=== PATIENT | female | born 1980 | race Caucasian/White ===

== ENCOUNTER 2023-11-29 17:57 | Inpatient (IN) | payer OTHER, SELFPAY ==
[2023-11-29] VITALS (8 sets, daily range): BP systolic 115–176; BP diastolic 90–120; PULSE 81–220; RESP 15–22; TEMP 36.9–37; O2SAT 97–99
--- NOTE | ~2023-11-29 | XR_ITS ---
EXAMINATION: XR CHEST CLINICAL INFORMATION: Rapid afib COMPARISON: Chest xray on 06/24/2020 TECHNIQUE: Frontal view of the chest was obtained. FINDINGS: The cardiac silhouette is normal. There is mild diffuse bronchial wall thickening. There are no areas of consolidation. There are no pleural effusions or pneumothoraces. The bones and soft tissues are unremarkable for the patient's age. XR/XR chest 1V IMPRESSION: Bronchial wall thickening may be infectious and/or inflammatory in etiology.
--- NOTE | 2023-11-29 17:59 | ECG_ITS ---
Test Reason : ARRHYTHMIA Blood Pressure : / mmHG Vent. Rate : 201 BPM Atrial Rate : 000 BPM P-R Int : 000 ms QRS Dur : 056 ms QT Int : 216 ms P-R-T Axes : 000 020 116 degrees QTc Int : 395 ms Atrial fibrillation with rapid ventricular response Low voltage QRS Nonspecific ST and T wave abnormality Abnormal ECG When compared with ECG of 24-JUN-2020 09:45, Atrial fibrillation has replaced Sinus rhythm Vent. rate has increased BY [address] now depressed in Anterior leads T wave inversion no longer evident in Inferior leads Nonspecific T wave abnormality now evident in Lateral leads Referred By: Soraya Alvarado Electronically Signed By:FAITH ASKEW MD
--- NOTE | 2023-11-29 18:37 | ECG_ITS ---
Test Reason : SVT Blood Pressure : / mmHG Vent. Rate : 157 BPM Atrial Rate : 000 BPM P-R Int : 000 ms QRS Dur : 062 ms QT Int : 266 ms P-R-T Axes : 000 026 057 degrees QTc Int : 430 ms Atrial fibrillation with rapid ventricular response with premature ventricular or aberrantly conducted complexes Low voltage QRS Abnormal ECG When compared with ECG of 29-NOV-2023 18:08, Nonspecific T wave abnormality no longer evident in Lateral leads Vent. rate has decreased Referred By: Stephanie Lane Electronically Signed By:FAITH ASKEW MD
--- NOTE | 2023-11-29 18:38 | ECG_ITS ---
Test Reason : SVT Blood Pressure : / mmHG Vent. Rate : 131 BPM Atrial Rate : 000 BPM P-R Int : 000 ms QRS Dur : 070 ms QT Int : 274 ms P-R-T Axes : 000 024 029 degrees QTc Int : 404 ms Atrial fibrillation with rapid ventricular response Low voltage QRS Abnormal ECG When compared with ECG of 29-NOV-2023 18:31, No significant change was found Referred By: Stephanie Lane Electronically Signed By:FAITH ASKEW MD
[2023-11-29 18:41] LABS: MANUAL DIFF FLAG NO
[2023-11-29] MEDS: Metoprolol Tartrate 12.5 MG HALFTAB PO (18:43)
[2023-11-29] MEDS: Metoprolol Tartrate 5 MG/5 ML VIAL 10 MG IVPUSH (18:44)
[2023-11-29] MEDS: Adenosine 6 MG/2 ML VIAL IVPUSH (18:44)
[2023-11-29 18:45] LABS: Basophils Absolute Auto 0.1 X10*3/uL (0.0-0.2); Basophils Percent Auto 0.7 % (0-2); Eosinophils Absolute Auto 0.2 X10*3/uL (0.0-0.4); Eosinophils Percent Auto 1.9 % (0-4); Hematocrit 46.9 % (37.0-47.0); Hemoglobin 16.4 g/dl (12.0-16.0); Imm Gran Abs Auto 0.03 X10*3/uL (0.00-0.03); Imm Gran Pct Auto 0.3 % (0.0-0.4); Lymphocytes Percent Auto 33.4 % (20-40); Mean Corpuscular Hemoglobin 30.4 pg (27.0-33.0); Mean Platelet Volume 9.8 fL (9.4-12.3); Monocytes Absolute Auto 0.9 X10*3/uL (0.1-1.2); Monocytes Percent Auto 7.9 % (2-11); Neutrophils Absolute Auto 6.6 x10*3/uL (2.0-8.3); Neutrophils Percent Auto 55.8 % (45-73); Platelet Count 248 X10*3/uL (160-400); Red Blood Count 5.39 X10*6/uL (4.20-5.50); Red Cell Distribution Width 12.7 % (11.0-16.0); White Blood Count 11.9 X10*3/uL (4.8-10.8)
[2023-11-29] MEDS: Adenosine 6 MG/2 ML VIAL 12 MG IVPUSH ×2 (18:45→18:46)
[2023-11-29] MEDS: Metoprolol Tartrate 5 MG/5 ML VIAL IVPUSH (18:45)
[2023-11-29 18:56] LABS: INTERNATIONAL NORM RATIO 0.9 (0.9-1.1); Prothrombin Time 11.4 SEC (11.1-13.3)
--- NOTE | 2023-11-29 19:11 | ED_ITS ---
HPI - Arrhythmia/Palpitations General Chief Complaint: Arrhythmia/Palpitations Stated Complaint: arrhythmia, chest pain, dizziness Time Seen by Provider: 11/29/23 18:10 Source: patient Mode of arrival: ambulatory History of Present Illness HPI narrative: 43-year-old female comes in stating that she has been feeling off since Saturday, has a significant history of Graves disease recently had lab work which demonstrated a TSH within normal limits. She states that while at work today she began to feel a fluttering in her chest which she attributes to when her heart rate starts to go up. She reports that she did feel somewhat lightheaded but now is feeling fine and denies any shortness of breath and denies any recent illnesses with fever, chills, nausea, vomiting. Related Data Allergies Allergy/AdvReac Type Severity Reaction Status Date / Time ibuprofen [IBUPROFEN] Allergy Unknown RASH Verified 11/29/23 18:41 morphine [MORPHINE] Allergy Unknown UNKNOWN Verified 11/29/23 18:41 moxifloxacin [MOXIFLOXACIN] Allergy Unknown UNKNOWN Verified 11/29/23 18:41 naproxen [Aleve] Allergy Unknown Rash Verified 11/29/23 18:41 penicillin V Allergy Unknown Rash Verified 11/29/23 18:41 Penicillins [PENICILLINS] Allergy Unknown RASH Verified 11/29/23 18:41 Sulfa (Sulfonamide Allergy Unknown RASH Verified 11/29/23 18:41 Antibiotics) [SULFA(SULFONAMIDE ANTIBIOTICS)] From ALEVE Allergy Unknown UNKNOWN Uncoded 11/29/23 18:41 From BENADRYL Allergy Unknown RASH Uncoded 11/29/23 18:41 Review of Systems 2 Review of Systems: Pertinent positives and negatives as stated in HPI PMFSH Past Medical History Source: nursing notes reviewed Onset Date is defined in the Problem List Problems that require an onset date and time if occurred within 24 hrs of arrival to the ED Aortic Dissection and Rupture; Neurologic impairment; Cardiopulmonary Arrest; Endotracheal Intubation; Insertion or Replacement of Mechanical Circulatory Assist Device Social History Social History Smoked in Last 30 Days: No Use of substances other than those prescribed or required for medical reasons: Yes Substance Use Type: Marijuana Substance Use Frequency: Chronic Longstanding Advance Directives: No Advance Directives Information Provided: No Patient : No Physical Exam 2 Vital Signs: Vital Signs: Last Vital Signs Temp 98.6 F 11/29/23 20:06 Pulse 122 H 11/29/23 20:46 Resp 20 11/29/23 20:46 BP 117/98 H 11/29/23 20:46 Pulse Ox 98 11/29/23 20:46 O2 Del Method Nasal Cannula 11/29/23 20:46 O2 Flow Rate 2 11/29/23 20:46 BMI result Body Mass Index 0.0 VITAL SIGNS: Reviewed. GENERAL: Well developed, well nourished, in no acute distress. HEAD: Normocephalic/atraumatic, hair thinning noted EYES: PERRLA, EOMI, exophthalmos EARS: Ext canals without abnormality NOSE: Nares patent bilateral OROPHARYNX: no oral lesions noted, posterior pharynx clear NECK: Supple, no adenopathy LUNGS: Normal breath sounds. No adventitious sounds or accessory muscle use. SpO2<97> CARDIOVASCULAR: Regular rate and rhythm without noted murmurs ABDOMEN: Soft, non-tender, non-distended with bowel sounds. MUSCULOSKELETAL: No tenderness, deformities, or effusions noted on gross inspection. EXTREMITIES: No cyanosis, clubbing or edema. SKIN: Inspection of the skin reveals no rashes NEUROLOGIC: Alert and oriented x 4. Strength and sensation to light touch were grossly intact x 4. Medications Administered Generic Name Dose Route Start Last Admin Trade Name Freq PRN Reason Stop Dose Admin Diltiazem HCl 125 mg/ Sodium 125 mls @ 0 mls/hr 11/29/23 19:45 11/29/23 20:32 Chloride IVCONT 15 mg/hr .Q0M CHIOMA 15 mls/hr Titration Protocol Per Protocol Discontinued Medications Generic Name Dose Route Start Last Admin Trade Name Freq PRN Reason Stop Dose Admin Adenosine 6 mg 11/29/23 18:35 11/29/23 18:44 Adenosine 6 Mg/2 Ml Vial IVPUSH 11/29/23 18:36 6 mg STAT STA Administration Adenosine 12 mg 11/29/23 18:36 11/29/23 18:45 Adenosine 6 Mg/2 Ml Vial IVPUSH 11/29/23 18:37 12 mg ONCE ONE Administration Adenosine 12 mg 11/29/23 18:36 11/29/23 18:46 Adenosine 6 Mg/2 Ml Vial IVPUSH 11/29/23 18:37 12 mg ONCE ONE Administration Apixaban 5 mg 11/29/23 20:26 11/29/23 20:31 Apixaban 5 Mg Tablet PO 11/29/23 20:27 5 mg ONCE ONE Administration Metoprolol Tartrate 12.5 mg 11/29/23 18:36 11/29/23 18:43 Metoprolol Tartrate 12.5 Mg Halftab PO 11/29/23 18:37 12.5 mg ONCE ONE Administration Protocol Metoprolol Tartrate 10 mg 11/29/23 18:36 11/29/23 18:44 Metoprolol Tartrate 5 Mg/5 Ml Vial IVPUSH 11/29/23 18:37 10 mg ONCE ONE Administration Metoprolol Tartrate 5 mg 11/29/23 18:37 11/29/23 18:45 Metoprolol Tartrate 5 Mg/5 Ml Vial IVPUSH 11/29/23 18:38 5 mg ONCE ONE Administration Propranolol HCl 10 mg 11/29/23 20:20 11/29/23 20:31 Propranolol Hcl 10 Mg Tablet PO 11/29/23 20:21 10 mg ONCE ONE Administration Protocol Medical Decision Making Medical Decision Making MDM Narrative: 23-year-old female with history and clinical presentation that appears to be consistent with SVT, blood pressure stable and as a matter fact is quite elevated. Patient immediately placed on cardiac monitoring and connected to an EKG with immediate IV access. - 6 mg adenosine administered without significant affect, patient remains hemodynamically stable - 12 mg adenosine administered without significant affect, patient remains hemodynamically stable. - 12 mg adenosine administered without significant effect patient remains hemodynamically stable. Will try beta blockade with a medication that has longer half-life - 10 mg Lopressor administered with good affect, blood pressure remains stable. Heart rate still in the 120s to 130s, questionable sinus rhythm with PACs - 5 mg Lopressor administered in addition to 12.5 mg p.o. with good effect Repeat EKG looks like a-fib/RVR 1916: I discussed the case with Cardiology and communicated the unlikely harding of thyroid storm given the fact that patient does not currently have a thyroid and has been stable on exogenous Synthroid for a while. Recommendation at this time is to initiate Cardizem drip and treat with oral Inderal. 2026: Patient stable, on Cardizem drip, will start Eliquis, receiving Inderal 10mg. Reviewed all investigations and hematologic indices demonstrates a non infectious leukocytosis, patient is afebrile and there is a noted elevation of hemoglobin which appears to be chronic and no thrombocytopenia. Coagulation studies are within normal limits. Chemistry disease are grossly within normal limits without evidence of TOLU or electrolyte/liver enzyme derangements. TSH- 3.28, free T4-1.19, T3 is a send out and due to the holidays will take approximately 5-7 days to result. 2036: I discussed case with inpatient hospitalist who accepts admission. Differential Diagnosis Differential Diagnoses: The differential diagnosis associated with the presentation includes Please see the discussion above Admission/Observation Consideration of admission/observation: Escalation of care including admission/observation considered Please see the discussion above Consult Healthcare Provider Management of the patient was discussed with: Hospitalist and [employer] Mechanic Please see the discussion above Lab Data MDM Lab Attestation statement: I reviewed the patient's lab results. Please see the discussion above 11/29/23 18:34 11/29/23 18:34 Labs: Lab Results 11/29/23 11/29/23 11/29/23 Range/Units 18:34 18:36 20:33 WBC 11.9 H (4.8-10.8) X10*3/uL RBC 5.39 (4.20-5.50) X10*6/uL Hgb 16.4 H (12.0-16.0) g/dl Hct 46.9 (37.0-47.0) % MCV 87.0 (80.0-98.0) fL MCH 30.4 (27.0-33.0) pg MCHC 35.0 (31.0-35.0) g/dl RDW 12.7 (11.0-16.0) % Plt Count 248 (160-400) X10*3/uL MPV 9.8 (9.4-12.3) fL Immature Gran % (Auto) 0.3 (0.0-0.4) % Neut % (Auto) 55.8 (45-73) % Lymph % (Auto) 33.4 (20-40) % [place] % (Auto) 7.9 (2-11) % Eos % (Auto) 1.9 (0-4) % Baso % (Auto) 0.7 (0-2) % Lymph # (Auto) 4.0 (1.2-4.9) X10*3/uL [place] # (Auto) 0.9 (0.1-1.2) X10*3/uL Eos # (Auto) 0.2 (0.0-0.4) X10*3/uL Baso # (Auto) 0.1 (0.0-0.2) X10*3/uL Abs Immat Gran (auto) 0.03 (0.00-0.03) X10*3/uL Absolute Neuts (auto) 6.6 (2.0-8.3) x10*3/uL Absolute Nucleated RBC 0.000 (0.0-0.012) X10*3/uL Nucleated RBC % (auto) 0.0 (0.0-0.2) /100WBC Hold Purple Top SEE NOTE PT 11.4 (11.1-13.3) SEC INR 0.9 (0.9-1.1) Sodium 139 (135-145) mmol/L Potassium 3.4 (3.3-5.1) mmol/L Chloride 105 (96-108) mmol/L Carbon Dioxide 23 (22-29) mmol/L Anion Gap 14 (12-20) BUN 14 (9-16) mg/dL Creatinine 0.78 (0.5-1.4) mg/dL Estim Creat Clear Calc TNP Estimated GFR > 60 Random Glucose 113 (60-115) mg/dL Calcium 9.6 (8.4-10.2) mg/dL Total Bilirubin 0.5 (0.0-1.0) mg/dL AST 18 (5-31) U/L ALT 19 (0-31) U/L Alkaline Phosphatase 61 (39-117) U/L Total Protein 7.7 (6.5-8.0) g/dL Albumin 4.3 (3.5-5.0) g/dL TSH 3.28 (0.32-4.0) uIU/mL Free T4 1.19 (0.71-1.85) ng/dL Hold Red Top See Note Urine Color Yellow Urine Appearance Clear Urine pH 7.0 (5.0-9.0) Ur Specific [place] <= 1.005 (1.005-1.025) Urine Protein Negative (Neg-Trace) mg/dL Urine Glucose (UA) Negative (Negative) mg/dL Urine Ketones Negative (Negative) mg/dL Urine Blood Negative (Negative) Urine Nitrite Negative (Negative) Ur Leukocyte Esterase Small (1+) H (Negative) COVID-19 (CLYED) Negative (Negative) COVID-19 Clin Com See Note Influenza Type A (ABDELRAHMAN) Negative (Negative) Influenza Type B (ABDELRAHMAN) Negative (Negative) Influenza A & B Note See Note Independent Interpretation I performed an independent interpretation of an: EKG Interpretation: 1808: Suspect SVT, HR-201, possibility remains of atrial fibrillation with RVR, no STEMI, QRS/QTC is within normal limits. 183: SVT with what appears to be PACs, HR-157, possibility of atrial fibrillation with RVR, QRS/QTC is within normal limits, no noted STEMI. 1909: atrial fibrillation with RVR, HR-131, no STEMI, QRS/QTC is within normal limits. External Record Review External record reviewed: Outpatient record, Prior outpatient labs and Prior outpatient radiology Chronic Conditions Patient?s care impacted by: Brisa Benedict Critical Care Time Critical Care Time Critical Care Time: Yes Total Critical Care Time: 120 Attestation: I personally attest to this time spent taking care of the patient. Discharge Plan Discharge Clinical Impression: New onset atrial fibrillation, Atrial fibrillation with RVR Patient Disposition: Admitted As Inpatient
[2023-11-29 19:16] LABS: Alanine Aminotransferase 19 U/L (0-31); Albumin Level 4.3 g/dL (3.5-5.0); Alkaline Phosphatase 61 U/L (39-117); Anion Gap 14 (12-20); Aspartate Amino Transferase 18 U/L (5-31); Bilirubin Total 0.5 mg/dL (0.0-1.0); Blood Urea Nitrogen 14 mg/dL (9-16); Calcium 9.6 mg/dL (8.4-10.2); Carbon Dioxide 23 mmol/L (22-29); Chloride 105 mmol/L (96-108); Estimated Glomerular Filt Rate > 60; Glucose Random 113 mg/dL (60-115); Potassium 3.4 mmol/L (3.3-5.1); Sodium 139 mmol/L (135-145); Total Protein 7.7 g/dL (6.5-8.0)
[2023-11-29 19:27] LABS: COVID-19 Test Negative (Negative); IDNOW Serial# 08D9AD1C; IDNOW Serial# 152EDE1D; Influenza A Negative (Negative); Influenza B2 Negative (Negative)
[2023-11-29 19:31] LABS: Free T4 (Free Thyroxine) 1.19 ng/dL (0.71-1.85); Thyroid Stimulating Hormone 3.28 uIU/mL (0.32-4.0)
[2023-11-29] MEDS: dilTIAZem HCL 125 MG in 0.9 % Sodium Chloride 100 ML 10 MG IVCONT (19:57)
--- NOTE | 2023-11-29 20:07 | MHC.EDTECH ---
This tech took over care of patient at 1900, hourly rounds and vitals completed,HR high 133 and BP elevated 133/100, Angel RN and aware.
[2023-11-29] MEDS: Propranolol HCL 10 MG TABLET PO (20:31)
[2023-11-29] MEDS: Apixaban 5 MG TABLET PO (20:31)
--- NOTE | 2023-11-29 20:34 | MHC.EDTECH ---
Patient got up to commode with a steady gait, patient urinated 800MLS, Urine sample collected and sent to lab.
[2023-11-29 20:41] LABS: Appearance Urine Clear; Color Urine Yellow; Glucose Urine UA Negative (Negative); Leukocyte Esterase Urine Small (1+) (Negative); Nitrite Urine Negative (Negative); Specific Gravity - Urine <= 1.005 (1.005-1.025); UMIC TRIGGER UACC YES; Urine Blood Negative (Negative); Urine Ketones Negative (Negative); Urine Protein Negative (Neg-Trace)
[2023-11-29 20:48] LABS: Bacteria Urine 1+ (None Seen); Hyaline Casts Urine 0-2 /LPF (0-2); RBC Urine 0-2 /HPF (0-2); Squamous Epithelial Cell Urine 0-2 /HPF (0-2); UACC Culture Trigger YES; WBC Urine 0-5 /HPF (0-5)
--- NOTE | 2023-11-29 21:44 | PHA.MEDREC ---
Pharmacy Consult ? Medication Reconciliation Pharmacy has completed the medication reconciliation.Patient reported medication. Pt reported propanolol QD Wendy Shafer printing supplies sales representative
[2023-11-29] MEDS: LORazepam 1 MG TABLET PO (22:31)
--- NOTE | 2023-11-29 22:31 | MHC.EDTECH ---
Hourly rounds and vitals completed,belonging list completed and copy placed in chart. Patient was giving a turkey sandwich. Call garcia in reach
[2023-11-30] VITALS (8 sets, daily range): BP systolic 93–111; BP diastolic 61–77; PULSE 55–100; RESP 16–20; TEMP 36.4–37.6; O2SAT 96–98; BMI 34.4
--- NOTE | 2023-11-30 00:06 | PC.NURSE ---
Pt HR maintaining in 70-80 range, per MD Torin Smart, pausing drip.
--- NOTE | 2023-11-30 00:59 | MHC.EDTECH ---
Hourly rounds and vitals completed,Patient urinated a large amount in commode.
--- NOTE | 2023-11-30 02:08 | P.HPHOSP_ITS ---
History of Present Illness Date of Service: 11/29/23 Attending physician on admission: Earl Smart Chief Complaint: Tachycardia Ann Anderson is a 43 years old woman with past medical history significant for Graves disease s/p thyroidectomy (2008) on hormonal replacement and propranolol, hospitalization due to thyroid storm, GERD and anxiety presents to the emergency department after she noted to have significant tachycardia since last Saturday (highest 150 15:00). She detected a tachycardia using her Apple watch. She does complain of palpitations, shortness of breath with exertion, chest heaviness and dizziness. She also complained of feeling anxious. She has been taking lorazepam recently as needed for this anxiety. She denied any acute gastrointestinal symptom. She denied urination or hematuria. She denied tobacco smoking, alcohol abuse or illicit drug use. Smokes marijuana and occasions. In the ED, she was found to have tachycardia consistent with atrial fibrillation with RVR. Blood pressure is normal. Blood workup is remarkable for leukocytosis of 11.9. There are no electrolyte imbalances. Renal function is normal. LFTs are normal. TSH is 3.28 and free T4 1.19. Testing for influenza a COVID-19 are negative. ECG showed atrial fibrillation with rapid ventricular response (heart rate 131 bpm) w/o ischemic changes. ED tx: Adenosine 12, 12 and 6 IV, Eliquis 5 mg p.o., diltiazem IV infusion, metoprolol 12.5 mg, 5 mg, 10 mg IV and propranolol 10 mg. Review of Systems 2 Review of Systems: All 12 systems were reviewed and normal except as noted in HPI. [facility] Medical History (Updated 11/30/23 @ 02:34 by Earl Smart MD) Anxiety GERD (gastroesophageal reflux disease) Graves disease Surgical History (Updated 11/30/23 @ 02:14 by Earl Smart MD) H/O eye surgery History of ankle surgery S/P appy S/P thyroidectomy Social History Household Members: Spouse Housing: House Do you presently have visiting nurse or other home services: No Patient Tobacco Use Status: Never used Tobacco Smoked in Last 30 Days: No Use of substances other than those prescribed or required for medical reasons: Yes Substance Use Type: Marijuana Substance Use Frequency: Monthly Currently Displaying Signs/Symptoms of Drug Intoxication Withdrawal: No Any prior treatment program specific to substance use: No Have you been hit, kicked, punched, or otherwise hurt by someone within the past year? If so, by whom?: No Do you feel safe in your current relationship?: Yes Is there a partner from a previous relationship who is making you feel unsafe now?: No Are you made to feel afraid or neglected: No Advance Directives: No Advance Directives Information Provided: No Do you have thoughts of harming others: None Do you have a plan to hurt others: No Plan Recently lost weight without trying: No Nutrition Risks: No Nutritional Risk Patient : No Meds Allergies Allergy/AdvReac Type Severity Reaction Status Date / Time ibuprofen [IBUPROFEN] Allergy Unknown RASH Verified 11/29/23 18:41 morphine [MORPHINE] Allergy Unknown UNKNOWN Verified 11/29/23 18:41 moxifloxacin [MOXIFLOXACIN] Allergy Unknown UNKNOWN Verified 11/29/23 18:41 naproxen [Aleve] Allergy Unknown Rash Verified 11/29/23 18:41 penicillin V Allergy Unknown Rash Verified 11/29/23 18:41 Penicillins [PENICILLINS] Allergy Unknown RASH Verified 11/29/23 18:41 Sulfa (Sulfonamide Allergy Unknown RASH Verified 11/29/23 18:41 Antibiotics) [SULFA(SULFONAMIDE ANTIBIOTICS)] From ALEVE Allergy Unknown UNKNOWN Uncoded 11/29/23 18:41 From BENADRYL Allergy Unknown RASH Uncoded 11/29/23 18:41 Active Medications: Current Medications Acetaminophen (Acetaminophen 325 Mg Tablet) 975 mg PO Q6H PRN PRN Reason: Pain, Mild (Pain Scale 1-3) Apixaban (Apixaban 5 Mg Tablet) 5 mg PO BID [facility] Diltiazem HCl 125 mg/ Sodium (Chloride) 125 mls @ 0 mls/hr IVCONT .Q0M [facility]; Protocol Last Titration: 11/30/23 00:06 Dose: 0 mg/hr, 0 mls/hr Levothyroxine Sodium (Levothyroxine Sodium 175 Mcg Tablet) 175 mcg PO DAILY@0600 [facility] Omeprazole (Omeprazole 20 Mg Capsule.Dr) 20 mg PO BID@0630,1630 [facility] Propranolol HCl (Propranolol Hcl 20 Mg Tablet) 20 mg PO TID [facility]; Protocol Sodium Chloride (0.9 % Sodium Chloride Flush 3 Ml Syringe) 3 ml IVFLUSH QSHIFT [facility] Last Admin: 11/30/23 00:12 Dose: Not Given Home Medications Medication Instructions Recorded Confirmed Last Taken Type levothyroxine 175 mcg tablet 175 mcg PO DAILY 11/29/23 11/29/23 11/29/23 History lorazepam 0.5 mg tablet 0.5 mg PO Q6H PRN anxiety 11/29/23 11/29/23 Unknown History omeprazole 20 mg capsule,delayed 20 mg PO BID 11/29/23 11/29/23 11/29/23 History release propranolol 20 mg tablet 20 mg PO DAILY 11/29/23 11/29/23 11/28/23 History Physical Exam 2 Vital Signs and Narrative: Vital Signs: Last Vital Signs Temp 98.4 F 11/30/23 00:54 Pulse 78 11/30/23 00:54 Resp 18 11/30/23 00:54 BP 99/71 11/30/23 00:54 Pulse Ox 98 11/30/23 00:54 O2 Del Method Room Air 11/30/23 00:54 O2 Flow Rate 2 11/29/23 21:01 BMI result Body Mass Index 34.4 Constitutional - Awake and Alert, No apparent distress. . HEENT - Normocephalic. Atraumatic. Cardiovascular - irregular rhythm. Tachycardia. No murmur. Respiratory - Normal lung expansion, Normal respiratory effort, No respiratory distress, CTA bilaterally Gastrointestinal - NT / ND; +BS; No rebound or guarding Extremities - No calf tenderness bilaterally, no swelling Musculoskeletal - Normal inspection, normal ROM Skin - Warm/Dry Neurological - Alert & oriented x3. Psychological - Appropriate affect. Results Labs 11/29/23 18:34 11/29/23 18:34 Labs: Laboratory Results - last 24 hr 11/29/23 11/29/23 11/29/23 18:34 18:36 20:33 MCV 87.0 MCH 30.4 MCHC 35.0 RDW 12.7 Plt Count 248 MPV 9.8 Immature Gran % (Auto) 0.3 Neut % (Auto) 55.8 Lymph % (Auto) 33.4 [place] % (Auto) 7.9 Eos % (Auto) 1.9 Baso % (Auto) 0.7 Lymph # (Auto) 4.0 [place] # (Auto) 0.9 Eos # (Auto) 0.2 Baso # (Auto) 0.1 Abs Immat Gran (auto) 0.03 Absolute Neuts (auto) 6.6 Absolute Nucleated RBC 0.000 Nucleated RBC % (auto) 0.0 Hold Purple Top SEE NOTE PT 11.4 INR 0.9 Anion Gap 14 Estim Creat Clear Calc TNP Estimated GFR > 60 Random Glucose 113 Calcium 9.6 Total Bilirubin 0.5 AST 18 ALT 19 Alkaline Phosphatase 61 Total Protein 7.7 Albumin 4.3 TSH 3.28 Free T4 1.19 Hold Red Top See Note Urine Color Yellow Urine Appearance Clear Urine pH 7.0 Ur Specific [place] <= 1.005 Urine Protein Negative Urine Glucose (UA) Negative Urine Ketones Negative Urine Blood Negative Urine Nitrite Negative Ur Leukocyte Esterase Small (1+) H Urine RBC 0-2 Urine WBC 0-5 Ur Squamous Epith Cells 0-2 Urine Bacteria 1+ Hyaline Casts 0-2 COVID-19 (CLYDE) Negative COVID-19 Clin Com See Note Influenza Type A (ABDELRAHMAN) Negative Influenza Type B (ABDELRAHMAN) Negative Influenza A & B Note See Note Assessment and Plan (1) Atrial fibrillation with RVR: Status: Acute (2) Graves disease: Status: Acute Plan Ann Anderson is a 43 years old woman admitted with: * Atrial fibrillation with rapid ventricular response. Thyroid function is normal. Admit to hospitalist service. Telemetry. In the interim of this hospitalization we were able to discontinue diltiazem infusion. Change propranolol to 20 mg p.o. t.i.d. start Eliquis 5 mg p.o. b.i.d. Will obtain echocardiogram and CXR. Cardiology consult for further recommendations. * Graves disease s/p thyroidectomy. Continue levothyroxine and propranolol. * Anxiety. Lorazepam as needed. * GERD. Continue omeprazole. * DVT prophylaxis: Eliquis. Code status: Full. Patient will need hospitalization for at least 2 midnight for atrial fibrillation treatment. She will need rate control agents, imaging including echo and x-ray as well as specialty consult. Quality Stroke Does the patient have a stroke diagnosis?: No VTE Prior VTE?: No VTE Risk Level:: Medical - moderate - high VTE Device Contraindication: Treatment Not Indicated VTE Drug Contraindication: N/A - Med Ordered
[2023-11-30] MEDS: Propranolol HCL 20 MG TABLET PO ×4 (02:13→21:11)
[2023-11-30] MEDS: Omeprazole 20 MG CAPSULE.DR PO ×2 (05:45→16:48)
[2023-11-30] MEDS: Levothyroxine Sodium 175 MCG TABLET PO (05:45)
--- NOTE | 2023-11-30 06:00 | CA_ITS ---
Transthoracic Echocardiogram Patient (Last, First, Middle): Ann Anderson E Gender: Female Date of : 1980 Age: 43 Procedure Date: 11/30/2023 Procedure Type: Transthoracic Echocardiogram Location: [facility] [place] Height: 180.34 cm Weight: 111.59 kg BSA: 2.30 m2 Heart Rate: bpm BP: 108 / 74 mmHg Proposal Development Manager: SNOW Referring MD: Earl Smart MD Clubhouse Attendant: Daniel Bland MD Symptoms: Atrial fib with RVR Study Quality: Adequate with contrast ECG Rhythm: Atrial Fibrillation Conclusions: - Essentially normal study Findings Procedure Information Contrast agent, definity, is being given per protocol without apparent complications. Left Ventricle Normal left ventricular size, thickness, and systolic function. Diastolic function is indeterminate on the basis of available data. Right Ventricle Normal right ventricular cavity size and systolic function. Atria The left atrium is likely dilated. There is no evidence of interatrial shunt. The right atrium is likely dilated. Aortic Valve Normal aortic valve structure and function. There is no aortic valve stenosis. There is no aortic valve regurgitation. Mitral Valve Normal mitral valve structure and function. There is no mitral valve regurgitation. There is no mitral valve stenosis. Pulmonic Valve The pulmonic valve is likely normal. Tricuspid Valve Normal tricuspid valve structure. There is trace tricuspid valve regurgitation. The right ventricular systolic pressure is normal. The right ventricular systolic pressure is 15 mmHg. Normal right atrial pressure. There is no evidence of pulmonary hypertension. Great Vessels All visible segments of the aorta are normal in size. The pulmonary artery was not well visualized. Venous The inferior vena cava is normal in size and collapses greater than 50% with inspiration. Pericardium/Pleural There is no evidence of pericardial effusion. Prior Study Comparison No prior study available for comparison. Measurements 2D Linear Measurements IVSd: 1.02 0.6-0.9/0.6-1.0 cm LVIDd: 4.95 3.9-5.3/4.2-5.9 cm LVIDd Index: 2.15 2.4-3.2/2.2-3.1 cm/m2 LVIDs: 3.15 2.0-3.6 cm LVPWd: 0.95 0.7-1.1 cm LA Diam: 4.60 2.7-3.8/3.0-4.0 cm LAIDs Index: 2.00 1.5-2.3 cm/m2 LV Mass: 218.94 67-162/88-224 g LV Mass Index: 95.19 43-95/49-115 g/m2 LVOT Diam: 2.30 3.0+(-)1.3 cm 2D Systolic Function EF 4C: 65.30 >55% EF 2C: 56.40 >55% EF BiP: 59.60 >55% Mitral Valve MV Pk E: 1.09 MV Decel Time: 177.00 E'Lateral: 12.60 E'Medial: 9.25 E/E' Med: 11.80 E/E' Lat: 8.70 PHT: 52.00 MVA PHT: 4.23 Decel [place]: 6.58 Aortic Valve AoV Pk Alfredo: 1.00 AoV Pk Grad: 4.00 YASMIN: 3.87 LVOT LVOT Pk Alfredo: 0.93 LVOT Pk Grad: 3.00 LVOT Diam: 2.30 LVOT Area: 4.15 Diastolic Function MV Pk E: 1.09 E'Medial: 9.25 E/E' Med: 11.80 E' Laterial: 12.60 E/E' Lat: 8.70 Right Ventricle TAPSE (mm): 20.90 TVS' Alfredo: 8.81 Tricuspid Valve TR Pk Alfredo: 1.35 TR Pk Grad: 7.00 RA Press: 8.00 RVSP: 15.00 Great Vessels Aorta Sinus of Valsalva: 4.10 2.0-3.[address] [place]: 2.75 1.7-3.4 cm Ao Asc: 3.60 2.1-3.4 cm Ao Arch: 3.20 Updated in Other Vendor System with Status of Final Daniel Bland MD electronically signed on 12/01/2023 10:12:05 AM with status of Final
[2023-11-30 06:45] LABS: Alanine Aminotransferase 16 U/L (0-31); Albumin Level 3.7 g/dL (3.5-5.0); Alkaline Phosphatase 55 U/L (39-117); Anion Gap 9 (12-20); Aspartate Amino Transferase 13 U/L (5-31); Bilirubin Total 0.5 mg/dL (0.0-1.0); Blood Urea Nitrogen 11 mg/dL (9-16); Calcium 8.8 mg/dL (8.4-10.2); Carbon Dioxide 23 mmol/L (22-29); Chloride 111 mmol/L (96-108); Creatinine Clr Calc Pharmacy 139.6; Estimated Glomerular Filt Rate > 60; Glucose Random 83 mg/dL (60-115); Potassium 3.8 mmol/L (3.3-5.1); Sodium 139 mmol/L (135-145); Total Protein 6.5 g/dL (6.5-8.0)
[2023-11-30 08:52] LABS: Magnesium 2.1 mg/dL (1.6-2.6)
[2023-11-30] MEDS: Apixaban 5 MG TABLET PO ×2 (08:53→21:11)
[2023-11-30] MEDS: dilTIAZem HCL 125 MG in 0.9 % Sodium Chloride 100 ML 10 MG IVCONT (08:54)
[2023-11-30] MEDS: 0.9 % Sodium Chloride Flush 3 ML SYRINGE IVFLUSH ×2 (08:54→16:49)
--- NOTE | 2023-11-30 09:50 | PM.CNCAR ---
History of Present Illness History of Present Illness Date of Service: 11/30/23 Requesting physician: Derek Polanco Consult reason: atrial fibrillation Chief complaint: atrial fibrillation with RVR Narrative: I was consulted to see Chrissy in cardiology consultation today for atrial fibrillation rapid ventricular response. 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 Patient since then has been on thyroid replacement therapy. In 2008 when she had her thyroid storm she had atrial fibrillation rapid heart rate which require treatment at that point time. Subsequently intermittently she has had palpitations the last year which was related to thyroid replacement therapy. Her thyroid replacement therapy was then adjusted and a palpitation at resolved. However no repeat diagnose of atrial fibrillation was made since 2008. She since last Saturday after started noticing palpitations. She felt that this might be related to a thyroid and call the primary care physician ordered a thyroid test and her TSH was within normal limits. She continues to have symptoms which showed waxing and waning and they were not severe Saturday. High by as symptoms remain persistent and she had significant palpitations and then came to the hospital yesterday. She was noted to be in rapid heart rate up to 250 beats per minute and was noted to be in subsequently in atrial fibrillation. She was started on IV Cardizem drip and Inderal. Her T4-3 3 were within normal limits. She remains symptomatic although symptoms have improved overnight. Her Cardizem drip was withheld last night when heart rate was controlled. This morning heart rate is up to 140 beats per minute again. She denies any palpitation at this point time. Denies any heart failure symptoms. Denies any chest pain. No lightheadedness, syncope. Blood pressure is significantly elevated yesterday as well. Her blood pressure is better controlled at this point in time. She does attest to significant snoring at nighttime and daytime somnolence. She has never been officially diagnosed with sleep apnea as she says home sleep study was inconclusive. She also says she has a dad with atrial fibrillation since age of 22 Review of Systems Constitutional: Constitutional: Reports no additional constitutional complaints Cardiovascular: Cardiovascular: Denies chest pain, Denies syncope, Denies leg edema, Denies lightheadedness, Denies Loss of Consciousness, Reports palpitations and Denies dyspnea Respiratory: Respiratory: Reports no additional respiratory complaints and Denies dyspnea Gastrointestinal: Gastrointestinal: Reports no additional gastrointestinal complaints Genitourinary: Genitourinary: Reports no additional female genitourinary complaints Neurologic: Reports system reviewed and no additional complaints, except as documented and Denies syncope Endocrine: Endocrine: Reports no additional endocrine complaints and Reports palpitations PMFSH Past Medical History Medical History Anxiety GERD (gastroesophageal reflux disease) Graves disease Surgical History Surgical History H/O eye surgery History of ankle surgery S/P appy S/P thyroidectomy Social History Social History Household Members: Spouse Housing: House Do you presently have visiting nurse or other home services: No Patient Tobacco Use Status: Never used Tobacco Smoked in Last 30 Days: No Use of substances other than those prescribed or required for medical reasons: Yes Substance Use Type: Marijuana Substance Use Frequency: Monthly Currently Displaying Signs/Symptoms of Drug Intoxication Withdrawal: No Any prior treatment program specific to substance use: No Have you been hit, kicked, punched, or otherwise hurt by someone within the past year? If so, by whom?: No Do you feel safe in your current relationship?: Yes Is there a partner from a previous relationship who is making you feel unsafe now?: No Are you made to feel afraid or neglected: No Advance Directives: No Advance Directives Information Provided: No Do you have thoughts of harming others: None Do you have a plan to hurt others: No Plan Recently lost weight without trying: No Nutrition Risks: No Nutritional Risk Patient : No Meds Allergies Allergy/AdvReac Type Severity Reaction Status Date / Time ibuprofen [IBUPROFEN] Allergy Unknown RASH Verified 11/29/23 18:41 morphine [MORPHINE] Allergy Unknown UNKNOWN Verified 11/29/23 18:41 moxifloxacin [MOXIFLOXACIN] Allergy Unknown UNKNOWN Verified 11/29/23 18:41 naproxen [Aleve] Allergy Unknown Rash Verified 11/29/23 18:41 penicillin V Allergy Unknown Rash Verified 11/29/23 18:41 Penicillins [PENICILLINS] Allergy Unknown RASH Verified 11/29/23 18:41 Sulfa (Sulfonamide Allergy Unknown RASH Verified 11/29/23 18:41 Antibiotics) [SULFA(SULFONAMIDE ANTIBIOTICS)] From ALEVE Allergy Unknown UNKNOWN Uncoded 11/29/23 18:41 From BENADRYL Allergy Unknown RASH Uncoded 11/29/23 18:41 Active Medications: Current Medications Acetaminophen (Acetaminophen 325 Mg Tablet) 975 mg PO Q6H PRN PRN Reason: Pain, Mild (Pain Scale 1-3) Apixaban (Apixaban 5 Mg Tablet) 5 mg PO BID [facility] Last Admin: 11/30/23 08:53 Dose: 5 mg Diltiazem HCl 125 mg/ Sodium (Chloride) 125 mls @ 0 mls/hr IVCONT .Q0M [facility]; Protocol Last Admin: 11/30/23 08:54 Dose: 10 mg/hr, 10 mls/hr Levothyroxine Sodium (Levothyroxine Sodium 175 Mcg Tablet) 175 mcg PO DAILY@0600 [facility] Last Admin: 11/30/23 05:45 Dose: 175 mcg Omeprazole (Omeprazole 20 Mg Capsule.Dr) 20 mg PO BID@0630,1630 [facility] Last Admin: 11/30/23 05:45 Dose: 20 mg Propranolol HCl (Propranolol Hcl 20 Mg Tablet) 20 mg PO TID [facility]; Protocol Last Admin: 11/30/23 08:53 Dose: 20 mg Sodium Chloride (0.9 % Sodium Chloride Flush 3 Ml Syringe) [facility] Last Admin: 11/30/23 08:54 Dose: 3 ml Home Medications Medication Instructions Recorded Confirmed Last Taken Type levothyroxine 175 mcg tablet 175 mcg PO DAILY 11/29/23 11/29/23 11/29/23 History lorazepam 0.5 mg tablet 0.5 mg PO Q6H PRN anxiety 11/29/23 11/29/23 Unknown History omeprazole 20 mg capsule,delayed 20 mg PO BID 11/29/23 11/29/23 11/29/23 History release propranolol 20 mg tablet 20 mg PO DAILY 11/29/23 11/29/23 11/28/23 History Physical Exam Vital Signs: Vital Signs: Last Vital Signs Temp 98.0 F 11/30/23 07:33 Pulse 81 11/30/23 07:33 Resp 18 11/30/23 07:33 BP 109/70 11/30/23 07:33 Pulse Ox 98 11/30/23 07:33 O2 Del Method Room Air 11/30/23 07:33 O2 Flow Rate 2 11/29/23 21:01 BMI result Body Mass Index 34.4 Const: General: cooperative, comfortable, no acute distress, alert and awake Nutritional Appearance: obese Orientation/consciousness: patient oriented x3 Limitations: no limitations HEENT: Head: Yes normocephalic and Yes atraumatic Eyes: Other: Bilateral exophthalmos noted Neck: Neck: Yes trachea midline, Yes supple and Yes no JVD Resp: Effort & Inspection: normal respiratory effort Auscultation: clear to auscultation bilaterally Cardio: Jugular venous distension: no JVD Rate: tachycardic Rhythm: abnormal rhythm irregularly irregular Heart sounds: S1 normal heart sound present, S2 normal heart sound present, no click, no gallops, no murmurs and no rubs Peripheral pulses: Peripheral pulses 2+ throughout GI: Auscultation: normal bowel sounds Skin: General skin exam: no rashes or lesions noted Neuro: General: patient oriented x3 and no focal motor deficits Extrem: General: Yes no clubbing, cyanosis or edema Psych: Appearance: grossly normal Objective Labs and Meds 11/29/23 18:34 11/30/23 05:53 Lab results: Laboratory Results - last 24 hr 11/29/23 11/29/23 11/29/23 18:34 18:36 20:33 WBC 11.9 H RBC 5.39 Hgb 16.4 H Hct 46.9 MCV 87.0 MCH 30.4 MCHC 35.0 RDW 12.7 Plt Count 248 MPV 9.8 Immature Gran % (Auto) 0.3 Neut % (Auto) 55.8 Lymph % (Auto) 33.4 [place] % (Auto) 7.9 Eos % (Auto) 1.9 Baso % (Auto) 0.7 Lymph # (Auto) 4.0 [place] # (Auto) 0.9 Eos # (Auto) 0.2 Baso # (Auto) 0.1 Abs Immat Gran (auto) 0.03 Absolute Neuts (auto) 6.6 Absolute Nucleated RBC 0.000 Nucleated RBC % (auto) 0.0 Hold Purple Top SEE NOTE PT 11.4 INR 0.9 Sodium 139 Potassium 3.4 Chloride 105 Carbon Dioxide 23 Anion Gap 14 BUN 14 Creatinine 0.78 Estim Creat Clear Calc TNP Estimated GFR > 60 Random Glucose 113 Calcium 9.6 Magnesium Total Bilirubin 0.5 AST 18 ALT 19 Alkaline Phosphatase 61 Total Protein 7.7 Albumin 4.3 TSH 3.28 Free T4 1.19 Hold Red Top See Note Urine Color Yellow Urine Appearance Clear Urine pH 7.0 Ur Specific [place] <= 1.005 Urine Protein Negative Urine Glucose (UA) Negative Urine Ketones Negative Urine Blood Negative Urine Nitrite Negative Ur Leukocyte Esterase Small (1+) H Urine RBC 0-2 Urine WBC 0-5 Ur Squamous Epith Cells 0-2 Urine Bacteria 1+ Hyaline Casts 0-2 COVID-19 (CLYDE) Negative COVID-19 Clin Com See Note Influenza Type A (ABDELRAHMAN) Negative Influenza Type B (ABDELRAHMAN) Negative Influenza A & B Note See Note 11/30/23 05:53 WBC RBC Hgb Hct MCV MCH MCHC RDW Plt Count MPV Immature Gran % (Auto) Neut % (Auto) Lymph % (Auto) [place] % (Auto) Eos % (Auto) Baso % (Auto) Lymph # (Auto) [place] # (Auto) Eos # (Auto) Baso # (Auto) Abs Immat Gran (auto) Absolute Neuts (auto) Absolute Nucleated RBC Nucleated RBC % (auto) Hold Purple Top SEE NOTE PT INR Sodium 139 Potassium 3.8 Chloride 111 H Carbon Dioxide 23 Anion Gap 9 L BUN 11 Creatinine 0.73 Estim Creat Clear Calc 139.6 Estimated GFR > 60 Random Glucose 83 Calcium 8.8 D Magnesium 2.1 Total Bilirubin 0.5 AST 13 ALT 16 Alkaline Phosphatase 55 Total Protein 6.5 Albumin 3.7 TSH Free T4 Hold Red Top Urine Color Urine Appearance Urine pH Ur Specific [place] Urine Protein Urine Glucose (UA) Urine Ketones Urine Blood Urine Nitrite Ur Leukocyte Esterase Urine RBC Urine WBC Ur Squamous Epith Cells Urine Bacteria Hyaline Casts COVID-19 (CLYDE) COVID-19 Clin Com Influenza Type A (ABDELRAHMAN) Influenza Type B (ABDELRAHMAN) Influenza A & B Note EKG shows atrial fibrillation rapid ventricular response Imaging Radiologist's impression: Impressions Chest X-Ray 11/30/23 08:01 IMPRESSION: Bronchial wall thickening may be infectious and/or inflammatory in etiology. Assessment and Plan (1) Atrial fibrillation with RVR: Status: Acute Atrial fibrillation rapid ventricular response, symptomatic. Rate is not controlled as she was taken of her rate control IV Cardizem overnight. Restart Cardizem drip for rate control and at the same time transition to p.o. Cardizem and good slowly taper Cardizem dose. Will also consider beta-caryn which is most effective in patients with thyroid related disease and was started on Inderal 40 mg b.i.d.. Also given that she has atrial fibrillation for at least about 7 days would avoid rhythm control without performing a BART to rule out intracardiac thrombi. Echocardiogram to be done. Agree with Eliquis 5 mg b.i.d. for now in the process of trying to pursue rhythm control approach which should be done in her case given her age. She require workup for sleep apnea as an outpatient urgently. Avoidance of stimulants was discussed. If rate remains difficult control may require BART guided cardioversion during inpatient admission. Eventually may benefit from ablation therapy and most likely appears that her atrial fibrillation could be familial in nature. Will follow with you Procedures Date of Service Date of Service: 11/30/23
--- NOTE | 2023-11-30 10:58 | MHC.CM.PN ---
Pt lives with family, she is independent with all ADL's, does not have home health services or use med equipment. HCP form completed and added to chart. DC plan is home, self care, family to transport home upon DC. CM to follow and assist as needed with DC plan.
--- NOTE | 2023-11-30 12:41 | PM.EVENT ---
Event Note Date of Service: 11/30/23 Event Note: Day hospitalist update S: HR 110s-140s, back on Cardizem gtt, has felt palpitations x 1 wk no recent med changes O: Temp Pulse Resp BP Pulse Ox O2 Del Method O2 Flow Rate 98.0 F 81 20 108/74 96 Room Air 2 11/30/23 11:13 11/30/23 11:13 11/30/23 11:13 11/30/23 11:13 11/30/23 11:13 11/30/23 11:13 11/29/23 21:01 Gen: in no acute distress HEENT: sclera anicteric, moist mucus membranes Neck: supple Lungs: clear to auscultation bilaterally Heart: rapid, irregular, no murmurs Abd: soft, non-tender, non-distended Ext: no edema Skin: warm/well-perfused Neuro: alert and oriented x3, no focal findings Psych: appropriate affect A/P: d1 43yo F with hx Graves disease s/p thyroidectomy and now on LT4, also on propranolol for migraine prevention presenting with new-onset AF/RVR AF/RVR - diltiazem drip -> PO transition [5 mg/hr drip -> 180 mg/d PO, for now give 45 mg qid then transition to 24-hr controlled-relese], continue propranolol, apixaban, TTE, Cardiology consulted - if converts on own to NSR, contact Cardiology re flecainide; otherwise outpt cardioversion after appropriate anticoagulation - outpt PSG migraines - continue propranolol iatrogenic hypothyroidism - LT4 VTE ppx - apixaban dispo - eventual home In my clinical judgment, the patient requires continued inpatient hospitalization for the following reasons: rate control Time Spent With Patient Time: Total time managing care of this patient today ____ minutes.
[2023-11-30] MEDS: dilTIAZem HCL 30 MG TABLET 45 MG PO ×3 (13:08→21:11)
[2023-11-30 17:51] LABS: Troponin-I High Sensitivity < 2.7 ng/L (<3.5-17.0)
--- NOTE | 2023-11-30 21:18 | PC.NURSE ---
heart rate 60-65 afib , cardizem drip stopped , medicated with scheduled Cardizem PO
[2023-12-01 03:12] VITALS: BP 104/67; PULSE 95; RESP 18; TEMP 36.7; O2SAT 96
[2023-12-01] MEDS: Omeprazole 20 MG CAPSULE.DR PO (06:06)
[2023-12-01] MEDS: Levothyroxine Sodium 175 MCG TABLET PO (06:06)
[2023-12-01] MEDS: 0.9 % Sodium Chloride Flush 3 ML SYRINGE IVFLUSH ×2 (06:07→07:55)
[2023-12-01 07:19] VITALS: BP 109/79; PULSE 83; RESP 18; TEMP 36.4; O2SAT 97
[2023-12-01] MEDS: dilTIAZem HCL 30 MG TABLET 45 MG PO (07:50)
[2023-12-01] MEDS: Apixaban 5 MG TABLET PO (07:52)
[2023-12-01] MEDS: Propranolol HCL 20 MG TABLET PO (07:52)
--- NOTE | 2023-12-01 08:41 | PC.NURSE ---
Patient requires teaching and reinforcement on controlling diet and its affects on blood glucose levels
[2023-12-01 11:07] VITALS: BP 107/78; PULSE 70; RESP 18; TEMP 36.6; O2SAT 97
--- NOTE | 2023-12-01 11:22 | P.DS_ITS ---
DS: Providers Provider Date of Service: 12/01/23 Date of admission: 11/29/23 21:54 Primary care physician: Mckay Huang III, MD Consults: 11/30/23 02:32 Consult to Cardiology Routine Consulting Provider: [facility] [place] Cardiovascular Services Reason for consultation: Rapid AFib Has provider been notified: Yes DS: Diagnosis Discharge Diagnosis (1) Atrial fibrillation with RVR: Status: Acute DS: Summary Hospital Course Hospital Course: History of Present Illness Date of Service: 11/29/23 Attending physician on admission: Earl Smart Chief Complaint: Tachycardia Ann Anderson is a 43 years old woman with past medical history significant for Graves disease s/p thyroidectomy (2008) on hormonal replacement and propranolol, hospitalization due to thyroid storm, GERD and anxiety presents to the emergency department after she noted to have significant tachycardia since last Saturday (highest 150 15:00). She detected a tachycardia using her Apple watch. She does complain of palpitations, shortness of breath with exertion, chest heaviness and dizziness. She also complained of feeling anxious. She has been taking lorazepam recently as needed for this anxiety. She denied any acute gastrointestinal symptom. She denied urination or hematuria. She denied tobacco smoking, alcohol abuse or illicit drug use. Smokes marijuana and occasions. In the ED, she was found to have tachycardia consistent with atrial fibrillation with RVR. Blood pressure is normal. Blood workup is remarkable for leukocytosis of 11.9. There are no electrolyte imbalances. Renal function is normal. LFTs are normal. TSH is 3.28 and free T4 1.19. Testing for influenza a COVID-19 are negative. ECG showed atrial fibrillation with rapid ventricular response (heart rate 131 bpm) w/o ischemic changes. ED tx: Adenosine 12, 12 and 6 IV, Eliquis 5 mg p.o., diltiazem IV infusion, metoprolol 12.5 mg, 5 mg, 10 mg IV and propranolol 10 mg. Hospital course: 43yo F with hx Graves disease s/p thyroidectomy and now on LT4, also on propranolol for migraine prevention,presenting with new-onset atrial fibrillation with rapid ventricular rate patient admitted to telemetry unit treated with IV Cardizem drip, and continued on propranolol , placed on Eliquis 5 mg b.i.d., patient remains in atrial fibrillation ,ventricular rate improved and echocardiogram showed normal left ventricular size thickness and systolic function, diastolic function is indeterminate, left atrium is likely dilated with no evidence of intra-atrial shunt, right atrium also likely dilated, no aortic valve stenosis, patient symptoms of shortness of breath, chest heaviness, dizziness and palpitations improved , patient evaluated by hand buffing wheel former Dr. Cha he recommend to discharge patient on Cardizem CD 180 mg daily and propranolol LA 80 mg daily, outpatient follow-up with Cardiology for cardioversion ,and also recommended outpatient sleep study. In regard to iatrogenic hypothyroidism she is recommended to continue levothyroxine. Time Attestation Discharge coordination time: Greater than 30 minutes Quality: Safe Use of Opioids Does Pt have an Active Cancer Diagnosis on the Problem List?: No Quality: Stroke Does the patient have a stroke diagnosis?: No Physical Exam Vital Signs: Vital Signs: Last Vital Signs Temp 97.9 F 12/01/23 11:07 Pulse 70 12/01/23 11:07 Resp 18 12/01/23 11:07 BP 107/78 12/01/23 11:07 Pulse Ox 97 12/01/23 11:07 O2 Del Method Room Air 12/01/23 11:07 O2 Flow Rate 2 11/29/23 21:01 BMI result Body Mass Index 34.4 Const: Other: Gen: in no acute distress HEENT: sclera anicteric, moist mucus membranes Neck: supple Lungs: clear to auscultation bilaterally Heart: irregular, no murmurs Abd: soft, non-tender, non-distended Ext: no edema Skin: warm/well-perfused Neuro: alert and oriented x3, no focal findings Psych: appropriate affect DS: Data Data Completed and Pending Labs on day of discharge: Laboratory Results - last 24 hr 11/30/23 16:58 Troponin I High Sens < 2.7 Preliminary micro results at discharge 11/29/23 Unknown Urine Culture - Preliminary Urine clean catch - Urine jones top Enterococcus/Streptococcus sp Discharge Plan Discharge Anticipated Discharge Date/Time: 12/01/23 11:14 Patient Disposition: Home, Self-Care Discharge Diagnosis: Atrial fibrillation with RVR Referrals: Mckay Huang III, MD [Primary Care Provider] - 1 Week Discharge Medications: New propranolol [Inderal LA] 80 mg capsule,extended release 24hr 80 mg PO DAILY Qty: 30 0RF Eliquis 5 mg Tablet 5 mg PO BID Qty: 60 0RF diltiazem HCl [Cardizem CD] 180 mg capsule,extended release 24hr 180 mg PO DAILY Qty: 30 0RF Continued levothyroxine 175 mcg tablet 175 mcg PO DAILY lorazepam 0.5 mg tablet 0.5 mg PO Q6H PRN (Reason: anxiety) omeprazole 20 mg capsule,delayed release(DR/EC) 20 mg PO BID Discontinued propranolol 20 mg tablet 20 mg PO DAILY Discharge Orders: Discharge Order (Routine); Ordered 12/01/23 Ordered By: Franny Munoz Diet: Advance to usual diet Activity on Discharge: As tolerated Stand Alone Forms: Patient Portal Discharge page Care Plan Goals: Take Cardizem CD 180 mg daily and propranolol LA 80 mg daily Return to check with recurrent episodes of palpitations, chest pain, lightheadedness or dizziness. Health Concerns: Grave disease Plan of Treatment: Outpatient follow-up with Dr. Daniel Bland from Cardiology call for appointment Assessment: As above
--- NOTE | 2023-12-01 11:41 | MHC.CM.PN ---
Pt was medically cleared for DC, she will go home via family transport, no services referred.
--- NOTE | 2023-12-01 11:44 | PM.PNCARD ---
Subjective Subjective Date of Service: 12/01/23 Principal diagnosis: Atrial fibrillation Interval history: Echocardiogram shows nearly normal structure of the heart. Rate is better controlled. Patient denies any symptoms. Review of Systems Review of Systems Yes all other systems are reviewed and are negative Physical Exam Vital Signs: Last Vital Signs Temp 97.9 F 12/01/23 11:07 Pulse 70 12/01/23 11:07 Resp 18 12/01/23 11:07 BP 107/78 12/01/23 11:07 Pulse Ox 97 12/01/23 11:07 O2 Del Method Room Air 12/01/23 11:07 O2 Flow Rate 2 11/29/23 21:01 BMI result Body Mass Index 34.4 Const General: cooperative, comfortable, no acute distress, alert and awake Nutritional Appearance: obese Orientation/consciousness: patient oriented x3 Limitations: no limitations HEENT Head: Yes normocephalic and Yes atraumatic Eyes Other: Bilateral exophthalmos noted Neck Neck: Yes trachea midline, Yes supple and Yes no JVD Resp Effort & Inspection: normal respiratory effort Auscultation: clear to auscultation bilaterally Cardio Jugular venous distension: no JVD Rate: regular rate Rhythm: abnormal rhythm irregularly irregular Heart sounds: S1 normal heart sound present, S2 normal heart sound present, no click, no gallops, no murmurs and no rubs Peripheral pulses: Peripheral pulses 2+ throughout GI Auscultation: normal bowel sounds Skin General skin exam: no rashes or lesions noted Neuro General: patient oriented x3 and no focal motor deficits Extrem General: Yes no clubbing, cyanosis or edema Psych Appearance: grossly normal Objective Labs and Meds 11/29/23 18:34 11/30/23 05:53 Lab results: Laboratory Results - last 24 hr 11/30/23 16:58 Troponin I High Sens < 2.7 Progress Note: A&P Assessment and plan (1) Persistent atrial fibrillation: Status: Acute Assessment and Plan: Persistent atrial fibrillation with adequate rate control without any new symptoms at this point time and no signs of cardiac decompensation. Switch to p.o. Cardizem 180 mg daily and Inderal LA 80 mg daily and Eliquis 5 mg b.i.d.. Patient can be discharged home. Will follow up in the clinic in 3 weeks time after Holter monitor and a stress test. Thank you for allowing us to partake in the care Time Spent With Patient Time: Total time managing care of this patient today ____ minutes. Progress Note: Quality Stroke Does the patient have a stroke diagnosis?: No Procedures Date of Service Date of Service: 12/01/23
== END 2023-12-01 13:08 | disposition home or self-care (01) | DRG 201 ==
LOC: HO.ED 19:38 → HO.EDOVER 22:06 → HO.IMC 11-30 00:55
PROVIDERS: Family Medicine; Admitting Provider Internal Medicine; Emergency Provider Student in an Organized Health Care Education/Training Program; PCP Internal Medicine; Visit Provider Hospitalist
DX: I48.19 Other persistent atrial fibrillation (principal); E89.0 Postprocedural hypothyroidism; F41.9 Anxiety disorder, unspecified; G43.909 Migraine, unspecified, not intractable, without status migrainosus; Z79.890 Hormone replacement therapy; Z79.899 Other long term (current) drug therapy
CPT/HCPCS: 36415; 71045; 80053; 81001; 83735; 84439; 84443; 84484; 85025; 85610; 87086; 87088; 87186; 87502; 87635; 93005; 93306; 99285; J0153; Q9957

== ENCOUNTER 2023-11-29 21:54 | Outpatient (BNV) | payer OTHER, SELFPAY | END 2023-11-30 06:00 | PROVIDERS: Admitting Provider Internal Medicine; Emergency Provider Student in an Organized Health Care Education/Training Program; PCP Internal Medicine; Visit Provider Internal Medicine Cardiovascular Disease | DX: I48.91 Unspecified atrial fibrillation (principal) | CPT/HCPCS: 93306 ==

== ENCOUNTER → 2023-11-29 21:54 | Outpatient (BNV) | payer OTHER, SELFPAY | PROVIDERS: Admitting Provider Internal Medicine; Emergency Provider Student in an Organized Health Care Education/Training Program; PCP Internal Medicine; Visit Provider Internal Medicine | DX: I48.91 Unspecified atrial fibrillation (principal); E05.00 Thyrotoxicosis with diffuse goiter without thyrotoxic crisis or storm | CPT/HCPCS: 99223; 99239; 99499 ==

== ENCOUNTER → 2023-11-29 21:54 | Outpatient (BNV) | payer OTHER, SELFPAY | PROVIDERS: Admitting Provider Internal Medicine; Emergency Provider Student in an Organized Health Care Education/Training Program; PCP Internal Medicine; Visit Provider Internal Medicine Cardiovascular Disease | DX: I48.91 Unspecified atrial fibrillation (principal) | CPT/HCPCS: 93010; 99222; 99233 ==

== ENCOUNTER → 2023-12-18 07:55 | Outpatient (REF) | payer OTHER, SELFPAY ==
--- NOTE | 2023-12-18 07:59 | HM_ITS ---
* Total monitoring time 3 days. * Underlying rhythm is sinus with an average ventricular rate of 76/Min. * Rare supraventricular and ventricular ectopy. * No sustained arrhythmias. * No significant pauses or AV blocks. * Patient marker used once in association with sinus rhythm. * No diary events. MTDD
== END ==
LOC: HO.CARD 07:55
PROVIDERS: PCP Internal Medicine; Visit Provider Internal Medicine Cardiovascular Disease
DX: I48.19 Other persistent atrial fibrillation (principal)
CPT/HCPCS: 93242

== ENCOUNTER → 2023-12-18 07:59 | Outpatient (BNV) | payer OTHER, SELFPAY | PROVIDERS: PCP Internal Medicine; Visit Provider Internal Medicine | DX: I47.10 Supraventricular tachycardia, unspecified (principal) | CPT/HCPCS: 93244 ==

== ENCOUNTER 2023-12-22 06:39 | Emergency (ER) | payer OTHER, SELFPAY ==
[2023-12-22 06:49] VITALS: BP 140/83; PULSE 105; RESP 18; TEMP 36.4; O2SAT 98; BMI 34.2
--- NOTE | 2023-12-22 07:16 | PC.NURSE ---
New diagnosis of A-fib , on meds
[2023-12-22] MEDS: Fluorescein Sodium STRIP 1 STRIP EYE-LEFT (07:58)
--- NOTE | 2023-12-22 08:08 | ED_ITS ---
HPI - Skin/Abscess/Foreign Bdy General Chief complaint: Skin/Abscess/Foreign Body Stated complaint: Allergic Reaction to Meds Time Seen by Provider: 12/22/23 07:13 Source: patient Mode of arrival: ambulatory Limitations: no limitations History of Present Illness HPI narrative: Patient is a 43-year-old female who presents emergency department for evaluation of left eye concern. She reports 1 week ago on 12/16/2023 she reports a pins and needle sensation to the left eye/forehead. About 4 days later she noticed puffiness to the brow and I. Yesterday she developed a burning sensation, sharp, ?zapped like pain? and pressure to the left eye, and then noticed associated rash, ?red bumps?. She has an associated headache for the past 3 days. Denies fever, ear pain. She does endorse that she has been under a lot of stress recently. Related Data Home Medications Medication Instructions Recorded Confirmed levothyroxine 175 mcg tablet 175 mcg PO DAILY 11/29/23 11/29/23 lorazepam 0.5 mg tablet 0.5 mg PO Q6H PRN anxiety 11/29/23 11/29/23 omeprazole 20 mg capsule,delayed 20 mg PO BID 11/29/23 11/29/23 release Previous Rx's Medication Instructions Recorded apixaban 5 mg tablet (Eliquis) 5 mg PO BID #60 tabs 12/01/23 diltiazem HCl 180 mg 180 mg PO DAILY #30 caps 12/01/23 capsule,extended release 24 hr (Cardizem CD) propranolol 80 mg capsule,24 80 mg PO DAILY #30 caps 12/01/23 hr,extended release (Inderal LA) valacyclovir 1 gram tablet 1,000 mg PO TID 7 days #21 tabs 12/22/23 Allergies Allergy/AdvReac Type Severity Reaction Status Date / Time ibuprofen [IBUPROFEN] Allergy Unknown RASH Verified 12/22/23 06:52 morphine [MORPHINE] Allergy Unknown UNKNOWN Verified 12/22/23 06:52 moxifloxacin [MOXIFLOXACIN] Allergy Unknown UNKNOWN Verified 12/22/23 06:52 naproxen [Aleve] Allergy Unknown Rash Verified 12/22/23 06:52 penicillin V Allergy Unknown Rash Verified 12/22/23 06:52 Penicillins [PENICILLINS] Allergy Unknown RASH Verified 12/22/23 06:52 Sulfa (Sulfonamide Allergy Unknown RASH Verified 12/22/23 06:52 Antibiotics) [SULFA(SULFONAMIDE ANTIBIOTICS)] From ALEVE Allergy Unknown UNKNOWN Uncoded 11/29/23 18:41 From BENADRYL Allergy Unknown RASH Uncoded 11/29/23 18:41 Review of Systems 2 Review of Systems: Yes all other systems are reviewed and are negative [facility] Past Medical History Attestation statement: The following information was validated with the patient. Source: old records reviewed Medical History Anxiety GERD (gastroesophageal reflux disease) Graves disease Surgical History H/O eye surgery History of ankle surgery S/P appy S/P thyroidectomy Social History Social History Household Members: Spouse Housing: House Do you presently have visiting nurse or other home services: No Patient Tobacco Use Status: Never used Tobacco Smoked in Last 30 Days: No Use of substances other than those prescribed or required for medical reasons: No Substance Use Type: Marijuana Advance Directives: Yes Advance Directives on File: Yes Advance Directives Date on File: 12/02/23 Patient : No service: No Physical Exam 2 Vital Signs: Vital Signs: Last Vital Signs Temp 97.9 F 12/22/23 08:37 Pulse 97 12/22/23 08:37 Resp 16 12/22/23 08:37 BP 131/99 H 12/22/23 08:37 Pulse Ox 99 12/22/23 08:37 O2 Del Method Room Air 12/22/23 08:37 BMI result Body Mass Index 34.2 Appearance: Alert.?Oriented to person, place and time. No acute distress.?Normal affect. Skin: Skin warm and dry.? Normal skin color.? Erythematous macular rash, with a few areas of small early vesicular type eruption involving the V1 dermatome on the left, extends to the scalp Eyes: Pupils equal, round and reactive to light.? EOMI. No nystagmus. Fluorescein exam without evidence of dendritic lesions. Intra-ocular pressure 15 bilaterally. ENT: Pharynx normal.??TM normal bilaterally. No vesicles of the auditory canal or auricle Neck: Normal inspection.? Neck supple.?? CVS: Heart sounds normal. Normal heart rate and rhythm.? Pulses normal.?? Respiratory: No respiratory distress.? Lung sounds clear to auscultation bilaterally?? Abdomen: Soft and non-tender. Normoactive bowel sounds. Extremities: No lower extremity edema.? Neuro: Moves all extremities spontaneously. Sensation intact bilaterally. CN II- XII intact. No focal neuro deficits. Ambulates with normal steady gait. Medications Administered Discontinued Medications Generic Name Dose Route Start Last Admin Trade Name Ivette PRN Reason Stop Dose Admin Fluorescein Sodium 1 strip 12/22/23 07:44 12/22/23 07:58 Fluorescein Sodium Strip EYE-LEFT 12/22/23 07:45 1 strip ONCE ONE Administration Tetracaine HCl 1 drop 12/22/23 07:44 12/22/23 08:12 Tetracaine Hcl/Pf 0.5% Oph Sandra 4 Ml Drops EYE-LEFT 12/22/23 07:45 Not Given ONCE ONE Medical Decision Making Medical Decision Making MDM Narrative: Patient is a 43-year-old female with past medical history of atrial fibrillation on diltiazem and Eliquis, Graves disease status post thyroidectomy, anxiety, GERD who presents emergency department for evaluation of painful rash to left eye as per HPI. History and physical examination most concerning for herpes zoster, no dendritic lesions upon examination, normal intra-ocular pressure, no signs of [place] Riddle syndrome involving the auditory canal and auricle, her only complaint revolving the eye is dry ice sensation which she reports is chronic due to her Graves disease. Ophthalmology was consulted, prescription for valacyclovir sent to pharmacy, outpatient follow-up with Ophthalmology she will contact the office tomorrow. Discussed strict return precautions. All questions answered. Stable for discharge. Differential Diagnosis Differential Diagnoses: The differential diagnosis associated with the presentation includes (Herpes zoster, less likely contact dermatitis, allergic reaction) Admission/Observation Consideration of admission/observation: Escalation of care including admission/observation considered (See narrative above) Consult Healthcare Provider Management of the patient was discussed with: [place] Physiotherapist (Ophthalmology) Dr. Olson : Recommends initiation of antiviral and outpatient follow-up Independent Historian Clinical information obtained from an independent historian. History obtained from or confirmed by: Spouse ( present who confirms history) Prescription Management I considered prescription management with: Antiviral Discharge Plan Discharge Clinical Impression: Herpes zoster Patient Disposition: Home, Self-Care Instructions: Shingles (ED) Additional Instructions: As discussed, your symptoms today are most concerning for a herpes zoster infection/shingles. This occurs from a reactivation of the chickenpox virus in your body. A prescription for valacyclovir was sent to your pharmacy please take this 3 times daily for 7 days as instructed. Any direct contact with fluid that may come out of blisters from the rash allows spread of the chickenpox virus, therefore people who have never had chickenpox or received vaccination may be susceptible to getting infection. Avoid contact with children especially those without vaccination or immunity, women, or lactating mother's. If you develop worsening pain especially to the eye, changes in your vision, or any new/worsening symptoms or concerns then you should be re-evaluated. Please contact the eye doctor's office first thing tomorrow morning to arrange for a follow-up visit outpatient. Prescriptions: New valacyclovir 1 gram tablet 1,000 mg PO TID 7 Days Qty: 21 0RF No Action levothyroxine 175 mcg tablet 175 mcg PO DAILY lorazepam 0.5 mg tablet 0.5 mg PO Q6H PRN (Reason: anxiety) omeprazole 20 mg capsule,delayed release(DR/EC) 20 mg PO BID Eliquis 5 mg Tablet 5 mg PO BID Qty: 60 0RF propranolol [Inderal LA] 80 mg capsule,extended release 24hr 80 mg PO DAILY Qty: 30 0RF diltiazem HCl [Cardizem CD] 180 mg capsule,extended release 24hr 180 mg PO DAILY Qty: 30 0RF Referrals: Mckay Huang III, MD [Primary Care Provider] - Zechariah Olson [Physician] - Interventions: ED Discharge Assessment Last Done: 12/22/23 08:41 Discharge Date/Time: 12/22/23 08:41
[2023-12-22 08:37] VITALS: BP 131/99; PULSE 97; RESP 16; TEMP 36.6; O2SAT 99
== END 2023-12-22 08:41 | disposition home or self-care (01) ==
PROVIDERS: Emergency Provider Student in an Organized Health Care Education/Training Program; PCP Internal Medicine
DX: B02.8 Zoster with other complications (principal); Z79.899 Other long term (current) drug therapy
CPT/HCPCS: 99283; 99284

== ENCOUNTER → 2024-01-13 08:25 | Outpatient (REF) | payer OTHER, SELFPAY ==
--- NOTE | ~2024-01-13 | NM_ITS ---
Myocardial perfusion study Indication: Persistent atrial fibrillation Technique: The patient was brought in for a Lexiscan perfusion study on 01/13/2024. Patient performed low-level exercise and was injected 0.4 mg of Lexiscan intravenously. Within a minute of injection, 35 mCi of sestamibi was given intravenously. Images were obtained using the SPECT gamma camera interlaced with the gating device. Images were obtained in supine position. Resting perfusion study was performed on 01/24/2024. Patient was administered 35 mCi of sestamibi intravenously at rest. Images were then obtained in supine position. Images obtained with and without CT attenuation. Total DLP 138 mGy-cm. Images were processed with the software and compared side to side in short axis, horizontal long axis and vertical long axis views. Findings: The stress perfusion study showed both attenuated corrected as well as non attenuated images show normal uptake of radiotracer in all segments of LV myocardium. The gated study shows normal LV systolic function with calculated LVEF of 70%. LV cavity is normal size. The gated study shows normal systolic wall thickening and contraction of segments. Resting study shows nontender images show mildly reduced uptake in the distal lateral wall of the LV myocardium. Attenuation corrected images show mildly reduced uptake in the apex of the LV myocardium. Gating at rest reveals normal systolic wall motion with ejection fraction at 71%. The findings are consistent with normal myocardial perfusion. NM/NM pradeep perf SPECT rest & str Impression: 1. Myocardial perfusion imaging study shows normal myocardial perfusion 2. Gated LVEF is 70% 3. Transient ischemic dilatation not present EKG is nondiagnostic for ischemia
--- NOTE | 2024-01-13 08:27 | CA_ITS ---
Acquisition Time: 2024-01-13 08:45:33 Total Exercise Time: 00:02:00 Test Indications: Shortness of breath Medications: See H Protocol: LEXISCAN Max HR: 139 BPM 78% of Pred: 178 BPM Max BP: 136/072 mmHG Max Work Load: 1.0 METS Pharmacological stress test with Lexiscan injection while sitting still, without anginal symptoms, with isolated PVC, with normotensive resposne to injection, with nondiagnoisitic EKGs. Aminophylline 75mg IVP given to reverse Lexiscan. Nuclear images pending. Test reviewed with Dr. Arrington. Referred By: Daniel Bland Overread By: Sondra Walton
== END | disposition home or self-care (01) ==
LOC: HO.CARD 08:25
PROVIDERS: PCP Internal Medicine; Visit Provider Internal Medicine Cardiovascular Disease
DX: I48.19 Other persistent atrial fibrillation (principal)
CPT/HCPCS: 78452; 93017; A9500; J0280; J2785

== ENCOUNTER → 2024-01-13 08:27 | Outpatient (BNV) | payer OTHER, SELFPAY | PROVIDERS: PCP Internal Medicine; Visit Provider Nurse Practitioner | DX: I48.19 Other persistent atrial fibrillation (principal); R06.02 Shortness of breath | CPT/HCPCS: 78452; 93016; 93018 ==

== ENCOUNTER 2024-02-05 11:25 | Outpatient (AMB) | payer OTHER, SELFPAY ==
[2024-02-05 11:33] VITALS: BP 120/70; PULSE 71; BMI 34.4
--- NOTE | 2024-02-05 11:33 | MHC.OFFVIS ---
Intake Vital Signs 02/05/24 11:33 Height 5 ft 11 in Weight 246 lb 14.684 oz BMI 34.4 BP 120/70 Blood Pressure Location Lt brachial Position Sitting Pulse 71 Intake Visit Reasons: follow-up C dc after testing with ekg Intake Note: Follow-up C dc after testing with ekg feeling ok in the first days of calorie redistricting so off do to that Immigration Judge Required: No Allergies ibuprofen [IBUPROFEN] Allergy (Unknown, Verified 12/22/23 06:52) RASH morphine [MORPHINE] Allergy (Unknown, Verified 12/22/23 06:52) UNKNOWN moxifloxacin [MOXIFLOXACIN] Allergy (Unknown, Verified 12/22/23 06:52) UNKNOWN naproxen [Aleve] Allergy (Unknown, Verified 12/22/23 06:52) Rash penicillin V Allergy (Unknown, Verified 12/22/23 06:52) Rash Penicillins [PENICILLINS] Allergy (Unknown, Verified 12/22/23 06:52) RASH Sulfa (Sulfonamide Antibiotics) [SULFA(SULFONAMIDE ANTIBIOTICS)] Allergy (Unknown, Verified 12/22/23 06:52) RASH From ALEVE Allergy (Unknown, Uncoded 11/29/23 18:41) UNKNOWN From BENADRYL Allergy (Unknown, Uncoded 11/29/23 18:41) RASH Medication List - Last Reconciled 02/05/24 by Daniel Bland MD apixaban (Eliquis) 5 mg PO BID diltiazem HCl (Cardizem CD) 180 mg PO DAILY gabapentin 300 mg PO TID levothyroxine 175 mcg PO DAILY lorazepam 0.5 mg PO Q6H PRN omeprazole 20 mg PO BID propranolol ER (Inderal LA) 80 mg PO DAILY valacyclovir 1,000 mg PO TID 7 days HPI HPI Comments History of Present Illness Details Can comes for follow-up after hospitalization in November with symptomatic atrial fibrillation. On discharge she was still in atrial fibrillation but rate controlled. She said about 7-10 days after discharge he notice that heart rate went back into normal rhythm. She comes today and is noted to be in sinus rhythm. She has been taking all her medications regularly. She denies any other new symptoms. Schedule for sleep study in February. She underwent a myocardial perfusion imaging which did not show any significant arrhythmias. She has not had any major episodes of prolonged irregular heartbeat consistent with atrial fibrillation. Denies any exertional chest pain or worsening shortness of breath or orthopnea PND. [facility] Medical History (Updated 02/05/24 @ 13:28 by Daniel Bland MD) Paroxysmal atrial fibrillation Persistent atrial fibrillation Atrial fibrillation with RVR Anxiety GERD (gastroesophageal reflux disease) Graves disease Surgical History H/O eye surgery History of ankle surgery S/P appy S/P thyroidectomy Social History Household Members: Spouse Housing: House Do you presently have visiting nurse or other home services: No Patient Tobacco Use Status: Never used Tobacco Substance Use Type: Marijuana Advance Directives Date on File: 12/02/23 service: No Review of Systems Const Denies chills, Denies fatigue, Denies fever(s), Denies frequent falls, Denies weakness, Denies weight gain and Denies weight loss ENT Denies dizziness Card Denies chest pain, Denies leg edema, Denies lightheadedness, Denies palpitations, Denies dyspnea, Denies dyspnea on exertion, Denies orthopnea and Denies other (loss of consciousness) Resp Denies cough, Denies dyspnea and Denies dyspnea on exertion GI Denies hematochezia and Denies change in stool character Musc Denies abnormal gait, Denies muscle weakness, Denies numbness, Denies radiating pain into limb and Denies tingling Neuro Denies abnormal gait, Denies dizziness, Denies frequent falls, Denies numbness, Denies tingling and Denies weakness Endo Denies fatigue and Denies palpitations Physical Exam Vital Signs: Last Vital Signs Pulse 71 02/05/24 11:33 BP 120/70 02/05/24 11:33 BMI result Body Mass Index 34.4 Const General: cooperative, comfortable, no acute distress, alert, awake and Physically active Nutritional Appearance: obese Orientation/consciousness: patient oriented x3 Neck Neck: Yes trachea midline, Yes supple and Yes no JVD Resp Effort & Inspection: normal respiratory effort Auscultation: clear to auscultation bilaterally Cardio Jugular venous distension: no JVD Palpation: normal PMI Rate: regular rate Rhythm: regular rhythm Heart sounds: S1 normal heart sound present, S2 normal heart sound present, no click, no gallops, no murmurs and no rubs GI Auscultation: normal bowel sounds Skin General skin exam: no rashes or lesions noted Neuro General: patient oriented x3 and no focal motor deficits Extrem General: Yes no clubbing, cyanosis or edema Office Procedures EKG Details: EKG shows normal sinus rhythm with low-voltage QRS with inferior Q-waves, most likely pseudo infarct pattern related to body habitus [id number], Complete Assessment & Plan Assessment & Plan (1) Paroxysmal atrial fibrillation: Code(s): I48.0 - Paroxysmal atrial fibrillation Plan: Highly symptomatic atrial fibrillation, currently paroxysmal converted to sinus rhythm with rate control. She is doing well with current medical therapy. She does not require additional antiarrhythmic drug therapy at this point time. Management of atrial fibrillation was discussed in details. Her echocardiogram does show normal structure of the heart with borderline left atrial enlargement. Her stress test is within normal limits. This opens up therapeutic options including class 1 C agents if he after use antiarrhythmic drug therapy. We discussed that rhythm control will be pursued in her case. She has low risk for thromboembolic complication and has been on oral anticoagulation therapy for more than 6 weeks. Eliquis can be discontinued at this point time. Continue Cardizem as well as Inderal therapy which has helped her. Continue avoid stimulants. Continue to monitor thyroid function closely. We also discussed about maintaining a log and possibly investing in a smart phone based EKG device. She is interested in it. Follow through with sleep study as this may be an important trigger for her atrial fibrillation. She understands management well. Encouraged to continue to participate in weight loss program. Follow up in the clinic in 6 months time, sooner p.r.n.. Thank you for allowing me to partake in her care Medications: Discontinued apixaban (Eliquis) Discontinued Reason: Doctor's Order 5 mg PO BID 60 tabs 1RF Coding Level of Care Code Est Pt Level 4 (04257) Diagnoses Paroxysmal atrial fibrillation I48.0 CPT Codes EKG - CPT: 89704-[id number], Complete ([id number])
== END 2024-02-05 12:01 | disposition home or self-care (01) ==
PROVIDERS: PCP Internal Medicine; Visit Provider Internal Medicine Cardiovascular Disease
DX: I48.0 Paroxysmal atrial fibrillation (principal)
CPT/HCPCS: 93010; 99214

== ENCOUNTER → 2024-02-05 11:25 | Outpatient (BNVA) | payer OTHER, SELFPAY | PROVIDERS: PCP Internal Medicine; Visit Provider Internal Medicine Cardiovascular Disease | DX: I48.0 Paroxysmal atrial fibrillation (principal); I48.19 Other persistent atrial fibrillation | CPT/HCPCS: 93005; 99212 ==

== ENCOUNTER → 2024-03-13 09:05 | Outpatient (BNVA) | payer OTHER, SELFPAY | PROVIDERS: PCP Internal Medicine; Visit Provider Internal Medicine Cardiovascular Disease ==

== ENCOUNTER 2024-08-21 10:35 | Outpatient (AMB) | payer OTHER, SELFPAY ==
[2024-08-21 10:43] VITALS: BP 136/82; PULSE 74; BMI 35.0
--- NOTE | 2024-08-21 10:43 | A.OFFVIS_ITS ---
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 Allergies ibuprofen [IBUPROFEN] Allergy (Unknown, Verified 12/22/23 06:52) RASH morphine [MORPHINE] Allergy (Unknown, Verified 12/22/23 06:52) UNKNOWN moxifloxacin [MOXIFLOXACIN] Allergy (Unknown, Verified 12/22/23 06:52) UNKNOWN naproxen [Aleve] Allergy (Unknown, Verified 12/22/23 06:52) Rash penicillin V Allergy (Unknown, Verified 12/22/23 06:52) Rash Penicillins [PENICILLINS] Allergy (Unknown, Verified 12/22/23 06:52) RASH Sulfa (Sulfonamide Antibiotics) [SULFA(SULFONAMIDE ANTIBIOTICS)] Allergy (Unknown, Verified 12/22/23 06:52) RASH From ALEVE Allergy (Unknown, Uncoded 11/29/23 18:41) UNKNOWN From BENADRYL Allergy (Unknown, Uncoded 11/29/23 18:41) RASH Medication List - Last Reconciled 08/21/24 by Daniel Bland MD flecainide 50 mg PO Q12H gabapentin 300 mg PO BID levothyroxine 175 mcg PO DAILY lorazepam 0.5 mg PO Q6H PRN omeprazole 20 mg PO BID propranolol ER (Inderal LA) 80 mg PO DAILY HPI Comments Details: Ann comes for follow-up. She has been doing very well from cardiac perspective. She denies any clear symptoms of atrial fibrillation. Doing well on current medications. Since switching from Cardizem to propranolol therapy she says her symptoms of fatigue and somnolence have significantly improved. She says her sleep study was negative for any sleep apnea. This was done at different institution. Denies any exertional chest pain or shortness of breath. No orthopnea, PND, leg edema. No neurologic events. Takes all her medications regularly. He is trying to be more functional and active and lose weight. [facility] Medical History Paroxysmal atrial fibrillation Persistent atrial fibrillation Atrial fibrillation with RVR Anxiety GERD (gastroesophageal reflux disease) Graves disease Surgical History H/O eye surgery History of ankle surgery S/P appy S/P thyroidectomy Social History Household Members: Spouse Housing: House Do you presently have visiting nurse or other home services: No Patient Tobacco Use Status: Never used Tobacco Substance Use Type: Marijuana Advance Directives Date on File: 12/02/23 service: No Review of Systems Const Denies chills, Denies fatigue, Denies fever(s), Denies frequent falls, Denies weakness, Denies weight gain and Denies weight loss ENT Denies dizziness Card Denies chest pain, Denies leg edema, Denies lightheadedness, Denies palpitations, Denies dyspnea, Denies dyspnea on exertion, Denies orthopnea and Denies other (loss of consciousness) Resp Denies cough, Denies dyspnea and Denies dyspnea on exertion GI Denies hematochezia and Denies change in stool character Musc Denies abnormal gait, Denies muscle weakness, Denies numbness, Denies radiating pain into limb and Denies tingling Neuro Denies abnormal gait, Denies dizziness, Denies frequent falls, Denies numbness, Denies tingling and Denies weakness Endo Denies fatigue and Denies palpitations Physical Exam Vital Signs: Last Vital Signs Pulse 74 08/21/24 10:43 BP 136/82 08/21/24 10:43 BMI result Body Mass Index 35.0 Const General: cooperative, comfortable, no acute distress, alert, awake and Physically active Nutritional Appearance: obese Orientation/consciousness: patient oriented x3 Neck Neck: Yes trachea midline, Yes supple and Yes no JVD Resp Effort & Inspection: normal respiratory effort Auscultation: clear to auscultation bilaterally Cardio Jugular venous distension: no JVD Palpation: normal PMI Rate: regular rate Rhythm: regular rhythm Heart sounds: S1 normal heart sound present, S2 normal heart sound present, no click, no gallops, no murmurs and no rubs GI Auscultation: normal bowel sounds Skin General skin exam: no rashes or lesions noted Neuro General: patient oriented x3 and no focal motor deficits Extrem General: Yes no clubbing, cyanosis or edema Office Procedures EKG Details: EKG shows normal sinus rhythm with low-voltage QRS with Q-wave in lead 3 most likely pseudo infarct pattern [id number], Complete Assessment & Plan Assessment & Plan (1) Paroxysmal atrial fibrillation: Code(s): I48.0 - Paroxysmal atrial fibrillation Category: Medical Plan: Highly symptomatic paroxysmal atrial fibrillation in this young woman with risk factors obesity and prior thyroid disease. Has remained suppressed on current flecainide therapy along with propranolol therapy. Importance of continuing therapy was discussed. Advised to continue to participate in risk factor modification with continued exercise and participate in weight loss program. Continue current antiarrhythmic drug therapy which has helped her significantly. Additional flecainide as need be can be taken. Will obtain a sleep study report. Avoidance of stimulants was discussed. Stress mitigation strategies were discussed. Will follow up in the clinic in 6 months for EKG in 1 year with me. Thank you for allowing me to partake in his care Coding Level of Care Code Est Pt Level 4 (25304) Complex EM visit Add On G2211 Diagnoses Paroxysmal atrial fibrillation I48.0 CPT Codes EKG - CPT: 36485-[id number], Complete ([id number])
== END 2024-08-21 11:05 | disposition home or self-care (01) ==
PROVIDERS: PCP Internal Medicine; Visit Provider Internal Medicine Cardiovascular Disease
DX: I48.0 Paroxysmal atrial fibrillation (principal)
CPT/HCPCS: 93010; 99214; G2211

== ENCOUNTER → 2024-08-21 10:35 | Outpatient (BNVA) | payer OTHER, SELFPAY | PROVIDERS: PCP Internal Medicine; Visit Provider Internal Medicine Cardiovascular Disease | DX: I48.0 Paroxysmal atrial fibrillation (principal) | CPT/HCPCS: 93005; 99212 ==

== ENCOUNTER → 2025-01-01 09:59 | Outpatient (BNVA) | payer OTHER, SELFPAY | PROVIDERS: PCP Internal Medicine; Visit Provider Internal Medicine Cardiovascular Disease ==

== ENCOUNTER 2025-05-12 04:53 | Emergency (ER) | payer OTHER, SELFPAY ==
[2025-05-12 05:11] VITALS: BP 132/93; PULSE 77; RESP 16; TEMP 36.5; O2SAT 97; BMI 34.9
--- NOTE | 2025-05-12 05:21 | ED.FEMALEGU ---
HPI - Female Genitourinary General Chief complaint: Urogenital-Female Stated complaint: Possible UTI Time Seen by Provider: 05/12/25 05:13 History of Present Illness ED Provider: Mark Mota MD HPI Narrative: 45-year-old female with frequent UTIs. Dysuria and right flank pain today no syncope no lower abdominal pain no nausea vomiting vaginal symptoms. Chronic recurrent UTIs with multiple antibiotic allergies Related Data Home Medications ?Medication ?Instructions ?Recorded ?Confirmed levothyroxine 175 mcg tablet 175 mcg PO DAILY 11/29/23 08/21/24 lorazepam 0.5 mg tablet 0.5 mg PO Q6H PRN anxiety 11/29/23 08/21/24 omeprazole 20 mg capsule,delayed 20 mg PO BID 11/29/23 08/21/24 release gabapentin 300 mg capsule 300 mg PO BID 08/21/24 08/21/24 Previous Rx's ?Medication ?Instructions ?Recorded propranolol 80 mg capsule,24 80 mg PO DAILY #90 caps 09/15/24 hr,extended release (Inderal LA) flecainide 100 mg tablet 100 mg PO Q12H #180 tabs 03/22/25 cefpodoxime 200 mg tablet 200 mg PO BID 10 days #20 tabs 05/12/25 phenazopyridine 200 mg tablet 200 mg PO TID 6 doses #6 tabs 05/12/25 (Pyridium) Allergies Allergy/AdvReac Type Severity Reaction Status Date / Time ibuprofen (IBUPROFEN) Allergy Unknown RASH Verified 05/12/25 05:12 morphine (MORPHINE) Allergy Unknown UNKNOWN Verified 05/12/25 05:12 moxifloxacin (MOXIFLOXACIN) Allergy Unknown UNKNOWN Verified 05/12/25 05:12 naproxen (Aleve) Allergy Unknown Rash Verified 05/12/25 05:12 penicillin V Allergy Unknown Rash Verified 05/12/25 05:12 Penicillins (PENICILLINS) Allergy Unknown RASH Verified 05/12/25 05:12 Sulfa (Sulfonamide Allergy Unknown RASH Verified 05/12/25 05:12 Antibiotics) (SULFA(SULFONAMIDE ANTIBIOTICS)) From ALEVE Allergy Unknown UNKNOWN Uncoded 05/12/25 05:12 From BENADRYL Allergy Unknown RASH Uncoded 05/12/25 05:12 [facility] Past Medical History Medical History Paroxysmal atrial fibrillation Persistent atrial fibrillation Atrial fibrillation with RVR Anxiety GERD (gastroesophageal reflux disease) Graves disease Surgical History H/O eye surgery History of ankle surgery S/P appy S/P thyroidectomy Social History Social History Household Members: Spouse Housing: House Do you presently have visiting nurse or other home services: No Patient Tobacco Use Status: Never used Tobacco Smoked in Last 30 Days: No Use of substances other than those prescribed or required for medical reasons: No Substance Use Type: Marijuana Advance Directives: Yes Advance Directives on File: Yes Advance Directives Date on File: 12/02/23 service: No Physical Exam Vital Signs: Vital Signs: Last Vital Signs Temp 97.7 F 05/12/25 06:39 Pulse 74 05/12/25 06:39 Resp 18 05/12/25 06:39 BP 131/88 05/12/25 06:39 Pulse Ox 96 05/12/25 06:39 O2 Del Method Room Air 05/12/25 06:39 BMI result Body Mass Index 34.9 Const: Other: EXAM: Gen: Alert, awake, well appearing, well hydrated. Head: Atraumatic Eyes: Anicteric, Normal conjunctiva. ENT: Moist mucosa, no pallor. ? Neck: Supple. Skin: ?No observable rash or bruising on exposed or examined skin Respiratory: Breathing comfortably, No distress.Clear to auscultation bilaterally, symmetric chest expansion, No wheeze, rales, ronchi. Cardiovascular: Regular rate and rhythm. No murmurs or rub. Well perfused periphery, warm extremities. No edema. ? Abdominal: No FOCAL TENDERNESS. Soft, no objective distension. No palpable masses or obvious organomegaly. ?No guarding, no rebound tenderness or other peritoneal findings. : Mild right CVAT Neuro: Alert. Gross movement of all extremities intact. ? Psych: Calm. Cooperative. MSK: No grossly visible deformity. Vital signs: See flowsheet Medications Administered Discontinued Medications Generic Name Dose Route Start Last Admin Trade Name Freq PRN Reason Stop Dose Admin Cefuroxime Axetil 500 mg 05/12/25 05:29 05/12/25 05:41 Cefuroxime Axetil 500 Mg Tablet PO 05/12/25 05:30 500 mg ONCE ONE Administration Ibuprofen 600 mg 05/12/25 05:15 05/12/25 05:42 Ibuprofen 600 Mg Tablet PO 05/12/25 05:16 Not Given ONCE ONE Phenazopyridine HCl 200 mg 05/12/25 05:15 05/12/25 05:41 Phenazopyridine Hcl 200 Mg Tablet PO 05/12/25 05:16 200 mg ONCE ONE Administration Medical Decision Making Medical Decision Making MDM Narrative: 45-year-old female with dysuria. Not ill or toxic. She does have some right flank pain so point of care ultrasound was performed which excludes hydronephrosis. Doubt kidney stone or obstruction. Urinalysis does suggest UTI and culture was sent. The patient is awake alert p.o. tolerant and comfortable. We will treat empirically. Third generation cephalosporin given the allergy profile. Differential Diagnosis Kidney stone, renal colic, UTI, pyelonephritis, musculoskeletal pain Lab Data 05/12/25 05:35 05/12/25 05:35 Labs: Lab Results 05/12/25 05/12/25 Range/Units 05:26 05:35 WBC 7.8 (4.8-10.8) X10*3/uL RBC 4.97 (4.20-5.50) X10*6/uL Hgb 15.4 (12.0-16.0) g/dl Hct 45.9 (37.0-47.0) % MCV 92.4 (80.0-98.0) fL MCH 31.0 (27.0-33.0) pg MCHC 33.6 (31.0-35.0) g/dl RDW 13.5 (11.0-16.0) % Plt Count 183 D (160-400) X10*3/uL MPV 9.5 (9.4-12.3) fL Immature Gran % (Auto) 0.3 (0.0-0.4) % Neut % (Auto) 71.0 (45-73) % Lymph % (Auto) 15.8 L (20-40) % [place] % (Auto) 10.3 (2-11) % Eos % (Auto) 1.8 (0-4) % Baso % (Auto) 0.8 (0-2) % Lymph # (Auto) 1.2 (1.2-4.9) X10*3/uL [place] # (Auto) 0.8 (0.1-1.2) X10*3/uL Eos # (Auto) 0.1 (0.0-0.4) X10*3/uL Baso # (Auto) 0.1 (0.0-0.2) X10*3/uL Abs Immat Gran (auto) 0.02 (0.00-0.03) X10*3/uL Absolute Neuts (auto) 5.6 (2.0-8.3) x10*3/uL Absolute Nucleated RBC 0.000 (0.0-0.012) X10*3/uL Nucleated RBC % (auto) 0.0 (0.0-0.2) /100WBC Sodium 139 (135-145) mmol/L Potassium 4.1 (3.3-5.1) mmol/L Chloride 109 H (96-108) mmol/L Carbon Dioxide 24 (22-29) mmol/L Anion Gap 10 L (12-20) BUN 11 (9-16) mg/dL Creatinine 0.55 (0.5-1.4) mg/dL Estim Creat Clear Calc 182.8 Estimated GFR > 60 Random Glucose 111 (60-115) mg/dL Calcium 8.4 (8.4-10.2) mg/dL Urine Color Dark Yellow Urine Appearance Cloudy Urine pH 7.0 (5.0-9.0) Ur Specific [place] 1.020 (1.005-1.025) Urine Protein Trace (Neg-Trace) mg/dL Urine Glucose (UA) Negative (Negative) mg/dL Urine Ketones Negative (Negative) mg/dL Urine Blood Trace H (Negative) Urine Nitrite Negative (Negative) Ur Leukocyte Esterase Large (3+) H (Negative) Urine RBC 0-2 (0-2) /HPF Urine WBC >50 H (0-5) /HPF Ur Squamous Epith Cells 0-2 (0-2) /HPF Urine Bacteria 4+ (None Seen) Hyaline Casts 0-2 (0-2) /LPF Procedures Procedure Narrative Procedure Narrative: EMERGENCY ULTRASOUND INTERPRETATION-Limited Retroperitoneal (Renal) [This study was ordered, performed, and interpreted by myself. The study reveals: Impression: NO EVIDENCE OF UROLOGIC OBSTRUCTION] [Indication: FLANK PAIN Right Kidney: NO HYDRONEPHROSIS Performed by: Mark Mota MD Images were stored CPT: 25526] Discharge Plan Discharge Clinical Impression: UTI (urinary tract infection) Patient Disposition: Home, Self-Care Instructions: Urinary Tract Infection in Women (DC), Cystocele (ED) Additional Instructions: We have identified a urinary tract infection. As we discussed it is low likelihood of cross-reactivity with penicillins with 3rd generation cephalosporin the type of antibiotic we have prescribed for you. Ultrasound of your right kidney did not show any signs of obstruction Take Pyridium as needed for pain with urination. Drink plenty of fluid. Note that the Pyridium will turn your urine orange or reddish for the next few days Prescriptions: New cefpodoxime 200 mg tablet 200 mg PO BID 10 Days Qty: 20 0RF Rx Instructions: must administer with a meal/food phenazopyridine [Pyridium] 200 mg tablet 200 mg PO TID Qty: 6 0RF No Action propranolol [Inderal LA] 80 mg capsule,extended release 24 hr 80 mg PO DAILY Qty: 90 2RF flecainide 100 mg tablet 100 mg PO Q12H Qty: 180 3RF levothyroxine 175 mcg tablet 175 mcg PO DAILY lorazepam 0.5 mg tablet 0.5 mg PO Q6H PRN (Reason: anxiety) omeprazole 20 mg capsule,delayed release(DR/EC) 20 mg PO BID gabapentin 300 mg capsule 300 mg PO BID Stand Alone Forms: Work/School Release Interventions: ED Discharge Assessment Last Done: 05/12/25 06:39 Discharge Date/Time: 05/12/25 06:43 Print Language: Czech
[2025-05-12 05:36] LABS: Appearance Urine Cloudy; Color Urine Dark Yellow; Glucose Urine UA Negative (Negative); Leukocyte Esterase Urine Large (3+) (Negative); Nitrite Urine Negative (Negative); UMIC TRIGGER UACC YES; Urine Blood Trace (Negative); Urine Ketones Negative (Negative); Urine Protein Trace mg/dL (Neg-Trace)
[2025-05-12 05:40] LABS: MANUAL DIFF FLAG NO
[2025-05-12 05:41] LABS: Basophils Absolute Auto 0.1 X10*3/uL (0.0-0.2); Basophils Percent Auto 0.8 % (0-2); Eosinophils Absolute Auto 0.1 X10*3/uL (0.0-0.4); Eosinophils Percent Auto 1.8 % (0-4); Hematocrit 45.9 % (37.0-47.0); Hemoglobin 15.4 g/dl (12.0-16.0); Imm Gran Abs Auto 0.02 X10*3/uL (0.00-0.03); Imm Gran Pct Auto 0.3 % (0.0-0.4); Lymphocytes Absolute Auto 1.2 X10*3/uL (1.2-4.9); Lymphocytes Percent Auto 15.8 % (20-40); Mean Corpuscular HGB Conc 33.6 g/dl (31.0-35.0); Mean Corpuscular Volume 92.4 fL (80.0-98.0); Mean Platelet Volume 9.5 fL (9.4-12.3); Monocytes Absolute Auto 0.8 X10*3/uL (0.1-1.2); Monocytes Percent Auto 10.3 % (2-11); Neutrophils Absolute Auto 5.6 x10*3/uL (2.0-8.3); Platelet Count 183 X10*3/uL (160-400); Red Blood Count 4.97 X10*6/uL (4.20-5.50); Red Cell Distribution Width 13.5 % (11.0-16.0); White Blood Count 7.8 X10*3/uL (4.8-10.8)
[2025-05-12] MEDS: cefuroxime axetiL 500 MG TABLET PO (05:41)
[2025-05-12] MEDS: Phenazopyridine HCL 200 MG TABLET PO (05:41)
[2025-05-12 05:42] LABS: Bacteria Urine 4+ (None Seen); Hyaline Casts Urine 0-2 /LPF (0-2); RBC Urine 0-2 /HPF (0-2); Squamous Epithelial Cell Urine 0-2 /HPF (0-2); UACC Culture Trigger YES; WBC Urine >50 /HPF (0-5)
[2025-05-12 05:52] LABS: Anion Gap 10 (12-20); Blood Urea Nitrogen 11 mg/dL (9-16); Calcium 8.4 mg/dL (8.4-10.2); Carbon Dioxide 24 mmol/L (22-29); Chloride 109 mmol/L (96-108); Creatinine Clr Calc Pharmacy 182.8; Estimated Glomerular Filt Rate > 60; Glucose Random 111 mg/dL (60-115); Potassium 4.1 mmol/L (3.3-5.1); Sodium 139 mmol/L (135-145)
--- OUTSIDE RECORDS SUMMARY | 2025-05-12 06:04 | XMS_ITS | Clinical Summary ---
Author Organization [address] Address [address] [place] [address] Phone Care Team Providers Care Jewel Bearing Facer Name Role Phone Mckay Huang MD Primary Care Provider [phone] Allergies Active Allergy Reactions Criticality Noted Date Comments Anti-Itch 02/15/2009 Other Reaction(s): OTHER Chest pain Ciprofloxacin Itching Medium 05/28/2016 See office note 05/28/2016 Doxycycline 10/26/2015 Ibuprofen 03/08/2007 Other Reaction(s): Rash/Dermatitis Cephalexin Rash 03/24/2025 Morphine 12/25/2005 Morphine Sulfate-Nacl Other Reaction(s): Rash/Dermatitis Naproxen Sodium 03/08/2007 Other Reaction(s): Rash/Dermatitis Nitrofurantoin Monohyd/M-Cryst Low 04/16/2018 dry mouth Other 04/12/2016 Seasonal Allergies Penicillins 12/25/2005 Other Reaction(s): Rash/Dermatitis HAS TAKEN KEFLEX IN THE PAST AND TOLERATED IT HOWEVER WILL USE LAST RESORT Sertraline Itching 2015 Sulfa (Sulfonamide Antibiotics) 12/25/2005 Other Reaction(s): Rash/Dermatitis Medications propranolol LA (INDERAL LA) 80 mg 24 hr capsule 12/01/19 24 Active cholecalcifer ol (VITAMIN D-3) 50 mcg (2,000 unit) capsule Take by mouth daily. Active albuterol HFA (PROAIR HFA ; PROVENTIL HFA ; VENTOLIN HFA) 90 mcg/actuation inhaler Inhale 1 Puff into the lungs every 4 hours as needed for Cough, Wheezing or Shortness of Breath. 03/08/20 23 Active fluticasone propionate (FLONASE) 50 mcg/actuation nasal spray 2 sprays in each nostril daily 08/14/20 22 Active LORazepam (ATIVAN) 0.5 mg tablet TAKE 1 TABLET BY MOUTH EVERY 6 HOURS NEEDED FOR ANXIETY FOR UP TO 8 DAYS. 09/16/20 24 Active levothyroxine (SYNTHROID, LEVOTHROID) 175 mcg tablet Take 1 tablet (175 mcg total) by mouth 1 (one) time each day. 90 each 1 12/25/19 25 Active gabapentin (NEURONTIN) 300 mg capsule Take 1 capsule (300 mg total) by mouth 2 (two) times a day. 180 each 1 12/25/19 25 025 Active cyclobenzapri ne (FLEXERIL) 5 mg tabletIndicat ions:muscle spasm Take 1 tablet (5 mg total) by mouth 2 (two) times a day if needed for muscle spasms. 30 tablet 01/27/20 25 Active Additional Information Patient not taking.Reported on 03/24/2025 flecainide (TAMBOCOR) 50 mg tablet Take 1 tablet (50 mg total) by mouth every 12 (twelve) hours. 02/02/20 25 Active fluconazole (DIFLUCAN) 150 mg tablet Take 1 tab by mouth now. May repeat in 72 hours if still symptomatic. 2 tablet 04/16/20 25 Active omeprazole (PriLOSEC) [address] capsule TAKE 1 CAPSULE (20 MG TOTAL) BY MOUTH 1 (ONE) TIME EACH DAY BEFORE BREAKFAST. 90 capsule 04/20/20 25 Active Synthroid 175 mcg tablet Take 1 tablet (175 mcg total) by mouth 1 (one) time each day. Please do not dispense generic pt has allergy 90 tablet 1 04/22/20 25 026 Active fluconazole (DIFLUCAN) 150 mg tablet Take 1 tab by mouth now. May repeat in 72 hours if still symptomatic. 2 tablet 11/26/19 25 025 Discontinued(Th erapy completed) omeprazole (PriLOSEC) [address] capsule Take 1 capsule (20 mg total) by mouth 1 (one) time each day before breakfast. 90 capsule 01/27/20 25 025 Discontinued nitrofurantoi n (MACRODANTIN) 100 mg capsule Take 1 capsule (100 mg total) by mouth 2 (two) times a day for 7 days. 14 capsule 04/16/20 25 025 Active Problems Problem Noted Date Diagnosed Date Recurrent UTI 10/02/2024 Severe obesity (BMI 35.0-35. 9 with comorbidity) ([facility] V24, [facility] V28) 10/02/2024 GERD (gastroesophageal reflux disease) Neuralgia, post-herpetic 09/12/2024 Overview (10/02/2024): 12/22/23: Left forehead/eye, now on gabapentin Paroxysmal atrial fibrillation ([facility] V24, [facility] V28) 09/12/2024 Overview (10/02/2024): Dr. Bland at [facility] Post-operative hypothyroidism 2024 Graves' disease 01/12/2023 COVID-19 virus infection 12/23/2020 Overview (10/02/2024): 12/21/20 Mixed hyperlipidemia 01/08/2020 Anxiety 08/29/2016 Cardiac murmur 10/24/2010 Overview (10/02/2024): Cardiac echo and stress test fall 2009 Holter monitor Graves' disease with exophthalmos 01/20/2008 Overview (10/02/2024): S/p 2006 - Dr. 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, pl sql developer Thyroid antibodies done 12/2010 Elevated thyroid antibodies 01/2011 Maternal consult Resolved Problems Problem Noted Date Diagnosed Date Resolved Date Vaginal odor 11/19/2024 01/19/2025 Bacterial vaginosis 11/19/2024 01/20/20 25 Encounters Date Type Department Care Team Description 04/20/2025 Nurse Triage Adult Medicine [address], [place] [phone] Mckay Huang MD 04/14/2025 3:30 PM EDT Office Visit Obstetrics & Gynecology - [address] [phone] Marianna Pop CNM UTI (urinary tract infection), uncomplicated (Primary Dx) 04/09/2025 Telephone Obstetrics and Gynecology [address] [phone] Denae Chun MD Uterine Prolapse 03/26/2025 Telephone Obstetrics and Gynecology - [address] [phone] Mackenzie Smart CNM Lab Results 03/24/2025 3:45 PM EDT Office Visit Obstetrics and Gynecology - [address] [phone] Mackenzie Smart CNM Encounter for IUD removal (Primary Dx); Urinary frequency; control counseling 03/23/2025 Telephone Obstetrics and Gynecology [address] [phone] Eliana Sr RN 03/23/2025 Telephone Adult Medicine [address] [phone] Mckay Huang MD UTI 03/12/2025 1:15 PM EDT Office Visit Obstetrics and Gynecology [address] [phone] Angelique Escamilla CNM IUD check up (Primary Dx); Frequent UTI from Last 3 Months Immunizations Name Administration Dates Next Due HPV, Quadrivalent 05/05/2007,01/06/2007 Influenza Quadravalent, MDCK , 0.5ml, preservative free (Flucelvax) 6mo and older 09/04/2023,08/14/2022 Influenza Quadrivalent, 0.5m l, preservative free (Fluarix; FluLaval; Fluzone) ages 6mo and older (Afluria) 3yo and older 11/25/2021 Influenza trivalent, 0.5mL, preservative free (Fluarix; FluLaval; Fluzone) ages 6mo and older (Afluria) 3 years and older 08/01/2024,11/25/2021 Influenza trivalent, MDCK, 0 .5mL, preservative free (Flucelvax) 6mo and older 08/01/2024 Moderna (age 6mo & older) Bi valent, COVID-19, 0.5 mL or 0.25 mL dosage 11/17/2022 Tdap Tetanus diptheria acell ular pertussis (Boostrix; Adacel) 7yo and older 09/04/2023,02/15/2009 Surgical History Surgery Date Site/Laterality Comments OTHER SURGICAL HISTORY 12/2008 PROCEDURE: HISTORICAL SUBTOTAL THYROIDECTOMY ANKLE SURGERY PROCEDURE: HISTORICAL ANKLE SURGERY; COMMENT: ankle fracture 2012 APPENDECTOMY age 5 PROCEDURE: HISTORICAL APPENDECTOMY VAGINOSCOPY 2004 PROCEDURE: [place] COLPOSCOPY CERVIX BX CERVIX & ENDOCRV CURRETAGE Medical History Medical History Date Comments Graves' disease with exophthalmos 01/20/2008 DX:Graves' disease with exophthalmos Migraine DX:Migraine Recurrent UTI DX:Recurrent UTI ; COMMENT: dr carmona COVID-19 virus infection 12/23/2020 DX:COVI D-19 virus infection; COMMENT: 12/21/20 Abnormal Pap smear of cervix Disease of thyroid gland Hypothyroidism Hyperthyroidism Family History Medical History Relation Name Comments Hypertension Father Ivan Other cancer Father's side thyroid ca unc le Allergies Mother Other cancer Mother's side testicular ac- uncle Diabetes Paternal Grandfather Naveed Breast cancer Paternal Grandmother Chana Colon cancer Neg Hx Ovarian cancer Neg Hx Pancreatic cancer Neg Hx Prostate cancer Neg Hx Uterine cancer Neg Hx Relation Name Status Comments Father Iavn Alive Father's side Mother Alive Mother's side Paternal Grandfather Naveed Paternal Grandmother Chana Social History Tobacco Use Types Packs/Day Years Used Date Smoking Tobacco: Former Cigarettes Q uit: 07/04/2005 Smokeless Tobacco: Never Tobacco Cessation:Counseling Given: Not Answered Alcohol Use Standard Drinks/Week Comments Yes 0 (1 standard drink = 0.6 oz pur e alcohol) Not often Housing Instability Answer Date Recorde d Are you worried that in the next 2 months you may not have stable housing? No 11/12/2024 Food Access & Nutrition Answer Date Rec orded Do you have access to a vari ety of food including fruits and vegetables? Yes 11/12/2024 Access to Healthcare Answer Date Record ed Within the last 3 months, ho w many times did you visit the emergency department for your medical care? 0 11/12/2024 Health Literacy Answer Date Recorded How often do you need to hav e someone help you when you read instructions, pamphlets, or other written material from your doctor or pharmacy? Never 11/12/2024 Caregiver: How often do you need to have someone help you when you read instructions, pamphlets, or other written material from your doctor or pharmacy? Not on file 11/12/2024 Financial Risk Answer Date Recorded How hard is it for you to pa y for the very basics like food, housing, medical care, and air conditioning / heating? Not very hard 11/12/2024 Transportation Answer Date Recorded Has the lack of transportati on kept you from meetings, work, or from getting things needed for daily living? No Has the lack of transportati on kept you from medical appointments or from getting medications? No 11/12/2024 Social Isolation Answer Date Recorded How often do you feel lonely or isolated from th ose around you? Never 11/12/2024 Food Risk Answer Date Recorded Within the past 12 months we worried whether our food would run out before we got money to buy more. Never true 11/12/2024 Within the past 12 months th e food we bought just didn't last and we didn't have money to get more. Never true 11/12/2024 Dependent Care Answer Date Recorded Do you need help finding or paying for care for your loved ones. For example, child nurse or elderly care for an older adult? No 11/12/2024 Education Answer Date Recorded Do you think completing more education or training, like finishing a GED, going to college, or learning a trade, would be helpful for you? No 11/12/2024 Employment and Income Answer Date Recor ded During the last four weeks, have you been actively looking for work? No 11/12/2024 Living Situation Answer Date Recorded What is your living situation? 1 01/13/2024 Comments No Sex and Gender Information Value Date Recorded Sex Assigned at Not on file Legal Sex Female 2:54 AM EST Gender Identity Not on file Sexual Orientation Not on file Obstetrics History Para Term AB IAB SAB Ectopic Multiple Livin g Live Births 3 3 3 0 0 0 0 0 0 3 3 Date Outcome GA Total Labor Labor/2nd/3rd Weight Sex Type Anes PTL Savanna A1 A5 Name Clin 2005 Term 40w 0d 8h 00m/ 3487 g (123 oz) F Vag-S pont Epidur al Livin g Savann luis Peloqu in-Spr att Delivery Location:[facility] Comments:A&W 8 Term 38w 0d 3260 g (115 oz) F Vag-S pont Livin g Delivery Location:[facility] 2010 Term 40w 6d 3997 g (141 oz) M Vag-S pont Epidur al Livin g 7 9 BEAUC HEMIN Delivery Location:[facility] Comments:A&W Last Filed Vital Signs Vital Sign Reading Time Taken Comments Blood Pressure 121/88 04/14/2025 2:22 PM EDT Pulse 81 04/14/2025 2:22 PM EDT Temperature 36.3 C (97.4 F) 01/26/2025 3:21 PM EDT Respiratory Rate 12 03/24/2025 3:54 PM EDT Oxygen Saturation 99% 01/26/2025 3:21 PM EDT Inhaled Oxygen Concentration - - Weight 114 kg (251 lb 9.6 oz) 04/14/2025 2:22 PM EDT Height 180.3 cm (5' 11 ) 04/14/2025 2:22 PM EDT Body Mass Index 35.09 04/14/2025 2:22 PM EDT Plan of Treatment Upcoming Encounters Date Type Department Care Team (Late st Contact Info) Description 07/21/2025 4:30 PM EDT Office Visit Adult Medicine [address] [phone] Megan Borrero PA [address] [place], [place] Health Maintenance Due Date Last Done Comments Hepatitis B Vaccines (1 of 3 - 19+ 3-dose series) 2001 HPV Vaccines (3 - 3-dose series) 07/28/2007 05/05/2007, 01/06/2007 Hepatitis C Screening 10/27/2022 COVID-19 Vaccine ( season) 2024 11/17/2022, 09/18/2021, 02/23/2021 Social Influencers of Health Screening 11/12/2025 11/12/2024 Depression Screening 03/23/2026 03/23/2025 Breast Cancer Screening 09/11/2026 09/11/20 24, 09/11/2024, 03/09/2024, Additional history exists Cholesterol Screening (Lipid Panel) 08/14/2027 08/14/2022 Cervical Cancer Screening: HPV 09/03/2028 09/03/2023 DTaP,Tdap,and Td Vaccines (3 - Td or Tdap) 09/04/2033 09/04/2023, 02/15/2009 HIV Screening Completed 10/23/2010 Influenza Vaccine Completed 08/01/2024, , 09/04/2023, Additional history exists HIB Vaccines Aged Out No longer eligi ble based on patient's age to complete this topic Hepatitis A Vaccines Aged Out No long er eligible based on patient's age to complete this topic IPV Vaccines Aged Out No longer eligi ble based on patient's age to complete this topic MMR Vaccines Aged Out No longer eligi ble based on patient's age to complete this topic Meningococcal ACWY Vaccine Aged Out N o longer eligible based on patient's age to complete this topic Meningococcal B Vaccine Aged Out No l onger eligible based on patient's age to complete this topic Pneumococcal Vaccine: Pediatrics (0 to 5 Years) and At-Risk Patients (6 to 64 Years) Aged Out No longer eligible based on patient's age to complete this topic RSV Immunization Patients Under 20 months Aged Out No longer eligible based on patient's age to complete this topic Varicella Vaccines Aged Out No longer eligible based on patient's age to complete this topic Procedures Procedure Name Priority Date/Time Associated Diagnosis Comments CULTURE URINE Routine 04/14/2025 2:43 PM EDT UTI (urinary tract infection), uncomplicated AZ REMOVAL INTRAUTERINE DEVICE Routine 03/24/2025 4:33 PM EDT Encounter for IUD removal CULTURE URINE Routine 03/24/2025 4:19 PM EDT Urinary frequency POC URINE AUTO W/O MICRO Routine 03/24/2025 4:10 PM EDT Urinary frequency DIAGNOSTIC MAMMOGRAPHY WITH CAD UNILATERAL Routine 09/11/2024 3:33 PM EDT Other abnormal and inconclusive findings on diagnostic imaging of breast HM HPV Routine 09/03/2023 LIPID PANEL Routine 08/14/2022 HIV SCREENING Routine 10/23/2010 from Last 3 Months or Most Recently Relevant to Health Maintenance Results * (ABNORMAL) Culture urine (04/14/2025 2:43 PM EDT) Only the most recent of2 resultswithin the time period is included. Culture, Urine >100,000 CFU/mL Enterococcus faecalis(A) BERNA 04/16/2025 11:39 AM EDT [facility] Comment: Edited result: Previously reported as Enterococcus species on 04/15/2025 at 1021 EDT. Urine Urine specimen obtained by clean catch procedure / Unknown Non-blood Collection / Unknown 04/14/2025 2:43 PM EDT 04/14/2025 3:56 PM EDT Narrative [facility] - 04/16/2025 11:39 AM EDT Additional colony types present in insignificant amounts. Organism Antibiotic Method Susceptibility Enterococcus faecalis Benzylpenicillin BERNA 4 ug/ml: Susceptible Enterococcus faecalis Ampicillin BERNA <=2 ug/ml: Susceptible Enterococcus faecalis Ciprofloxacin BERNA <=0.5 ug/ml: Susceptible Enterococcus faecalis Levofloxacin BERNA 1 ug/ml: Susceptible Enterococcus faecalis Linezolid BERNA 2 ug/ml: Susceptible Enterococcus faecalis Vancomycin BERNA <=0.5 ug/ml: Susceptible Enterococcus faecalis Tetracycline BERNA <=1 ug/ml: Susceptible Enterococcus faecalis Nitrofurantoin BERNA <=16 ug/ml: Susceptible Marianna Pop CNM LAB MICROBIOLOGY - GENERAL OR DERABLES Final Result [facility] [address] [place] [address], [place] [phone] * [place] REMOVAL INTRAUTERINE DEVICE (03/24/2025 4:33 PM EDT) Mackenzie Wooten CNM - 03/24/2025 4:33 PM EDT Mackenzie Smart CNM 03/24/2025 4:41 PM IUD Removal Date/Time: 03/24/2025 4:33 PM Performed by: Mackenzie Smart CNM Authorized by: Mackenzie Smart CNM Informed Consent: Health status cleared: Yes Procedure/treatment, purpose, treatment alternatives, risks/potential complications and benefits explained: yes Risk/complications/benefits details: Per consent form Patient questions answered: yes Patient agrees, verbalizes understanding, and wants to proceed: yes Consent given by: Patient Informed consent discussion completed by Physician/JOANN with patient: Written; patient signed and dated; copy to patient Removal Procedure: Strings visible: yes Removal device: Ring forceps Removal reason: Desires removal (experiencing UTI sx since insertion. Plans condoms) Removal successful: yes Complications: no Comments: BC counseling- pt plans Condoms. Has been experiencing irregular bleeding since insertion and frequent UTI sx. Urine culture sent- she has multiple allergies- will treat if positive RTO for annual and sooner if needed Mackenzie Smart CNM Mackenzie Smart CNM IN CLINIC/BEDSIDE ORDERABLES F inal Result * (ABNORMAL) POC Urine Auto W/O Micro (03/24/2025 4:10 PM EDT) Leukocytes UA POC Negative Negative Nitrite UA POC Negative Negative Urobilinogen UA POC Negative Negative Protein UA POC Negative Negative PH UA POC 7.5(A) 5.0 - 9.0 Blood UA POC Negative Negative, Trace Specific [place] UA POC 0.100(A) 1.001 - 1.035 Ketones UA POC Negative Negative Bilirubin UA POC Negative Negative Glucose UA POC Normal Normal, Trace Urine Urine specimen obtained by clean catch procedure / Unknown 03/24/2025 4:10 PM EDT Mackenzie Smart CN POINT OF CARE TEST ENTER/EDIT ORDERABLES Final Result * DIAGNOSTIC MAMMOGRAPHY WITH CAD UNILATERAL (09/11/2024 3:33 PM EDT) Anatomical Region Laterality Modality Mammography 03/09/2024 4:02 PM EDT Narrative 09/11/2024 3:53 PM EDT This is a summary report. The complete report is available in the patient's medical record. If you cannot access the medical record, please contact the sending organization for a detailed fax or copy. Exam: Unilateral right diagnostic mammogram History: 6-month follow-up of a probably benign asymmetries in the posterior upper right breast. Comparison: 03/09/2024 and 02/01/2024 Findings: Unilateral right full-field digital diagnostic mammography was performed with tomosynthesis and interpreted with computer-aided detection. Breast parenchyma is composed of scattered fibroglandular densities. Stable small asymmetry in the posterior upper right breast. Previously seen smaller asymmetry just inferior is not visualized. No new suspicious mass, architectural distortion, or suspicious calcifications. Impression: Stable probably benign asymmetry in the posterior upper right breast. Recommend continued follow-up in 6 months. BI-RADS 3-probably benign [facility] [address] [place] [id number] Procedure Note Isa Espino MD - 09/19/2024 This is a summary report. The complete report is available in thepatient's medical record. If you cannot access the medical record, pleasecontact the sending organization for a detailed fax or copy. Exam: Unilateral right diagnostic mammogram History: 6-month follow-up of a probably benign asymmetries in theposterior upper right breast. Comparison: 03/09/2024 and 02/01/2024 Findings: Unilateral right full-field digital diagnostic mammography was performedwith tomosynthesis and interpreted with computer-aided detection. Breast parenchyma is composed of scattered fibroglandular densities.Stable small asymmetry in the posterior upper right breast. Previouslyseen smaller asymmetry just inferior is not visualized. No new suspiciousmass, architectural distortion, or suspicious calcifications. Impression: Stable probably benign asymmetry in the posterior upper right breast.Recommend continued follow-up in 6 months. BI-RADS 3-probably benign [facility] [address] [place] [address] Megan BADILLO IMG BI PROCEDURES Final Result * Cervical Cancer Screening: HPV (09/03/2023) Cervical Cancer Screening: HPV negative, abstracted Historical Provider HEALTH MAINTENANCE Final Result * (ABNORMAL) Lipid panel (08/14/2022) LDL/HDL Ratio 5(A) 0 - 4 Triglycerides 219(A) 0 - 150 mg/dL Cholesterol 218(A) 0 - 200 mg/dL HDL 46 >=40 mg/dL LDL Cholesterol 129(A) 0 - 100 mg/dL Blood Venous blood specimen / Unknown Historical Provider LAB BLOOD ORDERABLES Cecelia l Result * HIV Screening (10/23/2010) HIV Screening abstracted Historical Provider HEALTH MAINTENANCE Final Result from Last 3 Months or Most Recently Relevant to Health Maintenance Insurance [facility] [employer] Care Teams Jewel Bearing Facer Relationship Specialty Start Date End Date Mckay Huang MD [address] [place] [id number] PCP - General 08/28/05
[2025-05-12 06:39] VITALS: BP 131/88; PULSE 74; RESP 18; TEMP 36.5; O2SAT 96
== END 2025-05-12 06:43 | disposition home or self-care (01) ==
PROVIDERS: Emergency Provider Emergency Medicine; PCP Internal Medicine
DX: N39.0 Urinary tract infection, site not specified (principal); Z79.899 Other long term (current) drug therapy
CPT/HCPCS: 36415; 80048; 81001; 85025; 87086; 87088; 87186; 99283; 99284

== ENCOUNTER 2025-05-19 03:57 | Inpatient (IN) | payer OTHER, SELFPAY ==
[2025-05-19] VITALS (11 sets, daily range): BP systolic 97–189; BP diastolic 49–87; PULSE 86–103; RESP 15–20; TEMP 36.6–37.7; O2SAT 94–99; BMI 35.4; BMI 35.0
--- NOTE | ~2025-05-19 | MR_ITS ---
EXAMINATION: MRCP HISTORY: abnormal LFTs, to eval for CBD stone COMPARISON: Correlation is made with abdominal CT and ultrasound examinations dated 05/19/2025. TECHNIQUE: Axial gradient echo in and out of phase T1, axial T2 and fat suppressed T2, and coronal haste T2 with fat saturation images were obtained through the abdomen. 3D MRCP Reconstructed images and thick slab imaging of the biliary tree were obtained. FINDINGS: There is no significant signal loss within the liver on opposed phase imaging to suggest steatosis. There is no intrahepatic biliary ductal dilatation. There are multiple calculi in the gallbladder. There is no gallbladder wall thickening. The common bile duct is normal in caliber. No intraluminal filling defects are identified to suggest choledocholithiasis. The spleen is enlarged. The pancreas is unremarkable on this unenhanced examination. The pancreatic duct is normal in caliber. The adrenals are unremarkable. There is a small amount of perinephric fluid of the upper pole of the right kidney. Upon additional review of the CT scan, there is a heterogeneous nephrogram at the upper pole of the right kidney. Findings are consistent with acute pyelonephritis. The left kidney is unremarkable. No retroperitoneal lymphadenopathy is seen in the upper abdomen. The visualized bones demonstrate normal marrow signal intensity. MR/MR MRCP IMPRESSION: 1. Cholelithiasis. No evidence of choledocholithiasis. 2. Findings consistent with acute pyelonephritis at the upper pole of the right kidney. 3. Splenomegaly. Electronically signed by: Vinod Díaz MD 05/20/2025 08:31 AM EDT
--- NOTE | ~2025-05-19 | CT_ITS ---
CLINICAL HISTORY: R flank and RUQ pain, abnormal LFTs, + for UTI CT abdomen and pelvis with contrast Comparison: None provided Findings: No consolidation or effusion. The spleen is enlarged. The gallbladder is decompressed with mild surrounding stranding. The liver, adrenal glands and pancreas are unremarkable. Questionable very faint hypoenhancement involving the upper pole of the right kidney, coronal images 69-75. This may be artifactual. No abscess or urinary calculus. Mild hyperenhancement of the urothelium bilaterally including the ureters. Mild bladder wall thickening. Uterus and adnexa are unremarkable. No bowel obstruction or free air. Tiny fat containing umbilical hernia. No significant retroperitoneal or mesenteric adenopathy. Impression: Mild urothelial hyperenhancement without obstructive uropathy. Question very faint enhancement abnormality involving the upper pole of the right kidney. Early pyelonephritis not excluded. The gallbladder is decompressed with the suggestion of faint surrounding stranding. If there is concern for cholecystitis, right upper quadrant ultrasound could be considered. There is splenomegaly present. This document has been electronically signed by: Fabien Moseley MD on 05/19/2025 06:57:16
--- NOTE | ~2025-05-19 | US_ITS ---
CLINICAL HISTORY: RUQ pain GB only please Exam: Ultrasound of the gallbladder. Comparison: None provided. Findings: Echogenic shadowing foci are seen within the gallbladder indicative of stone disease. Gallbladder wall is thickened to 7 mm. Mild pericholecystic fluid. Negative sonographic Stokes's sign. Common bile duct is within normal limits. Impression: Cholelithiasis with gallbladder wall thickening and pericholecystic fluid. However, patient has a negative sonographic Stokes's sign. Findings remain concerning for cholecystitis. Clinical correlation and surgical consultation suggested. This document has been electronically signed by: Shlomo Cowan MD on 05/19/2025 08:56:16
--- NOTE | 2025-05-19 04:25 | ED.ABDPAIN ---
HPI - Abdominal Pain General Chief Complaint: Abdominal Pain Stated Complaint: UTI Time Seen by Provider: 05/19/25 04:18 Source: patient and old records reviewed Mode of arrival: ambulatory Limitations: no limitations History of Present Illness ED Provider: KAVEH CAST narrative: 45 yo female with PMH of afib, hypothyroidism, GERD, just seen here on 05/12 dx with UTI and started on cepdoxime for E. Coli S except for intermediate for cipro - the patient also had bedside US showing no hydronephrosis she returns today with c/o only being able to take two days of the abx as she felt short of breath to the point she couldn't work. She had no rash or wheezing. Her doctor told her to stop and on Saturday took another culture that resulted as mixed omid. She states she has pressure, dysuria, chills, low back pain. No vomiting. She states she has no hx of stone. Due to the mixed omid UTI her doctor told her no more antibiotics. MD elicited complaint: other Onset (ago): week(s) (1) Pain Consistency: constant Location: suprapubic and other (back) Severity: severe Quality: aching Radiation: none Migration to: no migration Exacerbating factors: other (urination) Relieving factors: nothing Context: other Associated symptoms: chills and dysuria Related Data Home Medications ?Medication ?Instructions ?Recorded ?Confirmed levothyroxine 175 mcg tablet 175 mcg PO DAILY 11/29/23 08/21/24 lorazepam 0.5 mg tablet 0.5 mg PO Q6H PRN anxiety 11/29/23 08/21/24 omeprazole 20 mg capsule,delayed 20 mg PO BID 11/29/23 08/21/24 release gabapentin 300 mg capsule 300 mg PO BID 08/21/24 08/21/24 Previous Rx's ?Medication ?Instructions ?Recorded propranolol 80 mg capsule,24 80 mg PO DAILY #90 caps 09/15/24 hr,extended release (Inderal [place]) flecainide 100 mg tablet 100 mg PO Q12H #180 tabs 03/22/25 cefpodoxime 200 mg tablet 200 mg PO BID 10 days #20 tabs 05/12/25 phenazopyridine 200 mg tablet 200 mg PO TID 6 doses #6 tabs 05/12/25 (Pyridium) Allergies Allergy/AdvReac Type Severity Reaction Status Date / Time ibuprofen (IBUPROFEN) Allergy Unknown RASH Verified 05/19/25 04:03 morphine (MORPHINE) Allergy Unknown UNKNOWN Verified 05/19/25 04:03 moxifloxacin (MOXIFLOXACIN) Allergy Unknown UNKNOWN Verified 05/19/25 04:03 naproxen (Aleve) Allergy Unknown Rash Verified 05/19/25 04:03 penicillin V Allergy Unknown Rash Verified 05/19/25 04:03 Penicillins (PENICILLINS) Allergy Unknown RASH Verified 05/19/25 04:03 Sulfa (Sulfonamide Allergy Unknown RASH Verified 05/19/25 04:03 Antibiotics) (SULFA(SULFONAMIDE ANTIBIOTICS)) From ALEVE Allergy Unknown UNKNOWN Uncoded 05/12/25 05:12 From BENADRYL Allergy Unknown RASH Uncoded 05/12/25 05:12 Review of Systems Review of Systems Constitutional : No Fever, pos Chills ENT/Mouth : No sore throat Eyes: No Eye Pain, No Swelling, No Redness Cardiovascular : No Chest Pain, No SOB Respiratory : No Cough, No Sputum, No Wheezing Gastrointestinal : positive Nausea, no Vomiting, No Diarrhea, positive abdominal pain Genitourinary : positive Dysuria, positive urinary frequency, no Hematuria, positive back pain Musculoskeletal : No joint pain, No Myalgias Skin : No Skin Lesions, No rash Neuro : No Weakness, No Numbness, No Headache All other systems reviewed and are negative PMFSH Past Medical History Attestation statement: The following information was validated with the patient. Source: old records reviewed Medical History Paroxysmal atrial fibrillation Persistent atrial fibrillation Atrial fibrillation with RVR Anxiety GERD (gastroesophageal reflux disease) Graves disease Surgical History H/O eye surgery History of ankle surgery S/P appy S/P thyroidectomy Social History Social History Household Members: Spouse Housing: House Do you presently have visiting nurse or other home services: No Patient Tobacco Use Status: Never used Tobacco Smoked in Last 30 Days: No Use of substances other than those prescribed or required for medical reasons: No Substance Use Type: Marijuana Advance Directives: Yes Advance Directives on File: Yes Advance Directives Date on File: 12/02/23 Do you have a plan to hurt others: No Plan Patient : No service: No Physical Exam ED Vital Signs: Vital Signs - 24 hr 05/19/25 04:01 05/19/25 04:50 05/19/25 06:25 Temperature 98.8 F 99.8 F 98.6 F Pulse Rate 103 H 88 102 H Respiratory Rate 20 16 18 Blood Pressure 132/87 114/79 113/77 Pulse Oximetry 99 94 96 Oxygen Delivery Method Room Air Room Air Room Air BMI result Body Mass Index 35.4 Appearance: Alert. Oriented X3. No acute distress. Eyes: Pupils equal, round and reactive to light. ENT: Pharynx normal. Neck: Normal inspection. Neck supple. CVS: Normal heart rate and rhythm. Pulses normal. Respiratory: No respiratory distress. Breath sounds normal. Abdomen: Soft and suprapubic ttp, no pain with CVA percussion noted neg renee's sign most pain is right lower abd Skin: Skin warm and dry. Normal skin color. Normal skin turgor. Extremities: No lower extremity edema. No calf ttp Neuro: Oriented X 3. No motor deficit. No sensory deficit. CN2-12 intact Course Course Course Narrative: abnormal LFTs - I have added broad abx, hep panel - she denies risk factors, no tylenol use she still has her GB as well - CT scan with IV contrast to assess, GB, liver, renal Medical Decision Making Medical Decision Making MDM Narrative: 45 yo female with PMH of afib, hypothyroidism, GERD, just seen here on 05/12 dx with UTI + for E. Coli but did not complete therapy and the patient was taken off her abx by her PCP - she then had repeat culture that was negative but this was likely masked by her two doses of abx. At this time the patient still has symptoms but on exam no CVA ttp at this time I am going to obtain labs, UA and start her on macrobid if no pyelo or stone. She is not toxic and well appearing. At this time possible infection suspected 5am - lactic acid, cultures, IV meropenem ordered given her broad allergies - CT scan ordered given her symptoms for renal colic, biliary colic. Differential Diagnosis Differential Diagnoses: The differential diagnosis associated with the presentation includes untreated urinary culture, renal colic, biliary colic Admission/Observation Consideration of admission/observation: Escalation of care including admission/observation considered will admit for IV abx and further management Consult Healthcare Provider Management of the patient was discussed with: Hospitalist (will admit) and Assisted Living Housekeeper surgery notified Romulo [email or web address] skyler will follow states she needs MRCP Lab Data MDM Lab Attestation statement: I reviewed the patient's lab results. 05/19/25 04:45 05/19/25 04:45 Labs: Lab Results 05/19/25 05/19/25 Range/Units 04:45 04:46 WBC 12.3 H (4.8-10.8) X10*3/uL RBC 5.08 (4.20-5.50) X10*6/uL Hgb 15.8 (12.0-16.0) g/dl Hct 45.5 (37.0-47.0) % MCV 89.6 (80.0-98.0) fL MCH 31.1 (27.0-33.0) pg MCHC 34.7 (31.0-35.0) g/dl RDW 13.7 (11.0-16.0) % Plt Count 152 L (160-400) X10*3/uL MPV 9.6 (9.4-12.3) fL Immature Gran % (Auto) 0.4 (0.0-0.4) % Neut % (Auto) 80.1 H (45-73) % Lymph % (Auto) 7.9 L (20-40) % [place] % (Auto) 10.6 (2-11) % Eos % (Auto) 0.6 (0-4) % Baso % (Auto) 0.4 (0-2) % Lymph # (Auto) 1.0 L (1.2-4.9) X10*3/uL [place] # (Auto) 1.3 H (0.1-1.2) X10*3/uL Eos # (Auto) 0.1 (0.0-0.4) X10*3/uL Baso # (Auto) 0.1 (0.0-0.2) X10*3/uL Abs Immat Gran (auto) 0.05 H (0.00-0.03) X10*3/uL Absolute Neuts (auto) 9.9 H (2.0-8.3) x10*3/uL Absolute Nucleated RBC 0.000 (0.0-0.012) X10*3/uL Nucleated RBC % (auto) 0.0 (0.0-0.2) /100WBC Sodium 136 (135-145) mmol/L Potassium 4.2 (3.3-5.1) mmol/L Chloride 104 (96-108) mmol/L Carbon Dioxide 24 (22-29) mmol/L Anion Gap 12 (12-20) BUN 11 (9-16) mg/dL Creatinine 0.65 (0.5-1.4) mg/dL Estim Creat Clear Calc 156.0 Estimated GFR > 60 Random Glucose 104 (60-115) mg/dL Calcium 8.7 (8.4-10.2) mg/dL Magnesium 1.7 (1.6-2.6) mg/dL Total Bilirubin 3.5 H (0.0-1.0) mg/dL Direct Bilirubin 2.1 H (0.0-0.5) mg/dL AST 293 H (5-31) U/L ALT 404 H (0-31) U/L Alkaline Phosphatase 140 H (39-117) U/L C-Reactive Protein 4.47 H (< or = 0.50) mg/dL Total Protein 7.1 (6.5-8.0) g/dL Albumin 3.5 (3.5-5.0) g/dL Lipase 46 (8-78) U/L Urine Color Dark Yellow Urine Appearance Cloudy Urine pH 6.5 (5.0-9.0) Ur Specific [place] 1.010 (1.005-1.025) Urine Protein 30 (1+) H (Neg-Trace) mg/dL Urine Glucose (UA) Negative (Negative) mg/dL Urine Ketones Negative (Negative) mg/dL Urine Blood Small (1+) H (Negative) Urine Nitrite Positive H (Negative) Ur Leukocyte Esterase Large (3+) H (Negative) Urine RBC 3-5 H (0-2) /HPF Urine WBC >50 H (0-5) /HPF Ur Squamous Epith Cells 0-2 (0-2) /HPF Urine Bacteria 4+ (None Seen) Hyaline Casts 0-2 (0-2) /LPF Urine Test NEGATIVE (NEGATIVE) Independent Interpretation I performed an independent interpretation of an: Ultrasound (cholecystitis) and CT Scan (abnormal GB and R ) Independent Historian Clinical information obtained from an independent historian. History obtained from or confirmed by: Spouse External Record Review External record reviewed: Inpatient record, Outpatient record and Prior outpatient labs Medications Administered Generic Name Dose Route Start Last Admin Trade Name Freq PRN Reason Stop Dose Admin Lactated Ringer's 1,000 mls @ 80 mls/hr 05/19/25 07:15 05/19/25 08:01 Lr IVCONT 80 mls/hr .[id number] CHIOMA Administration Discontinued Medications Generic Name Dose Route Start Last Admin Trade Name Freq PRN Reason Stop Dose Admin Iohexol 85 ml 05/19/25 05:51 05/19/25 05:51 Iohexol 350 Mg/Ml 100 Ml Infus..Btl IV 05/19/25 05:52 85 ml ONCE ONE Administration Meropenem 500 mg 05/19/25 05:01 05/19/25 06:12 Meropenem 500 Mg Vial IVPUSH 05/19/25 05:02 500 mg ONCE ONE Administration Discharge Plan Discharge Clinical Impression: Abdominal pain, Pyelonephritis, Abnormal liver enzymes Patient Disposition: Admitted As Inpatient Print Language: Kazakh
[2025-05-19 04:52] LABS: MANUAL DIFF FLAG NO
[2025-05-19 04:54] LABS: Appearance Urine Cloudy; Glucose Urine UA Negative (Negative); PH 6.5 (5.0-9.0); Specific Gravity - Urine 1.010 (1.005-1.025); UMIC TRIGGER UACC YES
[2025-05-19 04:58] LABS: Hematocrit 45.5 % (37.0-47.0); Hemoglobin 15.8 g/dl (12.0-16.0); Imm Gran Abs Auto 0.05 X10*3/uL (0.00-0.03); Imm Gran Pct Auto 0.4 % (0.0-0.4); Lymphocytes Absolute Auto 1.0 X10*3/uL (1.2-4.9); Mean Corpuscular HGB Conc 34.7 g/dl (31.0-35.0); Mean Corpuscular Hemoglobin 31.1 pg (27.0-33.0); Mean Corpuscular Volume 89.6 fL (80.0-98.0); NRBC Abs Auto 0.000 X10*3/uL (0.0-0.012); NRBC Pct Auto 0.0 /100WBC (0.0-0.2); Platelet Count 152 X10*3/uL (160-400); Red Blood Count 5.08 X10*6/uL (4.20-5.50); White Blood Count 12.3 X10*3/uL (4.8-10.8)
[2025-05-19 05:12] LABS: UACC Culture Trigger YES
[2025-05-19 05:13] LABS: Alanine Aminotransferase 404 U/L (0-31); Albumin Level 3.5 g/dL (3.5-5.0); Alkaline Phosphatase 140 U/L (39-117); Anion Gap 12 (12-20); Aspartate Amino Transferase 293 U/L (5-31); Blood Urea Nitrogen 11 mg/dL (9-16); Calcium 8.7 mg/dL (8.4-10.2); Carbon Dioxide 24 mmol/L (22-29); Chloride 104 mmol/L (96-108); Creatinine Clr Calc Pharmacy 156.0; Estimated Glomerular Filt Rate > 60; Lipase 46 U/L (8-78); Magnesium 1.7 mg/dL (1.6-2.6); Potassium 4.2 mmol/L (3.3-5.1); Sodium 136 mmol/L (135-145); Total Protein 7.1 g/dL (6.5-8.0)
[2025-05-19 05:21] LABS: UPreg QC Valid YES
--- NOTE | 2025-05-19 05:42 | PC.NURSE ---
abx pending administration d/t not available in xis. Waiting for house registry rn to bring down
[2025-05-19] MEDS: iohexoL 350 MG/ML 100 ML INFUS..BTL 85 ML IV (05:51)
[2025-05-19] MEDS: Lactated Ringers 1,000 ML 80 ML IVCONT (08:01)
[2025-05-19 08:13] LABS: HBS Num1 0.22 mIU/mL (0-7.99); HBc Num1 0.13 S/CO (0.00-0.79); HBsAGNum1 0.26 S/CO (0.00-0.99); Hepatitis A Antibody IgM 0.16 Index (0-0.79); Hepatitis B Surface Antigen Negative (Negative); ~HepC Num1 0.18 S/CO (0.00-0.79); ~Hepatitis A Antibody IgM Nonreactive (Nonreactive); ~Hepatitis B Surface Antibody NONREACTIVE (Nonreactive); ~Hepatitis C Antibody Nonreactive (Nonreactive)
[2025-05-19] MEDS: oxyCODONE HCl Immed Release 5 MG TABLET PO (08:24)
--- NOTE | 2025-05-19 08:48 | PM.CNGS ---
History of Present Illness Consult details Consult date: 05/19/25 <Marianna Sebastian PA-C - Last Filed: 05/19/25 09:15> Requesting physician: Berenice Horne <Marianna Sebastian PA-C - Last Filed: 05/19/25 09:15> Narrative: 45 year old female with PMH of afib not on anticoagulation, hypothyroidism, GERD, who presented for evaluation of suspected UTI. She reports she has been having recurrent UTIs for the past few months with symptoms of dysuria and urinary frequency and urgency and has been on several antibiotic courses. She was recently seen in the ED on 05/12 and diagnosed with UTI and started on cefpodoxime for E. Coli. She apparently took a couple of days of the abx however complained of fatigue and shortness of breath to her PCP who obtained another abx culture and told her to stop the abx on Saturday. She reports that following this, she developed increasing dysuria, pressure and right sided abdominal/back pain and came to the ED for evaluation. She has associated nausea without vomiting. She reports subjective fevers and chills that began yesterday. She has never had an episode of pain like this prior. She denies changes in skin color, urine color, diarrhea. She reports hx of thyroidectomy, appendectomy and ankle surgery. Work up in the ED included CBC, BMP, LFTs which were significant for leukocytosis of 12.3. UA was positive. She also had elevated LFTs of total/direct bili 3.5/2.1, AST/ALT 293/404. CT scan abd pelvis showed faint enhancement abnormality involving the upper pole of the right kidney, gallbladder was decompressed with possible faint surrounding stranding. ABD US was performed following, imaging currently unavailable. <TRIP Solo Last Filed: 05/19/25 09:15> Review of Systems Review of Systems: Yes all other systems are reviewed and are negative <Marianna Sebastian PA-C - Last Filed: 05/19/25 09:15> [facility] Past Medical History Medical History: Medical History Paroxysmal atrial fibrillation Persistent atrial fibrillation Atrial fibrillation with RVR Anxiety GERD (gastroesophageal reflux disease) Graves disease <TRIP Solo Last Filed: 05/19/25 09:15> Surgical History Surgical History: Surgical History H/O eye surgery History of ankle surgery S/P appy S/P thyroidectomy <Marianna Sebastian PA-C - Last Filed: 05/19/25 09:15> Social History Social History: Social History Household Members: Family Housing: House Do you presently have visiting nurse or other home services: No Patient Tobacco Use Status: Never used Tobacco Substance Use Type: Marijuana Advance Directives Date on File: 12/02/23 service: No <TRIP Solo Last Filed: 05/19/25 09:15> Meds Allergies/Adverse reactions: Allergies Allergy/AdvReac Type Severity Reaction Status Date / Time ibuprofen (IBUPROFEN) Allergy Unknown RASH Verified 05/19/25 04:03 morphine (MORPHINE) Allergy Unknown UNKNOWN Verified 05/19/25 04:03 moxifloxacin (MOXIFLOXACIN) Allergy Unknown UNKNOWN Verified 05/19/25 04:03 naproxen (Aleve) Allergy Unknown Rash Verified 05/19/25 04:03 penicillin V Allergy Unknown Rash Verified 05/19/25 04:03 Penicillins (PENICILLINS) Allergy Unknown RASH Verified 05/19/25 04:03 Sulfa (Sulfonamide Allergy Unknown RASH Verified 05/19/25 04:03 Antibiotics) (SULFA(SULFONAMIDE ANTIBIOTICS)) From ALEVE Allergy Unknown UNKNOWN Uncoded 05/12/25 05:12 From BENADRYL Allergy Unknown RASH Uncoded 05/12/25 05:12 <TRIP Solo Last Filed: 05/19/25 09:15> Active Medications: Current Medications Acetaminophen (Acetaminophen 325 Mg Tablet) 650 mg PO Q6H PRN PRN Reason: Pain, Mild 1-3,fever,headache Calcium Carbonate (Calcium Carbonate 750 Mg Tab.Chew) 750 mg PO Q4H PRN PRN Reason: Heartburn Lactated Ringer's (Lr) 1,000 mls @ 80 mls/hr IVCONT .[id number] [facility] Last Admin: 05/19/25 08:01 Dose: 80 mls/hr Lactated Ringer's (Lr) 1,000 mls @ 100 mls/hr IVCONT .Q10H CHIOMA Magnesium Hydroxide (Milk Of Magnesia 30 Ml Oral.Susp) 30 ml PO DAILY PRN PRN Reason: Constipation Melatonin (Melatonin 3 Mg Tablet) 6 mg PO BEDTIME PRN PRN Reason: Insomnia Sodium Chloride (0.9 % Sodium Chloride Flush 3 Ml Syringe) 3 ml IVFLUSH QSHIFT CHIOMA <TRIP Solo Last Filed: 05/19/25 09:15> Home medications: Home Medications ?Medication ?Instructions ?Recorded ?Confirmed ?Last Taken ?Type lorazepam 0.5 mg tablet 0.5 mg PO Q6H PRN anxiety 11/29/23 05/19/25 Unknown History omeprazole 20 mg capsule,delayed 20 mg PO DAILY@0630 11/29/23 05/19/25 05/18/25 History release gabapentin 300 mg capsule 300 mg PO DAILY 08/21/24 05/19/25 05/18/25 History flecainide 100 mg tablet 100 mg PO BID@0600,1800 05/19/25 05/19/25 05/18/25 History levothyroxine 175 mcg tablet 175 mcg PO DAILY@0600 05/19/25 05/19/25 05/18/25 History (Synthroid) phenazopyridine 200 mg tablet 200 mg PO TID PRN urinary symptoms 05/19/25 05/19/25 05/16/25 History (Pyridium) <TRIP Solo Last Filed: 05/19/25 09:15> Physical Exam Vital Signs: Vital Signs: Last Vital Signs Temp 98.2 F 05/19/25 08:24 Pulse 101 H 05/19/25 08:24 Resp 17 05/19/25 08:24 BP 121/83 05/19/25 08:24 Pulse Ox 95 05/19/25 08:24 O2 Del Method Room Air 05/19/25 08:24 BMI result Body Mass Index 35.4 <TRIP Solo Last Filed: 05/19/25 09:15> Const: General: comfortable, no acute distress and alert <TRIP Solo Last Filed: 05/19/25 09:15> Orientation/consciousness: patient oriented x3 <TRIP Solo Last Filed: 05/19/25 09:15> Resp: Effort & Inspection: normal respiratory effort, able to speak in complete sentences and not tachypneic <TRIP Solo Last Filed: 05/19/25 09:15> GI: Other: very mild right sided/RUQ tenderness, negative renee sign, no rebound <Marianna Sebastian PA-C [place] Last Filed: 05/19/25 09:15> Palpation (GI): Soft to palpation, no guarding and not rigid <Marianna Sebastian PA-C [place] Last Filed: 05/19/25 09:15> Percussion: Yes normal to percussion <Marianna Sebastian PA-C [place] Last Filed: 05/19/25 09:15> Skin: General skin exam: no rashes or lesions noted and no jaundice <Marianna Sebastian PA-C [place] Last Filed: 05/19/25 09:15> Neuro: General: patient oriented x3 and moves all extremities <Marianna Sebastian PA-C [place] Last Filed: 05/19/25 09:15> Results Labs Result diagrams: 05/20/25 05:22 05/20/25 05:22 <Marianna Sebastian PA-C [place] Last Filed: 05/19/25 09:15> Labs: Abnormal lab results 05/19/25 05/19/25 Range/Units 04:45 04:46 WBC 12.3 H (4.8-10.8) X10*3/uL Plt Count 152 L (160-400) X10*3/uL Neut % (Auto) 80.1 H (45-73) % Lymph % (Auto) 7.9 L (20-40) % Lymph # (Auto) 1.0 L (1.2-4.9) X10*3/uL [place] # (Auto) 1.3 H (0.1-1.2) X10*3/uL Abs Immat Gran (auto) 0.05 H (0.00-0.03) X10*3/uL Absolute Neuts (auto) 9.9 H (2.0-8.3) x10*3/uL Total Bilirubin 3.5 H (0.0-1.0) mg/dL Direct Bilirubin 2.1 H (0.0-0.5) mg/dL AST 293 H (5-31) U/L ALT 404 H (0-31) U/L Alkaline Phosphatase 140 H (39-117) U/L C-Reactive Protein 4.47 H (< or = 0.50) mg/dL Urine Protein 30 (1+) H (Neg-Trace) mg/dL Urine Blood Small (1+) H (Negative) Urine Nitrite Positive H (Negative) Ur Leukocyte Esterase Large (3+) H (Negative) Urine RBC 3-5 H (0-2) /HPF Urine WBC >50 H (0-5) /HPF Short CBC 05/19/25 Range/Units 04:45 WBC 12.3 H (4.8-10.8) X10*3/uL Hgb 15.8 (12.0-16.0) g/dl Hct 45.5 (37.0-47.0) % Plt Count 152 L (160-400) X10*3/uL BMP 05/19/25 04:45 Sodium 136 Potassium 4.2 Chloride 104 Carbon Dioxide 24 BUN 11 Creatinine 0.65 Calcium 8.7 Liver Function 05/19/25 Range/Units 04:45 Total Bilirubin 3.5 H (0.0-1.0) mg/dL Direct Bilirubin 2.1 H (0.0-0.5) mg/dL AST 293 H (5-31) U/L ALT 404 H (0-31) U/L Alkaline Phosphatase 140 H (39-117) U/L Albumin 3.5 (3.5-5.0) g/dL Urine 05/19/25 Range/Units 04:46 Urine Color Dark Yellow Urine Appearance Cloudy Urine pH 6.5 (5.0-9.0) Ur Specific [place] 1.010 (1.005-1.025) Urine Protein 30 (1+) H (Neg-Trace) mg/dL Urine Glucose (UA) Negative (Negative) mg/dL Urine Test NEGATIVE (NEGATIVE) All other labs normal. <Marianna Sebastian PA-C - Last Filed: 05/19/25 09:15> Imaging Abdomen CT scan report/results: report reviewed and image reviewed <Marianna Sebastian PA-C - Last Filed: 05/19/25 09:15> Assessment and Plan (1) Abnormal liver enzymes: Status: Acute <Marianna Sebastian PA-C - Last Filed: 05/19/25 09:15> Patient with known recurrent UTIs Currently with pyelonephritis Also with gallbladder wall thickening and gallstones on CAT scan, gallbladder not distended LFTs abnormal Recommend MRCP Follow LFTs Exam otherwise very benign Seen and examined independently <Maikel Vaughn MD - Last Filed: 05/20/25 15:01> (2) Pyelonephritis: Status: Acute <Marianna Sebastian PA-C - Last Filed: 05/19/25 09:15> 45 year old female with PMH of afib not on anticoagulation, hypothyroidism, GERD presenting with complaints of dysuria, right sided abd pain/back pain, fevers following a recent UTI diagnosis and antibiotic cessation with leukocytosis and mild enhancement abnormality involving the upper pole of the right kidney. Gallbladder is not distended, surrounding GB inflammatory changes may be due to the right pyelonephritis. LFTs were also found to be elevated and recommend MRCP and GI consult for this. She may have acute cholecystitis as well but would recommend treating for pyelo and working up the elevated LFTs prior as cholecystectomy is not emergent at this point. Will continue to follow. <Marianna Sebastian PA-C - Last Filed: 05/19/25 09:15> Procedures Date of Service Date of Service: 05/19/25 <Marianna Sebastian PA-C - Last Filed: 05/19/25 09:15> 05/20/25 <Maikel Vaughn MD - Last Filed: 05/20/25 15:01>
--- NOTE | 2025-05-19 09:39 | PM.IMHP ---
History of Present Illness Date of Service: 05/19/25 Chief Complaint: urinary symptoms The patient is a 45 yo F with PAF on flecainide/not on OAC, Graves s/p thyroidectomy, GERD, anxiety and recurrent UTI since IUD placement in December of 2024 who presents with complaints of dysuria, urgency, frequency, suprapubic pain with associated nausea/vomiting. She reports these symptoms have worsened over the last 7-10 days. She reports 2 rounds of antibiotic treatment for this episode, initially with macrobid and subsequently with Cefodoxime (which she only tolerated 2 days of and discontinued due to increasing shortness of breath). In the interim, she developed nausea without vomiting. She now reports RUQ pain as well, which she thought was related to her UTI. Work up in the ED including imaging/labs showed: UA still positive for UTI CT abd/pelvis - possible early R sided pyelo; GB contracted with surrounding stranding; Abd ultrasound - cholelithasis, gallbladder wall thickening, pericholecystic fluid CBC - 12 with left shift, CMP - T. bili 3.5, AST/ALT 293/404; ALP 140, CRP 4.47 Pt given IVF, analgesics, iv meropenem; will now be admitted for further eval Review of Systems Review of Systems: Negative except HPI/interval history. [facility] Medical History Paroxysmal atrial fibrillation Persistent atrial fibrillation Atrial fibrillation with RVR Anxiety GERD (gastroesophageal reflux disease) Graves disease Surgical History H/O eye surgery History of ankle surgery S/P appy S/P thyroidectomy Social History Household Members: Spouse Housing: House Do you presently have visiting nurse or other home services: No Patient Tobacco Use Status: Never used Tobacco Smoked in Last 30 Days: No Use of substances other than those prescribed or required for medical reasons: No Substance Use Type: Marijuana Advance Directives: Yes Advance Directives on File: Yes Advance Directives Date on File: 12/02/23 Do you have a plan to hurt others: No Plan Patient : No service: No Meds Allergies Allergy/AdvReac Type Severity Reaction Status Date / Time ibuprofen (IBUPROFEN) Allergy Unknown RASH Verified 05/19/25 04:03 morphine (MORPHINE) Allergy Unknown UNKNOWN Verified 05/19/25 04:03 moxifloxacin (MOXIFLOXACIN) Allergy Unknown UNKNOWN Verified 05/19/25 04:03 naproxen (Aleve) Allergy Unknown Rash Verified 05/19/25 04:03 penicillin V Allergy Unknown Rash Verified 05/19/25 04:03 Penicillins (PENICILLINS) Allergy Unknown RASH Verified 05/19/25 04:03 Sulfa (Sulfonamide Allergy Unknown RASH Verified 05/19/25 04:03 Antibiotics) (SULFA(SULFONAMIDE ANTIBIOTICS)) From ALEVE Allergy Unknown UNKNOWN Uncoded 05/12/25 05:12 From BENADRYL Allergy Unknown RASH Uncoded 05/12/25 05:12 Active Medications: Current Medications Acetaminophen (Acetaminophen 325 Mg Tablet) 650 mg PO Q6H PRN PRN Reason: Pain, Mild 1-3,fever,headache Calcium Carbonate (Calcium Carbonate 750 Mg Tab.Chew) 750 mg PO Q4H PRN PRN Reason: Heartburn Lactated Ringer's (Lr) 1,000 mls @ 80 mls/hr IVCONT .[id number] [facility] Last Admin: 05/19/25 08:01 Dose: 80 mls/hr Lactated Ringer's (Lr) 1,000 mls @ 100 mls/hr IVCONT .Q10H [facility] Magnesium Hydroxide (Milk Of Magnesia 30 Ml Oral.Susp) 30 ml PO DAILY PRN PRN Reason: Constipation Melatonin (Melatonin 3 Mg Tablet) 6 mg PO BEDTIME PRN PRN Reason: Insomnia Sodium Chloride (0.9 % Sodium Chloride Flush 3 Ml Syringe) 3 ml IVFLUSH QSHIFT [facility] Home Medications ?Medication ?Instructions ?Recorded ?Confirmed ?Last Taken ?Type levothyroxine 175 mcg tablet 175 mcg PO DAILY@0600 11/29/23 08/21/24 11/29/23 History lorazepam 0.5 mg tablet 0.5 mg PO Q6H PRN anxiety 11/29/23 08/21/24 Unknown History omeprazole 20 mg capsule,delayed 20 mg PO BID@0630,1630 11/29/23 08/21/24 11/29/23 History release gabapentin 300 mg capsule 300 mg PO BID 08/21/24 08/21/24 Unknown History Physical Exam Vital Signs and Narrative: Vital Signs: Last Vital Signs Temp 98.2 F 05/19/25 08:24 Pulse 101 H 05/19/25 08:24 Resp 17 05/19/25 08:24 BP 121/83 05/19/25 08:24 Pulse Ox 95 05/19/25 08:24 O2 Del Method Room Air 05/19/25 08:24 BMI result Body Mass Index 35.4 Const: Other: Constitutional - Awake and Alert, No apparent distress; ? mild scleral icterus Eyes - PERRLA, EOMI, +exapthalmos Cardiovascular - S1S2, RRR, No edema Respiratory - Normal lung expansion, Normal respiratory effort, No respiratory distress, CTA bilaterally Gastrointestinal - NT / ND; +BS; negative RUQ TTP - No CVA tenderness Extremities - no calf tenderness bilaterally, no swelling Musculoskeletal - Normal inspection, normal ROM Skin - Warm/Dry Neurological - Alert & oriented x3, No focal deficit Psychological - Appropriate affect Results Labs 05/19/25 04:45 05/19/25 04:45 Labs: Laboratory Results - last 24 hr 05/19/25 05/19/25 05/19/25 04:45 04:46 05:25 MCV 89.6 MCH 31.1 MCHC 34.7 RDW 13.7 Plt Count 152 L MPV 9.6 Immature Gran % (Auto) 0.4 Neut % (Auto) 80.1 H Lymph % (Auto) 7.9 L Jerome % (Auto) 10.6 Eos % (Auto) 0.6 Baso % (Auto) 0.4 Lymph # (Auto) 1.0 L Jerome # (Auto) 1.3 H Eos # (Auto) 0.1 Baso # (Auto) 0.1 Abs Immat Gran (auto) 0.05 H Absolute Neuts (auto) 9.9 H Absolute Nucleated RBC 0.000 Nucleated RBC % (auto) 0.0 Anion Gap 12 Estim Creat Clear Calc 156.0 Estimated GFR > 60 Random Glucose 104 Lactic Acid Calcium 8.7 Magnesium 1.7 Total Bilirubin 3.5 H Direct Bilirubin 2.1 H AST 293 H ALT 404 H Alkaline Phosphatase 140 H C-Reactive Protein 4.47 H Total Protein 7.1 Albumin 3.5 Lipase 46 Urine Color Dark Yellow Urine Appearance Cloudy Urine pH 6.5 Ur Specific Smithers 1.010 Urine Protein 30 (1+) H Urine Glucose (UA) Negative Urine Ketones Negative Urine Blood Small (1+) H Urine Nitrite Positive H Ur Leukocyte Esterase Large (3+) H Urine RBC 3-5 H Urine WBC >50 H Ur Squamous Epith Cells 0-2 Urine Bacteria 4+ Hyaline Casts 0-2 Urine Test NEGATIVE Hepatitis A IgM Ab Nonreactive Hep Bs Antigen Negative Hep Bs Antibody NONREACTIVE Hep B Core Total Ab Nonreactive Hepatitis C Ab (EIA) Nonreactive 05/19/25 08:57 MCV MCH MCHC RDW Plt Count MPV Immature Gran % (Auto) Neut % (Auto) Lymph % (Auto) Jerome % (Auto) Eos % (Auto) Baso % (Auto) Lymph # (Auto) Jerome # (Auto) Eos # (Auto) Baso # (Auto) Abs Immat Gran (auto) Absolute Neuts (auto) Absolute Nucleated RBC Nucleated RBC % (auto) Anion Gap Estim Creat Clear Calc Estimated GFR Random Glucose Lactic Acid 1.2 Calcium Magnesium Total Bilirubin Direct Bilirubin AST ALT Alkaline Phosphatase C-Reactive Protein Total Protein Albumin Lipase Urine Color Urine Appearance Urine pH Ur Specific Smithers Urine Protein Urine Glucose (UA) Urine Ketones Urine Blood Urine Nitrite Ur Leukocyte Esterase Urine RBC Urine WBC Ur Squamous Epith Cells Urine Bacteria Hyaline Casts Urine Test Hepatitis A IgM Ab Hep Bs Antigen Hep Bs Antibody Hep B Core Total Ab Hepatitis C Ab (EIA) Assessment and Plan (1) Pyelonephritis: Status: Acute Plan 45 yo F with PAF on flecainide, graves s/p thyroidectom, anxiety, recurrent UTI who presents with /GI symptoms and found to have early pyelo + abnormal LFTs + possible acute kash. Will be admitted for further treatment. 1. Sepsis due to UTI vs GI source Failed out pt abx for UTI, now GI with early pyelo will give IV meropenam given multiple allergies and reported respiratory symptoms on PO cephalosporins (denied any allergic symptoms during this) follow up cultures no severe features - LFTs possibly due to GI source 2. Abnormal LFTs question if related to underlying gall bladder pathology vs due to acute infection imaging suggestive of acute kash; gen surg consulted -- recs appreciated will check MRCP and consult GI keep NPO for now 3. PAF continue baseline meds once med rec done 4. Axneity continue baseline meds Full Code DVT pptx - Lovenox Pt with sepsis secondary to vs GI source, complicated by acute elevations in LFTs requiring multiple further testing/evaluations by specialist + IV broad spec antibiotics. Therefore expected to require at a minimum of 2 midnights in the hospital, hence will be admitted as inpatient. Quality Stroke Does the patient have a stroke diagnosis?: No VTE Prior VTE?: No VTE Risk Level:: Medical - moderate - high VTE Device Contraindication: N/A - Device Ordered VTE Drug Contraindication: N/A - Med Ordered
[2025-05-19] MEDS: Lactated Ringers 1,000 ML 100 ML IVCONT ×2 (10:08→20:17)
--- NOTE | 2025-05-19 10:13 | PC.NURSE ---
Pt is calm and cooperative, resting at this time. Pt awaiting MRI. A+Ox4 and ambulatory. RR even and unlabored. Pt denies CP or SOB.
--- NOTE | 2025-05-19 10:27 | PC.NURSE ---
MRI form completed and faxed to MRI, placed in chart.
--- NOTE | 2025-05-19 10:32 | PHA.MEDREC ---
Addendum entered by Kaitlynn Sebastian RPh 05/19/25 10:52: MED REC REVIEWED BY [facility] Original Note: Pharmacy Consult ? Medication Reconciliation Pharmacy has completed the medication reconciliation. Spoke with pt and she confirmed her medications. Pt confirmed she is now taking Gabapentin 300mg tab once daily now instead of BID. Pt also confirmed her Omeprazole 20mg tab once daily instead of BID. Pt states she takes Pyridium still but only when she starts getting unitary symptoms and states she took one Wednesday 05/16. Pt states she can only take Synthroid now for her thyroid medication and states when she last took Levothyroxine she stated getting itchy taking it and its stopped since switching to name brand; pt confirmed she takes Synthroid 175mcg tabs and can have someone bring them in today.
[2025-05-19] MEDS: Propranolol HCL LA 80 MG CAP.SA.24H PO (11:34)
--- NOTE | 2025-05-19 12:02 | PC.NURSE ---
Report called to ED Overflow RN. safety technician notified.
--- NOTE | 2025-05-19 12:23 | PC.NURSE ---
Received reprt and assumed care of pt. Pt ambulated from stretcher to bed w/ steady gait. IVF's infusing in R arm as ordered. Awaiting MRCP and GI consult. Pt aware of NPO status.
--- NOTE | 2025-05-19 23:06 | CONS_ITS ---
DATE OF SERVICE: 05/19/2025 REFERRING PHYSICIAN: Dr. Escobedo REASON FOR CONSULTATION: Elevated liver function tests and gallstones. HISTORY OF PRESENT ILLNESS: The patient is a pleasant 45-year-old woman who was admitted to the hospital after presenting to the emergency room because of urinary tract infection symptoms. As part of her evaluation, she had previously been diagnosed with urinary tract infection and undergone 2 rounds of treatment with antibiotics, the second of which she did not tolerate well. She had recurrent symptoms of suprapubic pressure and discomfort and also developed some symptoms of right upper quadrant discomfort and came to the emergency room. There was associated nausea but no vomiting. In the emergency room, she was evaluated with laboratory studies and imaging, which are reviewed. Ultrasound and CT scan findings are consistent with acute cholecystitis and some questionable hypoenhancement involving the upper pole of the right kidney. Common duct is not reported as being dilated. Images are not available for review. She is scheduled for MRI imaging later today as her liver function tests on admission were elevated with a total bilirubin of 3.5 and transaminases in the 200 to 400 range. She has been seen by General Surgery and is currently being treated for her urinary tract infection. She was able to eat dinner last night with no symptoms of biliary colic. She is currently n.p.o. PAST MEDICAL HISTORY: 1. Paroxysmally atrial fibrillation, formally on anticoagulants, now on antiarrhythmic treatment with flecainide. 2. Graves disease with thyroidectomy. 3. Urinary tract infections. 4. Gastroesophageal reflux disease. 5. Ankle surgery. 6. Appendectomy. 7. Eye surgery. CURRENT MEDICATIONS: Her current medication list is reviewed in the chart. ALLERGIES: THERE ARE MULTIPLE ALLERGIES TO MULTIPLE MEDICATIONS. THESE ARE REVIEWED IN THE ELECTRONIC MEDICAL RECORD. FAMILY HISTORY: This is reviewed with the patient and is noncontributory. SOCIAL HISTORY: She does not smoke tobacco. She does use marijuana. She denies other substance use. She drinks alcohol infrequently. REVIEW OF SYSTEMS: SKIN: No pruritus. HEENT: Negative. CARDIOPULMONARY: She denies shortness of breath or chest pain. GASTROINTESTINAL: As above. GENITOURINARY: Negative. NEUROPSYCHIATRIC: Negative. PHYSICAL EXAMINATION: GENERAL: Shows a pleasant female, lying in bed comfortably. VITAL SIGNS: Stable. SKIN: Anicteric. HEENT: Shows no scleral icterus. NECK: Without lymphadenopathy or thyromegaly. LUNGS: Clear. HEART: Shows a regular rate and rhythm. S1, S2. No murmur. ABDOMEN: Soft without focal masses or tenderness. Bowel sounds are present. No organomegaly is noted. EXTREMITIES: Without edema. LABORATORY DATA AND IMAGING STUDIES: Reviewed in detail. IMPRESSION: 1. Gallstones. 2. Abnormal liver function tests. She appears to have some evidence of cholecystitis based on her imaging studies today. Her bile duct is not documented as being dilated and the imaging studies are not available for personal review. MRI imaging has been ordered. I would recommend monitoring her liver function tests. She is on antibiotics for her urinary tract infection, and these should cover any possible biliary pathogens. If her MRI is positive, she will need ERCP. I discussed the procedure with her including risks and benefits and complications such as pancreatitis. She understands these and agrees to proceed if necessary. If her MRI is negative for any common bile duct stones, I would recommend continuing to treat her urinary tract infection, and she may eventually require cholecystectomy pending her general surgery followup. Thanks for asking me to see her. I will follow her in the hospital with you. MD FLORA Ayala/GERRY / [id number]
[2025-05-20 03:29] VITALS: BP 111/72; PULSE 68; RESP 18; TEMP 36.4; O2SAT 98
[2025-05-20 06:12] LABS: Alanine Aminotransferase 252 U/L (0-31); Albumin Level 2.8 g/dL (3.5-5.0); Alkaline Phosphatase 101 U/L (39-117); Anion Gap 10 (12-20); Aspartate Amino Transferase 160 U/L (5-31); Blood Urea Nitrogen 11 mg/dL (9-16); Calcium 7.9 mg/dL (8.4-10.2); Carbon Dioxide 25 mmol/L (22-29); Chloride 104 mmol/L (96-108); Creatinine Clr Calc Pharmacy 186.6; Estimated Glomerular Filt Rate > 60; Potassium 3.9 mmol/L (3.3-5.1); Sodium 135 mmol/L (135-145); Total Protein 5.8 g/dL (6.5-8.0)
[2025-05-20] MEDS: Lactated Ringers 1,000 ML 100 ML IVCONT ×3 (06:30→23:24)
[2025-05-20 07:14] VITALS: BP 101/54; PULSE 81; RESP 16; TEMP 37.2; O2SAT 96
[2025-05-20 07:17] LABS: Hematocrit 40.7 % (37.0-47.0); Hemoglobin 13.7 g/dl (12.0-16.0); Mean Corpuscular HGB Conc 33.7 g/dl (31.0-35.0); Mean Corpuscular Hemoglobin 30.9 pg (27.0-33.0); Mean Corpuscular Volume 91.9 fL (80.0-98.0); NRBC Abs Auto 0.000 X10*3/uL (0.0-0.012); NRBC Pct Auto 0.0 /100WBC (0.0-0.2); Platelet Count 139 X10*3/uL (160-400); Red Blood Count 4.43 X10*6/uL (4.20-5.50); White Blood Count 7.3 X10*3/uL (4.8-10.8)
--- NOTE | 2025-05-20 08:32 | P.PNIM_ITS ---
Subjective Subjective Date of Service: 05/20/25 Interval History: improving, still with ruq pain Physical Exam 2 Vital Signs: Vital Signs: Last Vital Signs Temp 98.9 F 05/20/25 07:14 Pulse 81 05/20/25 07:14 Resp 16 05/20/25 07:14 BP 101/54 L 05/20/25 07:14 Pulse Ox 96 05/20/25 07:14 O2 Del Method Room Air 05/20/25 07:14 BMI result Body Mass Index 35.0 Const: General: comfortable, no acute distress and alert O rientation/consciousness: patient oriented x3 Resp: Effort & Inspection: normal respiratory effort, able to speak in complete sentences and not tachypneic GI: Other: very mild right sided/RUQ tenderness, negative renee sign, no rebound Palpation (GI): Soft to palpation, no guarding and not rigid Percussion: Yes normal to percussion Skin: General skin exam: no rashes or lesions noted and no jaundice Neuro: General: patient oriented x3 and moves all extremities Objective Data Active Medications Acetaminophen (Acetaminophen 325 Mg Tablet) 650 mg PO Q6H PRN PRN Reason: Pain, Mild 1-3,fever,headache Calcium Carbonate (Calcium Carbonate 750 Mg Tab.Chew) 750 mg PO Q4H PRN PRN Reason: Heartburn Enoxaparin Sodium (Enoxaparin Sodium 40 Mg/0.4 Ml Syringe) 40 mg SUBCUT Q24H [facility] Last Admin: 05/19/25 11:34 Dose: Not Given Documented By: GUTIERREZ Non-Admin Reason: Patient Refused Flecainide Acetate (Flecainide Acetate 50 Mg Tablet) 100 mg PO BID [facility] Last Admin: 05/19/25 22:00 Dose: 100 mg Documented By: NIA Gabapentin (Gabapentin 300 Mg Capsule) 300 mg PO DAILY [facility] Lactated Ringer's (Lr) 1,000 mls @ 100 mls/hr IVCONT .Q10H [facility] Last Admin: 05/20/25 06:30 Dose: 100 mls/hr Documented By: NIA Lorazepam (Lorazepam 0.5 Mg Tablet) 0.5 mg PO Q6H PRN PRN Reason: Anxiety Magnesium Hydroxide (Milk Of Magnesia 30 Ml Oral.Susp) 30 ml PO DAILY PRN PRN Reason: Constipation Melatonin (Melatonin 3 Mg Tablet) 6 mg PO BEDTIME PRN PRN Reason: Insomnia Meropenem (Meropenem 1 Gm Vial) 1 gm IVPUSH Q8H [facility] Last Admin: 05/20/25 05:39 Dose: 1 gm Documented By: NIA Omeprazole (Omeprazole 20 Mg Capsule.Dr) 20 mg PO DAILY@0630 [facility] Last Admin: 05/20/25 05:39 Dose: 20 mg Documented By: NIA Propranolol HCl (Propranolol Hcl La 80 Mg Cap.Sa.24h) 80 mg PO DAILY [facility]; Protocol Last Admin: 05/20/25 08:06 Dose: Not Given Documented By: LOIS Non-Admin Reason: Decreased Blood Pressure Sodium Chloride (0.9 % Sodium Chloride Flush 3 Ml Syringe) 3 ml IVFLUSH QSHIFT [facility] Last Admin: 05/20/25 08:06 Dose: Not Given Documented By: LOIS Non-Admin Reason: IV Running Labs 05/20/25 05:22 05/20/25 05:22 Labs: Laboratory Results - last 24 hr 05/19/25 05/20/25 08:57 05:22 MCV 91.9 MCH 30.9 MCHC 33.7 RDW 13.7 Plt Count 139 L MPV 10.1 Absolute Nucleated RBC 0.000 Nucleated RBC % (auto) 0.0 Anion Gap 10 L Estim Creat Clear Calc 186.6 Estimated GFR > 60 Random Glucose 79 Lactic Acid 1.2 Calcium 7.9 L D Total Bilirubin 3.3 H AST 160 H ALT 252 H Alkaline Phosphatase 101 Total Protein 5.8 L Albumin 2.8 L Microbiology Microbiology Results: Microbiology 05/19/25 05:25 Blood Culture - Preliminary Blood - Venous No growth after 24 hours. 05/19/25 05:25 Blood Culture - Preliminary Blood - Venous Prelim: GNR Gram Stain only Assessment and Plan (1) Pyelonephritis: Status: Acute Plan 45F PMH pafib on flecanide/no AC, graves s/p thyroidectomy, GERD, anxiety, recurrent UTI presented with dysuria and abd pain sepsis due to acute pyelonephritis and possible acute cholecystitis complicated by GNR bacteremia merem, follow up cultures, MRCP, gen surgery and gi following pafib felcanide, not on AC due to low risk score anxiety ativan prn graves s/p thyroidectomy synthroid dvt prophylaxis - lovenox full code reason for continued hospitalization:cultures Quality Stroke Does the patient have a stroke diagnosis?: No VTE Prior VTE?: No VTE Risk Level:: Medical - moderate - high VTE Device Contraindication: N/A - Device Ordered VTE Drug Contraindication: N/A - Med Ordered
--- NOTE | 2025-05-20 09:04 | PM.PNGS ---
Subjective Subjective Date of Service: 05/20/25 Interval history: Feels somewhat improved this morning, less abdominal pain and pressure. Hungry and asking for food. Physical Exam Vital Signs: Vital Signs: Last Vital Signs Temp 98.9 F 05/20/25 07:14 Pulse 81 05/20/25 07:14 Resp 16 05/20/25 07:14 BP 101/54 L 05/20/25 07:14 Pulse Ox 96 05/20/25 07:14 O2 Del Method Room Air 05/20/25 07:14 BMI result Body Mass Index 35.0 Resp: Effort & Inspection: normal respiratory effort, able to speak in complete sentences and not tachypneic GI: Other: mild suprapubic tenderness and tenderness of the entire right side extending into right flank Inspection: No distended Palpation (GI): Soft to palpation and no guarding Percussion: Yes normal to percussion Objective Data Active Medications Acetaminophen (Acetaminophen 325 Mg Tablet) 650 mg PO Q6H PRN PRN Reason: Pain, Mild 1-3,fever,headache Calcium Carbonate (Calcium Carbonate 750 Mg Tab.Chew) 750 mg PO Q4H PRN PRN Reason: Heartburn Enoxaparin Sodium (Enoxaparin Sodium 40 Mg/0.4 Ml Syringe) 40 mg SUBCUT Q24H [facility] Last Admin: 05/19/25 11:34 Dose: Not Given Documented By: GUTIERREZ Non-Admin Reason: Patient Refused Flecainide Acetate (Flecainide Acetate 50 Mg Tablet) 100 mg PO BID [facility] Last Admin: 05/19/25 22:00 Dose: 100 mg Documented By: NIA Gabapentin (Gabapentin 300 Mg Capsule) 300 mg PO DAILY [facility] Lactated Ringer's (Lr) 1,000 mls @ 100 mls/hr IVCONT .Q10H [facility] Last Admin: 05/20/25 06:30 Dose: 100 mls/hr Documented By: NIA Levothyroxine Sodium (Levothyroxine Sodium 175 Mcg Tablet) 175 mcg PO DAILY@0600 [facility] Lorazepam (Lorazepam 0.5 Mg Tablet) 0.5 mg PO Q6H PRN PRN Reason: Anxiety Magnesium Hydroxide (Milk Of Magnesia 30 Ml Oral.Susp) 30 ml PO DAILY PRN PRN Reason: Constipation Melatonin (Melatonin 3 Mg Tablet) 6 mg PO BEDTIME PRN PRN Reason: Insomnia Meropenem (Meropenem 1 Gm Vial) 1 gm IVPUSH Q8H [facility] Last Admin: 05/20/25 05:39 Dose: 1 gm Documented By: NIA Omeprazole (Omeprazole 20 Mg Capsule.Dr) 20 mg PO DAILY@0630 [facility] Last Admin: 05/20/25 05:39 Dose: 20 mg Documented By: NIA Propranolol HCl (Propranolol Hcl La 80 Mg Cap.Sa.24h) 80 mg PO DAILY [facility]; Protocol Last Admin: 05/20/25 08:06 Dose: Not Given Documented By: LOIS Non-Admin Reason: Decreased Blood Pressure Sodium Chloride (0.9 % Sodium Chloride Flush 3 Ml Syringe) 3 ml IVFLUSH QSHIFT [facility] Last Admin: 05/20/25 08:06 Dose: Not Given Documented By: LOIS Non-Admin Reason: IV Running Labs 05/20/25 05:22 05/20/25 05:22 Labs: Laboratory Results - last 24 hr 05/19/25 05/20/25 08:57 05:22 MCV 91.9 MCH 30.9 MCHC 33.7 RDW 13.7 Plt Count 139 L MPV 10.1 Absolute Nucleated RBC 0.000 Nucleated RBC % (auto) 0.0 Anion Gap 10 L Estim Creat Clear Calc 186.6 Estimated GFR > 60 Random Glucose 79 Lactic Acid 1.2 Calcium 7.9 L D Total Bilirubin 3.3 H AST 160 H ALT 252 H Alkaline Phosphatase 101 Total Protein 5.8 L Albumin 2.8 L Microbiology Microbiology Results: Microbiology 05/19/25 05:25 Blood Culture - Preliminary Blood - Venous No growth after 24 hours. 05/19/25 05:25 Blood Culture - Preliminary Blood - Venous Prelim: GNR Gram Stain only Procedures Date of Service Date of Service: 05/20/25 Progress Note: A&P Assessment and plan (1) Abnormal liver enzymes: Status: Acute (2) Pyelonephritis: Status: Acute Plan 45 year old female admitted with UTI, right pyelonephritis found to have elevated LFTs. MRCP yesterday shows perinephric fluid of the upper pole of the right kidney and cholelithiasis but no gallbladder wall thickening and no biliary ductal dilatation or filling defects. Transaminases reviewed and improved this morning. WBC normalized. Findings suggestive of acute pyelonephritis without evidence of acute cholecystitis or CBD obstruction. ?Elevated LFTs medication induced. Can advance diet as tolerated. No surgical intervention currently planned. Time Spent With Patient Time: Total time managing care of this patient today ____ minutes. Quality Stroke Does the patient have a stroke diagnosis?: No VTE Prior VTE?: No VTE Risk Level:: Medical - moderate - high VTE Device Contraindication: N/A - Device Ordered VTE Drug Contraindication: N/A - Med Ordered
--- NOTE | 2025-05-20 13:01 | P.PNGI_ITS ---
Subjective Subjective Date of Service: 05/20/25 Interval History: tolerating clear liquids uti symptoms improving Critical Care Time (minutes): 0 Physical Exam 2 Vital Signs: Vital Signs: Last Vital Signs Temp 98.9 F 05/20/25 07:14 Pulse 81 05/20/25 07:14 Resp 16 05/20/25 07:14 BP 101/54 L 05/20/25 07:14 Pulse Ox 96 05/20/25 07:14 O2 Del Method Room Air 05/20/25 07:14 BMI result Body Mass Index 35.0 Const: General: comfortable GI: Other: abdomen is soft and nontender Objective Data Labs 05/20/25 05:22 05/20/25 05:22 Labs: Laboratory Results - last 24 hr 05/19/25 05/20/25 08:57 05:22 WBC 7.3 RBC 4.43 Hgb 13.7 Hct 40.7 MCV 91.9 MCH 30.9 MCHC 33.7 RDW 13.7 Plt Count 139 L MPV 10.1 Absolute Nucleated RBC 0.000 Nucleated RBC % (auto) 0.0 Sodium 135 Potassium 3.9 Chloride 104 Carbon Dioxide 25 Anion Gap 10 L BUN 11 Creatinine 0.54 Estim Creat Clear Calc 186.6 Estimated GFR > 60 Random Glucose 79 Lactic Acid 1.2 Calcium 7.9 L D Total Bilirubin 3.3 H AST 160 H ALT 252 H Alkaline Phosphatase 101 Total Protein 5.8 L Albumin 2.8 L Microbiology Microbiology Results: Microbiology 05/19/25 05:25 Urine clean catch - Clean Catch Midstream Urine Culture - Preliminary Gram negative darlene 05/19/25 05:25 Blood - Venous Blood Culture - Preliminary Gram negative darlene 05/19/25 05:25 Blood - Venous Blood Culture - Preliminary No growth after 24 hours. Procedures Date of Service Date of Service: 05/20/25 Progress Note: A&P Assessment and plan (1) Abnormal liver enzymes: Status: Acute Assessment and Plan: Liver function tests are improving MRI neg for CBD stones, No plans for ERCP Etiology for elevated lfts not clear, could be due to recent infection, abx use. monitor lfts, if worsening, metabolic and autoimmune markers will be obtained. I discussed this with Ann. Time Spent With Patient Time: Total time managing care of this patient today ____ minutes. Quality Stroke Does the patient have a stroke diagnosis?: No VTE Prior VTE?: No VTE Risk Level:: Medical - moderate - high VTE Device Contraindication: N/A - Device Ordered VTE Drug Contraindication: N/A - Med Ordered
[2025-05-20] MEDS: 0.9 % Sodium Chloride Flush 3 ML SYRINGE IVFLUSH ×2 (14:31→20:58)
--- NOTE | 2025-05-20 15:00 | PM.EVENT ---
Event Note Date of Service: 05/20/25 Event Note: Seen on afternoon rounds Feels well Denies right upper quadrant pain MRCP shows no choledocholithiasis, findings more consistent with pyelonephritis Abdomen is soft and benign and nontender currently Treat for pyelonephritis for now I can see her in the office for follow-up for her gallstones Care as per the hospitalist service Discussed with the hospitalist Discussed the above with patient Time Spent With Patient Time: Total time managing care of this patient today ____ minutes.
[2025-05-20 15:32] VITALS: BP 110/71; PULSE 72; RESP 16; TEMP 36.3; O2SAT 96
[2025-05-20 19:32] VITALS: BP 114/58; PULSE 80; RESP 18; TEMP 36.8; O2SAT 98
[2025-05-21 03:35] VITALS: BP 111/56; PULSE 74; RESP 16; TEMP 36.7; O2SAT 94
[2025-05-21 07:28] VITALS: BP 114/68; PULSE 80; RESP 18; TEMP 36.5; O2SAT 96
[2025-05-21 07:28] LABS: Hematocrit 42.1 % (37.0-47.0); Hemoglobin 13.8 g/dl (12.0-16.0); Mean Corpuscular HGB Conc 32.8 g/dl (31.0-35.0); Mean Corpuscular Hemoglobin 30.5 pg (27.0-33.0); Mean Corpuscular Volume 93.1 fL (80.0-98.0); NRBC Abs Auto 0.000 X10*3/uL (0.0-0.012); NRBC Pct Auto 0.0 /100WBC (0.0-0.2); Platelet Count 160 X10*3/uL (160-400); Red Blood Count 4.52 X10*6/uL (4.20-5.50); White Blood Count 5.0 X10*3/uL (4.8-10.8)
[2025-05-21] MEDS: Propranolol HCL LA 80 MG CAP.SA.24H PO (07:40)
[2025-05-21 07:50] LABS: Anion Gap 9 (12-20); Blood Urea Nitrogen 10 mg/dL (9-16); Calcium 8.1 mg/dL (8.4-10.2); Carbon Dioxide 26 mmol/L (22-29); Chloride 107 mmol/L (96-108); Creatinine Clr Calc Pharmacy 173.7; Estimated Glomerular Filt Rate > 60; Magnesium 1.9 mg/dL (1.6-2.6); Potassium 3.8 mmol/L (3.3-5.1); Sodium 138 mmol/L (135-145)
--- NOTE | 2025-05-21 09:21 | P.DS_ITS ---
DS: Providers Provider Date of Service: 05/21/25 Date of admission: 05/19/25 08:18 Date of discharge: 05/21/25 Primary care physician: Mckay Huang III, MD Consults: 05/19/25 09:37 Consult to Gastroenterology Routine Consulting Provider: Vinod Mosqueda Reason for consultation: elevated LFTs, acte kash on imaging 05/19/25 09:38 Consult to General Surgery Routine Consulting Provider: [facility] General Surgeons Reason for consultation: abnormal lfts, acute kash on imaing Has provider been notified: Yes DS: Diagnosis Discharge Diagnosis (1) Abnormal liver enzymes: Status: Acute (2) Pyelonephritis: Status: Acute DS: Summary Hospital Course Hospital Course: from initial hpi: 45 yo F with PAF on flecainide/not on OAC, Graves s/p thyroidectomy, GERD, anxiety and recurrent UTI since IUD placement in December of 2024 who presents with complaints of dysuria, urgency, frequency, suprapubic pain with associated nausea/vomiting. She reports these symptoms have worsened over the last 7-10 days. She reports 2 rounds of antibiotic treatment for this episode, initially with macrobid and subsequently with Cefodoxime (which she only tolerated 2 days of and discontinued due to increasing shortness of breath). In the interim, she developed nausea without vomiting. She now reports RUQ pain as well, which she thought was related to her UTI. Work up in the ED including imaging/labs showed: UA still positive for UTI CT abd/pelvis - possible early R sided pyelo; GB contracted with surrounding stranding; Abd ultrasound - cholelithasis, gallbladder wall thickening, pericholecystic fluid CBC - 12 with left shift, CMP - T. bili 3.5, AST/ALT 293/404; ALP 140, CRP 4.47 Pt given IVF, analgesics, iv meropenem; will now be admitted for further eval hospital course: Patient was admitted for sepsis due to acute pyelonephritis and possible acute cholecystitis complicated by E coli bacteremia. She was treated with meropenem due to multiple documented allergies. Sepsis resolved, pain resolved. MRCP did not reveal obstructing stone. Was seen by General surgery who recommended antibiotics and outpatient follow up for possible elective cholecystectomy. Prior to discharge patient was challenged with cefuroxime, tolerated well without reaction. will complete 7 more days. For paroxysmal AFib was continued on flecainide, patient is not on anticoagulation due to low risk score. For anxiety was continued on Ativan as needed. For Graves status post thyroidectomy was continued on levothyroxine. patient is feeling better and will be discharged home. Time Attestation Discharge Coordination Time (in mins): 36 Quality: Safe Use of Opioids Does Pt have an Active Cancer Diagnosis on the Problem List?: No Quality: Stroke Does the patient have a stroke diagnosis?: No Physical Exam Vital Signs: Vital Signs: Last Vital Signs Temp 97.7 F 05/21/25 07:28 Pulse 80 05/21/25 07:28 Resp 18 05/21/25 07:28 BP 114/68 05/21/25 07:28 Pulse Ox 96 05/21/25 07:28 O2 Del Method Room Air 05/21/25 07:28 BMI result Body Mass Index 35.0 General: AO X 3, no acute distress Resp: CTA bilateral, no accessory muscles used CVS: S1,S2,RRR GI: soft, non tender, non distended Neuro: motor grossly intact, alert Psych: appropriate affect, appropriate insight DS: Data Data Completed and Pending Labs on day of discharge: Laboratory Results - last 24 hr 05/19/25 05/21/25 08:57 05:59 WBC 5.0 RBC 4.52 Hgb 13.8 Hct 42.1 MCV 93.1 MCH 30.5 MCHC 32.8 RDW 13.6 Plt Count 160 MPV 9.6 Absolute Nucleated RBC 0.000 Nucleated RBC % (auto) 0.0 Sodium 138 Potassium 3.8 Chloride 107 Carbon Dioxide 26 Anion Gap 9 L BUN 10 Creatinine 0.58 Estim Creat Clear Calc 173.7 Estimated GFR > 60 Random Glucose 84 Lactic Acid 1.2 Calcium 8.1 L Magnesium 1.9 Preliminary micro results at discharge 05/19/25 05:25 Blood Culture - Preliminary Blood - Venous No growth after 48 hours. Discharge Plan Discharge Anticipated Discharge Date/Time: 05/21/25 09:09 Patient Disposition: Home, Self-Care Discharge Diagnosis: pyelonephritis +/- cholecystitis Referrals: Mckay Huang III, MD [Primary Care Provider, Medical] - 1 Week Maikel Vaughn MD [Physician, General Surgery] - 1 Week Discharge Medications: New cefuroxime axetil 500 mg tablet 500 mg PO BID Qty: 14 0RF Continued propranolol [Inderal LA] 80 mg capsule,extended release 24 hr 80 mg PO DAILY Qty: 90 2RF phenazopyridine [Pyridium] 200 mg tablet 200 mg PO TID PRN (Reason: urinary symptoms) levothyroxine [Synthroid] 175 mcg Tablet 175 mcg PO DAILY@0600 Rx Instructions: brand name synthroid only flecainide 100 mg tablet 100 mg PO BID@0600,1800 lorazepam 0.5 mg tablet 0.5 mg PO Q6H PRN (Reason: anxiety) omeprazole 20 mg capsule,delayed release(DR/EC) 20 mg PO DAILY@0630 gabapentin 300 mg capsule 300 mg PO DAILY Discharge Orders: Discharge Order (Routine); Ordered 05/21/25 Ordered By: Rojelio Fong Diet: Advance to usual diet Activity on Discharge: As tolerated Stand Alone Forms: Patient Portal Discharge page Print Language: Mongolian Care Plan Goals: recovery Health Concerns: pyelonpehritis possible cholecystitis Plan of Treatment: 7 more days ceftin, follow up with general srgery Assessment: see above Discharge Date/Time: 05/21/25 12:38
--- NOTE | 2025-05-21 12:36 | MHC.CM.PN ---
PT REPORTS SHE LIVES WITH HER , CHILDREN AND HER MOTHER SHE IS INDEPENDENT WITH CARE, USES NO DME AND HAS NO SERVICES HCP ON FILE PCP: NAE VILLAGOMEZ DCP: PT WILL DC HOME TODAY WITH NO SERVICES VIA FAMILY TRANSPORT
== END 2025-05-21 12:38 | disposition home or self-care (01) | DRG 720 ==
LOC: HO.ED 07:48 → HO.EDOVER 08:45 → HO.S3 19:24
PROVIDERS: Family Medicine; Admitting Provider Internal Medicine; Emergency Provider Emergency Medicine; PCP Internal Medicine; Visit Provider Internal Medicine
DX: A41.9 Sepsis, unspecified organism (principal); K81.0 Acute cholecystitis; F41.9 Anxiety disorder, unspecified; N10 Acute pyelonephritis; E89.0 Postprocedural hypothyroidism; B96.20 Unspecified Escherichia coli [E. coli] as the cause of diseases classified elsewhere; I48.0 Paroxysmal atrial fibrillation; Z87.440 Personal history of urinary (tract) infections; Z79.890 Hormone replacement therapy; Z79.899 Other long term (current) drug therapy
CPT/HCPCS: 36415; 74177; 74181; 76705; 80048; 80053; 80076; 81001; 81003; 81025; 83605; 83690; 83735; 85025; 85027; 86140; 86704; 86706; 86709; 86803; 87040; 87077; 87086; 87088; 87186; 87205; 87340; 99285; J2185; J7120; Q9967

== ENCOUNTER → 2025-05-19 05:16 | Outpatient (BNV) | payer OTHER, SELFPAY | PROVIDERS: Emergency Provider Emergency Medicine; PCP Internal Medicine; Visit Provider Radiology Vascular & Interventional Radiology | DX: K80.20 Calculus of gallbladder without cholecystitis without obstruction (principal); R16.1 Splenomegaly, not elsewhere classified | CPT/HCPCS: 74181 ==

== ENCOUNTER → 2025-05-19 08:18 | Outpatient (BNV) | payer OTHER, SELFPAY | PROVIDERS: Admitting Provider Internal Medicine; Emergency Provider Emergency Medicine; PCP Internal Medicine; Visit Provider Family Medicine | DX: N12 Tubulo-interstitial nephritis, not specified as acute or chronic (principal) | CPT/HCPCS: 99223; 99233; 99239 ==

== ENCOUNTER → 2025-05-19 08:18 | Outpatient (BNV) | payer OTHER, SELFPAY | PROVIDERS: Admitting Provider Internal Medicine; Emergency Provider Emergency Medicine; PCP Internal Medicine; Visit Provider Physician Assistant Surgical | DX: R74.8 Abnormal levels of other serum enzymes (principal); N12 Tubulo-interstitial nephritis, not specified as acute or chronic | CPT/HCPCS: 99222; 99232; 99499 ==

== ENCOUNTER 2025-06-28 15:28 | Outpatient (AMB) | payer OTHER, SELFPAY ==
--- NOTE | 2025-06-28 15:30 | A.OFFVIS_ITS ---
Vital Signs 06/28/25 15:36 Weight 257 lb BP 113/84 Blood Pressure Location Rt brachial Position Sitting Pulse 70 Intake Visit Reasons: abnormal lfts, acute kash on imaing Intake Note: Patient seen at [facility] ER for abdominal pain. Referred for acute Cholelithiasis. Patient c/o: on and off pain after fat, greasy food. 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 Required: No Accompanied by: spouse Shakeel Allergies ibuprofen (IBUPROFEN) Allergy (Unknown, Verified 06/28/25 15:34) RASH morphine (MORPHINE) Allergy (Unknown, Verified 06/28/25 15:34) UNKNOWN moxifloxacin (MOXIFLOXACIN) Allergy (Unknown, Verified 06/28/25 15:34) UNKNOWN naproxen (Aleve) Allergy (Unknown, Verified 06/28/25 15:34) Rash penicillin V Allergy (Unknown, Verified 06/28/25 15:34) Rash Penicillins (PENICILLINS) Allergy (Unknown, Verified 06/28/25 15:34) RASH Sulfa (Sulfonamide Antibiotics) (SULFA(SULFONAMIDE ANTIBIOTICS)) Allergy (Unknown, Verified 06/28/25 15:34) RASH From ALEVE Allergy (Unknown, Uncoded 06/28/25 15:34) UNKNOWN From BENADRYL Allergy (Unknown, Uncoded 06/28/25 15:34) RASH Medication List - Last Reconciled 06/28/25 by Maikel Vaughn MD flecainide 100 mg PO BID@0600,1800 gabapentin 300 mg PO DAILY levothyroxine (Synthroid) 175 mcg PO DAILY@0600 lorazepam 0.5 mg PO Q6H PRN omeprazole 20 mg PO DAILY@0630 propranolol ER 80 mg PO DAILY HPI HPI abnormal lfts, acute kash on imaing: Details: [age] year old female here for a follow-up for gallstones. She was admitted to the hospital last 05/19/2025 because of acute pyelonephritis. That time, there was a stranding on the upper pole of the right kidney that seemed to extend to the area of the gallbladder. She did not have any significant pain that suggested gallbladder disease at that time although she did have gallstones. She did have abnormal LFTs then was likely secondary to the inflammatory process in the area from her pyelonephritis. She says she feels well overall. She says she has never had any problems with the right upper quadrant since that time. He has good oral intake. [facility] Medical History (Updated 06/28/25 @ 15:47 by Maikel Vaughn MD) Gallstones Paroxysmal atrial fibrillation Persistent atrial fibrillation Atrial fibrillation with RVR Anxiety GERD (gastroesophageal reflux disease) Graves disease Surgical History H/O eye surgery History of ankle surgery S/P appy S/P thyroidectomy Social History Household Members: Family Housing: House Do you presently have visiting nurse or other home services: No Patient Tobacco Use Status: Never used Tobacco Substance Use Type: Marijuana Advance Directives Date on File: 12/02/23 service: No Review of Systems Const Denies chills and Denies fever(s) Card Denies chest pain, Denies dyspnea and Denies dyspnea on exertion Resp Denies cough, Denies dyspnea and Denies dyspnea on exertion GI Denies hematochezia and Denies change in bowel habits Denies hematuria Musc Denies back pain and Denies limited range of motion Neuro Denies focal weakness and Denies convulsions Psych Denies depression and Denies mood swings Physical Exam Vital Signs: Last Vital Signs Pulse 70 06/28/25 15:36 BP 113/84 06/28/25 15:36 Const General: comfortable and no acute distress Orientation/consciousness: patient oriented x3 Neck Neck: Yes no lymphadenopathy Resp Auscultation: clear to auscultation bilaterally Cardio Rhythm: regular rhythm GI Palpation (GI): Soft to palpation, nontender and no guarding Neuro General: patient oriented x3 Assessment & Plan Assessment & Plan (1) Gallstones: Code(s): K80.20 - Calculus of gallbladder without cholecystitis without obstruction Category: Medical Plan: She is known to have gallstones. She was admitted to the hospital for pyelonephritis in May, and the inflammatory changes in the upper pole of the right kidney seemed to involve the area surrounding the gallbladder as well. She has had no problems with the right upper quadrant pain since that time She did have elevated LFTs dense so I am going to repeat her LFTs. She says that she does not feel she has symptoms of gallbladder disease currently. She feels well overall I will see her in the office again her LFTs. I did explain to her the option of cholecystectomy down the line with symptomatic gallstones. I also discussed with her the fit of weight loss in view of the morbid obesity. She says she will see me in the office again in about a month. Coding Level of Care Code Est Pt Level 3 (06117) Diagnoses Gallstones K80.20
[2025-06-28 15:36] VITALS: BP 113/84; PULSE 70
--- OUTSIDE RECORDS SUMMARY | 2025-06-28 15:37 | XMS_ITS | Clinical Summary ---
Author Organization [facility] Address [address] [place] [phone] Phone Care Team Providers Care Business Professor Name Role Phone Mckay Huang MD Primary Care Provider + Encounters Date Type Department Care Team Description 05/19/[address] [place] [address] Ivan Palm MD from Last 3 Months Social History Tobacco Use Types Packs/Day Years Used Date Smoking Tobacco: Never Assessed Education Answer Date Recorded Are you interested in more education? Not on malcolm e 07/19/2023 Are you concerned about learning? Not on file 07/19/2023 No 07/19/2023 No 07/19/2023 Digital Access Answer Date Recorded No 07/19/2023 No 07/19/2023 Reliable internet access at home? Not on file 07/19/2023 Device with a working camera? Not on file Comments Unknown Sex and Gender Information Value Date Recorded Sex Assigned at Not on file Legal Sex Female 11:04 AM EDT Gender Identity Not on file Sexual Orientation Not on file Plan of Treatment Health Maintenance Due Date Last Done Comments Adult Td,Tdap Booster 1982 DEPRESSION SCREENING 1994 SMOKING Hx and SMOKELESS TOB ACCO SCREENING 1995 HEPATITIS C SCREENING 2000 HIV ONE-TIME SCREENING (18-6 5 YEARS) 2000 PAP SMEAR 2003 MAMMOGRAM 2022 COVID-19 VACCINE (2023-2 5 season) 2024 HEPATITIS A VACCINES Aged Out No long er eligible based on patient's age to complete this topic HIB VACCINES Aged Out No longer eligi ble based on patient's age to complete this topic MENINGOCOCCAL VACCINES (ACWY) Aged Out No longer eligible based on patient's age to complete this topic MENINGOCOCCAL VACCINES (B) Aged Out N o longer eligible based on patient's age to complete this topic PNEUMOCOCCAL VACCINES (0-49 years) Aged Out No longer eligible based on patient's age to complete this topic Medical Devices Not on file Insurance [facility] ACO Member Subscriber Plan / Payer (Ef fective 2023-Present) Name:Ann Anderson Relation to Subscriber:Self Name:Ann Anderson Payer ID:[id number] Group ID:[id number] Type:Medicaid Address: [address] [facility]SP PCP [facility] Care Teams Business Professor Relationship Specialty Start Date End Date Mckay Huang MD [address] [place] [id number] PCP - General 07/19/23 Additional Source Comments The information contained in this document represents components of the legal health record. It is not the complete legal health record.[facility]
--- OUTSIDE RECORDS SUMMARY | 2025-06-28 15:38 | XMS_ITS | Clinical Summary ---
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 Active albuterol HFA (PROAIR HFA ; PROVENTIL HFA ; VENTOLIN HFA) 90 mcg/actuation inhaler Inhale 1 Puff into the lungs every 4 hours as needed for Cough, Wheezing or Shortness of Breath. 3 Active fluticasone propionate (FLONASE) 50 mcg/actuation nasal spray 2 sprays in each nostril daily 2 Active LORazepam (ATIVAN) 0.5 mg tablet TAKE 1 TABLET BY MOUTH EVERY 6 HOURS NEEDED FOR ANXIETY FOR UP TO 8 DAYS. 4 Active levothyroxine (SYNTHROID, LEVOTHROID) 175 mcg tablet Take 1 tablet (175 mcg total) by mouth 1 (one) time each day. 90 each 1 5 Active Additional Information Patient not taking.Reported on 05/14/2025 gabapentin (NEURONTIN) 300 mg capsule Take 1 capsule (300 mg total) by mouth 2 (two) times a day. 180 each 1 5 Active cyclobenzaprin e (FLEXERIL) 5 mg tabletIndicati ons:muscle spasm Take 1 tablet (5 mg total) by mouth 2 (two) times a day if needed for muscle spasms. 30 tablet 5 Active Additional Information Patient not taking.Reported on 03/24/2025 flecainide (TAMBOCOR) 50 mg tablet Take 1 tablet (50 mg total) by mouth every 12 (twelve) hours. 5 Active fluconazole (DIFLUCAN) 150 mg tablet Take 1 tab by mouth now. May repeat in 72 hours if still symptomatic. 2 tablet 5 Active omeprazole (PriLOSEC) [address] capsule TAKE 1 CAPSULE (20 MG TOTAL) BY MOUTH 1 (ONE) TIME EACH DAY BEFORE BREAKFAST. 90 capsule 5 Active Synthroid 175 mcg tablet Take 1 tablet (175 mcg total) by mouth 1 (one) time each day. Please do not dispense generic pt has allergy 90 tablet 1 5 026 Active phenazopyridin e (PYRIDIUM) 100 mg tablet Take 1 tablet (100 mg total) by mouth 3 (three) times a day if needed for bladder spasms. 30 tablet 5 025 cefuroxime (CEFTIN) 500 mg tablet Take 1 tablet (500 mg total) by mouth 2 (two) times a day for 10 days. 20 each 5 025 Discontinu ed(Reorder ) cefuroxime (CEFTIN) 500 mg tablet Take 1 tablet (500 mg total) by mouth 2 (two) times a day for 10 days. 20 each 5 025 Active Problems Problem Noted Date Diagnosed Date Recurrent UTI 10/02/2024 Severe obesity (BMI 35.0-35. 9 with comorbidity) ([facility] V24, [facility] V28) 10/02/2024 GERD (gastroesophageal reflux disease) Neuralgia, post-herpetic 09/12/2024 Overview (10/02/2024): 12/22/23: Left forehead/eye, now on gabapentin Paroxysmal atrial fibrillation ([facility] V24, [facility] V28) 09/12/2024 Overview (10/02/2024): [place] [facility] [place] hypothyroidism 2024 Graves' disease 01/12/2023 COVID-19 virus infection 12/23/2020 Overview (10/02/2024): 12/21/20 Mixed hyperlipidemia 01/08/2020 Anxiety 08/29/2016 Cardiac murmur 10/24/2010 Overview (10/02/2024): Cardiac echo and stress test fall 2009 Holter monitor Graves' disease with exophthalmos 01/20/2008 Overview (10/02/2024): S/p 2006 - Dr. 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, administrative law judge Thyroid antibodies done 12/2010 Elevated thyroid antibodies 01/2011 Maternal consult Resolved Problems Problem Noted Date Diagnosed Date Resolved Date Vaginal odor 11/19/2024 01/19/2025 Bacterial vaginosis 11/19/2024 01/20/20 25 Encounters Date Type Department Care Team Description 05/14/2025 1:00 PM EDT Office Visit [address] [phone] Mckay Huang MD Urinary tract infection without hematuria, site unspecified (Primary Dx); Recurrent UTI; Dyspnea, unspecified type; Chest pressure; Abnormal EKG 05/14/[address] [phone] Mckay Huang MD Urinary Problem; Allergic Reaction 05/14/2025 Nurse Triage [address] [phone] Mckay Huang MD Hospital Follow-up 04/20/2025 Nurse Triage [address] [phone] Mckay Huang MD 04/14/2025 3:30 PM EDT Office Visit Obstetrics & Gynecology - [address] [phone] Marianna Pop CNM UTI (urinary tract infection), uncomplicated (Primary Dx) 04/09/2025 Telephone Obstetrics and Gynecology [address] [phone] Denae Chun MD Uterine Prolapse from Last 3 Months Immunizations Name Administration [...] 3 PROCEDURE: HISTORICAL APPENDECTOMY VAGINOSCOPY 2004 PROCEDURE: [place] COLPOSCOPY CERVIX BX CERVIX & ENDOCRV CURRETAGE [...] Neg Hx Relation Name Status Comments Father Ivan Alive Father's side Mother Alive Mother's side Paternal Grandfather Naveed Paternal Grandmother Chana Social History Tobacco Use Types Packs/Day Years Used Date Smoking Tobacco: Former Cigarettes Q uit: 07/04/2005 Smokeless Tobacco: Never Alcohol Use Standard Drinks/Week Comments Yes 0 [...] care for your loved ones. For example, early childhood aide classroom or elderly care for an older adult? [...] F Vag-S pont Epidur al Livin g Robert Pappasoqu in-Spr att Delivery Location:[facility] Comments:A&W 8 Term 38w 0d 3260 g (115 oz) F Vag-S pont Livin g Delivery Location:[facility] 2010 Term 40w 6d 3997 g (141 oz) M Vag-S pont Epidur al Livin g 7 9 [place] HEMIN Delivery Location:[facility] Comments:A&W Last Filed Vital Signs Vital Sign Reading Time Taken Comments Blood Pressure 112/74 05/14/2025 12:55 PM EDT Pulse 72 05/14/2025 12:55 PM EDT Temperature 36.4 C (97.6 F) 05/14/2025 12:55 PM EDT Respiratory Rate 14 05/14/2025 12:55 PM EDT Oxygen Saturation 99% 05/14/2025 12:55 PM EDT Inhaled Oxygen Concentration - - Weight 115 kg (253 lb) 05/14/2025 12:55 PM EDT Height 180.3 cm (5' 11 ) 05/14/2025 12:55 PM EDT Body Mass Index 35.29 05/14/2025 12:55 PM EDT Plan of Treatment Upcoming Encounters Date Type Department Care Team (Late st Contact Info) Description 07/21/2025 4:30 PM EDT Office Visit Adult Medicine [address] [phone] Megan Borrero PA [address] [place] [id number] Health Maintenance Due Date Last Done Comments Hepatitis B Vaccines (1 of 3 - 19+ 3-dose series) 2001 HPV Vaccines (3 - 3-dose series) 07/28/2007 05/05/2007, 01/06/2007 Hepatitis C Screening 10/27/2022 COVID-19 Vaccine ( season) 2024 11/17/2022, 09/18/2021, 02/23/2021 Influenza Vaccine (#1) 2025 , 08/01/2024, 09/04/2023, Additional history exists Social Influencers of Health Screening 11/12/2025 11/12/2024 Breast Cancer Screening 09/11/2026 09/11/20 24, 09/11/2024, 03/09/2024, Additional history exists Cholesterol Screening (Lipid Panel) 08/14/2027 08/14/2022 Cervical Cancer Screening: HPV 09/03/2028 09/03/2023 DTaP,Tdap,and Td Vaccines (3 - Td or Tdap) 09/04/2033 09/04/2023, 02/15/2009 HIV Screening Completed 10/23/2010 Depression Screening Completed 03/23/2025 HIB Vaccines Aged Out No longer eligi [...] 5 Years) and At-Risk Patients (6 to 49 Years) Aged Out No longer eligible based on patient's age to complete this topic RSV Immunization Patients Under 20 months Aged Out No longer eligible based on patient's age to complete this topic Varicella Vaccines Aged Out No longer eligible based on patient's age to complete this topic Procedures Procedure Name Priority Date/Time Associated Diagnosis Comments ECG Routine 05/14/2025 2:10 PM EDT URINALYSIS WITH REFLEX MICROSCOPIC Routine 05/14/2025 2:05 PM EDT Urinary tract infection without hematuria, site unspecified URINALYSIS WITH REFLEX MICROSCOPIC Routine 05/14/2025 2:05 PM EDT Urinary tract infection without hematuria, site unspecified CULTURE URINE Routine 05/14/2025 2:05 PM EDT Urinary tract infection without hematuria, site unspecified THYROID STIMULATING HORMONE WITH REFLEX TO FREE T4 AND FREE T3 Routine 05/12/2025 9:19 AM EDT Graves' disease with exophthalmos CULTURE URINE Routine 04/14/2025 2:43 PM EDT UTI (urinary tract infection), uncomplicated DIAGNOSTIC MAMMOGRAPHY WITH CAD UNILATERAL Routine 09/11/2024 3:33 PM EDT Other abnormal and inconclusive findings on diagnostic imaging of breast HPV Routine 09/03/2023 LIPID PANEL Routine 08/14/2022 HIV SCREENING Routine 10/23/2010 from Last 3 Months or Most Recently Relevant to Health Maintenance Results * ECG (05/14/2025 2:10 PM EDT) us Mckay Huang MD ECG ORDERABLES Final Result * (ABNORMAL) Urinalysis with reflex microscopic (05/14/2025 2:05 PM EDT) Specific [place] Urine 1.014 1.003 - 1.030 LAB URINALYSIS - AUTOMATED METHOD 05/14/2025 8:18 PM [facility] pH, Urine 6.0 5.0 - 8.0 pH LAB URINALYSIS - AUTOMATED METHOD 05/14/2025 8:18 PM [facility] Leukocytes, Urine Small(A) Negative LAB URINALYSIS - AUTOMATED METHOD 05/14/2025 8:18 PM [facility] Nitrite, Urine Positive(A) Negative LAB URINALYSIS - AUTOMATED METHOD 05/14/2025 8:18 PM [facility] Protein, Urine Negative <=Trace mg/dL LAB URINALYSIS - AUTOMATED METHOD 05/14/2025 8:18 PM [facility] Glucose, Urine Negative Negative mg/dL LAB URINALYSIS - AUTOMATED METHOD 05/14/2025 8:18 PM [facility] Ketones, Urine Negative Negative mg/dL LAB URINALYSIS - AUTOMATED METHOD 05/14/2025 8:18 PM [facility] Urobilinogen , Urine 1.0 0.2 - 1.0 mg/dL LAB URINALYSIS - AUTOMATED METHOD 05/14/2025 8:18 PM [facility] Bilirubin, Urine Moderate(A) Negative LAB URINALYSIS - AUTOMATED METHOD 05/14/2025 8:18 PM [facility] Blood, Urine Negative Negative LAB URINALYSIS - AUTOMATED METHOD 05/14/2025 8:18 PM [facility] RBC, Urine 4.0 0 - 4 /HPF LAB URINALYSIS - AUTOMATED METHOD 05/14/2025 8:18 PM [facility] WBC, Urine 11.2(H) 0 - 4 /HPF LAB URINALYSIS - AUTOMATED METHOD 05/14/2025 8:18 PM [facility] Squamous Epithelial, Urine >100(H) 0 - 60 /LPF LAB URINALYSIS - AUTOMATED METHOD 05/14/2025 8:18 PM [facility] Bacteria, Urine Few(A) Negative /HPF LAB URINALYSIS - AUTOMATED METHOD 05/14/2025 8:18 PM [facility] Hyaline Casts, Urine 6.8(H) 0 - 3 /LPF LAB URINALYSIS - AUTOMATED METHOD 05/14/2025 8:18 PM [facility] Mucus, Urine Small None /HPF LAB URINALYSIS - AUTOMATED METHOD 05/14/2025 8:18 PM [facility] Urine Urine specimen obtained by clean catch procedure / Unknown Non-blood Collection / Unknown 05/14/2025 2:05 PM EDT 05/14/2025 2:05 PM EDT us Mckay Huang MD LAB URINE ORDERABLES Final Resu lt Performing Organization Address [facility] Co de Phone Number [facility] [address] [place] [address], [place] [phone] * Culture urine (05/14/2025 2:05 PM EDT) Only the most recent of2 resultswithin the time period is included. Culture, Urine 10,000-49,000 CFU/mL Mixed urogenital omid, no uropathogens present. Suggest repeat specimen if clinically indicated. 05/15/2025 12:46 PM EDT [facility] Urine Urine specimen obtained by clean catch procedure / Unknown Non-blood Collection / Unknown 05/14/2025 2:05 PM EDT 05/14/2025 2:05 PM EDT us Mckay Huang MD LAB MICROBIOLOGY - [facility] Final Result Performing Organization Address [facility] Co de Phone Number [facility] [address] [place] [address], [place] [phone] * Thyroid stimulating hormone with reflex to free t4 and free t3 (05/12/2025 9:19 AM EDT) Pathologist [facility] TSH 3.13 0.40 - 4.00 mcIU/mL LAB CHEMISTRY METHOD 05/12/2025 1:14 PM EDT [facility] Blood Venous blood specimen / Unknown Venipuncture / Unknown 05/12/2025 9:19 AM EDT 05/12/2025 9:19 AM EDT us Mckay Huang MD LAB BLOOD ORDERABLES Final Resu lt Performing Organization Address [facility] Co de Phone Number [facility] [address] [place] [address], [place] [phone] * DIAGNOSTIC MAMMOGRAPHY WITH CAD UNILATERAL (09/11/2024 [...] follow-up in 6 months. BI-RADS 3-probably benign [address] [address] Procedure Note Isa Espino MD - 09/19/2024 [...] follow-up in 6 months. BI-RADS 3-probably benign [address] [phone] Eleanora Nemchinskaya PA IMG BI PROCEDURES Final Result * Cervical Cancer Screening: HPV (09/03/2023) Pathologist [facility] Cervical Cancer Screening: HPV negative, abstracted Historical [...] Cecelia l Result * HIV Screening (10/23/2010) Pathologist [facility] HIV Screening abstracted [facility] Provider HEALTH MAINTENANCE Final Result from Last 3 Months or Most Recently Relevant to Health Maintenance Insurance [facility] Care Teams Potato Chip Sacking Machine Operator Relationship Specialty Start Date End Date Mckay Huang MD [address] [place] [address] [phone] PCP - General 08/28/05
--- OUTSIDE RECORDS SUMMARY | 2025-06-28 15:38 | XMS_ITS ---
Author Name [facility] Organization Unknown Care Team Organization Name Specialty Phone Email Start Date End Da te [facility] NAE VILLAGOMEZ Primary Care 09/25/2022 4
== END 2025-06-28 15:48 | disposition home or self-care (01) ==
LOC: HO.HGS 15:29
PROVIDERS: PCP Internal Medicine; Visit Provider Surgery
DX: K80.20 Calculus of gallbladder without cholecystitis without obstruction (principal)
CPT/HCPCS: 99213

== ENCOUNTER → 2025-06-28 15:28 | Outpatient (BNVA) | payer OTHER, SELFPAY | PROVIDERS: PCP Internal Medicine; Visit Provider Surgery | DX: K80.20 Calculus of gallbladder without cholecystitis without obstruction (principal); R74.01 Elevation of levels of liver transaminase levels; E66.01 Morbid (severe) obesity due to excess calories | CPT/HCPCS: 99212 ==

== ENCOUNTER 2025-07-23 15:55 | Emergency (ER) | payer OTHER, SELFPAY ==
--- NOTE | ~2025-07-23 | CT_ITS ---
CLINICAL HISTORY: PEREZ AFTER ORGASM [address] head without contrast Comparison: None provided Findings: No intra-axial mass, midline shift, hydrocephalus, or acute hemorrhage. No significant atrophy-like change or white matter disease. There is no sinus or mastoid fluid. The orbits are within normal limits. There is no acute fracture. IMPRESSION: 1. No acute intracranial findings. This document has been electronically signed by: Ann Espinosa MD on 07/23/2025 18:53:56
--- OUTSIDE RECORDS SUMMARY | 2025-07-23 14:30 | XMS_ITS | Encounter Summary ---
Author Organization [facility] Address [address] [place] [address] Care Team Providers Care Senior It Auditor Name Role Phone Mckay Huang MD Primary Care Provider [phone] Reason for Visit * Reason Comments sinus pressure Migraine X 7 days Encounter Details Date Type Department Care Team (Late st Contact Info) Description 07/23/2025 2:30 PM EDT Office Visit Adult Medicine [address] [phone] Jyoti Espinosa PA [address] [place] [phone] Orgasmic headache (Primary Dx); Nausea Social History Tobacco Use Types Packs/Day Years [...] Record ed Within the last 3 months, myrna mirza many times did you visit the emergency [...] care for your loved ones. For example, childrens club attendant or elderly care for an older adult? [...] on file Sexual Orientation Not on file documented as of this encounter Last Filed Vital Signs Vital Sign Reading Time Taken Comments Blood Pressure 118/84 07/23/2025 2:24 PM EDT Pulse 76 07/23/2025 2:24 PM EDT Temperature 36.4 C (97.5 F) 07/23/2025 2:24 PM EDT Respiratory Rate 16 07/23/2025 2:24 PM EDT Oxygen Saturation 98% 07/23/2025 2:24 PM EDT Inhaled Oxygen Concentration - - Weight 117 kg (258 lb 11.2 oz) 07/23/2025 2:24 P M EDT Height 180.3 cm (5' 10.98 ) 07/23/2025 2:24 PM E DT Body Mass Index 36.1 07/23/2025 2:24 PM EDT documented in this encounter Progress Notes * JUSTINO Barber - 07/23/2025 2:30 PM EDT CHIEF COMPLAINT: sinus pressure and Migraine (X 7 days) IDENTIFIER: Ann Anderson is a 45 y.o. old female. HPI: 45-year-old female presenting to the office for evaluation. PCP is Dr. Huang. On , patient reports fooling around with my partner and developed sudden onset excruciating headache behind the right eye with orgasm. She states headache has persisted since that time and is getting worse, I've been contemplating going to the ER all week but did not seek medical evaluation until today. She reports persistent nausea. Denies dizziness or acute visual change. Reports Tylenol provides only a few hours of relief. States she has never experienced a headache like this in the past, or associated with orgasm. She states she may have had a mild headache prior to acute episode; does report chronic neck pain at baseline. Reports some mild sinus congestion; denies fever, chills, or other URI symptoms. ROS: GENERAL: No fever, shaking chills HEENT: As above RESPIRATORY: No shortness of breath CARDIOVASCULAR: No chest pain MUSCULOSKELETAL: As above NEURO: As above PAST MEDICAL HISTORY: Patient Active Problem List Diagnosis Date Noted Recurrent UTI 10/02/2024 Severe obesity (BMI 35.0-35.9 with comorbidity) ([facility]24, [facility] V28) 10/02/2024 GERD (gastroesophageal reflux disease) 09/12/2024 Neuralgia, post-herpetic 09/12/2024 Paroxysmal atrial fibrillation ([facility] V24, [facility] V28) 09/12/2024 Post-operative hypothyroidism 2024 Graves' disease 01/12/2023 COVID-19 virus infection 12/23/2020 Mixed hyperlipidemia 01/08/2020 Anxiety 08/29/2016 Cardiac murmur 10/24/2010 Graves' disease with exophthalmos 01/20/2008 Past Surgical History: Procedure Laterality Date ANKLE SURGERY PROCEDURE: HISTORICAL ANKLE SURGERY; COMMENT: ankle fracture 2012 APPENDECTOMY age 5 PROCEDURE: HISTORICAL APPENDECTOMY OTHER SURGICAL HISTORY 12/2008 PROCEDURE: HISTORICAL SUBTOTAL THYROIDECTOMY VAGINOSCOPY 2004 PROCEDURE: [place] COLPOSCOPY CERVIX BX CERVIX & ENDOCRV CURRETAGE SOCIAL HISTORY: Social History Tobacco Use Smoking status: Former Current packs/day: 0.00 Types: Cigarettes Quit date: 07/04/2005 Years since quittin.0 Smokeless tobacco: Never Substance Use Topics Alcohol use: Yes Comment: Not often FAMILY HISTORY: Family History Problem Relation Name Age of Onset Allergies Mother Hypertension Father Ivan Breast cancer Paternal Grandmother Chana 60 Diabetes Paternal Grandfather Naveed Other cancer Father's side 40 thyroid ca uncle Other cancer Mother's side 30 testicular ac-uncle Colon cancer Neg Hx Ovarian cancer Neg Hx Prostate cancer Neg Hx Pancreatic cancer Neg Hx Uterine cancer Neg Hx Family Status Relation Name Status Mother Alive Father Ivan Alive PGM Chana PGF Naveed Father's arline (Not Specified) Mother's arline (Not Specified) Neg Hx (Not Specified) No partnership data on file MEDICATIONS DISCONTINUED/REORDERED: Medications Discontinued During This Encounter Medication Reason cyclobenzaprine (FLEXERIL) 5 mg tablet ACTIVE MEDICATIONS: Outpatient Medications Marked as Taking for the 07/23/25 encounter (Office Visit) with JUSTINO Barber Medication Sig Dispense Refill albuterol HFA (PROAIR HFA ; PROVENTIL HFA ; VENTOLIN HFA) 90 mcg/actuation inhaler Inhale 1 Puff into the lungs every 4 hours as needed for Cough, Wheezing or Shortness of Breath. cholecalciferol (VITAMIN D-3) 50 mcg (2,000 unit) capsule Take by mouth daily. flecainide (TAMBOCOR) 50 mg tablet Take 1 tablet (50 mg total) by mouth every 12 (twelve) hours. fluticasone propionate (FLONASE) 50 mcg/actuation nasal spray 2 sprays in each nostril daily gabapentin (NEURONTIN) 300 mg capsule Take 1 capsule (300 mg total) by mouth 2 (two) times a day. 180 each 1 LORazepam (ATIVAN) 0.5 mg tablet TAKE 1 TABLET BY MOUTH EVERY 6 HOURS NEEDED FOR ANXIETY FOR UP TO 8 DAYS. omeprazole (PriLOSEC) [address] capsule TAKE 1 CAPSULE (20 MG TOTAL) BY MOUTH 1 (ONE) TIME EACH DAY BEFORE BREAKFAST. 90 capsule 0 Synthroid 175 mcg tablet Take 1 tablet (175 mcg total) by mouth 1 (one) time each day. Please do not dispense generic pt has allergy 90 tablet 1 ALLERGIES: Allergies Allergen Reactions Ciprofloxacin Itching See office note 05/28/2016 Anti-Itch Other Reaction(s): OTHER Chest pain Doxycycline Ibuprofen Other Reaction(s): Rash/Dermatitis Keflex [Cephalexin] Rash Morphine Morphine Sulfate-Nacl Other Reaction(s): Rash/Dermatitis Naproxen Sodium Other Reaction(s): Rash/Dermatitis Other Seasonal Allergies Penicillins Other Reaction(s): Rash/Dermatitis HAS TAKEN KEFLEX IN THE PAST AND TOLERATED IT HOWEVER WILL USE LAST RESORT Sertraline Itching Sulfa (Sulfonamide Antibiotics) Other Reaction(s): Rash/Dermatitis Nitrofurantoin Monohyd/M-Cryst dry mouth PHYSICAL EXAM: Visit Vitals BP 118/84 (BP Location: Left arm, Patient Position: Sitting, BP Cuff Size: Large adult long) Pulse 76 Temp 36.4 ??C (97.5 ??F) (Temporal) Resp 16 Ht 1.803 m (70.98 ) Wt 117 kg (258 lb 11.2 oz) SpO2 98% BMI 36.10 kg/m?? OB Status Having periods Smoking Status Former BSA 2.35 m?? Wt Readings from Last 5 Encounters: 07/23/25 117 kg (258 lb 11.2 oz) 05/14/25 115 kg (253 lb) 04/14/25 114 kg (251 lb 9.6 oz) 03/24/25 118 kg (261 lb) 03/12/25 118 kg (261 lb) BMI plan is deferred until next visit APPEARANCE: Alert, severely obese, and in no acute distress EYES: PERRLA, conjunctiva and sclera normal. EARS: External ears normal. Canals clear. TMs with air-fluid levels without erythema or evidence ofperforation. NOSE/SINUS: Nares normal without drainage NECK: Neck supple HEART: RRR with normal S1 and S2, no murmurs, no gallops LUNG: Bilateral lung arndt clear to auscultation throughout EXTREMITIES: Moving bilateral upper/lower extremities independently; no obvious upper/lower extremity deformity; bilateral upper/lower extremities warm and well perfused without edema NEURO: Awake, alert and oriented x 3; upper/lower extremity strength 5/5 bilaterally; sensation equal and intact to upper/lower extremities bilaterally; normal gait. LABS: No orders of the defined types were placed in this encounter. IMAGING: None IMPRESSION: 1. Orgasmic headache 2. Nausea PLAN: Patient reports experiencing sudden onset excruciating headache with orgasm on 07/18/25 which is getting worse and is associated with nausea despite repeated dosing of Tylenol. Neuroexam is largely reassuring; however, we discussed she requires further evaluation of potential bleed with advanced imaging +/- lumbar puncture and thus, further evaluation in the ER is most appropriate next step. Patient verbalizes understanding states she will present to [place] [facility]. Medication and lab orders: No orders of the defined types were placed in this encounter. Other orders: None JUSTINO Barber on 07/23/2025 at 2:39 PM EDT This chart was generated by the [employer]MR system and [employer] speech recognition software and may contain inherent errors or omissions not intended by the user. Grammatical errors, random word insertions, deletions, pronoun errors and incomplete sentences are occasional consequences of this technologydue to software limitations. Not all errors are caught or corrected. If there are questions or concerns about the content of this note or information contained within the body of this dictation they should be addressed directly with the author for clarification. documented in this encounter Plan of Treatment Upcoming Encounters Date Type Department Care Team (Late st Contact Info) Description 09/06/2025 4:00 PM EDT Appointment Radiology Department - [address] [phone] 10/13/2025 4:00 PM EST Office Visit Adult Medicine [facility] - [address] [phone] Megan Borrero PA [address] [place] [phone] documented as of this encounter Visit Diagnoses Diagnosis Orgasmic headache- Primary Headache associated with sexual activity Nausea Nausea alone documented in this encounter Discontinued Medications Medication Sig Discontinue Reason Start Date End Da te cyclobenzaprine (FLEXERIL) 5 mg tabletIndications:muscle spasm Take 1 tablet (5 mg total) by mouth 2 (two) times a day if needed for muscle spasms. 01/26/2025 07/23/2025 documented as of this encounter Additional Health Concerns Assessment Noted Time PHQ-9 Depression Total Score: 0 03/23/20 25 5:47 PM EDT documented as of this encounter Care Teams Senior It Auditor Relationship Specialty Start Date End Date Mckay Huang MD [address] [place] [address] PCP - General 08/28/05 documented as of this encounter
[2025-07-23 16:21] VITALS: BP 174/96; PULSE 76; RESP 16; TEMP 36.7; O2SAT 97; BMI 35.7
--- NOTE | 2025-07-23 16:21 | ED_ITS ---
HPI - General Adult General Chief complaint: Headache Stated complaint: headache x7d (drStephanie sent for MRI) Time Seen by Provider: 07/23/25 19:23 Source: patient, RN notes reviewed and old records reviewed Mode of arrival: ambulatory Limitations: no limitations History of Present Illness ED Provider: Rigoberto HPI narrative: 45-year-old female with a past medical history significant for Graves disease, paroxysmal atrial fibrillation, not anticoagulated but maintained on flecainide presents for evaluation of a headache. Patient reports she has had a headache for the last 7 days that started during intercourse 7 days ago. Her headache has been quite constant but seems to be worse yesterday and today. Her pain is mostly to the right side of her head. She denies any current blurry vision She reports some sinus congestion below her eyes pain She denies any cough, sore throat, fevers, chills pain Denies any neck pain. Called her doctor who recommended she come to the hospital to be evaluated Denies any slurred speech, weakness, facial droop Related Data Home Medications ?Medication ?Instructions ?Recorded ?Confirmed lorazepam 0.5 mg tablet 0.5 mg PO Q6H PRN anxiety 06/28/25 omeprazole 20 mg capsule,delayed 20 mg PO DAILY@0630 0 11/29/23 06/28/25 release gabapentin 300 mg capsule 300 mg PO DAILY 08/21/2410/12 flecainide 100 mg tablet 100 mg PO BID@0600,1800 07/0 01/1206/28/25 levothyroxine 175 mcg tablet 175 mcg PO DAILY@0600 01/1206/28/25 (Synthroid) Previous Rx's ?Medication ?Instructions ?Recorded propranolol 80 mg capsule,24 80 mg PO DAILY #90 caps 0 06/15/25 hr,extended release azithromycin 250 mg tablet See Rx Instructions PO .COM PLEX #6 07/23/25 tabs Allergies Allergy/AdvReac Type Severity Reaction Status Date / Time ibuprofen (IBUPROFEN) Allergy Unknown RASH Verified 07/23/25 16:24 morphine (MORPHINE) Allergy Unknown UNKNOWN Verified 07/23/25 16:24 moxifloxacin (MOXIFLOXACIN) Allergy Unknown UNKNOWN Verified 07/23/25 16:24 naproxen (Aleve) Allergy Unknown Rash Verified 07/23/25 16:24 penicillin V Allergy Unknown Rash Verified 07/23/25 16:24 Penicillins (PENICILLINS) Allergy Unknown RASH Verified 07/23/25 16:24 Sulfa (Sulfonamide Allergy Unknown RASH Verified 07/23/25 16:24 Antibiotics) (SULFA(SULFONAMIDE ANTIBIOTICS)) From ALEVE Allergy Unknown UNKNOWN Uncoded 06/28/25 15:34 From BENADRYL Allergy Unknown RASH Uncoded 06/28/25 15:34 Review of Systems 2 Constitutional: Constitutional: Denies body ache(s), Denies chills, Denies fever(s), Denies frequent falls and Reports headache(s) Eyes: Eyes: Denies blurry vision, Denies exophthalmos and Denies floaters ENT: Denies vertigo, Denies dizziness and Reports headache(s) Cardiovascular: Cardiovascular: Denies chest pain and Denies dyspnea on exertion Respiratory: Respiratory: Denies cough and Denies dyspnea on exertion Gastrointestinal: Gastrointestinal: Denies abdominal pain, Denies nausea and Denies vomiting Musculoskeletal: Musculoskeletal: Denies back pain and Denies numbness Integumentary/Breasts: Skin/Breast: Denies rash Neurologic: Denies vertigo, Denies dizziness, Denies frequent falls, Reports headache(s) and Denies numbness Psychiatric: Psychiatric: Denies anxiety [facility] Past Medical History Medical History (Updated 07/23/25 @ 21:03 by Ivan Franklin) Gallstones Paroxysmal atrial fibrillation Persistent atrial fibrillation Atrial fibrillation with RVR Anxiety GERD (gastroesophageal reflux disease) Graves disease Surgical History H/O eye surgery History of ankle surgery S/P appy S/P thyroidectomy Social History Social History Household Members: Family Housing: House Do you presently have visiting nurse or other home services: No Patient Tobacco Use Status: Never used Tobacco Substance Use Type: Marijuana Advance Directives: Yes Advance Directives on File: Yes Advance Directives Date on File: 12/02/23 service: No Physical Exam ED Vital Signs: Vital Signs - 24 hr 07/23/25 16:21 Temperature 98.1 F Pulse Rate 76 Respiratory Rate 16 Blood Pressure 174/96 H Pulse Oximetry 97 Oxygen Delivery Method Room Air BMI result Body Mass Index 35.7 Const General: healthy appearing, comfortable, no acute distress, alert and awake Nutritional Appearance: well nourished Orientation/consciousness: patient oriented x3 HENMT Head: Yes normocephalic and Yes atraumatic Face and sinus: Yes sinus tenderness Eyes Eyelids: Yes eyelids normal Conjunctivae: conjunctivae normal Sclerae: sclerae normal Corneas: corneas normal Pupils: Equal, round and reactive pupils present EOM: EOMs intact bilaterally Neck Neck: Yes full ROM Resp Effort & Inspection: normal respiratory effort, able to speak in complete sentences and not labored Cardio Rate: regular rate Rhythm: regular rhythm GI Inspection: No distended Palpation (GI): Soft to palpation, not firm, nontender, no guarding and not rigid Skin General skin exam: elasticity normal Neuro General: patient oriented x3 Cranial nerves: Yes CN's II-XII intact bilaterally, Yes Equal, round and reactive pupils present and Yes Bilaterally intact EOM present Cognition (Neuro): normal cognition Extrem Other: Moving all extremities well without any obvious deformities Course Course Course Narrative: This is a rapid medical exam performed by Vincent Alcantara NP: Additional HPI, ROS, PE not included below will be deferred to primary provider. Patient is a 45-year-old female with history of paroxysmal afib, Graves disease s/p thyroidectomy, no past history of migraines referred to the ED by PCP for evaluation of headache for the past week. Patient reports that prior to onset she had a mild headache, then had intercourse with her and headache worsened during orgasm. Not improving with Tylenol. Nausea without vomiting. Has intermittent blurred vision to right eye at baseline. Feels as though sinuses are tender. Headache is primarily to right side of head, radiates to left. Current has a UTI, has not started abx yet. States headache worsens with laying down in bed. Plan: Labs, CT head Medical Decision Making Medical Decision Making MDM Narrative: 45-year-old female presents for evaluation of a headache that she has had for 1 week. This started during intercourse, her headache is improved with Tylenol. She has no focal neuro deficits. She is mildly hypertensive, CT scan of the brain was ordered in his unremarkable, the patient has a NIH stroke score of 0. This effectively rules out CVA. She does have sinus pressure and congestion, her headache may be consistent with acute sinusitis. I did add on ESR to evaluate for temporal arteritis as her headache is mostly right-sided. Otherwise her workup is largely unremarkable, physical exam is reassuring. No neck pain or nuchal rigidity to suggest meningitis or encephalitis. Differential Diagnosis Differential Diagnoses: The differential diagnosis associated with the presentation includes Acute sinusitis Intracranial hemorrhage Brain aneurysm Upper respiratory infection Temporal arteritis Lab Data MDM Lab Attestation statement: I reviewed the patient's lab results. No leukocytosis or anemia. Normal platelet count. No significant electrolyte abnormalities warranting intervention. Random glucose of 168 07/23/25 18:05 07/23/25 18:05 Labs: Lab Results 07/23/25 07/23/25 Range/Units 18:05 18:06 WBC 6.5 (4.8-10.8) X10*3/uL RBC 4.73 (4.20-5.50) X10*6/uL Hgb 14.9 (12.0-16.0) g/dl Hct 43.8 (37.0-47.0) % MCV 92.6 (80.0-98.0) fL MCH 31.5 (27.0-33.0) pg MCHC 34.0 (31.0-35.0) g/dl RDW 13.9 (11.0-16.0) % Plt Count 171 (160-400) X10*3/uL MPV 9.4 (9.4-12.3) fL Immature Gran % (Auto) 0.2 (0.0-0.4) % Neut % (Auto) 69.7 (45-73) % Lymph % (Auto) 19.0 L (20-40) % [place] % (Auto) 8.3 (2-11) % Eos % (Auto) 2.0 (0-4) % Baso % (Auto) 0.8 (0-2) % Lymph # (Auto) 1.2 (1.2-4.9) X10*3/uL [place] # (Auto) 0.5 (0.1-1.2) X10*3/uL Eos # (Auto) 0.1 (0.0-0.4) X10*3/uL Baso # (Auto) 0.1 (0.0-0.2) X10*3/uL Abs Immat Gran (auto) 0.01 (0.00-0.03) X10*3/uL Absolute Neuts (auto) 4.5 (2.0-8.3) x10*3/uL Absolute Nucleated RBC 0.000 (0.0-0.012) X10*3/uL Nucleated RBC % (auto) 0.0 (0.0-0.2) /100WBC ESR 10 (0-20) MM/HR PT 13.3 H (10.9-12.4) SEC INR 1.2 H (0.9-1.1) Sodium 138 (135-145) mmol/L Potassium 3.7 (3.3-5.1) mmol/L Chloride 106 (96-108) mmol/L Carbon Dioxide 27 (22-29) mmol/L Anion Gap 9 L (12-20) BUN 12 (9-16) mg/dL Creatinine 0.60 (0.5-1.4) mg/dL Estim Creat Clear Calc 169.7 Estimated GFR > 60 Random Glucose 168 H (60-115) mg/dL Calcium 8.4 (8.4-10.2) mg/dL Magnesium 2.1 (1.6-2.6) mg/dL Total Bilirubin 3.9 H (0.0-1.0) mg/dL AST 665 H (5-31) U/L ALT 602 H (0-31) U/L Alkaline Phosphatase 155 H (39-117) U/L Total Protein 7.3 (6.5-8.0) g/dL Albumin 3.4 L (3.5-5.0) g/dL TSH 1.74 (0.32-4.0) uIU/mL Beta HCG, Quant < 2 mIU/mL Urine Color Dark Yellow Urine Appearance Clear Urine pH 6.5 (5.0-9.0) Ur Specific [place] 1.020 (1.005-1.025) Urine Protein Negative (Neg-Trace) mg/dL Urine Glucose (UA) Negative (Negative) mg/dL Urine Ketones Trace (Negative) mg/dL Urine Blood Negative (Negative) Urine Nitrite Negative (Negative) Ur Leukocyte Esterase Trace H (Negative) Urine RBC 0-2 (0-2) /HPF Urine WBC 0-5 (0-5) /HPF Ur Squamous Epith Cells 3-5 (0-2) /HPF Calcium Oxalate Crystal Present Urine Bacteria None Seen (None Seen) Hyaline Casts 0-2 (0-2) /LPF Independent Interpretation I performed an independent interpretation of an: CT Scan Interpretation: Agree with Radiology interpretation Radiology Impression Discussion of test interpretation with radiology: I have reviewed the radiologist's reading. Radiologist Impression: Findings: No intra-axial mass, midline shift, hydrocephalus, or acute hemorrhage. No significant atrophy-like change or white matter disease. There is no sinus or mastoid fluid. The orbits are within normal limits. There is no acute fracture. IMPRESSION: 1. No acute intracranial findings. This document has been electronically signed by: Ann Espinosa MD on 07/23/2025 18:53:56 Tests considered The following testing was considered but not selected: Considered MRI of the brain, however the patient's symptoms started 1 week ago, her neurologic exam is benign and CT scan was performed that is unremarkable. Discharge Plan Discharge Clinical Impression: Acute headache, Sinusitis Patient Disposition: Home, Self-Care Instructions: Sinusitis (ED), Acute Headache (ED) Additional Instructions: Your CT scan did not show any concerning abnormalities. You may take azithromycin as prescribed for sinus congestion and sinus infection. I recommend that you follow up with your primary doctor Return for new or worsening symptoms You may also use a nasal spray allergy medication such as Afrin or Flonase Prescriptions: New azithromycin 250 mg tablet See Rx Instructions .ROUTE .COMPLEX Qty: 6 0RF Rx Instructions: For 250 mg dose pack: take 500 mg today (day 1), then 250 mg for 4 days (days 2-5) No Action propranolol 80 mg capsule,extended release 24 hr 80 mg PO DAILY Qty: 90 2RF levothyroxine [Synthroid] 175 mcg Tablet 175 mcg PO DAILY@0600 Rx Instructions: brand name synthroid only flecainide 100 mg tablet 100 mg PO BID@0600,1800 lorazepam 0.5 mg tablet 0.5 mg PO Q6H PRN (Reason: anxiety) omeprazole 20 mg capsule,delayed release(DR/EC) 20 mg PO DAILY@0630 gabapentin 300 mg capsule 300 mg PO DAILY Print Language: Faroese
--- OUTSIDE RECORDS SUMMARY | 2025-07-23 16:31 | XMS_ITS | Clinical Summary ---
Author Organization [address] Address [address] [place] [address] Phone Care Team Providers Care Mechanical Engineering Advisor Name Role Phone Mckay Huang MD Primary Care Provider [phone] Allergies Active Allergy Reactions Criticality Noted Date [...] mg 24 hr capsule 12/01/19 24 Active cholecalcifero l (VITAMIN D-3) 50 mcg [...] day. 90 each 1 12/25/19 25 Active Additional Information Patient not taking.Reported on 07/23/2025 flecainide (TAMBOCOR) 50 mg tablet Take 1 [...] 90 tablet 1 04/22/20 25 026 Active gabapentin (NEURONTIN) 300 mg capsule TAKE 1 CAPSULE (300 MG TOTAL) BY MOUTH 2 TIMES A DAY. 180 capsule 1 07/23/20 25 Active gabapentin (NEURONTIN) 300 mg capsule Take 1 capsule (300 mg total) by mouth 2 (two) times a day. 180 each 1 12/25/19 25 025 Discontinued cyclobenzaprin e (FLEXERIL) 5 mg tabletIndicati ons:muscle spasm Take 1 tablet (5 mg total) by mouth 2 (two) times a day if needed for muscle spasms. 30 tablet 01/27/20 25 025 Discontinued cefuroxime (CEFTIN) 500 mg tablet Take 1 tablet (500 mg total) by mouth 2 (two) times a day for 10 days. 20 each 06/16/20 25 025 Active Problems Problem Noted Date Diagnosed Date Recurrent UTI 10/02/2024 Severe obesity (BMI 35.0-35. 9 with comorbidity) ([facility] V24, [facility] V28) 10/02/2024 GERD (gastroesophageal reflux disease) Neuralgia, post-herpetic 09/12/2024 Overview (10/02/2024): 12/22/23: Left forehead/eye, now on gabapentin Paroxysmal atrial fibrillation ([facility] V24, [facility] V28) 09/12/2024 Overview (10/02/2024): [place] [facility] [place] hypothyroidism 2024 Graves' disease 01/12/2023 COVID-19 virus infection 12/23/2020 Overview (10/02/2024): 12/21/20 Mixed hyperlipidemia 01/08/2020 Anxiety 08/29/2016 Cardiac murmur 10/24/2010 Overview (10/02/2024): Cardiac echo and stress test fall 2009 Holter monitor Graves' disease with exophthalmos 01/20/2008 Overview (10/02/2024): S/p 2006 - Dr. 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, senior materials analyst Thyroid antibodies done 12/2010 Elevated thyroid antibodies 01/2011 Maternal consult Resolved Problems Problem Noted Date Diagnosed Date Resolved Date Vaginal odor 11/19/2024 01/19/2025 Bacterial vaginosis 11/19/2024 01/20/20 25 Encounters Date Type Department Care Team Description 07/23/2025 2:30 PM EDT Office Visit Adult Medicine [address] [phone] Jyoti Espinosa PA Orgasmic headache (Primary Dx); Nausea 07/16/2025 Lab Requisition [facility] - Main Lab [address] [facility] [address] [place] [address] Sivan Kasper MD Dysuria 05/14/2025 1:00 PM EDT Office Visit [address] [phone] Mckay Huang MD Urinary tract infection without hematuria, site unspecified (Primary Dx); Recurrent UTI; Dyspnea, unspecified type; Chest pressure; Abnormal EKG 05/14/[address] [phone] Mckay Huang MD 05/14/2025 Nurse Triage [address] [phone] Mckay Huang MD from Last 3 Months Immunizations Name Administration [...] 3 PROCEDURE: HISTORICAL APPENDECTOMY VAGINOSCOPY 2004 PROCEDURE: [place] COLPOSCOPY CERVIX BX CERVIX & ENDOCRV CURRETAGE [...] for your loved ones. For example, child care supervisor or elderly care for an older adult? [...] Births 3 3 3 0 0 0 3 3 Date Outcome GA Total Labor Labor/2nd/3rd Weight Sex Type Anes PTL Savanna A1 A5 Name Clin 2005 Term 40w 0d 8h 00m/ 3487 g (123 oz) F Vag-S pont Epidur al Livin g Robert Pappasobeatrice in-Spr att Delivery Location:[facility] Comments:A&W 8 Term 38w 0d 3260 g (115 oz) F Vag-S pont Livin g Delivery Location:[facility] 2010 Term 40w 6d 3997 g (141 oz) M Vag-S pont Epidur al Livin g 7 9 [place] HEMIN Delivery Location:[facility] Comments:A&W Last Filed Vital Signs Vital [...] Mass Index 36.1 07/23/2025 2:24 PM EDT Plan of Treatment Upcoming Encounters Date Type Department Care Team (Late st Contact Info) Description 09/06/2025 4:00 PM EDT Appointment Radiology Department - [address] [phone] 10/13/2025 4:00 PM EST Office Visit Adult Medicine [facility] - [address] [phone] Megan Borrero PA [address] [place] [address] Health Maintenance Due Date Last Done Comments Hepatitis B Vaccines (1 of 3 - 19+ 3-dose series) 2001 HPV Vaccines (3 - 3-dose series) 07/28/2007 05/05/2007, 01/06/2007 Hepatitis C Screening 10/27/2022 COVID-19 Vaccine ( season) 2025 11/17/2022, 09/18/2021, 02/23/2021 Influenza Vaccine (#1) 2025 [...] Procedure Name Priority Date/Time Associated Diagnosis Comments URINALYSIS WITH REFLEX MICROSCOPIC Routine 07/16/2025 11:40 AM EDT Dysuria URINALYSIS WITH REFLEX MICROSCOPIC Routine 07/16/2025 11:40 AM EDT Dysuria CULTURE URINE Routine 07/16/2025 11:40 AM EDT Dysuria ECG Routine 05/14/2025 2:10 PM EDT URINALYSIS [...] 9:19 AM EDT Graves' disease with exophthalmos DIAGNOSTIC MAMMOGRAPHY WITH CAD UNILATERAL Routine 09/11/2024 3:33 PM EDT Other abnormal and inconclusive findings on diagnostic imaging of breast HPV Routine 09/03/2023 LIPID PANEL Routine 08/14/2022 HIV SCREENING Routine 10/23/2010 from Last 3 Months or Most Recently Relevant to Health Maintenance Results * (ABNORMAL) Urinalysis with reflex microscopic (07/16/2025 11:40 AM EDT) Only the most recent of2 resultswithin the time period is included. Specific [place] Urine 1.021 1.003 - 1.030 LAB URINALYSIS - AUTOMATED METHOD 07/16/2025 6:43 PM [facility] pH, Urine 6.5 5.0 - 8.0 pH LAB URINALYSIS - AUTOMATED METHOD 07/16/2025 6:43 PM [facility] Leukocytes, Urine Trace(A) Negative LAB URINALYSIS - AUTOMATED METHOD 07/16/2025 6:43 PM [facility] Nitrite, Urine Negative Negative LAB URINALYSIS - AUTOMATED METHOD 07/16/2025 6:43 PM [facility] Protein, Urine Negative <=Trace mg/dL LAB URINALYSIS - AUTOMATED METHOD 07/16/2025 6:43 PM [facility] Glucose, Urine Negative Negative mg/dL LAB URINALYSIS - AUTOMATED METHOD 07/16/2025 6:43 PM [facility] Ketones, Urine Negative Negative mg/dL LAB URINALYSIS - AUTOMATED METHOD 07/16/2025 6:43 PM [facility] Urobilinogen, Urine 1.0 0.2 - 1.0 mg/dL LAB URINALYSIS - AUTOMATED METHOD 07/16/2025 6:43 PM EDT [facility] Bilirubin, Urine Small(A) Negative LAB URINALYSIS - AUTOMATED METHOD 07/16/2025 6:43 PM EDT [facility] Blood, Urine Large(A) Negative LAB URINALYSIS - AUTOMATED METHOD 07/16/2025 6:43 PM EDT [facility] RBC, Urine 168.0(H) 0 - 4 /HPF LAB URINALYSIS - AUTOMATED METHOD 07/16/2025 6:43 PM EDT [facility] WBC, Urine 1.7 0 - 4 /HPF LAB URINALYSIS - AUTOMATED METHOD 07/16/2025 6:43 PM EDT [facility] Squamous Epithelial, Urine 56 0 - 60 /LPF LAB URINALYSIS - AUTOMATED METHOD 07/16/2025 6:43 PM EDT [facility] Bacteria, Urine Negative Negative /HPF LAB URINALYSIS - AUTOMATED METHOD 07/16/2025 6:43 PM EDT [facility] Hyaline Casts, Urine 6.8(H) 0 - 3 /LPF LAB URINALYSIS - AUTOMATED METHOD 07/16/2025 6:43 PM EDT [facility] Urine Urine specimen from urethra / Unknown 07/16/2025 11:40 AM EDT 07/16/2025 5:56 PM EDT us Sivan Kasper MD LAB URINE ORDERABLES Fin al Result [facility] [address] [place] [address], * (ABNORMAL) Culture urine (07/16/2025 11:40 AM EDT) Only the most recent of2 resultswithin the time period is included. Culture, Urine 10,000-49,000 CFU/mL Escherichia coli(A) BERNA 07/18/2025 11:31 AM EDT [facility] Urine Urine specimen from urethra / Unknown 07/16/2025 11:40 AM EDT 07/16/2025 5:56 PM EDT Narrative Organism Antibiotic Method Susceptibility Escherichia coli Amoxicillin/Clavulanate BERNA <=2 ug/ml: Susceptible Escherichia coli Ampicillin/Sulbactam BERNA <=2 ug/ml: Susceptible Escherichia coli Piperacillin/Tazobactam BERNA <=4 ug/ml: Susceptible Escherichia coli Cefazolin (Urine) BERNA <=1 ug/ml: Susceptible Escherichia coli Cefoxitin BERNA <=4 ug/ml: Susceptible Escherichia coli Ceftazidime BERNA <=0.5 ug/ml: Susceptible Escherichia coli Ceftriaxone BERNA <=0.25 ug/ml: Susceptible Escherichia coli Cefepime BERNA <=0.12 ug/ml: Susceptible Escherichia coli Meropenem BERNA <=0.25 ug/ml: Susceptible Escherichia coli Amikacin BERNA 2 ug/ml: Susceptible Escherichia coli Gentamicin BERNA <=1 ug/ml: Susceptible Escherichia coli Ciprofloxacin BERNA 0.5 ug/ml: Intermediate Escherichia coli Levofloxacin BERNA 1 ug/ml: Intermediate Escherichia coli Nitrofurantoin BERNA <=16 ug/ml: Susceptible Escherichia coli Trimethoprim/Sulfamethoxazole BERNA <=20 ug/ml: Susceptible Sivan Kasper MD LAB MICROBIOLOGY - [facility] AL ORDERABLES Final Result [facility] [address] [place] [address], * ECG (05/14/2025 2:10 PM EDT) Mckay Huang MD ECG ORDERABLES Final Result * Thyroid stimulating hormone with reflex to free t4 and free t3 (05/12/2025 9:19 AM EDT) TSH 3.13 0.40 - 4.00 mcIU/mL LAB CHEMISTRY METHOD 05/12/2025 1:14 PM EDT [facility] Blood Venous blood specimen / Unknown Venipuncture / Unknown 05/12/2025 9:19 AM EDT 05/12/2025 9:19 AM EDT us Mckay Huang MD LAB BLOOD ORDERABLES Final Resu lt [facility] [address] [place] [address], * DIAGNOSTIC MAMMOGRAPHY WITH CAD UNILATERAL (09/11/2024 [...] in 6 months. BI-RADS 3-probably benign [facility] [address] [place] [id number] Procedure Note Isa Espino MD - 09/19/2024 [...] in 6 months. BI-RADS 3-probably benign [facility] [address] [place], [place] [id number] Megan BADILLO IMG BI PROCEDURES Final Result * Cervical Cancer Screening: HPV (09/03/2023) [facility] Cervical Cancer Screening: HPV negative, abstracted Historical Provider HEALTH MAINTENANCE Final Result * (ABNORMAL) Lipid panel (08/14/2022) [facility] LDL/HDL Ratio 5(A) 0 - 4 Triglycerides 219(A) 0 - 150 mg/dL Cholesterol 218(A) 0 - 200 mg/dL HDL 46 >=40 mg/dL LDL Cholesterol 129(A) 0 - 100 mg/dL Blood Venous blood specimen / Unknown Historical Provider LAB BLOOD ORDERABLES Cecelia l Result * HIV Screening (10/23/2010) [facility] HIV Screening abstracted Historical Provider HEALTH MAINTENANCE Final Result from Last 3 Months or Most Recently Relevant to Health Maintenance Insurance [employer] Care Teams Mechanical Engineering Advisor Relationship Specialty Start Date End Date Mckay Huang MD [address] [place] [phone] PCP - General 08/28/05"
--- OUTSIDE RECORDS SUMMARY | 2025-07-23 16:31 | XMS_ITS | Encounter Summary ---
Author Organization [facility] Address [address] [place] [address] Care Team Providers Care Reaming Press Operator Name Role Phone Mckay Huang MD Primary Care Provider Encounter Details Date Type Department Care Team (Late st Contact Info) Description 04/20/2025 Nurse Triage Adult Medicine [address] [phone] Mckay Huang MD [address] [place] [address] Social History Tobacco Use Types Packs/Day Years [...] care for your loved ones. For example, childcare attendant or elderly care for an older [...] on file documented as of this encounter Plan of Treatment Upcoming Encounters Date Type Department Care Team ([facility] Contact Info) Description 09/06/2025 4:00 PM EDT Appointment Radiology Department [address] [phone] 10/13/2025 4:00 PM EST Office Visit Adult Medicine [facility] [address] [place] [address] Megan Borrero PA [address] [place], [place] documented as of this encounter Visit Diagnoses Not on filedocumented in this encounter Additional Health Concerns Assessment Noted Time PHQ-9 Depression Total Score: 0 03/23/20 25 5:47 PM EDT documented as of this encounter Care Teams Reaming Press Operator Relationship Specialty Start Date End Date Mckay Huang MD [address] [place] [address] PCP - General 08/28/05 documented as of this encounter
--- OUTSIDE RECORDS SUMMARY | 2025-07-23 16:31 | XMS_ITS | Encounter Summary ---
Author Organization [facility] Address [address] [place] [address] Care Team Providers Care Export Freight Specialist Name Role Phone Mckay Huang MD Primary Care Provider [phone] Encounter Details Date Type Department Care Team (Late st Contact Info) Description 07/16/2025 Lab Requisition [facility] - Main Lab [address] [facility] [place] [address] Sivan Kasper MD [address] [place], [place] [phone] Dysuria Social History Tobacco Use Types Packs/Day Years [...] care for your loved ones. For example, attendant children's institution or elderly care for an older adult? [...] Upcoming Encounters Date Type Department Care Team ([facility] Contact Info) Description 09/06/2025 4:00 PM EDT Appointment Radiology Department [address] [address] 10/13/2025 4:00 PM EST Office Visit Adult [facility] [address] [place] [address] Megan Borrero PA [address] [place] [address] documented as of this encounter Procedures Procedure Name Priority Date/Time Associated Diagnosis Comments URINALYSIS WITH REFLEX MICROSCOPIC Routine 07/16/2025 11:40 AM EDT Dysuria URINALYSIS WITH REFLEX MICROSCOPIC Routine 07/16/2025 11:40 AM EDT Dysuria CULTURE URINE Routine 07/16/2025 11:40 AM EDT Dysuria documented in this encounter Results * (ABNORMAL) Urinalysis with reflex microscopic (07/16/2025 11:40 AM EDT) Specific [place] Urine 1.021 1.003 - 1.030 LAB URINALYSIS - AUTOMATED METHOD 07/16/2025 6:43 PM [facility] pH, Urine 6.5 5.0 - 8.0 pH LAB URINALYSIS - AUTOMATED METHOD 07/16/2025 6:43 PM [facility] Leukocytes, Urine Trace(A) Negative LAB URINALYSIS - AUTOMATED METHOD 07/16/2025 6:43 PM [facility] Nitrite, Urine Negative Negative LAB URINALYSIS - AUTOMATED METHOD 07/16/2025 6:43 PM [facility] Protein, Urine Negative <=Trace mg/dL LAB URINALYSIS - AUTOMATED METHOD 07/16/2025 6:43 PM [facility] Glucose, Urine Negative Negative mg/dL LAB URINALYSIS - AUTOMATED METHOD 07/16/2025 6:43 PM [facility] Ketones, Urine Negative Negative mg/dL LAB URINALYSIS - AUTOMATED METHOD 07/16/2025 6:43 PM EDT [facility] Urobilinogen, Urine 1.0 0.2 - 1.0 mg/dL LAB URINALYSIS - AUTOMATED METHOD 07/16/2025 6:43 PM EDT [facility] Bilirubin, Urine Small(A) Negative LAB URINALYSIS - AUTOMATED METHOD 07/16[facility]2025 6:43 PM [facility] Blood, Urine Large(A) Negative LAB URINALYSIS - AUTOMATED METHOD 07/16/2025 6:43 PM EDT [facility] RBC, Urine 168.0(H) 0 - 4 /HPF LAB URINALYSIS - AUTOMATED METHOD 07/16/2025 6:43 [facility] WBC, Urine 1.7 0 - 4 /HPF LAB URINALYSIS - AUTOMATED METHOD 07/16/2025 6:43 PM [facility] Squamous Epithelial, Urine 56 0 - 60 /LPF LAB URINALYSIS - AUTOMATED METHOD 07/16/2025 6:43 PM [facility] Bacteria, Urine Negative Negative /HPF LAB URINALYSIS - AUTOMATED METHOD 07/16/2025 6:43 PM [facility] Hyaline Casts, Urine 6.8(H) 0 - 3 /LPF LAB URINALYSIS - AUTOMATED METHOD 07/16/2025 6:43 PM [facility] Urine Urine specimen from urethra / Unknown 07/16/2025 11:40 AM EDT 07/16/2025 5:56 PM EDT us Sivan Kasper MD LAB URINE ORDERABLES Fin al Result [facility] [address] [place] [address], * (ABNORMAL) Culture urine (07/16/2025 11:40 AM EDT) Culture, Urine 10,000-49,000 CFU/mL Escherichia coli(A) BERNA 07/18/2025 11:31 AM EDT [facility] Urine Urine specimen from urethra / [...] Escherichia coli Trimethoprim/Sulfamethoxazole BERNA <=20 ug/ml: Susceptible us Sivan Kasper MD LAB MICROBIOLOGY - GENER AL ORDERABLES Final Result [facility] [address] [place] [address], documented in this encounter Visit Diagnoses Diagnosis Dysuria documented in this encounter Additional Health Concerns Assessment Noted Time PHQ-9 Depression Total Score: 0 03/23/20 25 5:47 PM EDT documented as of this encounter Care Teams Export Freight Specialist Relationship Specialty Start Date End Date Mckay Huang MD [address] [place] [address] PCP - General 08/28/05 documented as of this encounter
--- OUTSIDE RECORDS SUMMARY | 2025-07-23 16:31 | XMS_ITS | Clinical Summary ---
Author Organization [facility] Address [address] [place] [address] Phone Care Team Providers Care Tape Transferrer Name Role Phone Mckay Huang MD Primary Care Provider + Encounters Date Type Department Care Team Description 05/19/[address] [place] [address] Ivan Palm MD from Last [...] YEARS) 2000 PAP SMEAR 2003 MAMMOGRAM 2022 INFLUENZA VACCINE (#1) 2025 COVID-19 VACCINE (2023-2 5 season) 2025 HEPATITIS A VACCINES Aged Out No long [...] topic Medical Devices Not on file Insurance [facility] [place] [address] [place] [address] PCP [facility] Care Teams Tape Transferrer Relationship Specialty Start Date End Date Mckay Huang MD [address] [place] [address] PCP - General 07/19/23 Additional Source Comments The information contained in this document represents components of the legal health record. It is not the complete legal health record.[facility]
[2025-07-23 18:12] LABS: MANUAL DIFF FLAG NO
[2025-07-23 18:17] LABS: Hematocrit 43.8 % (37.0-47.0); Hemoglobin 14.9 g/dl (12.0-16.0); Imm Gran Abs Auto 0.01 X10*3/uL (0.00-0.03); Imm Gran Pct Auto 0.2 % (0.0-0.4); Lymphocytes Absolute Auto 1.2 X10*3/uL (1.2-4.9); Mean Corpuscular HGB Conc 34.0 g/dl (31.0-35.0); Mean Corpuscular Hemoglobin 31.5 pg (27.0-33.0); Mean Corpuscular Volume 92.6 fL (80.0-98.0); NRBC Abs Auto 0.000 X10*3/uL (0.0-0.012); NRBC Pct Auto 0.0 /100WBC (0.0-0.2); Platelet Count 171 X10*3/uL (160-400); Red Blood Count 4.73 X10*6/uL (4.20-5.50); White Blood Count 6.5 X10*3/uL (4.8-10.8)
[2025-07-23 18:18] LABS: INTERNATIONAL NORM RATIO 1.2 (0.9-1.1); Prothrombin Time 13.3 SEC (10.9-12.4)
[2025-07-23 18:20] LABS: Appearance Urine Clear; Glucose Urine UA Negative (Negative); PH 6.5 (5.0-9.0); Specific Gravity - Urine 1.020 (1.005-1.025); UMIC TRIGGER UACC YES
[2025-07-23 18:34] LABS: Alanine Aminotransferase 602 U/L (0-31); Albumin Level 3.4 g/dL (3.5-5.0); Alkaline Phosphatase 155 U/L (39-117); Anion Gap 9 (12-20); Aspartate Amino Transferase 665 U/L (5-31); Blood Urea Nitrogen 12 mg/dL (9-16); Calcium 8.4 mg/dL (8.4-10.2); Carbon Dioxide 27 mmol/L (22-29); Chloride 106 mmol/L (96-108); Creatinine Clr Calc Pharmacy 169.7; Estimated Glomerular Filt Rate > 60; Magnesium 2.1 mg/dL (1.6-2.6); Potassium 3.7 mmol/L (3.3-5.1); Sodium 138 mmol/L (135-145); Total Protein 7.3 g/dL (6.5-8.0)
[2025-07-23 21:09] VITALS: BP 174/96; PULSE 76; RESP 16; TEMP 36.7; O2SAT 97
== END 2025-07-23 21:10 | disposition home or self-care (01) ==
PROVIDERS: Physician Assistant; Registered Nurse Emergency; Emergency Provider Emergency Medicine; PCP Internal Medicine
DX: R51.9 Headache, unspecified (principal); J32.9 Chronic sinusitis, unspecified; R11.0 Nausea; N39.0 Urinary tract infection, site not specified; I48.0 Paroxysmal atrial fibrillation; Z79.899 Other long term (current) drug therapy
CPT/HCPCS: 36415; 70450; 80053; 81001; 83735; 84443; 84702; 85025; 85610; 85652; 99282; 99284

== ENCOUNTER → 2025-07-23 16:25 | Outpatient (BNV) | payer OTHER, SELFPAY | PROVIDERS: PCP Internal Medicine; Visit Provider Radiology Diagnostic Radiology | DX: R51.9 Headache, unspecified (principal) | CPT/HCPCS: 70450 ==

== ENCOUNTER 2025-08-03 03:35 | Inpatient (IN) | payer OTHER, SELFPAY ==
[2025-08-03] VITALS (9 sets, daily range): BP systolic 109–133; BP diastolic 54–87; PULSE 61–77; RESP 16–18; TEMP 36.2–36.9; O2SAT 95–100; BMI 34.9; BMI 37.8
--- NOTE | ~2025-08-03 | US_ITS ---
EXAMINATION: US ABDOMEN LIMITED HISTORY: jaundice, hx gall stones TECHNIQUE: Real-time grayscale ultrasound imaging of the right upper quadrant was performed and images were reviewed. COMPARISON: Comparison is made with the prior examination dated 05/19/2025. FINDINGS: Liver: The right lobe of the liver measures 17.9 cm in size. The left lobe of the liver measures 10.4 cm in size. The liver demonstrates normal homogeneous echotexture. No focal mass or intrahepatic biliary ductal dilatation is identified. There is normal hepatopedal flow in the portal vein. Gallbladder and biliary tree: Numerous stones are noted in the gallbladder. There is wall thickening measuring up to 7 mm. The technologist reports the patient to be focally tender over the gallbladder, consistent with a positive sonographic Stokes sign. The common bile duct is normal in caliber measuring 3 mm. Right Kidney: The right kidney measures 12.5 cm in length. The right kidney is unremarkable, without evidence of masses, hydronephrosis, or calculi. Pancreas: The pancreas is obscured by bowel gas. Abdominal aorta and inferior vena cava: The visualized portions of the abdominal aorta and inferior vena cava are normal in caliber. There is no free fluid in the right upper quadrant. US/US abdomen limited IMPRESSION: 1. Cholelithiasis and findings consistent with acute cholecystitis. 2. Hepatomegaly. Electronically signed by: Vinod Díaz MD 08/03/2025 10:28 AM EDT
--- NOTE | ~2025-08-03 | NM_ITS ---
EXAMINATION: Nuclear medicine hepatobiliary scan without CCK. CLINICAL HISTORY: Elevated LFTs and jaundice. COMPARISON: Ultrasound abdomen performed earlier today at 6:00 AM. TECHNIQUE: Following intravenous administration of 5 mCi of 90 9M technetium mebrofenin, imaging over the right upper quadrant was obtained up to 60 minutes. FINDINGS: There is normal hepatic uptake. There is prompt visualization of gallbladder by 30 minutes and small bowel by 60 minutes. CCK was not administered as patient has multiple gallstones. NM/NM hepatobiliary wo pharm IMPRESSION: Patent cystic duct. Patent CBD. Normal hepatic uptake. Results were immediately conveyed to Dr. Marina at 4:01 PM via tiger text. Electronically signed by: Tino Houser MD 08/03/2025 04:22 PM EDT
--- OUTSIDE RECORDS SUMMARY | 2025-08-03 04:05 | XMS_ITS | Encounter Summary ---
Author Organization [facility] Address [address] [place] [address] Care Team Providers Care Housekeeping Department Worker Name Role Phone Mckay Huang MD Primary Care Provider [phone] Encounter Details Date Type Department Care Team (Late st Contact Info) Description 07/16/[address] [facility] - Main Lab [address] [facility] [place] [address] Sivan Kasper MD [address] [place], [place] [phone] Dysuria Social History Tobacco Use Types Packs/Day [...] for your loved ones. For example, childcare teacher or elderly care for an older adult? [...] Upcoming Encounters Date Type Department Care Team ([facility] Contact Info) Description 09/06/2025 4:00 PM EDT Appointment Radiology Department [address] [address] 10/13/2025 4:00 PM EST Office Visit Adult [facility] [address] [place] [address] Megan Borrero PA [address] [place] [address] documented as of this encounter Procedures Procedure Name Priority Date/Time Associated Diagnosis Comments URINALYSIS WITH REFLEX MICROSCOPIC Routine 07/16/2025 11:40 AM EDT Dysuria URINALYSIS WITH REFLEX MICROSCOPIC Routine 07/16/2025 11:40 AM EDT Dysuria CULTURE URINE Routine 07/16/2025 11:40 AM EDT Dysuria documented in this encounter Results * (ABNORMAL) Urinalysis with reflex microscopic (07/16/2025 11:40 AM EDT) Specific [place] Urine 1.021 1.003 - 1.030 LAB URINALYSIS - AUTOMATED METHOD 07/16/2025 6:43 PM [facility] pH, Urine 6.5 5.0 - 8.0 pH LAB URINALYSIS - AUTOMATED METHOD 07/16/2025 6:43 PM [facility] Leukocytes, Urine Trace(A) Negative LAB URINALYSIS - AUTOMATED METHOD 07/16/2025 6:43 PM [facility] Nitrite, Urine Negative Negative LAB URINALYSIS - AUTOMATED METHOD 07/16/2025 6:43 PM [facility] Protein, Urine Negative <=Trace mg/dL LAB URINALYSIS - AUTOMATED METHOD 07/16/2025 6:43 PM [facility] Glucose, Urine Negative Negative mg/dL LAB URINALYSIS - AUTOMATED METHOD 07/16/2025 6:43 PM [facility] Ketones, Urine Negative Negative mg/dL LAB URINALYSIS - AUTOMATED METHOD 07/16/2025 6:43 PM EDT [facility] Urobilinogen, Urine 1.0 0.2 - 1.0 mg/dL LAB URINALYSIS - AUTOMATED METHOD 07/16/2025 6:43 PM EDT [facility] Bilirubin, Urine Small(A) Negative LAB URINALYSIS - AUTOMATED METHOD 07[facility]16[facility]2025 6:[facility] Blood, Urine Large(A) Negative LAB URINALYSIS - AUTOMATED METHOD 07/16/2025 6:43 PM EDT [facility] RBC, Urine 168.0(H) 0 - 4 /HPF LAB URINALYSIS - AUTOMATED METHOD 07/16/2025 6:43 [facility] WBC, Urine 1.7 0 - 4 /HPF LAB URINALYSIS - AUTOMATED METHOD 07/16/2025 6:43 PM [facility] Squamous Epithelial, Urine 56 0 - 60 /LPF LAB URINALYSIS - AUTOMATED METHOD 07/16/2025 6:43 [facility] Bacteria, Urine Negative Negative /HPF LAB URINALYSIS - AUTOMATED METHOD 07/16/2025 6:43 PM [facility] Hyaline Casts, Urine 6.8(H) 0 - 3 /LPF LAB URINALYSIS - AUTOMATED METHOD 07/16/2025 6:43 PM [facility] Urine Urine specimen from urethra / Unknown 07/16/2025 11:40 AM EDT 07/16/2025 5:56 PM EDT us Sivan Kasper MD LAB URINE ORDERABLES Fin al Result [facility] [address] [place] [address], * (ABNORMAL) Culture urine (07/16/2025 11:40 AM EDT) Culture, Urine 10,000-49,000 CFU/mL Escherichia coli(A) BERNA 07/18/2025 11:31 AM EDT [facility] Urine Urine specimen from urethra [...] MICROBIOLOGY - GENER AL ORDERABLES Final Result [facility] [address] [place] [address], documented in this encounter Visit Diagnoses Diagnosis Dysuria documented in this encounter Additional Health Concerns Assessment Noted Time PHQ-9 Depression Total Score: 0 03/23/20 25 5:47 PM EDT documented as of this encounter Care Teams Housekeeping Department Worker Relationship Specialty Start Date End Date Mckay Huang MD [address] [place] [address] PCP - General 08/28/05 documented as of this encounter
--- OUTSIDE RECORDS SUMMARY | 2025-08-03 04:05 | XMS_ITS | Clinical Summary ---
Author Organization [facility] Address [address] [place] [address] Phone Care Team Providers Care Home Economics Expert Name Role Phone Mckay Huang MD Primary Care Provider + Encounters Date Type Department Care Team Description 05/19/[address] [place] [address] Ivan Palm MD from Last [...] topic Medical Devices Not on file Insurance [facility] [place] [address] [place] [address] PCP AGATHA HUMMEL [facility] Care Teams Home Economics Expert Relationship Specialty Start Date End Date Mckay Huang MD [address] [place] [address] PCP - General 07/19/23 Additional Source Comments The information contained in this document represents components of the legal health record. It is not the complete legal health record.[facility]
--- OUTSIDE RECORDS SUMMARY | 2025-08-03 04:05 | XMS_ITS | Encounter Summary ---
Author Organization [facility] Address [address] [place] [address] Care Team Providers Care Ict Security Specialist Name Role Phone Mckay Huang MD Primary Care Provider [phone] Encounter Details Date Type Department Care Team (Late st Contact Info) Description 04/20/2025 Nurse Triage Adult Medicine [address] [phone] Mckay Huang MD [address] [place] [address] Social History Tobacco Use Types Packs/Day Years [...] care for your loved ones. For example, children's entertainer or elderly care for an older adult? [...] Upcoming Encounters Date Type Department Care Team ([facility] Contact Info) Description 09/06/2025 4:00 PM EDT Appointment Radiology Department [address] [address] 10/13/2025 4:00 PM EST Office Visit Adult Medicine [facility] [address] [place] [address] Megan Borrero PA [address] [place], [place] documented as of this encounter Visit Diagnoses Not on filedocumented in this encounter Additional Health Concerns Assessment Noted Time PHQ-9 Depression Total Score: 0 03/23/20 25 5:47 PM EDT documented as of this encounter Care Teams Ict Security Specialist Relationship Specialty Start Date End Date Mckay Huang MD [address] [place] [address] PCP - General 08/28/05 documented as of this encounter
--- OUTSIDE RECORDS SUMMARY | 2025-08-03 04:05 | XMS_ITS | Clinical Summary ---
Author Organization [address] Address [address] [place] [address] Phone Care Team Providers Care Design Director Name Role Phone Mckay Huang MD Primary Care Provider [phone] Allergies Active Allergy Reactions Criticality Noted Date [...] still symptomatic. 2 tablet 04/16/20 25 Active Synthroid 175 mcg tablet Take 1 tablet (175 mcg total) by mouth 1 (one) time each day. Please do not dispense generic pt has allergy 90 tablet 1 04/22/20 25 026 Active gabapentin (NEURONTIN) 300 mg capsule TAKE 1 CAPSULE (300 MG TOTAL) BY MOUTH 2 TIMES A DAY. 180 capsule 1 07/23/20 25 Active omeprazole (PriLOSEC) [address] capsule TAKE 1 CAPSULE (20 MG TOTAL) BY MOUTH 1 (ONE) TIME EACH DAY BEFORE BREAKFAST. 90 capsule 1 07/29/20 25 Active gabapentin (NEURONTIN) 300 mg capsule Take 1 capsule (300 mg total) by mouth 2 (two) times a day. 180 each 1 12/25/19 25 025 Discontinued cyclobenzaprin e (FLEXERIL) 5 mg tabletIndicati ons:muscle spasm Take 1 tablet (5 mg total) by mouth 2 (two) times a day if needed for muscle spasms. 30 tablet 01/27/20 25 025 Discontinued omeprazole (PriLOSEC) [address] capsule TAKE 1 CAPSULE (20 MG TOTAL) BY MOUTH 1 (ONE) TIME EACH DAY BEFORE BREAKFAST. 90 capsule 04/20/20 25 025 Discontinued Active Problems Problem Noted Date Diagnosed Date Recurrent UTI 10/02/2024 Severe obesity (BMI 35.0-35. 9 with comorbidity) ([facility] V24, [facility] V28) 10/02/2024 GERD (gastroesophageal reflux disease) Neuralgia, post-herpetic 09/12/2024 Overview (10/02/2024): 12/22/23: Left forehead/eye, now on gabapentin Paroxysmal atrial fibrillation ([facility] V24, [facility] V28) 09/12/2024 Overview (10/02/2024): [facility] Bland [facility] Post-operative hypothyroidism 2024 Graves' disease 01/12/2023 COVID-19 virus infection 12/23/2020 Overview (10/02/2024): 12/21/20 Mixed hyperlipidemia 01/08/2020 Anxiety 08/29/2016 Cardiac murmur 10/24/2010 Overview (10/02/2024): Cardiac echo and stress test fall 2009 Holter monitor Graves' disease with exophthalmos 01/20/2008 Overview (10/02/2024): S/p 2006 - Dr. 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, engineering production liaison Thyroid antibodies done 12/2010 Elevated thyroid antibodies 01/2011 Maternal consult Resolved Problems Problem Noted Date Diagnosed Date Resolved Date Vaginal odor 11/19/2024 01/19/2025 Bacterial vaginosis 11/19/2024 01/20/20 25 Encounters Date Type Department Care Team Description 08/02/2025 Nurse Triage Adult Medicine [address] [address] Mckay Huang MD 07/23/2025 2:30 PM EDT [facility] [address] [phone] Jyoti Espinosa PA Orgasmic headache (Primary Dx); Nausea 07/16/2025 Lab Requisition [facility] - Main Lab [address] [facility] [place] [address] Sivan Kasper MD Dysuria 05/14/2025 1:00 PM EDT Office Visit Adult Medicine [address] [phone] Mckay Huang MD Urinary tract infection without hematuria, site unspecified (Primary Dx); Recurrent UTI; Dyspnea, unspecified type; Chest pressure; Abnormal EKG 05/14/2025 Telephone Adult Medicine [address] [phone] Mckay Huang MD 05/14/2025 Nurse Triage [address] [phone] Mckay Huang MD from Last 3 Months [...] 3 PROCEDURE: HISTORICAL APPENDECTOMY VAGINOSCOPY 2004 PROCEDURE: FL COLPOSCOPY CERVIX BX CERVIX & ENDOCRV CURRETAGE [...] for your loved ones. For example, child monitor or elderly care for an older adult? [...] Vag-S pont Epidur al Livin g Robert Graf in-Spr att Delivery Location:[facility] Comments:A&W 8 Term 38w 0d 3260 g (115 oz) F Vag-S pont Livin g Delivery Location:[facility] 2010 Term 40w 6d 3997 g (141 oz) M Vag-S pont Epidur al Livin g 7 9 [place] HEMIN Delivery Location:[facility] Comments:A&W Last Filed Vital Signs Vital Sign [...] 4:00 PM EDT Appointment Radiology Department - [address] [phone] 10/13/2025 4:00 PM EST Office Visit Adult Medicine [address] [phone] Megan Borrero PA [address] [place] [address] Health Maintenance Due Date Last Done Comments [...] resultswithin the time period is included. Specific [place] Urine 1.021 1.003 - 1.030 LAB URINALYSIS - AUTOMATED METHOD 07/16/2025 6:43 PM [facility] pH, Urine 6.5 5.0 - 8.0 pH LAB URINALYSIS - AUTOMATED METHOD 07/16/2025 6:43 PM [facility] Leukocytes, Urine Trace(A) Negative LAB URINALYSIS - AUTOMATED METHOD 07/16/2025 6:43 PM [facility] Nitrite, Urine Negative Negative LAB URINALYSIS - AUTOMATED METHOD 07/16/2025 6:43 PM [facility] Protein, Urine Negative <=Trace mg/dL LAB URINALYSIS - AUTOMATED METHOD 07/16/2025 6:43 PM [facility] Glucose, Urine Negative Negative mg/dL LAB URINALYSIS - AUTOMATED METHOD 07/16/2025 6:43 PM [facility] Ketones, Urine Negative Negative mg/dL LAB URINALYSIS - AUTOMATED METHOD 07/16/2025 6:43 PM EDT [facility] Urobilinogen, Urine 1.0 0.2 - 1.0 mg/dL LAB URINALYSIS - AUTOMATED METHOD 07/16/2025 6:43 PM [facility] Bilirubin, Urine Small(A) Negative LAB URINALYSIS - AUTOMATED METHOD 07/16/2025 6:43 PM EDT [facility] Blood, Urine Large(A) Negative LAB URINALYSIS - AUTOMATED METHOD 07/16/2025 6:43 PM [facility] RBC, Urine 168.0(H) 0 - 4 /HPF LAB URINALYSIS - AUTOMATED METHOD 07/16/2025 6:43 PM [facility] WBC, Urine 1.7 0 - 4 /HPF LAB URINALYSIS - AUTOMATED METHOD 07/16/2025 6:43 PM T [facility] Squamous Epithelial, Urine 56 0 - 60 /LPF LAB URINALYSIS - AUTOMATED METHOD 07/16/2025 6:43 PM [facility] Bacteria, Urine Negative Negative /HPF LAB URINALYSIS - AUTOMATED METHOD 07/16/2025 6:43 PM [facility] Hyaline Casts, Urine 6.8(H) 0 - 3 /LPF LAB URINALYSIS - AUTOMATED METHOD 07/16/2025 6:43 PM T [facility] Urine Urine specimen from urethra / Unknown 07/16/2025 11:40 AM EDT 07/16/2025 5:56 PM EDT us Sivan Kasper MD LAB URINE ORDERABLES Fin al Result [facility] [address] [place] [address], * (ABNORMAL) Culture urine (07/16/2025 11:40 AM [...] Susceptible Sivan Kasper MD LAB MI[facility]OLOGY - [facility] [place] ORDERABLES Final Result [facility] [address] [place] [address], [place] [phone] * ECG (05/14/2025 2:10 PM EDT) Mckay Huang MD ECG ORDERABLES Final Result * Thyroid stimulating hormone with reflex to free t4 and free t3 (05/12/2025 9:19 AM EDT) TSH 3.13 0.40 - 4.00 mcIU/mL LAB CHEMISTRY METHOD 05/12/2025 1:14 PM EDT [facility] Blood Venous blood specimen / Unknown Venipuncture / Unknown 05/12/2025 9:19 AM EDT 05/12/2025 9:19 AM EDT us Mckay Huang MD LAB BLOOD ORDERABLES Final Resu lt [facility] [address] [place] [address], * DIAGNOSTIC MAMMOGRAPHY WITH CAD UNILATERAL (09/11/2024 [...] follow-up in 6 months. BI-RADS 3-probably benign [facility] [address] [place] [address] Procedure Note Isa Espino MD - 09/19/2024 [...] follow-up in 6 months. BI-RADS 3-probably benign [facility] [place] [place] [address] Megan BADILLO IMG BI PROCEDURES Final Result * Cervical Cancer Screening: HPV (09/03/2023) Pathologist [facility] Cervical Cancer Screening: HPV negative, abstracted Historical Provider HEALTH MAINTENANCE Final Result * (ABNORMAL) Lipid panel (08/14/2022) [facility] LDL/HDL Ratio 5(A) 0 - 4 Triglycerides 219(A) 0 - 150 mg/dL Cholesterol 218(A) 0 - 200 mg/dL HDL 46 >=40 mg/dL LDL Cholesterol 129(A) 0 - 100 mg/dL Blood Venous blood specimen / Unknown Historical Provider LAB BLOOD ORDERABLES Cecelia l Result * HIV Screening (10/23/2010) Pathologist [facility] HIV Screening abstracted Historical Provider HEALTH MAINTENANCE Final Result from Last 3 Months or Most Recently Relevant to Health Maintenance Insurance [place] [address] Care Teams Design Director Relationship Specialty Start Date End Date Mckay Huang MD [address] [place] [phone] PCP - General 08/28/05
--- OUTSIDE RECORDS SUMMARY | 2025-08-03 04:05 | XMS_ITS | Encounter Summary ---
Author Organization [employer] Address [address] [place] [address] Care Team Providers Care Design Coordinator Name Role Phone Mckay Huang MD Primary Care Provider Reason for Visit * Reason Onset Date Comments Jaundice 08/02/2025 dark urine 08/02/2025 Encounter Details Date Type Department Care Team (Late st Contact Info) Description 08/02/2025 Nurse Triage Adult Medicine [address] [phone] Mckay Huang MD [address] [place] [address] Social History Tobacco Use Types Packs/Day Years [...] for your loved ones. For example, child advocate or elderly care for an older adult? [...] on file documented as of this encounter Progress Notes * Shana Lacy RN - 08/02/2025 1:27 PM EDT She was instructed to go to the ER for further evaluation and treatment. She is in agreement with this plan and states she will go to [facility] ER. Reason for Disposition Jaundice suspected (e.g., yellow color of the skin and sclera [white of the eye]) Answer Assessment - Initial Assessment Questions 1. EYES: Are the whites of the eyes yellow? Yes 2. ONSET: When did the jaundice begin? 3-4 days ago 3. FEVER: Do you have a fever? If Yes, ask: What is it, how was it measured, and when did it start? No 4. VOMITING: Have you been vomiting? No but reports nausea for the past 2 weeks. 5. DEHYDRATION: Have you been able to keep any liquids down? When was the last time you urinated? Do you feel dizzy? She is drinking fluids and urinating. She states her urine is dark in color. 6. ABDOMEN PAIN: Are you having any abdomen pain? If Yes, ask: How bad is it? (e.g., Scale 0-10; or none, mild, moderate, or severe) No but reports gas and diarrhea 7. CONTACT: Have you been around anyone who was jaundiced? No 8. CAUSE: What do you think is causing the jaundice? She had jaundice in May when she went to the hospital with jaundice in May 9. OTHER SYMPTOMS: Do you have any other symptoms? (e.g., shaking chills, itching, blood in stool) No 10. : Is there any chance you are ? When was your last menstrual period? No. Her LMP was 07/14/25 Protocols used: [id number] * Irish Bowles - 08/02/2025 12:53 PM EDT Patient call requires triage: Symptoms patient is presenting: patient was at [facility], she states in May for a UTI then gall bladder issues. Was jaundiced at the hospital. No blockage in May. Met with a surgeon at [facility], no surgery needed at that time and going back in August for a f/u. She is reporting jaundice now, family memberstell her her eyes are yellow. Feeling nausea for 2 weeks but also taking 2 antibiotics. Finished antibiotics on Saturday. Has dark urine. How long has patient had these symptoms?: a week For ALL patients calling to schedule any appointment (routine, sick visit, follow up, consult, etc.) in the outpatient setting please ask the following questions: Do you have fever of higher than 101, sore throat with difficulty swallowing or severe shortness ofbreath? no If YES to any of these above symptoms, send a message to triage and do not book. Red dot. If no, an audio or video visit should be booked. Have you had close contact with someone with Coronavirus in the last 14 days? no Have you traveled abroad? no Have you traveled recently to another state outside of [place], [place], [place], [place], [place], [place], [place]? no o If yes, did you quarantine for 14 days or have a negative covid test? no If yes to any of the above, patient is not to be scheduled in office until after 14 day quarantine or negative covid test. If pain or injury related was it due to an accident at work or from a motor vehicle accident? If yes, date of accident/Injury: No If yes, gather 3rd democrat insurance information Third Green Party Information: not applicable PCP: Mckay Huang MD Payor: [employer] PLAN / Plan: [employer] QHP / Product Type: *No Product type* / documented in this encounter Plan of Treatment Upcoming Encounters Date Type Department Care Team (Late st Contact Info) Description 09/06/2025 4:00 PM EDT Appointment Radiology Department - [address] [phone] 10/13/2025 4:00 PM EST Office Visit Adult Medicine [address] [phone] Megan Borrero PA [address] [place] [address] documented as of this encounter Visit Diagnoses Not on filedocumented in this encounter Additional Health Concerns Assessment Noted Time PHQ-9 Depression Total Score: 0 03/23/20 25 5:47 PM EDT documented as of this encounter Care Teams Design Coordinator Relationship Specialty Start Date End Date Mckay Huang MD [address] [place] [id number] PCP - General 08/28/05 documented as of this encounter
[2025-08-03 04:43] LABS: Hematocrit 39.8 % (37.0-47.0); Hemoglobin 13.7 g/dl (12.0-16.0); Imm Gran Abs Auto 0.02 X10*3/uL (0.00-0.03); Imm Gran Pct Auto 0.3 % (0.0-0.4); Lymphocytes Absolute Auto 1.3 X10*3/uL (1.2-4.9); MANUAL DIFF FLAG NO; Mean Corpuscular HGB Conc 34.4 g/dl (31.0-35.0); Mean Corpuscular Hemoglobin 31.1 pg (27.0-33.0); Mean Corpuscular Volume 90.5 fL (80.0-98.0); NRBC Abs Auto 0.000 X10*3/uL (0.0-0.012); NRBC Pct Auto 0.0 /100WBC (0.0-0.2); Platelet Count 159 X10*3/uL (160-400); Red Blood Count 4.40 X10*6/uL (4.20-5.50); White Blood Count 6.8 X10*3/uL (4.8-10.8)
[2025-08-03 04:44] LABS: Appearance Urine Clear; Glucose Urine UA Negative (Negative); PH 6.0 (5.0-9.0); Specific Gravity - Urine >= 1.030 (1.005-1.025); UMIC TRIGGER UACC YES
[2025-08-03 04:57] LABS: Alanine Aminotransferase 487 U/L (0-31); Albumin Level 3.0 g/dL (3.5-5.0); Alkaline Phosphatase 157 U/L (39-117); Anion Gap 10 (12-20); Aspartate Amino Transferase 635 U/L (5-31); Blood Urea Nitrogen 12 mg/dL (9-16); Calcium 8.2 mg/dL (8.4-10.2); Carbon Dioxide 21 mmol/L (22-29); Chloride 110 mmol/L (96-108); Creatinine Clr Calc Pharmacy 162.2; Estimated Glomerular Filt Rate > 60; Lipase 81 U/L (8-78); Potassium 3.7 mmol/L (3.3-5.1); Sodium 137 mmol/L (135-145); Total Protein 6.7 g/dL (6.5-8.0)
[2025-08-03 05:31] LABS: Other Crystals Urine Present; UACC Culture Trigger YES
--- NOTE | 2025-08-03 05:43 | ED.GENADULT ---
HPI - General Adult General Chief complaint: Abdominal Pain Stated complaint: Jaundice? Time Seen by Provider: 08/03/25 05:43 Source: patient Mode of arrival: ambulatory Limitations: no limitations History of Present Illness ED Provider: Dr. Shanae Harden HPI narrative: 45-year-old female with a history of Graves disease, frequent urinary tract infections, known cholelithiasis presenting with jaundice and generalized malaise and fatigue that is been ongoing for the last several weeks. Patient states that her coworkers told her that her eyes were yellow so she thought she might come to the hospital for evaluation. She has been dealing with a urinary tract infections for several months and has been on multiple rounds of antibiotics without any real improvement. She recently finished a course of Macrobid, last dose was 2 days ago. Since that time, she feels as though she has symptoms again have another urinary tract infection with painful urination and lower abdominal cramping. No vaginal bleeding or discharge. Denies associated fever. Describes generalized malaise hand feeling fatigued but denies upper abdominal pain, nausea or vomiting. Denies chest pain or difficulty breathing. Of note, in May when she was admitted to the hospital with pyelonephritis, she was found to have transaminitis and gallstones. She was told by General surgery, Dr. Vaughn, that she could hold off on having her gallbladder removed since she had no choledocholithiasis on the MRCP. She admits there is no real change in her symptoms aside from having worsening dark urine and pale colored stool. Has been due to fully avoiding greasy foods. Related Data Home Medications ?Medication ?Instructions ?Recorded ?Confirmed omeprazole 20 mg capsule,delayed 20 mg PO DAILY@0630 11/29/23 08/03/25 release gabapentin 300 mg capsule 300 mg PO BID 08/21/24 08/03/25 flecainide 100 mg tablet 100 mg PO BID@0600,1800 05/19/25 08/03/25 levothyroxine 175 mcg tablet 175 mcg PO DAILY@0600 05/19/25 08/03/25 (Synthroid) ascorbic acid (vitamin C) 500 mg 500 mg PO BID 08/03/25 08/03/25 tablet methenamine hippurate 1 gram tablet 1 g PO BID 08/03/25 08/03/25 Previous Rx's ?Medication ?Instructions ?Recorded propranolol 80 mg capsule,24 80 mg PO DAILY #90 caps 06/15/25 hr,extended release Allergies Allergy/AdvReac Type Severity Reaction Status Date / Time ibuprofen (IBUPROFEN) Allergy Unknown RASH Verified 08/03/25 03:45 morphine (MORPHINE) Allergy Unknown UNKNOWN Verified 08/03/25 03:45 moxifloxacin (MOXIFLOXACIN) Allergy Unknown UNKNOWN Verified 08/03/25 03:45 naproxen (Aleve) Allergy Unknown Rash Verified 08/03/25 03:45 penicillin V Allergy Unknown Rash Verified 08/03/25 03:45 Penicillins (PENICILLINS) Allergy Unknown RASH Verified 08/03/25 03:45 Sulfa (Sulfonamide Allergy Unknown RASH Verified 08/03/25 03:45 Antibiotics) (SULFA(SULFONAMIDE ANTIBIOTICS)) From ALEVE Allergy Unknown UNKNOWN Uncoded 08/03/25 03:45 From BENADRYL Allergy Unknown RASH Uncoded 08/03/25 03:45 Review of Systems Review of Systems: As per HPI, full review of systems performed and negative but for the above mentioned pertinent positives and negatives. [facility] Past Medical History Medical History Gallstones Paroxysmal atrial fibrillation Persistent atrial fibrillation Atrial fibrillation with RVR Anxiety GERD (gastroesophageal reflux disease) Graves disease Surgical History H/O eye surgery History of ankle surgery S/P appy S/P thyroidectomy Social History Social History Household Members: Family Housing: House Do you presently have visiting nurse or other home services: No Alcohol intake: current Alcohol intake frequency: holidays/special occasions only Patient Tobacco Use Status: Never used Tobacco Smoked in Last 30 Days: No Use of substances other than those prescribed or required for medical reasons: Yes Substance Use Type: Marijuana Substance Use Frequency: Occasionally Advance Directives: Yes Advance Directives on File: Yes Advance Directives Date on File: 12/02/23 Do you have a plan to hurt others: No Plan Nutrition Risks: No Nutritional Risk Patient : No service: No Physical Exam ED Exam Exam: GENERAL: Ill-Appearing, no acute distress. SKIN: Normal skin color for ethnicity, warm, dry, no rashes noted. HEENT: Normocephalic, atraumatic, no stridor, dry mucous membranes, dentition intact, slight scleral icterus, slight exophthalmos, EOMI, PERRLA. NECK: Soft, supple, full ROM, midline structures nontender, no step-offs, no deformities, no lymphadenopathy. CHEST: Heart regular tachycardia, no murmurs, symmetric chest rise and fall. PULMONARY: Clear to auscultation bilaterally, diminished at the bases, no labored breathing, no wheezes/rhales/rhonchi. ABDOMINAL: Soft, nondistended, nontender, quiet bowel sounds in all quadrants. : Deferred. MUSCULOSKELETAL: Normal tone, full range of motion, no deformities, no peripheral edema. NEURO: Alert and oriented x3, CN II through XII intact, equal strength and sensation bilateral upper and lower extremities, no focal neurologic deficits. PSYCHIATRIC: Flat affect, fluid speech, good eye contact and appropriate demeanor. Vital Signs: Vital Signs - 24 hr 08/03/25 03:37 08/03/25 07:28 08/03/25 10:10 Temperature 98.2 F 97.9 F 97.5 F Pulse Rate 77 72 69 Respiratory Rate 16 16 16 Blood Pressure 129/61 129/87 112/65 Pulse Oximetry 98 95 97 Oxygen Delivery Method Room Air Room Air Room Air 08/03/25 11:56 Temperature 97.2 F Pulse Rate 61 Respiratory Rate 16 Blood Pressure 114/74 Pulse Oximetry 98 Oxygen Delivery Method Room Air BMI result Body Mass Index 34.9 Course Course Course Narrative: message sent to surgery given US pending dispo Berenice Horne, DO 08/03/[address] Rodriguez 1229pm Medications Administered Generic Name Dose Route Start Last Admin Trade Name Freq PRN Reason Stop Dose Admin Lactated Ringer's 1,000 mls @ 100 mls/hr 08/03/25 11:15 08/03/25 11:17 Lr IVCONT 100 mls/hr .Q10H CHIOMA Administration Sodium Chloride 3 ml 08/03/25 16:00 08/03/25 17:43 0.9 % Sodium Chloride Flush 3 Ml Syringe IVFLUSH Not Given QSHIFT CHIOMA Discontinued Medications Generic Name Dose Route Start Last Admin Trade Name Freq PRN Reason Stop Dose Admin Meropenem 500 mg 08/03/25 06:30 08/03/25 07:22 Meropenem 500 Mg Vial IVPUSH 08/03/25 06:31 500 mg ONCE ONE Administration Medical Decision Making Medical Decision Making [facility] Narrative: 45-year-old female presenting with scleral icterus and generalized malaise and fatigue. Her LFTs are nearly doubled from her previous visit in May. While she is having no abdominal discomfort or vomiting, I worry that she is having a biliary obstruction and though had a negative MRCP in May, she may be developing choledocholithiasis today. Plan for an ultrasound to evaluate for common bile duct stones, worsening cholelithiasis or cholecystitis. She is having continued symptoms of urinary tract infection has some bacteria in her urine as well as positive nitrites. Previous cultures and sensitivities were sensitive to Macrobid however, I will broaden her coverage to cover for other intra-abdominal infections with meropenem. She has many antibiotic allergies. She remains hemodynamically stable. No evidence of sepsis today. Signing out to oncoming provider pending ultrasound of the abdomen and final disposition. Anticipate admission to surgical service verses hospitalist and GI consult. Differential Diagnosis Differential Diagnoses: The differential diagnosis associated with the presentation includes (As above) Admission/Observation Consideration of admission/observation: Escalation of care including admission/observation considered Lab Data [facility] Lab Attestation statement: I reviewed the patient's lab results. 08/03/25 04:28 08/03/25 04:28 Labs: Lab Results 08/03/25 Range/Units 04:28 WBC 6.8 (4.8-10.8) X10*3/uL RBC 4.40 (4.20-5.50) X10*6/uL Hgb 13.7 (12.0-16.0) g/dl Hct 39.8 (37.0-47.0) % MCV 90.5 (80.0-98.0) fL MCH 31.1 (27.0-33.0) pg MCHC 34.4 (31.0-35.0) g/dl RDW 14.4 (11.0-16.0) % Plt Count 159 L (160-400) X10*3/uL MPV 10.3 (9.4-12.3) fL Immature Gran % (Auto) 0.3 (0.0-0.4) % Neut % (Auto) 68.5 (45-73) % Lymph % (Auto) 19.1 L (20-40) % [place] % (Auto) 9.7 (2-11) % Eos % (Auto) 1.8 (0-4) % Baso % (Auto) 0.6 (0-2) % Lymph # (Auto) 1.3 (1.2-4.9) X10*3/uL [place] # (Auto) 0.7 (0.1-1.2) X10*3/uL Eos # (Auto) 0.1 (0.0-0.4) X10*3/uL Baso # (Auto) 0.0 (0.0-0.2) X10*3/uL Abs Immat Gran (auto) 0.02 (0.00-0.03) X10*3/uL Absolute Neuts (auto) 4.7 (2.0-8.3) x10*3/uL Absolute Nucleated RBC 0.000 (0.0-0.012) X10*3/uL Nucleated RBC % (auto) 0.0 (0.0-0.2) /100WBC Sodium 137 (135-145) mmol/L Potassium 3.7 (3.3-5.1) mmol/L Chloride 110 H (96-108) mmol/L Carbon Dioxide 21 L (22-29) mmol/L Anion Gap 10 L (12-20) BUN 12 (9-16) mg/dL Creatinine 0.62 (0.5-1.4) mg/dL Estim Creat Clear Calc 162.2 Estimated GFR > 60 Random Glucose 108 (60-115) mg/dL Calcium 8.2 L (8.4-10.2) mg/dL Total Bilirubin 7.0 H (0.0-1.0) mg/dL Direct Bilirubin 4.9 H (0.0-0.5) mg/dL AST 635 H (5-31) U/L ALT 487 H (0-31) U/L Alkaline Phosphatase 157 H (39-117) U/L Total Protein 6.7 (6.5-8.0) g/dL Albumin 3.0 L (3.5-5.0) g/dL Lipase 81 H (8-78) U/L Urine Color Yellow Urine Appearance Clear Urine pH 6.0 (5.0-9.0) Ur Specific [place] >= 1.030 H (1.005-1.025) Urine Protein Negative (Neg-Trace) mg/dL Urine Glucose (UA) Negative (Negative) mg/dL Urine Ketones Trace (Negative) mg/dL Urine Blood Negative (Negative) Urine Nitrite Positive H (Negative) Ur Leukocyte Esterase Negative (Negative) Urine RBC 0-2 (0-2) /HPF Urine WBC 0-5 (0-5) /HPF Ur Squamous Epith Cells 3-5 (0-2) /HPF Other Crystals Present Urine Bacteria Trace (None Seen) Hyaline Casts 0-2 (0-2) /LPF External Record Review External record reviewed: Inpatient record Prescription Management I considered prescription management with: Antibiotic Chronic Conditions Patient?s care impacted by: Other (Graves disease, frequent urinary tract infections) Discharge Plan Discharge Clinical Impression: Jaundice, Transaminitis, Biliary tract obstruction, UTI (urinary tract infection) Patient Disposition: Admitted As Inpatient Interventions: Admission Worksheet (ED) Last Done: 08/03/25 21:02 Discharge Date/Time: 08/03/25 21:34
[2025-08-03] MEDS: Lactated Ringers 1,000 ML 100 ML IVCONT (11:17)
--- NOTE | 2025-08-03 15:58 | PC.NURSE ---
Verbal report received from Evette RN @ 0841. Pt remains in HIDA scan. Will be transported to Overflow Bed 4 upon return from scan.
--- NOTE | 2025-08-03 18:29 | PHA.MEDREC ---
Pharmacy Consult ? Medication Reconciliation Pharmacy has completed the medication reconciliation.
--- NOTE | 2025-08-03 20:56 | PM.HPGS ---
History of Present Illness History of Present Illness Date of Service: 08/03/25 Chief complaint: jaundice Narrative: Ann Anderson is a 45 year old female who was here at the hospital back in May with elevated LFTs and a bilirubin in the 3.9 range. She was admitted evaluated for choledocholithiasis with a MRCP which did not reveal any significant findings. Eventually her LFTs began to trend downward and she was discharge. She comes in now because she has been noticing over the last several days that she seems to be getting more yellow in appearance jaundiced. She has had this before but now it seems to be worsening with people making comments and as a result she comes in to be evaluated. She complains of little mild nausea and some small amount of soreness in the right upper quadrant no vomiting no changes in her diet. She denies any history of blood transfusions no exotic traveling recently. She has a background of Graves disease and has had surgery for this as well as radioisotope iodine. Another thing that is been somewhat interesting as the patient has been having a chronic urinary tract infection it seems for the last several months. She has seen Urology in [place] and they have tried a variety of medications. She has recently just gotten off Macrodantin. Since the antibiotics have started and now completed she has been complaining of some issues with loose stools. She denies any fevers or chills. At the time of her last admission GI consultation with Dr. Monae was had in which the plan was to just carry out conservative care. There was the believe that maybe she had passed a stone and that her gallbladder with the stones were probably responsible for these episodes of jaundice. She comes in now with no evidence of any cholecystitis symptomatic black are sign black. She had a right upper quadrant ultrasound which showed a thickened gallbladder but back in May she had a similar appearing gallbladder by ultrasound and the MRCP did not reveal any findings consistent with cholecystitis. She comes in now feeling a little itchy from the jaundice. She denies any unusual drug use has never had a blood transfusion denies any travel to exotic places though significant unusual diet as well. No sick contacts PMFSH Past Medical History Medical History Gallstones Paroxysmal atrial fibrillation Persistent atrial fibrillation Atrial fibrillation with RVR Anxiety GERD (gastroesophageal reflux disease) Graves disease Surgical History Surgical History H/O eye surgery History of ankle surgery S/P appy S/P thyroidectomy Social History Social History Household Members: Spouse and Family Housing: House Do you presently have visiting nurse or other home services: No Alcohol intake: current Alcohol intake frequency: holidays/special occasions only Patient Tobacco Use Status: Never used Tobacco Smoked in Last 30 Days: No Use of substances other than those prescribed or required for medical reasons: Yes Substance Use Type: Marijuana Substance Use Frequency: Occasionally Currently Displaying Signs/Symptoms of Drug Intoxication Withdrawal: No Have you been hit, kicked, punched, or otherwise hurt by someone within the past year? If so, by whom?: No Do you feel safe in your current relationship?: Yes Is there a partner from a previous relationship who is making you feel unsafe now?: No Are you made to feel afraid or neglected: No Advance Directives: Yes Advance Directives on File: Yes Advance Directives Date on File: 12/02/23 Do you have a plan to hurt others: No Plan Recently lost weight without trying: No How much weight loss: Not applicable Eating poorly because of decreased appetite: No Nutrition screen score: 0 Nutrition Risks: No Nutritional Risk Patient : No service: No Meds Allergies Allergy/AdvReac Type Severity Reaction Status Date / Time ibuprofen (IBUPROFEN) Allergy Unknown RASH Verified 08/03/25 03:45 morphine (MORPHINE) Allergy Unknown UNKNOWN Verified 08/03/25 03:45 moxifloxacin (MOXIFLOXACIN) Allergy Unknown UNKNOWN Verified 08/03/25 03:45 naproxen (Aleve) Allergy Unknown Rash Verified 08/03/25 03:45 penicillin V Allergy Unknown Rash Verified 08/03/25 03:45 Penicillins (PENICILLINS) Allergy Unknown RASH Verified 08/03/25 03:45 Sulfa (Sulfonamide Allergy Unknown RASH Verified 08/03/25 03:45 Antibiotics) (SULFA(SULFONAMIDE ANTIBIOTICS)) From ALEVE Allergy Unknown UNKNOWN Uncoded 08/03/25 03:45 From BENADRYL Allergy Unknown RASH Uncoded 08/03/25 03:45 Active Medications: Current Medications Acetaminophen (Acetaminophen 325 Mg Tablet) 650 mg PO Q6H PRN PRN Reason: Pain, Mild 1-3,fever,headache Calcium Carbonate (Calcium Carbonate 750 Mg Tab.Chew) 750 mg PO Q4H PRN PRN Reason: Heartburn Lactated Ringer's (Lr) 1,000 mls @ 100 mls/hr IVCONT .Q10H [facility] Last Admin: 08/03/25 11:17 Dose: 100 mls/hr Magnesium Hydroxide (Milk Of Magnesia 30 Ml Oral.Susp) 30 ml PO DAILY PRN PRN Reason: Constipation Melatonin (Melatonin 3 Mg Tablet) 6 mg PO BEDTIME PRN PRN Reason: Insomnia Sodium Chloride (0.9 % Sodium Chloride Flush 3 Ml Syringe) 3 ml IVFLUSH QSHIFT [facility] Last Admin: 08/03/25 17:43 Dose: Not Given Home Medications ?Medication ?Instructions ?Recorded ?Confirmed ?Last Taken ?Type omeprazole 20 mg capsule,delayed 20 mg PO DAILY@0630 11/29/23 08/03/25 05/18/25 History release gabapentin 300 mg capsule 300 mg PO BID 08/21/24 08/03/25 05/18/25 History flecainide 100 mg tablet 100 mg PO BID@0600,1800 05/19/25 08/03/25 05/18/25 History levothyroxine 175 mcg tablet 175 mcg PO DAILY@0600 05/19/25 08/03/25 05/18/25 History (Synthroid) ascorbic acid (vitamin C) 500 mg 500 mg PO BID 08/03/25 08/03/25 Unknown History tablet methenamine hippurate 1 gram tablet 1 g PO BID 08/03/25 08/03/25 Unknown History Physical Exam Vital Signs: Vital Signs: Last Vital Signs Temp 97.7 F 08/03/25 20:00 Pulse 68 08/03/25 20:00 Resp 18 08/03/25 20:00 BP 109/76 08/03/25 20:00 Pulse Ox 96 08/03/25 20:00 O2 Del Method Room Air 08/03/25 20:00 BMI result Body Mass Index 34.9 Const: General: cooperative, healthy appearing, comfortable and no acute distress Eyes: Other: Findings consistent with exophthalmos and Graves disease. Eyeball sclera are very jaundiced Resp: Effort & Inspection: normal respiratory effort Auscultation: clear to auscultation bilaterally Cardio: Rate: regular rate Rhythm: regular rhythm GI: Other: Abdomen is soft nondistended maybe some mild right upper quadrant tenderness with very deep palpation no guarding no rebound no peritoneal signs. Inspection: Yes normal to inspection Results Results Labs: Short CBC 08/03/25 Range/Units 04:28 WBC 6.8 (4.8-10.8) X10*3/uL Hgb 13.7 (12.0-16.0) g/dl Hct 39.8 (37.0-47.0) % Plt Count 159 L (160-400) X10*3/uL BMP 08/03/25 04:28 Sodium 137 Potassium 3.7 Chloride 110 H Carbon Dioxide 21 L BUN 12 Creatinine 0.62 Calcium 8.2 L Liver Function 08/03/25 Range/Units 04:28 Total Bilirubin 7.0 H (0.0-1.0) mg/dL Direct Bilirubin 4.9 H (0.0-0.5) mg/dL AST 635 H (5-31) U/L ALT 487 H (0-31) U/L Alkaline Phosphatase 157 H (39-117) U/L Albumin 3.0 L (3.5-5.0) g/dL Urine 08/03/25 Range/Units 04:28 Urine Color Yellow Urine Appearance Clear Urine pH 6.0 (5.0-9.0) Ur Specific [place] >= 1.030 H (1.005-1.025) Urine Protein Negative (Neg-Trace) mg/dL Urine Glucose (UA) Negative (Negative) mg/dL Assessment and Plan (1) Jaundice: Status: Acute Plan 45-year-old female with worsening jaundice since May with bilirubin going up from the 3 range to the 7 range. Patient is a little symptomatic with a little bit of some itchiness that the question is what is the cause of this. There is no obvious signs of common bile duct obstruction and although her gallbladder maybe thickened in the parents on the ultrasound she does not have any significant pain and tenderness and denies any fevers chills etc.. HIDA scan was carried out which ruled out any acute cholecystitis. Wondering if her jaundice maybe liver primary in nature discuss the case with Dr. Monae who will come in and see her. Quality Stroke Does the patient have a stroke diagnosis?: No VTE Prior VTE?: No VTE Risk Level:: Surgical - low VTE Device Contraindication: Treatment Not Indicated VTE Drug Contraindication: Treatment Not Indicated Procedures Date of Service Date of Service: 08/03/25
--- NOTE | 2025-08-03 22:36 | PC.NURSE ---
Late entry 2235 Nursing Note: Pt presents jaundice general malaise and fatigue x several weeks. Pt also just finished 2 days ago Macrobid for ongoing UTI x 2months. ABD US results cholelithiasis w/acute cholecystitis, hepatomegaly. HIDA scan showing patent CBD. LFT's elevated and UA being treated with one time dose Meropenem in ER. Pt is AOx4 pleasant and walking Independently. Pt sclera are jaundice and noticeable on face and slightly on her arms. Pt is having diarrhea with last BM this morning. Pt has LR at 100ml/hr infusing through a right outer antecubital #20. Pt is admitted under surgery and has hx of afib for which she is on medications at home as listed in Summary. I have called [facility], at approx 2040 pm left message with service, regarding home medications and Pt also complaining of feeling itchy possibly from this am antibiotic. Pt reports she would like Benadryl for which is listed as allergy but pt reports she is ok to receive occasionally . Second message left for service at [phone]. Pt being transferred to [place] and report provided to Haley WASHBUNR.
[2025-08-04] VITALS (7 sets, daily range): BP systolic 102–121; BP diastolic 64–79; PULSE 65–77; RESP 16–18; TEMP 36.3–36.8; O2SAT 96–99
[2025-08-04] MEDS: Lactated Ringers 1,000 ML 100 ML IVCONT (00:10)
--- NOTE | 2025-08-04 02:27 | CONS_ITS ---
DATE OF SERVICE: 08/03/2025 REFERRING PHYSICIAN: Dr. Marina REASON FOR CONSULTATION: Jaundice. HISTORY OF PRESENT ILLNESS: Patient is a pleasant 45-year-old woman known to me from recent evaluation. She was hospitalized in May and was found to have urinary tract infections and has had multiple rounds of antibiotics. She did have gallstones and records at that time are reviewed. Imaging includes MRCP, which showed no evidence of common duct obstruction. She had been seen in consultation by General Surgery and elective cholecystectomy had been discussed. She presented to the emergency department with complaints of jaundice over the past week or so prior to admission. She has been treated with Macrobid and with Zithromax. She has no complaints of right upper quadrant pain at this time. Ultrasound imaging was obtained after laboratory studies showed elevation of her liver function tests with a total bilirubin of 7, and transaminases in the 400 to 600 range. Alkaline phosphatase has been slightly elevated at 157. Imaging including ultrasound and HIDA scanning are reviewed with Dr. Colvin. She does have a history of gallstones. HIDA scanning shows no evidence of biliary obstruction or cystic duct obstruction. PAST MEDICAL HISTORY: 1. Gallstones as above. 2. Paroxysmal atrial fibrillation. 3. Graves disease with thyroidectomy. 4. Urinary tract infections. 5. Gastroesophageal reflux disease. 6. Ankle surgery. 7. Appendectomy. 8. Eye surgery. CURRENT MEDICATIONS: Her current medication list is reviewed in the chart. ALLERGIES: MULTIPLE MEDICATION ALLERGIES ARE REVIEWED IN THE ELECTRONIC MEDICAL RECORD. FAMILY HISTORY: This is reviewed with the patient and is noncontributory. SOCIAL HISTORY: There is no current tobacco use. There is a history of marijuana use. She does not drink alcohol excessively. REVIEW OF SYSTEMS: SKIN: No pruritus. HEENT: Negative. CARDIOPULMONARY: No shortness of breath or chest pain. GASTROINTESTINAL: As above. GENITOURINARY: Negative. NEUROPSYCHIATRIC: Negative. PHYSICAL EXAMINATION: GENERAL: Shows a pleasant female, lying comfortably in bed. VITAL SIGNS: Reviewed in the electronic medical record and are stable. SKIN: Anicteric. HEENT: Shows no scleral icterus. NECK: Without lymphadenopathy or thyromegaly. LUNGS: Clear. HEART: Shows a regular rate and rhythm. S1, S2. No murmur. ABDOMEN: Soft. Without focal masses or tenderness. Bowel sounds are present. No organomegaly is noted. EXTREMITIES: Without edema. LABORATORY DATA AND IMAGING STUDIES: Reviewed. IMPRESSION: Painless jaundice. Her imaging studies do not support a diagnosis of a common duct stone, and her elevated liver function tests could be related to her recent antibiotic usage. We discussed this today. At this time, I would recommend monitoring her liver function tests. I do not think ERCP is necessary based on her clinical presentation at this time. If symptoms worsen, then re-evaluation could be considered. Cholecystectomy could also be considered pending final surgical evaluation. Thanks for asking me to see her. I will follow her in the hospital with you. MD FLORA Ayala/GERRY / [id number]
[2025-08-04 06:17] LABS: MANUAL DIFF FLAG NO
[2025-08-04 06:22] LABS: Hematocrit 38.5 % (37.0-47.0); Hemoglobin 13.4 g/dl (12.0-16.0); Imm Gran Abs Auto 0.02 X10*3/uL (0.00-0.03); Imm Gran Pct Auto 0.4 % (0.0-0.4); Lymphocytes Absolute Auto 1.5 X10*3/uL (1.2-4.9); Mean Corpuscular HGB Conc 34.8 g/dl (31.0-35.0); Mean Corpuscular Hemoglobin 31.4 pg (27.0-33.0); Mean Corpuscular Volume 90.2 fL (80.0-98.0); NRBC Abs Auto 0.000 X10*3/uL (0.0-0.012); NRBC Pct Auto 0.0 /100WBC (0.0-0.2); Platelet Count 155 X10*3/uL (160-400); Red Blood Count 4.27 X10*6/uL (4.20-5.50); White Blood Count 5.7 X10*3/uL (4.8-10.8)
[2025-08-04 06:38] LABS: Alanine Aminotransferase 452 U/L (0-31); Albumin Level 2.9 g/dL (3.5-5.0); Alkaline Phosphatase 142 U/L (39-117); Anion Gap 7 (12-20); Aspartate Amino Transferase 659 U/L (5-31); Blood Urea Nitrogen 8 mg/dL (9-16); Calcium 8.4 mg/dL (8.4-10.2); Carbon Dioxide 27 mmol/L (22-29); Chloride 108 mmol/L (96-108); Creatinine Clr Calc Pharmacy 205.9; Estimated Glomerular Filt Rate > 60; Potassium 3.9 mmol/L (3.3-5.1); Sodium 138 mmol/L (135-145); Total Protein 6.3 g/dL (6.5-8.0)
--- NOTE | 2025-08-04 09:00 | P.PNGS_ITS ---
Subjective Subjective Date of Service: 08/05/25 Interval history: Patient is well known to me Admitted yesterday because of jaundice She denies any abdominal pain Physical Exam 2 Vital Signs: Vital Signs: Last Vital Signs Temp 97.8 F 08/04/25 07:09 Pulse 68 08/04/25 07:09 Resp 18 08/04/25 07:09 BP 102/66 08/04/25 07:09 Pulse Ox 98 08/04/25 07:09 O2 Del Method Room Air 08/04/25 07:09 BMI result Body Mass Index 37.8 Const: General: comfortable and no acute distress O rientation/consciousness: patient oriented x3 Eyes: Other: icteric sclerae Neck: Neck: Yes no lymphadenopathy Resp: Auscultation: clear to auscultation bilaterally Cardio: Rhythm: regular rhythm GI: Palpation (GI): Soft to palpation, nontender and no guarding Neuro: General: patient oriented x3 Objective Data Active Medications Acetaminophen (Acetaminophen 325 Mg Tablet) 650 mg PO Q6H PRN PRN Reason: Pain, Mild 1-3,fever,headache Calcium Carbonate (Calcium Carbonate 750 Mg Tab.Chew) 750 mg PO Q4H PRN PRN Reason: Heartburn Flecainide Acetate (Flecainide Acetate 50 Mg Tablet) 100 mg PO BID@0600,1800 [facility] Last Admin: 08/04/25 05:29 Dose: 100 mg Documented By: RAYMON Gabapentin (Gabapentin 300 Mg Capsule) 300 mg PO BID [facility] Last Admin: 08/03/25 22:05 Dose: 300 mg Documented By: RAYMON Lactated Ringer's (Lr) 1,000 mls @ 100 mls/hr IVCONT .Q10H [facility] Last Admin: 08/04/25 00:10 Dose: 100 mls/hr Documented By: RAYMON Levothyroxine Sodium (Levothyroxine Sodium 175 Mcg Tablet) 175 mcg PO DAILY@0600 [facility] Last Admin: 08/04/25 05:30 Dose: 175 mcg Documented By: RAYMON Magnesium Hydroxide (Milk Of Magnesia 30 Ml Oral.Susp) 30 ml PO DAILY PRN PRN Reason: Constipation Melatonin (Melatonin 3 Mg Tablet) 6 mg PO BEDTIME PRN PRN Reason: Insomnia Methenamine Hippurate (Methenamine Hippurate 1 Gm Tablet) 1 gm PO BID [facility] Last Admin: 08/03/25 21:51 Dose: Not Given Documented By: RAYMON Non-Admin Reason: Patient Refused Omeprazole (Omeprazole 20 Mg Sarai.) 20 mg PO DAILY@0630 [facility] Last Admin: 08/04/25 05:30 Dose: 20 mg Documented By: RAYMON Propranolol HCl (Propranolol Hcl La 80 Mg Cap.Sa.24h) 80 mg PO DAILY [facility]; Protocol Sodium Chloride (0.9 % Sodium Chloride Flush 3 Ml Syringe) 3 ml IVFLUSH QSHIFT [facility] Last Admin: 08/03/25 23:11 Dose: Not Given Documented By: RAYMON Non-Admin Reason: IV Running Labs 08/05/25 05:56 08/05/25 05:56 Labs: Laboratory Results - last 24 hr 08/04/25 05:17 MCV 90.2 MCH 31.4 MCHC 34.8 RDW 14.3 Plt Count 155 L MPV 11.0 Immature Gran % (Auto) 0.4 Neut % (Auto) 59.5 Lymph % (Auto) 26.6 [place] % (Auto) 10.3 Eos % (Auto) 2.5 Baso % (Auto) 0.7 Lymph # (Auto) 1.5 [place] # (Auto) 0.6 Eos # (Auto) 0.1 Baso # (Auto) 0.0 Abs Immat Gran (auto) 0.02 Absolute Neuts (auto) 3.4 Absolute Nucleated RBC 0.000 Nucleated RBC % (auto) 0.0 Anion Gap 7 L Estim Creat Clear Calc 205.9 Estimated GFR > 60 Random Glucose 77 Calcium 8.4 Total Bilirubin 9.3 H AST 659 H ALT 452 H Alkaline Phosphatase 142 H Total Protein 6.3 L Albumin 2.9 L Procedures Date of Service Date of Service: 08/05/25 Progress Note: A&P Assessment and plan (1) Jaundice: Status: Acute Assessment and Plan: HIDA scan negative Bilirubin continues to increase Does not appear to be biliary obstruction I have reached out to Gastroenterology for follow up Abdomen is soft and benign I discussed the plan with the patient Okay to have clear liquids Time Spent With Patient Time: Total time managing care of this patient today ____ minutes. Quality Stroke Does the patient have a stroke diagnosis?: No VTE Prior VTE?: No VTE Risk Level:: Surgical - low VTE Device Contraindication: Treatment Not Indicated VTE Drug Contraindication: Treatment Not Indicated
[2025-08-04] MEDS: Propranolol HCL LA 80 MG CAP.SA.24H PO (09:43)
[2025-08-04] MEDS: Lactated Ringers 1,000 ML 50 ML IVCONT (10:30)
--- NOTE | 2025-08-04 11:14 | MHC.CM.PN ---
pt lives with family is indepedent has own ride home pt is working dc plan home n/s
[2025-08-04 13:19] LABS: INTERNATIONAL NORM RATIO 1.2 (0.9-1.1); Prothrombin Time 13.8 SEC (10.9-12.4)
[2025-08-04 13:39] LABS: Alanine Aminotransferase 512 U/L (0-31); Albumin Level 3.2 g/dL (3.5-5.0); Alkaline Phosphatase 162 U/L (39-117); Aspartate Amino Transferase 724 U/L (5-31); Iron 251 mcg/dL (30-160); Percent Iron Saturation 89 % (15-50); Total Iron Binding Capacity 282 mcg/dL (228-428); Total Protein 7.1 g/dL (6.5-8.0); Unsaturated Iron Binding 31 ug/dL
[2025-08-04 13:53] LABS: Ferritin 632 ng/mL (10-250)
--- NOTE | 2025-08-04 15:38 | P.EN_ITS ---
Event Note Date of Service: 08/04/25 Event Note: Seen earlier on afternoon rounds Denies any pain Abdomen is soft, benign, nontender He was seen by Dr. Mosqueda of Gastroenterology - jaundice likely secondary drug- induced cholestasis Workup ordered by Dr. Mosqueda I have ordered for regular diet Possible DC home tomorrow Time Spent With Patient Time: Total time managing care of this patient today ____ minutes.
--- NOTE | 2025-08-04 17:58 | PC.NURSE ---
Patient informed me that she recently was taking 2,000mg Tylenol at home every day for 2 weeks and concerned this could be contributing to her liver function. This information sent to Provider Jaylin via [employer] per patient request.
--- NOTE | 2025-08-04 19:16 | P.PNGI_ITS ---
Subjective Subjective Date of Service: 08/04/25 Interval History: Patient seen at 12:00PM. She reports feeling well. Denies any abdominal pain whatsoever and would like to eat. Denies any prior history of liver disease in herself or family members. Denies EtOH. She had been on Macrobid just prior to her early May admission and again after her recent ER visit earlier this month. She did not have any F/U liver tests after the early May admission so we don't know if they ever normalized, She had been using 2 Extra strength Tylenol a couple of times a day for the past couple of weeks after her ER visit on 07/23. Critical Care Time (minutes): 0 Physical Exam 2 Vital Signs: Vital Signs: Last Vital Signs Temp 97.9 F 08/04/25 19:09 Pulse 67 08/04/25 19:09 Resp 18 08/04/25 19:09 BP 120/78 08/04/25 19:09 Pulse Ox 99 08/04/25 19:09 O2 Del Method Room Air 08/04/25 19:09 BMI result Body Mass Index 37.8 Const: General: cooperative, healthy appearing, comfortable, no acute distress, well developed, alert, awake and Physically active Eyes: Sclerae: scleral abnormal (Slight scleral icterus) GI: Other: Abd-soft, +BS, NT, no HSM, no mass, no ascites Neuro: Other: A&O x 3, answers appropriately, no asterixis Objective Data Labs 08/04/25 05:17 08/04/25 05:17 Labs: Laboratory Results - last 24 hr 08/04/25 08/04/25 08/04/25 05:17 13:00 13:01 WBC 5.7 RBC 4.27 Hgb 13.4 Hct 38.5 MCV 90.2 MCH 31.4 MCHC 34.8 RDW 14.3 Plt Count 155 L MPV 11.0 Immature Gran % (Auto) 0.4 Neut % (Auto) 59.5 Lymph % (Auto) 26.6 [place] % (Auto) 10.3 Eos % (Auto) 2.5 Baso % (Auto) 0.7 Lymph # (Auto) 1.5 [place] # (Auto) 0.6 Eos # (Auto) 0.1 Baso # (Auto) 0.0 Abs Immat Gran (auto) 0.02 Absolute Neuts (auto) 3.4 Absolute Nucleated RBC 0.000 Nucleated RBC % (auto) 0.0 ESR 22 H PT 13.8 H INR 1.2 H Sodium 138 Potassium 3.9 Chloride 108 Carbon Dioxide 27 Anion Gap 7 L BUN 8 L Creatinine 0.51 Estim Creat Clear Calc 205.9 Estimated GFR > 60 Random Glucose 77 Calcium 8.4 Iron 251 H TIBC 282 % Saturation 89 H Unsat Iron Binding 31 Ferritin 632 H Total Bilirubin 9.3 H 10.1 H Direct Bilirubin 6.9 H AST 659 H 724 H ALT 452 H 512 H Alkaline Phosphatase 142 H 162 H Lactate Dehydrogenase 264 H C-Reactive Protein 2.66 H Total Protein 6.3 L 7.1 Albumin 2.9 L 3.2 L Microbiology Microbiology Results: Microbiology 08/03/25 Unknown Urine clean catch - Clean Catch Midstream Urine Culture - Final Procedures Date of Service Date of Service: 08/04/25 Progress Note: A&P Assessment and plan (1) Jaundice: Status: Acute (2) Acute hepatitis: Status: Acute Assessment and Plan: Imp: I suspect her elevated LFT's with associated jaundice are due to a drug- induced hepatitis from Macrobid. There may be some component of Acetaminophen toxicity but I don't think the amount she describes would be typically playing a significant role. However, if her liver was already compromised by the Macrobid then the Acetaminophen might have had an effect as well. There has been no evidence of biliary obstruction on past nor current imaging studies, It appears that her gallstones are asymptomatic. She does not show any signs of liver failure on her exam nor by her labs. Rec: Complete liver workup has been ordered to R/O other acute possibilities such as viral hepatitis and autoimmune hepatitis, as well as underlying chronic liver disease. I don't think we need to treat for Acetaminophen toxicity given the clinical history and time frame of her last use of Acetaminophen. Supportive care, F/U labs in AM as well, advance diet, avoid any hepatotoxins, eventual liver biopsy if things do not improve, transfer to tertiary center with liver transplant capabilities if signs of liver failure ensue. D/W patient in detail and she is comfortable with this plan. Thanks Time Spent With Patient Time: Total time managing care of this patient today ____ minutes. Quality Stroke Does the patient have a stroke diagnosis?: No VTE Prior VTE?: No VTE Risk Level:: Surgical - low VTE Device Contraindication: Treatment Not Indicated VTE Drug Contraindication: Treatment Not Indicated
[2025-08-05 03:31] VITALS: BP 100/62; PULSE 72; RESP 16; TEMP 36.1; O2SAT 96
[2025-08-05] MEDS: Lactated Ringers 1,000 ML 50 ML IVCONT (05:00)
[2025-08-05 05:45] LABS: HBS Num1 0.00 mIU/mL (0-7.99); HBc Num1 0.17 S/CO (0.00-0.79); HBsAGNum1 0.42 S/CO (0.00-0.99); Hepatitis A Antibody IgM 0.14 Index (0-0.79); Hepatitis B Surface Antigen Negative (Negative); ~HepC Num1 0.11 S/CO (0.00-0.79); ~Hepatitis A Antibody IgM Nonreactive (Nonreactive); ~Hepatitis B Surface Antibody NONREACTIVE (Nonreactive); ~Hepatitis C Antibody Nonreactive (Nonreactive)
[2025-08-05 06:04] LABS: MANUAL DIFF FLAG NO
[2025-08-05 06:09] LABS: Hematocrit 38.2 % (37.0-47.0); Hemoglobin 12.9 g/dl (12.0-16.0); Imm Gran Abs Auto 0.02 X10*3/uL (0.00-0.03); Imm Gran Pct Auto 0.5 % (0.0-0.4); Lymphocytes Absolute Auto 1.1 X10*3/uL (1.2-4.9); Mean Corpuscular HGB Conc 33.8 g/dl (31.0-35.0); Mean Corpuscular Hemoglobin 31.1 pg (27.0-33.0); Mean Corpuscular Volume 92.0 fL (80.0-98.0); NRBC Abs Auto 0.000 X10*3/uL (0.0-0.012); NRBC Pct Auto 0.0 /100WBC (0.0-0.2); Platelet Count 123 X10*3/uL (160-400); Red Blood Count 4.15 X10*6/uL (4.20-5.50); White Blood Count 4.3 X10*3/uL (4.8-10.8)
[2025-08-05 06:20] LABS: INTERNATIONAL NORM RATIO 1.2 (0.9-1.1); Prothrombin Time 14.1 SEC (10.9-12.4)
[2025-08-05 06:22] LABS: Ammonia 71 umol/L (13-55)
[2025-08-05 06:33] LABS: Alanine Aminotransferase 440 U/L (0-31); Albumin Level 2.8 g/dL (3.5-5.0); Alkaline Phosphatase 142 U/L (39-117); Anion Gap 10 (12-20); Aspartate Amino Transferase 618 U/L (5-31); Blood Urea Nitrogen 8 mg/dL (9-16); Calcium 8.3 mg/dL (8.4-10.2); Carbon Dioxide 24 mmol/L (22-29); Chloride 107 mmol/L (96-108); Creatinine Clr Calc Pharmacy 210.0; Estimated Glomerular Filt Rate > 60; Potassium 3.8 mmol/L (3.3-5.1); Sodium 137 mmol/L (135-145); Total Protein 6.2 g/dL (6.5-8.0)
[2025-08-05 07:16] VITALS: BP 110/72; PULSE 73; RESP 18; TEMP 36.3; O2SAT 96
--- NOTE | 2025-08-05 08:19 | PM.PNGS ---
Subjective Subjective Date of Service: 08/05/25 Interval history: Denies abdominal pain Tolerated diet Feels well overall Physical Exam Vital Signs: Vital Signs: Last Vital Signs Temp 97.4 F 08/05/25 07:16 Pulse 73 08/05/25 07:16 Resp 18 08/05/25 07:16 BP 110/72 08/05/25 07:16 Pulse Ox 96 08/05/25 07:16 O2 Del Method Room Air 08/05/25 07:16 BMI result Body Mass Index 37.8 Const: General: comfortable and no acute distress Resp: Effort & Inspection: normal respiratory effort Cardio: Rate: regular rate GI: Palpation (GI): Soft to palpation, not firm, nontender and no guarding Objective Data Active Medications Calcium Carbonate (Calcium Carbonate 750 Mg Tab.Chew) 750 mg PO Q4H PRN PRN Reason: Heartburn Flecainide Acetate (Flecainide Acetate 50 Mg Tablet) 100 mg PO BID@0600,1800 [facility] Last Admin: 08/05/25 05:32 Dose: 100 mg Documented By: RAYMON Gabapentin (Gabapentin 300 Mg Capsule) 300 mg PO BID [facility] Last Admin: 08/04/25 20:52 Dose: 300 mg Documented By: RAYMON Lactated Ringer's (Lr) 1,000 mls @ 50 mls/hr IVCONT .Q20H [facility] Last Admin: 08/05/25 05:00 Dose: 50 mls/hr Documented By: RAYMON Levothyroxine Sodium (Levothyroxine Sodium 175 Mcg Tablet) 175 mcg PO DAILY@0600 [facility] Last Admin: 08/05/25 05:32 Dose: 175 mcg Documented By: RAYMON Magnesium Hydroxide (Milk Of Magnesia 30 Ml Oral.Susp) 30 ml PO DAILY PRN PRN Reason: Constipation Melatonin (Melatonin 3 Mg Tablet) 6 mg PO BEDTIME PRN PRN Reason: Insomnia Methenamine Hippurate (Methenamine Hippurate 1 Gm Tablet) 1 gm PO BID [facility] Last Admin: 08/04/25 20:52 Dose: Not Given Documented By: RAYMON Non-Admin Reason: Patient Refused Omeprazole (Omeprazole 20 Mg Capsule.Dr) 20 mg PO DAILY@0630 [facility] Last Admin: 08/05/25 05:32 Dose: 20 mg Documented By: RAYMON Propranolol HCl (Propranolol Hcl La 80 Mg Cap.Sa.24h) 80 mg PO DAILY [facility]; Protocol Last Admin: 08/04/25 09:43 Dose: 80 mg Documented By: [place] Sodium Chloride (0.9 % Sodium Chloride Flush 3 Ml Syringe) 3 ml IVFLUSH QSHIFT [facility] Last Admin: 08/04/25 20:56 Dose: Not Given Documented By: RAYMON Non-Admin Reason: IV Running Labs 08/05/25 05:56 08/05/25 05:56 Labs: Laboratory Results - last 24 hr 08/04/25 08/04/25 08/05/25 13:00 13:01 05:56 MCV 92.0 MCH 31.1 MCHC 33.8 RDW 14.4 Plt Count 123 L MPV 10.2 Immature Gran % (Auto) 0.5 H Neut % (Auto) 61.2 Lymph % (Auto) 25.2 [place] % (Auto) 10.3 Eos % (Auto) 2.1 Baso % (Auto) 0.7 Lymph # (Auto) 1.1 L [place] # (Auto) 0.4 Eos # (Auto) 0.1 Baso # (Auto) 0.0 Abs Immat Gran (auto) 0.02 Absolute Neuts (auto) 2.6 Absolute Nucleated RBC 0.000 Nucleated RBC % (auto) 0.0 ESR 22 H PT 13.8 H 14.1 H INR 1.2 H 1.2 H Anion Gap 10 L Estim Creat Clear Calc 210.0 Estimated GFR > 60 Fasting Glucose 105 H Calcium 8.3 L Iron 251 H TIBC 282 % Saturation 89 H Unsat Iron Binding 31 Ferritin 632 H Total Bilirubin 10.1 H 8.1 H Direct Bilirubin 6.9 H 5.9 H AST 724 H 618 H ALT 512 H 440 H Alkaline Phosphatase 162 H 142 H Ammonia 71 H Lactate Dehydrogenase 264 H C-Reactive Protein 2.66 H Total Protein 7.1 6.2 L Albumin 3.2 L 2.8 L Hepatitis A IgM Ab Nonreactive Hep Bs Antigen Negative Hep Bs Antibody NONREACTIVE Hep B Core Total Ab Nonreactive Hepatitis C Ab (EIA) Nonreactive Microbiology Microbiology Results: Microbiology 08/03/25 Unknown Urine Culture - Final Urine clean catch - Clean Catch Midstream Procedures Date of Service Date of Service: 08/05/25 Progress Note: A&P Assessment and plan (1) Jaundice: Status: Acute Assessment and Plan: Bilirubin has dropped from 10.1-8.1 Rest of LFTs are trending down as well She has no abdominal pain nor tenderness Tolerating diet Etiology of jaundice likely from cholestasis, drug induced as per GI Discussed with GI - luis armando to DC home with outpatient follow-up She wants to speak with Dr. Mosqueda prior to discharge Time Spent With Patient Time: Total time managing care of this patient today ____ minutes. Quality Stroke Does the patient have a stroke diagnosis?: No VTE Prior VTE?: No VTE Risk Level:: Surgical - low VTE Device Contraindication: Treatment Not Indicated VTE Drug Contraindication: Treatment Not Indicated
[2025-08-05] MEDS: Propranolol HCL LA 80 MG CAP.SA.24H PO (08:27)
[2025-08-05 11:30] VITALS: BP 100/60; PULSE 72; RESP 18; TEMP 36.4; O2SAT 97
--- NOTE | 2025-08-05 14:14 | MHC.CM.PN ---
PT CLEARED TO DC HOME TODAY WITH NO SERVICES VIA PRIVATE TRANSPORT
--- NOTE | 2025-08-05 15:13 | P.PNGI_ITS ---
Subjective Subjective Date of Service: 08/05/25 Interval History: Continues to feel well. Denies abdominal pain. Tolerating diet. Critical Care Time (minutes): 0 Physical Exam 2 Vital Signs: Vital Signs: Last Vital Signs Temp 97.6 F 08/05/25 11:30 Pulse 72 08/05/25 11:30 Resp 18 08/05/25 11:30 BP 100/60 08/05/25 11:30 Pulse Ox 97 08/05/25 11:30 O2 Del Method Room Air 08/05/25 11:30 BMI result Body Mass Index 37.8 Const: General: cooperative, healthy appearing, comfortable, no acute distress, well developed, alert, awake and Physically active GI: Other: Abd-Soft, NT, +BS, No mass, Nondistended Objective Data Labs 08/05/25 05:56 08/05/25 05:56 Labs: Laboratory Results - last 24 hr 08/04/25 08/04/25 08/05/25 13:00 13:01 05:56 WBC 4.3 L RBC 4.15 L Hgb 12.9 Hct 38.2 MCV 92.0 MCH 31.1 MCHC 33.8 RDW 14.4 Plt Count 123 L MPV 10.2 Immature Gran % (Auto) 0.5 H Neut % (Auto) 61.2 Lymph % (Auto) 25.2 [place] % (Auto) 10.3 Eos % (Auto) 2.1 Baso % (Auto) 0.7 Lymph # (Auto) 1.1 L [place] # (Auto) 0.4 Eos # (Auto) 0.1 Baso # (Auto) 0.0 Abs Immat Gran (auto) 0.02 Absolute Neuts (auto) 2.6 Absolute Nucleated RBC 0.000 Nucleated RBC % (auto) 0.0 PT 14.1 H INR 1.2 H Sodium 137 Potassium 3.8 Chloride 107 Carbon Dioxide 24 Anion Gap 10 L BUN 8 L Creatinine 0.50 Estim Creat Clear Calc 210.0 Estimated GFR > 60 Fasting Glucose 105 H Calcium 8.3 L Total Bilirubin 8.1 H Direct Bilirubin 5.9 H AST 618 H ALT 440 H Alkaline Phosphatase 142 H Ammonia 71 H Total Protein 6.2 L Albumin 2.8 L [id number] 206 H Ceruloplasmin 23 Hepatitis A IgM Ab Nonreactive Hep Bs Antigen Negative Hep Bs Antibody NONREACTIVE Hep B Core Total Ab Nonreactive Hepatitis C Ab (EIA) Nonreactive Microbiology Microbiology Results: Microbiology 08/03/25 Unknown Urine clean catch - Clean Catch Midstream Urine Culture - Final Procedures Date of Service Date of Service: 08/05/25 Progress Note: A&P Assessment and plan (1) Acute hepatitis: Status: Acute (2) Jaundice: Status: Acute Assessment and Plan: Imp: Clinically stable and with improving LFT's, including decreased TBili. Her gallstones remain asymptomatic. Overall, I feel this is a resolving drug-induced hepatitis from the Macrobid antibiotic, with perhaps a contributing component from Acetaminophen use. She currently appears quite stable and ready for discharge. Rec: Discharge to home. I advised her to avoid Acetaminophen, NSAIDs, and alcohol(although she does not use much in the way of any alcohol anyway) until the LFT's normalize. I advised her of the importance of being sure the LFT's eventually normalize and have given her a lab order to check labs on 08/09, 08/13, and 08/27. I told her to list the Macrobid as an allergy and to be sure never to use it again. i reviewed potential symptoms of her gallstones and the need to follow up with Dr. Vaughn if that occurs. I told her that we can follow her up in the office if need be if the LFT's remain elevated. She understood and was quite comfortable with this plan. Thanks Time Spent With Patient Time: Total time managing care of this patient today ____ minutes. Quality Stroke Does the patient have a stroke diagnosis?: No VTE Prior VTE?: No VTE Risk Level:: Surgical - low VTE Device Contraindication: Treatment Not Indicated VTE Drug Contraindication: Treatment Not Indicated
[2025-08-05 15:15] VITALS: BP 113/76; PULSE 73; RESP 16; TEMP 36.2; O2SAT 96
--- NOTE | 2025-08-05 15:56 | P.DS_ITS ---
DS: Providers Provider Date of Service: 08/05/25 Date of admission: 08/03/25 12:53 Date of discharge: 08/05/25 Primary care physician: Mckay Huang III, MD Attending physician on admission: Delaney Marina Consults: 08/03/25 12:57 Consult to Gastroenterology Routine Consulting Provider: [facility] Reason for consultation: jaundice Has provider been notified: No Attending physician on discharge: Maikel Vaughn DS: Diagnosis Discharge Diagnosis (1) Acute hepatitis: Status: Acute (2) Jaundice: Status: Acute DS: Summary Hospital Course Hospital Course: HPI AT ADMISSION: Ann Anderson is a 45 year old female who was here at the hospital back in May with elevated LFTs and a bilirubin in the 3.9 range. She was admitted evaluated for choledocholithiasis with a MRCP which did not reveal any significant findings. Eventually her LFTs began to trend downward and she was discharge. She comes in now because she has been noticing over the last several days that she seems to be getting more yellow in appearance jaundiced. She has had this before but now it seems to be worsening with people making comments and as a result she comes in to be evaluated. She complains of little mild nausea and some small amount of soreness in the right upper quadrant no vomiting no changes in her diet. She denies any history of blood transfusions no exotic traveling recently. She has a background of Graves disease and has had surgery for this as well as radioisotope iodine. Another thing that is been somewhat interesting as the patient has been having a chronic urinary tract infection it seems for the last several months. She has seen Urology in [place] and they have tried a variety of medications. She has recently just gotten off Macrodantin. Since the antibiotics have started and now completed she has been complaining of some issues with loose stools. She denies any fevers or chills. At the time of her last admission GI consultation with Dr. Monae was had in which the plan was to just carry out conservative care. There was the believe that maybe she had passed a stone and that her gallbladder with the stones were probably responsible for these episodes of jaundice. She comes in now with no evidence of any cholecystitis symptomatic black are sign black. She had a right upper quadrant ultrasound which showed a thickened gallbladder but back in May she had a similar appearing gallbladder by ultrasound and the MRCP did not re veal any findings consistent with cholecystitis. She comes in now feeling a little itchy from the jaundice. She denies any unusual drug use has never had a blood transfusion denies any travel to exotic places though significant unusual diet as well. No sick contacts. HOSPITAL COURSE: Patient was admitted to the surgical service for observation and further work up regarding her elevated LFTs. HIDA scan was carried out for the gallbladder wall thickening which showed GB filling which ruled out any acute cholecystitis. CBD was also patent. GI was consulted who felt ERCP not indicated and presentation was likely drug induced hepatitis from the macrobid. Her diet was advanced to solids. She had improvement in her LFT's, including decreased TBili. Her gallstones remain asymptomatic. Picture was felt with be consistent with resolving drug-induced hepatitis from the Macrobid antibiotic, with perhaps a contributing component from Acetaminophen use. She remained stable and ready for discharge. Her abdomen was benign. She was hemodynamically stable. She was discharged to home on 08/05/25. She was advised to avoid Acetaminophen, NSAIDs, and alcohol until the LFT's normalize. It was advised the importance of being sure the LFT's eventually normalize and she was given a lab order to check labs on 08/09, 08/13, and 08/27. She was instructed to list the Macrobid as an allergy and to be sure never to use it again. She is to follow up with PCP upon discharge and can follow up with Dr. Mosqueda in the office if need be if the LFT's remain elevated. Status at Discharge Functional status at discharge: independent ambulation Time Attestation Discharge Coordination Time (in mins): 25 Quality: Safe Use of Opioids Does Pt have an Active Cancer Diagnosis on the Problem List?: No Quality: Stroke Does the patient have a stroke diagnosis?: No Physical Exam Vital Signs: Vital Signs: Last Vital Signs Temp 97.2 F 08/05/25 15:15 Pulse 73 08/05/25 15:15 Resp 16 08/05/25 15:15 BP 113/76 08/05/25 15:15 Pulse Ox 96 08/05/25 15:15 O2 Del Method Room Air 08/05/25 15:15 BMI result Body Mass Index 37.8 Const: General: comfortable, no acute distress and alert Orientation/consciousness: patient oriented x3 GI: Inspection: No distended Palpation (GI): Soft to palpation, nontender and no guarding Neuro: General: patient oriented x3 DS: Data Data Completed and Pending Labs on day of discharge: Laboratory Results - last 24 hr 08/04/25 13:00 JEOVANNY Screen NEGATIVE Anti-Mitochondrial Ab NEGATIVE Discharge Plan Discharge Anticipated Discharge Date/Time: 08/05/25 09:19 Patient Disposition: Home, Self-Care Discharge Diagnosis: hepatitis Referrals: Mckay Huang III, MD [Primary Care Provider, Medical] - 1 Week Vinod Mosqueda MD [Physician, Gastroenterology] - 1 Week Discharge Medications: Continued propranolol 80 mg capsule,extended release 24 hr 80 mg PO DAILY Qty: 90 2RF levothyroxine [Synthroid] 175 mcg Tablet 175 mcg PO DAILY@0600 Rx Instructions: brand name synthroid only flecainide 100 mg tablet 100 mg PO BID@0600,1800 omeprazole 20 mg capsule,delayed release(DR/EC) 20 mg PO DAILY@0630 methenamine hippurate 1 gram tablet 1 g PO BID ascorbic acid (vitamin C) 500 mg tablet 500 mg PO BID gabapentin 300 mg capsule 300 mg PO BID Discharge Orders: Discharge Order (Routine); Ordered 08/05/25 Ordered By: Marianna Sebastian Diet: Advance to usual diet Activity on Discharge: As tolerated Stand Alone Forms: Patient Portal Discharge page Print Language: Andorran Other Ambulatory Orders: Liver Panel (Routine) Timeframe: 1 Week Facility: [facility] - Location: Laboratory Ordered By: Marianna Sebastian Activity Restrictions/Additional Instructions: Follow up with your PCP and Dr. Mosqueda (gastroenterology) Call Your Doctor If: ? ? -Your temperature exceeds 101.5? F? ? ? -You experience excessive pain or swelling ? ? -You have an unexpected reaction to medication ? ? -You experience continued vomiting/nausea Care Plan Goals: Return to baseline health. Health Concerns: acute hepatitis Plan of Treatment: Observation, f/u labs Repeat LFTs in 1 week F/u with gastroenterology Assessment: Improving Patient Instructions: Acute Liver Failure (DC) Discharge Date/Time: 08/05/25 15:40
[2025-08-06 09:53] LABS: Anti Nuclear Antibody Screen NEGATIVE (NEGATIVE)
== END 2025-08-05 15:40 | disposition home or self-care (01) ==
LOC: HO.ED 10:57 → HO.EDOVER 12:55 → HO.S3 19:27
PROVIDERS: Internal Medicine; Admitting Provider Surgery; Emergency Provider Emergency Medicine; PCP Internal Medicine; Visit Provider Surgery
DX: K71.2 Toxic liver disease with acute hepatitis (principal); E05.00 Thyrotoxicosis with diffuse goiter without thyrotoxic crisis or storm; T37.8X5A Adverse effect of other specified systemic anti-infectives and antiparasitics, initial encounter; Z79.890 Hormone replacement therapy; Z87.440 Personal history of urinary (tract) infections; Z79.899 Other long term (current) drug therapy
CPT/HCPCS: 36415; 76705; 78226; 80048; 80053; 80076; 81001; 82103; 82140; 82248; 82390; 82728; 83540; 83615; 83690; 85025; 85610; 85652; 86015; 86038; 86140; 86381; 86704; 86706; 86709; 86803; 87086; 87340; 99285; A9537; J1200; J2185; J7120

== ENCOUNTER → 2025-08-03 06:09 | Outpatient (BNV) | payer OTHER, SELFPAY | PROVIDERS: Emergency Provider Emergency Medicine; PCP Internal Medicine; Visit Provider Radiology Diagnostic Radiology | DX: R74.01 Elevation of levels of liver transaminase levels (principal); K80.20 Calculus of gallbladder without cholecystitis without obstruction; R16.0 Hepatomegaly, not elsewhere classified | CPT/HCPCS: 76705; 78226 ==

== ENCOUNTER → 2025-08-03 12:53 | Outpatient (BNV) | payer OTHER, SELFPAY | PROVIDERS: Admitting Provider Surgery; Emergency Provider Emergency Medicine; PCP Internal Medicine; Visit Provider Surgery | DX: R17 Unspecified jaundice (principal) | CPT/HCPCS: 99222; 99499 ==

== ENCOUNTER 2025-08-09 15:15 | Outpatient (REF) | payer OTHER, SELFPAY ==
--- OUTSIDE RECORDS SUMMARY | 2025-08-05 09:35 | XMS_ITS ---
Demographics Address [address] [place] [address]
[2025-08-09 17:02] LABS: Alanine Aminotransferase 468 U/L (0-31); Albumin Level 3.4 g/dL (3.5-5.0); Alkaline Phosphatase 187 U/L (39-117); Aspartate Amino Transferase 628 U/L (5-31); Total Protein 7.5 g/dL (6.5-8.0)
== END 2025-08-09 15:16 | disposition home or self-care (01) ==
LOC: HO.LAB 15:15
PROVIDERS: Physician Assistant Surgical; PCP Internal Medicine; Visit Provider Internal Medicine
DX: R79.89 Other specified abnormal findings of blood chemistry (principal); R17 Unspecified jaundice
CPT/HCPCS: 36415; 80076

== ENCOUNTER 2025-08-14 07:10 | Outpatient (REF) | payer OTHER, SELFPAY ==
--- OUTSIDE RECORDS SUMMARY | 2025-08-14 07:13 | XMS_ITS | Patient Health Record ---
Author Organization [facility] Address [address] [place] [address] Care Team Providers Care Post Anesthesia Room Nurse Name Role Phone Mckay Huang MD Primary Care Provider Vinod Lance [phone] Results Component Value Reference Range Notes Erythrocyte Sedimentation Ra te Reviewed date:08/04/2025 05:20:12 PM Interpretation: Performing Lab:[address] [phone] Notes/Report: Erythrocyte Sedimentation Rate 22 0-20 MM/HR Patients with polycythemia and many hemoglobin abnormalities may have depressed sed rates whereas patients with anemia may have elevated sed rates. Prothrombin Time INR Reviewed date:08/04/2025 04:05:12 PM Interpretation: Performing Lab:[address] [phone] Notes/Report: Prothrombin Time 13.8 10.9-12.4 SEC INTERNATIONAL NORM RATIO 1.2 0.9-1.1 INTERNATIONAL NORMALIZED RATIO (INR) REFERENCE RANGES Reference Range For patients not on anticoagulant therapy: 0.9 - 1.1 INR ranges for oral anticoagulant therapy: For prevention and treatment of venous thrombosis and pulmonary embolism: 2.0 - 3.0 For acute myocardial infarction with aspirin therapy: 2.0 - 3.0 For acute myocardial infarction without aspirin therapy: 3.0 - 4.0 For patients with mechanical prosthetic heart valves: 2.5 - 3.5 Liver Panel Reviewed date:08/04/2025 05:21:05 PM Interpretation: Performing Lab:[address] [phone] Notes/Report: Bilirubin Total 10.1 0.0-1.0 mg/dL Mild Icteru s. Bilirubin Direct 6.9 0.0-0.5 mg/dL Mild Icter us. Aspartate Amino Transferase 724 5-31 U/L Alanine Aminotransferase 512 0-31 U/L Total Protein 7.1 6.5-8.0 g/dL Albumin Level 3.2 3.5-5.0 g/dL Alkaline Phosphatase 162 39-117 U/L IRON PROFILE Reviewed date:08/04/2025 05:20:56 PM Interpretation: Performing Lab:[facility], [address] [place] [phone] Notes/Report: Iron 251 30-160 mcg/dL Total Iron Binding Capacity 282 228-428 mcg/dL Percent Iron Saturation 89 15-50 % Unsaturated Iron Binding 31 Ferritin Reviewed date:08/04/2025 05:20:46 PM Interpretation: Performing Lab:[facility], [address] [place] [phone] Notes/Report: Ferritin 632 10-250 ng/mL Lactate Dehydrogenase Reviewed date:08/04/2025 05:20:39 PM Interpretation: Performing Lab:[facility], [address] [place] [phone] Notes/Report: Lactate Dehydrogenase 264 122-220 U/L C Reactive Protein Reviewed date:08/04/2025 05:20:25 PM Interpretation: Performing Lab:[facility], [address] [place] [phone] Notes/Report: C Reactive Protein 2.66 < or = 0.50 mg/dL Ceruloplasmin Reviewed date:08/05/2025 06:51:43 PM Interpretation: Performing Lab:[facility], [address] [place] [phone] Notes/Report: Ceruloplasmin 23 14-48 mg/dL THIS TEST WAS PERFORMED AT: [facility] [address] [place] [phone] EDI KENDALL MD Alpha 1 Anti-trypsin Reviewed date:08/05/2025 06:51:29 PM Interpretation: Performing Lab:[facility], [address] [place] [phone] Notes/Report: Alpha 1 Anti-trypsin 206 83-199 mg/dL THIS TEST WAS PERFORMED AT: [facility] [address] [place] [phone] EDI KENDALL MD JEOVANNY Reflex Titer and Pattern Reviewed date:08/08/2025 05:53:31 PM Interpretation: Performing Lab:[facility], [address] [place] [phone] Notes/Report: Anti Nuclear Antibody Screen NEGATIVE NEGATIVE JEOVANNY IFA is a first line screen for detecting the presence of up to approximately 150 autoantibodies in various autoimmune diseases. A negative JEOVANNY IFA result suggests an JEOVANNY-associated autoimmune disease is not present at this time, but is not definitive. If there is high clinical suspicion for Sjogren's syndrome, testing for anti-SS-A/Ro antibody should be considered. Anti-Ariadne-1 antibody should be considered for clinically suspected inflammatory myopathies. AC-0: Negative International Consensus on JEOVANNY Patterns (https://doi.org/10.1515/ccl m-8031-6987) For additional information, please refer to http://education.EditGrid.Naymit/faq/TZL515 (This link is being provided for informational/ educational purposes only.) THIS TEST WAS PERFORMED AT: [facility] [address] [place] [phone] EDI KENDALL MD Anti Nuclear Antibody Titer TNP Anti Nuclear Antibody Pattern TNP JEOVANNY Titer 2 TNP JEOVANNY Pattern 2 TNP JEOVANNY Titer 3 TNP JEOVANNY Pattern 3 TNP Mitochondrial Antibody (Not yet reviewed by provider) Interpretation: Performing Lab:[facility], [address] [place] [phone] Notes/Report: Mitochondrial Antibodies NEGATIVE NEGATIVE The immunofluorescence assay (IFA) procedure reveals the possible presence of another autoantibody. Consider requesting order code 263, Smooth Muscle Antibody with Reflex to Titer, if clinically indicated. Staining was observed suggesting the presence of Antinuclear Antibodies. Consider requesting order code 249, JEOVANNY Screen, IFA with Reflex to Titer and Pattern, or order code 11484, JEOVANNY Screen, IFA w/reflex Titer/Pattern, and Reflex to Multiplex 11 Ab [place], if clinically indicated. THIS TEST WAS PERFORMED AT: [facility] [address] [place] [phone] EDI KENDALL MD Mitochondrial Ab Titer TNP Smooth Muscle Antibody (Not yet reviewed by provider) Interpretation: Performing Lab:[facility], [address] [place] [phone] Notes/Report: Smooth Muscle Antibody 46 <20 U Reference Range: <20 U: Negative >or=20 U: Positive Antibodies recognizing actin are the main component of smooth muscle antibodies associated with auto- immune liver disease. Actin antibodies are found in approximately 75% of patients with autoimmune hepatitis (AIH) type 1, approximately 65% of patients with autoimmune cholangitis, approximately 30% of patients with primary biliary cirrhosis and approximately 2% of healthy controls. High values are closely correlated with AIH type 1. THIS TEST WAS PERFORMED AT: [facility]/[address] [phone] ADEBAYO ERWIN MD,PHD Hepatitis A,B,C Profile Reviewed date:08/08/2025 05:53:51 PM Interpretation: Performing Lab:[address] [phone] Notes/Report: Hepatitis A Antibody IgM Nonreactive Nonreactive IgM antibodies to HAV not detected; does not exclude early acute or recovered HAV infection. Hepatitis B Surface Antibody NONREACTIVE Nonreactive Nonreactive: < 8.00 mIU/mL Hepatitis B Core Antibody Nonreactive Nonreactive Hepatitis C Antibody Nonreactive Nonreactive Antibodies to HCV not detected; does not exclude early acute HCV infection. Hepatitis B Surface Antigen Negative Negative Complete Blood Count Auto Di ff Reviewed date:08/08/2025 05:52:59 PM Interpretation: Performing Lab:[facility], [address] [place] [phone] Notes/Report: White Blood Count 4.3 4.8-10.8 X10*3/uL Red Blood Count 4.15 4.20-5.50 X10*6/uL Hemoglobin 12.9 12.0-16.0 g/dl Hematocrit 38.2 37.0-47.0 % Mean Corpuscular Volume 92.0 80.0-98.0 fL Mean Corpuscular Hemoglobin 31.1 27.0-33.0 pg Mean Corpuscular HGB Conc 33.8 31.0-35.0 g/dl Red Cell Distribution Width 14.4 11.0-16.0 % Platelet Count 123 160-400 X10*3/uL Mean Platelet Volume 10.2 9.4-12.3 fL Neutrophils Percent Auto 61.2 45-73 % Imm Gran Pct Auto 0.5 0.0-0.4 % Lymphocytes Percent Auto 25.2 20-40 % Monocytes Percent Auto 10.3 2-11 % Eosinophils Percent Auto 2.1 0-4 % Basophils Percent Auto 0.7 0-2 % NRBC Pct Auto 0.0 0.0-0.2 /100WBC Neutrophils Absolute Auto 2.6 2.0-8.3 x10*3/u L Imm Gran Abs Auto 0.02 0.00-0.03 X10*3/uL Lymphocytes Absolute Auto 1.1 1.2-4.9 X10*3/u L Monocytes Absolute Auto 0.4 0.1-1.2 X10*3/uL Eosinophils Absolute Auto 0.1 0.0-0.4 X10*3/u L Basophils Absolute Auto 0.0 0.0-0.2 X10*3/uL NRBC Abs Auto 0.000 0.0-0.012 X10*3/uL Prothrombin Time INR Reviewed date:08/08/2025 05:52:41 PM Interpretation: Performing Lab:[address] [phone] Notes/Report: Prothrombin Time 14.1 10.9-12.4 SEC INTERNATIONAL NORM RATIO 1.2 0.9-1.1 INTERNATIONAL NORMALIZED RATIO (INR) REFERENCE RANGES Reference Range For patients not on anticoagulant therapy: 0.9 - 1.1 INR ranges for oral anticoagulant therapy: For prevention and treatment of venous thrombosis and pulmonary embolism: 2.0 - 3.0 For acute myocardial infarction with aspirin therapy: 2.0 - 3.0 For acute myocardial infarction without aspirin therapy: 3.0 - 4.0 For patients with mechanical prosthetic heart valves: 2.5 - 3.5 Liver Panel Reviewed date:08/08/2025 05:52:19 PM Interpretation: Performing Lab:[facility], [address] [place] [phone] Notes/Report: Bilirubin Total 8.1 0.0-1.0 mg/dL Mild Icteru s. Bilirubin Direct 5.9 0.0-0.5 mg/dL Mild Icter us. Aspartate Amino Transferase 618 5-31 U/L Alanine Aminotransferase 440 0-31 U/L Total Protein 6.2 6.5-8.0 g/dL Albumin Level 2.8 3.5-5.0 g/dL Alkaline Phosphatase 142 39-117 U/L Basic Metabolic Panel Fastin g Reviewed date:08/08/2025 05:52:05 PM Interpretation: Performing Lab:[facility], [address] [place] [phone] Notes/Report: Sodium 137 135-145 mmol/L Potassium 3.8 3.3-5.1 mmol/L Chloride 107 96-108 mmol/L Carbon Dioxide 24 22-29 mmol/L Anion Gap 10 12-20 Blood Urea Nitrogen 8 9-16 mg/dL Creatinine 0.50 0.5-1.4 mg/dL Mild Icterus.I nterpret result with caution. Creatinine Clr Calc Pharmacy 210.0 Provided height and weight: 180.34 cm, 123.1 kg. eGFR (calculated from the MDRD study equation) and eCrCl (calculated from the Cockcroft-Gault equation) are based on different parameters and may not yield comparable results. If eCrCl result is absurd, please check patient's height/weight. Estimated Glomerular Filt Rate > 60 Chronic Kidney Disease: Estimated GFR < 60 mL/min/1.73m2 Severe Kidney Disease: Estimated GFR < 15 mL/min/1.73m2 Glucose Fasting 105 60-99 mg/dL A fasting glucose from 100-125 mg/dl is considered impaired (pre-diabetes). Calcium 8.3 8.4-10.2 mg/dL Ammonia Reviewed date:08/08/2025 05:52:27 PM Interpretation: Performing Lab:[facility], [address] [place] [phone] Notes/Report: Ammonia 71 13-55 umol/L Liver Panel (Not yet reviewe d by provider) Interpretation: Performing Lab:[facility], [address] [place] [phone] Notes/Report: Bilirubin Total 6.8 0.0-1.0 mg/dL Mild Icteru s. Bilirubin Direct 5.0 0.0-0.5 mg/dL Mild Icter us. Aspartate Amino Transferase 628 5-31 U/L Alanine Aminotransferase 468 0-31 U/L Total Protein 7.5 6.5-8.0 g/dL Albumin Level 3.4 3.5-5.0 g/dL Alkaline Phosphatase 187 39-117 U/L Reason For Referral No Information Problems Problem Type SNOMED Code ICD Code Onset Dates Problem Status W/U Status Risk Notes Problem Elevated liver enzymes level (897346678) Elevated liver function tests (R79.89) Active confirmed Problem Gallstones (153623716) Gallstones (K80.20) Active confirmed Problem Jaundice (32364021) Jaundice (R17) Active confirmed Encounters Encounter Location Date Provider Diagnosis [facility] [address] [place] [address] 08/05/2025 Vinod Mosqueda Elevated liver function tests R79.89 and Jaundice R17 Assessments Encounter Date Diagnosis (ICD Code) Assessment Notes Treatment Notes Treatment Clinical Notes Section Notes 08/05/2025 Elevated liver function tests (ICD-10 - R79.89) 08/05/2025 Jaundice (ICD-10 - R17) Plan Of Treatment Pending Test Test Name Order Date LIVER PROFILE 08/05/2025 Prothrombin Time INR 08/05/2025 Liver Panel 08/09/2025 Mitochondrial Antibody 08/04/2025 Smooth Muscle Antibody 08/04/2025 Insurance Providers Payer Name Payer Address Payer Phone Subscriber Number Group Number Insured Name Patient Relationship to Insured Coverage Start Date Coverage End Date [facility] [employer] Plan [address] [address] [place], [place] [id number] DEMETRIS LYNCH Self - patient is the insured
--- OUTSIDE RECORDS SUMMARY | 2025-08-14 07:13 | XMS_ITS | Clinical Summary ---
Author Organization [facility] Address [address] [place] [address] Phone Care Team Providers Care Wagon Winder Name Role Phone Mckay Huang MD Primary Care Provider + Encounters Date Type Department Care Team Description 05/19/[address] [place] [address] Ivan Palm MD from Last [...] topic Medical Devices Not on file Insurance [facility] [place] [address] [address] PCP [facility] Care Teams Wagon Winder Relationship Specialty Start Date End Date Mckay Huang MD [address] [place] [id number] PCP - General 07/19/23 Additional Source Comments The information contained in this document represents components of the legal health record. It is not the complete legal health record.[facility]
--- OUTSIDE RECORDS SUMMARY | 2025-08-14 07:13 | XMS_ITS | Encounter Summary ---
Author Organization [facility] Address [address] [place] [address] Care Team Providers Care Dust Collector Ore Crushing Name Role Phone Mckay Huang MD Primary Care Provider [phone] Encounter Details Date Type Department Care Team (Late st Contact Info) Description 04/20/2025 Nurse Triage Adult Medicine [address] [phone] Mckay Huang MD [address] [place] [address] Social History Tobacco Use Types Packs/Day Years [...] care for your loved ones. For example, rn maternal child or elderly care for an older adult? [...] Upcoming Encounters Date Type Department Care Team ([facility] st Contact Info) Description 09/02/2025 10:30 AM EDT Office Visit Adult Medicine [address] [phone] Mckay Huang MD [address] [place] [address] 09/06/2025 4:00 PM EDT Appointment Radiology Department - [address] [phone] 10/13/2025 4:00 PM EST Office Visit Adult Medicine South - [address] [phone] Megan Borrero PA [address] [place] [address] documented as of this encounter Visit Diagnoses Not on filedocumented in this encounter Additional Health Concerns Assessment Noted Time PHQ-9 Depression Total Score: 0 03/23/20 25 5:47 PM EDT documented as of this encounter Care Teams Dust Collector Ore Crushing Relationship Specialty Start Date End Date Mckay Huang MD [address] [place] [address] PCP - General 08/28/05 documented as of this encounter
--- OUTSIDE RECORDS SUMMARY | 2025-08-14 07:13 | XMS_ITS | Encounter Summary ---
Author Organization [facility] Address [address] [place] [address] Care Team Providers Care Conservation Agent Name Role Phone Mckay Huang MD Primary Care Provider Encounter Details Date Type Department Care Team (Late st Contact Info) Description 07/16/[address] [facility] - Main Lab [address] [facility] [place] [address] Sivan Kasper MD [address] [place], [place] [phone] Dysuria Social History Tobacco Use Types Packs/Day [...] care for your loved ones. For example, director of early childhood education or elderly care for an older adult? [...] Upcoming Encounters Date Type Department Care Team ([facility] st Contact Info) Description 09/02/2025 10:30 AM EDT Office Visit Adult Medicine [address] [phone] Mckay Huang MD [address] [place] [address] 09/06/2025 4:00 PM EDT Appointment Radiology Department - [address] [phone] 10/13/2025 4:00 PM EST Office Visit Adult Medicine South - [address] [phone] Megan Borrero PA [address] [place] [address] documented as of this encounter Procedures Procedure Name Priority Date/Time Associated Diagnosis Comments URINALYSIS WITH REFLEX MICROSCOPIC Routine 07/16/2025 11:40 AM EDT Dysuria URINALYSIS WITH REFLEX MICROSCOPIC Routine 07/16/2025 11:40 AM EDT Dysuria CULTURE URINE Routine 07/16/2025 11:40 AM EDT Dysuria documented in this encounter Results * (ABNORMAL) Urinalysis with reflex microscopic (07/16/2025 11:40 AM EDT) Specific [place] Urine 1.021 1.003 - 1.030 LAB URINALYSIS - AUTOMATED METHOD 07/16/2025 6:43 PM [facility] pH, Urine 6.5 5.0 - 8.0 pH LAB URINALYSIS - AUTOMATED METHOD 07/16/2025 6:43 PM [facility] Leukocytes, Urine Trace(A) Negative LAB URINALYSIS - AUTOMATED METHOD 07/16/2025 6:43 PM [facility] Nitrite, Urine Negative Negative LAB URINALYSIS - AUTOMATED METHOD 07/16/2025 6:43 PM [facility] Protein, Urine Negative <=Trace mg/dL LAB URINALYSIS - AUTOMATED METHOD 07/16/2025 6:43 PM [facility] Glucose, Urine Negative Negative mg/dL LAB URINALYSIS - AUTOMATED METHOD 07/16/2025 6:43 PM [facility] Ketones, Urine Negative Negative mg/dL LAB URINALYSIS - AUTOMATED METHOD 07/16/2025 6:43 PM [facility] Urobilinogen, Urine 1.0 0.2 - 1.0 mg/dL LAB URINALYSIS - AUTOMATED METHOD 07/16/2025 6:43 PM [facility] Bilirubin, Urine Small(A) Negative LAB URINALYSIS - AUTOMATED METHOD 07/16/2025 6:43 PM [facility] Blood, Urine Large(A) Negative LAB URINALYSIS - AUTOMATED METHOD 07/16/2025 6:43 PM [facility] RBC, Urine 168.0(H) 0 - 4 /HPF LAB URINALYSIS - AUTOMATED METHOD 07/16/2025 6:43 PM [facility] WBC, Urine 1.7 0 - 4 /HPF LAB URINALYSIS - AUTOMATED METHOD 07/16/2025 6:43 PM [facility] Squamous Epithelial, Urine 56 0 - 60 /LPF LAB URINALYSIS - AUTOMATED METHOD 07/16/2025 6:43 PM [facility] Bacteria, Urine Negative Negative /HPF LAB URINALYSIS - AUTOMATED METHOD 07/16/2025 6:43 PM [facility] Hyaline Casts, Urine 6.8(H) 0 - 3 /LPF LAB URINALYSIS - AUTOMATED METHOD 07/16/2025 6:43 PM [facility] Urine Urine specimen from urethra / Unknown 07/16/2025 11:40 AM EDT 07/16/2025 5:56 PM EDT us Sivan Kasper MD LAB URINE ORDERABLES Fin al Result [facility] [address] [place] [address], * (ABNORMAL) Culture urine (07/16/2025 11:40 AM [...] Susceptible Sivan Kasper MD LAB MICROBIOLOGY - GENER AL ORDERABLES Final Result [facility] [address] [place] [address], [place] [phone] documented in this encounter Visit Diagnoses Diagnosis Dysuria documented in this encounter Additional Health Concerns Assessment Noted Time PHQ-9 Depression Total Score: 0 03/23/20 25 5:47 PM EDT documented as of this encounter Care Teams Conservation Agent Relationship Specialty Start Date End Date Mckay Huang MD [address] [place] [phone] PCP - General 08/28/05 documented as of this encounter
--- OUTSIDE RECORDS SUMMARY | 2025-08-14 07:13 | XMS_ITS | Clinical Summary ---
Author Organization [address] Address [address] [place] [address] Phone Care Team Providers Care In Home Sales Representative Name Role Phone Mckay Huang MD Primary Care Provider [phone] Allergies Active Allergy Reactions Criticality Noted Date [...] Severe obesity (BMI 35.0-35. 9 with comorbidity) ([facility] V24, [facility] V28) 10/02/2024 GERD (gastroesophageal reflux disease) Neuralgia, post-herpetic 09/12/2024 Overview (10/02/2024): 12/22/23: Left forehead/eye, now on gabapentin Paroxysmal atrial fibrillation ([facility] V24, [facility] V28) 09/12/2024 Overview (10/02/2024): Dr. Bland at [facility] Post-operative hypothyroidism 2024 Graves' disease 01/12/2023 COVID-19 virus infection 12/23/2020 Overview (10/02/2024): 12/21/20 Mixed hyperlipidemia 01/08/2020 Anxiety 08/29/2016 Cardiac murmur 10/24/2010 Overview (10/02/2024): Cardiac echo and stress test fall 2009 Holter monitor Graves' disease with exophthalmos 01/20/2008 Overview (10/02/2024): S/p 2006 - Dr. 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, production finisher Thyroid antibodies done 12/2010 Elevated thyroid antibodies 01/2011 Maternal consult Resolved Problems Problem Noted Date Diagnosed Date Resolved Date Vaginal odor 11/19/2024 01/19/2025 Bacterial vaginosis 11/19/2024 01/20/20 25 Encounters Date Type Department Care Team Description 08/02/2025 Nurse Triage Adult Medicine [address] [phone] Mckay Huang MD 07/23/2025 2:30 PM EDT Office Visit [facility] [address] [phone] Jyoti Espinosa PA Orgasmic headache (Primary Dx); Nausea 07/16/[address] [facility] - Main Lab [address] [facility] [place] [address] Sivan Kasper MD Dysuria 05/14/2025 1:00 PM EDT Office Visit Adult Medicine [address] [phone] Mckay Huang MD Urinary tract infection without hematuria, site unspecified (Primary Dx); Recurrent UTI; Dyspnea, unspecified type; Chest pressure; Abnormal EKG 05/14/2025 Telephone Adult Medicine [address] [phone] Mckay Huang MD 05/14/2025 Nurse Triage [address] [phone] Mckay Huang MD from Last 3 Months [...] 3 PROCEDURE: HISTORICAL APPENDECTOMY VAGINOSCOPY 2004 PROCEDURE: MT COLPOSCOPY CERVIX BX CERVIX & ENDOCRV CURRETAGE [...] for your loved ones. For example, child adolescent psychiatrist or elderly care for an older adult? [...] Livin g Robert Graf in-Spr att Delivery Location:[facility] Comments:A&W 8 Term 38w 0d 3260 g (115 oz) F Vag-S pont Livin g Delivery Location:[facility] 2010 Term 40w 6d 3997 g (141 oz) M Vag-S pont Epidur al Livin g 7 9 [place] Delivery Location:[facility] Comments:A&W Last Filed Vital Signs Vital [...] Care Team (Late st Contact Info) Description 09/02/2025 10:30 AM EDT Office Visit Adult Medicine [address] [phone] Mckay Huang MD [address] [place] [address] 09/06/2025 4:00 PM EDT Appointment Radiology Department - [address] [phone] 10/13/2025 4:00 PM EST Office Visit Adult Medicine [address] [phone] Megan Borrero PA [address] [place] [address] Health Maintenance Due Date Last Done Comments [...] - Td or Tdap) 09/04/2033 09/04/2023, 02/15/2009 RSV Immunization Adult Patients (1 - 1-dose 75+ series) 2057 HIV Screening Completed 10/23/2010 Depression Screening Completed [...] Urinary tract infection without hematuria, site unspecified DIAGNOSTIC MAMMOGRAPHY WITH CAD UNILATERAL Routine 09/11/2024 3:33 PM EDT Other abnormal and inconclusive findings on diagnostic imaging of breast HM HPV Routine 09/03/2023 LIPID PANEL Routine 08/14/2022 HM HIV SCREENING Routine 10/23/2010 from Last 3 Months or Most Recently Relevant to Health Maintenance Results * (ABNORMAL) Urinalysis with reflex microscopic (07/16/2025 11:40 AM EDT) Only the most recent of2 resultswithin the time period is included. Specific [place] Urine 1.021 1.003 - 1.030 LAB URINALYSIS - AUTOMATED METHOD 07/16/2025 6:43 PM [facility] pH, Urine 6.5 5.0 - 8.0 pH LAB URINALYSIS - AUTOMATED METHOD 07/16/2025 6:43 PM [facility] Leukocytes, Urine Trace(A) Negative LAB URINALYSIS - AUTOMATED METHOD 07/16/2025 6:43 PM [facility] Nitrite, Urine Negative Negative LAB URINALYSIS - AUTOMATED METHOD 07/16/2025 6:43 PM [facility] Protein, Urine Negative <=Trace mg/dL LAB URINALYSIS - AUTOMATED METHOD 07/16/2025 6:43 PM [facility] Glucose, Urine Negative Negative mg/dL LAB URINALYSIS - AUTOMATED METHOD 07/16/2025 6:43 PM [facility] Ketones, Urine Negative Negative mg/dL LAB URINALYSIS - AUTOMATED METHOD 07/16/2025 6:43 PM [facility] Urobilinogen, Urine 1.0 0.2 - 1.0 mg/dL LAB URINALYSIS - AUTOMATED METHOD 07/16/2025 6:43 PM [facility] Bilirubin, Urine Small(A) Negative LAB URINALYSIS - AUTOMATED METHOD 07/16/2025 6:43 PM [facility] Blood, Urine Large(A) Negative LAB URINALYSIS - AUTOMATED METHOD 07/16/2025 6:43 PM [facility] RBC, Urine 168.0(H) 0 - 4 /HPF LAB URINALYSIS - AUTOMATED METHOD 07/16/2025 6:43 PM [facility] WBC, Urine 1.7 0 - 4 /HPF LAB URINALYSIS - AUTOMATED METHOD 07/16/2025 6:43 PM [facility] Squamous Epithelial, Urine 56 0 - 60 /LPF LAB URINALYSIS - AUTOMATED METHOD 07/16/2025 6:43 PM [facility] Bacteria, Urine Negative Negative /HPF LAB URINALYSIS - AUTOMATED METHOD 07/16/2025 6:43 PM [facility] Hyaline Casts, Urine 6.8(H) 0 - 3 /LPF LAB URINALYSIS - AUTOMATED METHOD 07/16/2025 6:43 PM [facility] Urine Urine specimen from urethra / Unknown 07/16/2025 11:40 AM EDT 07/16/2025 5:56 PM EDT us Sivan Kasper MD LAB URINE ORDERABLES Fin al Result Performing Organization Address City/[facility]/ZIP Co de Phone Number [facility] [address] [place] [address], [place] [phone] * (ABNORMAL) Culture urine (07/16/2025 11:40 AM [...] Final Result [facility] [address] [place] [address], [place] [phone] * ECG (05/14/2025 2:10 PM EDT) us Mckay Huang MD ECG ORDERABLES Final Result * DIAGNOSTIC MAMMOGRAPHY WITH [...] follow-up in 6 months. BI-RADS 3-probably benign [facility] [address] [place] [id number] Procedure Note Isa Espino MD - 09/19/2024 [...] follow-up in 6 months. BI-RADS 3-probably benign [facility] [address] [place], [place] [phone] Megan BADILLO IMG BI PROCEDURES Final Result [...] Most Recently Relevant to Health Maintenance Insurance [facility] [employer] Care Teams In Home Sales Representative Relationship Specialty Start Date End Date Mckay Huang MD [address] [place] [phone] PCP - General 08/28/05
[2025-08-14 07:50] LABS: INTERNATIONAL NORM RATIO 1.2 (0.9-1.1); Prothrombin Time 13.3 SEC (10.9-12.4)
[2025-08-14 08:14] LABS: Alanine Aminotransferase 427 U/L (0-31); Albumin Level 3.5 g/dL (3.5-5.0); Alkaline Phosphatase 172 U/L (39-117); Aspartate Amino Transferase 598 U/L (5-31); Total Protein 7.3 g/dL (6.5-8.0)
== END 2025-08-14 07:11 | disposition home or self-care (01) ==
LOC: HO.LAB 07:10
PROVIDERS: PCP Internal Medicine; Visit Provider Internal Medicine
DX: Z51.81 Encounter for therapeutic drug level monitoring (principal); R79.89 Other specified abnormal findings of blood chemistry; R17 Unspecified jaundice
CPT/HCPCS: 36415; 80076; 85610

== ENCOUNTER 2025-08-21 08:04 | Outpatient (REF) | payer OTHER, SELFPAY ==
[2025-08-21 10:12] LABS: Alanine Aminotransferase 369 U/L (0-31); Albumin Level 3.3 g/dL (3.5-5.0); Alkaline Phosphatase 164 U/L (39-117); Aspartate Amino Transferase 496 U/L (5-31); Total Protein 7.1 g/dL (6.5-8.0)
== END 2025-08-21 08:05 | disposition home or self-care (01) ==
LOC: HO.LAB 08:04
PROVIDERS: Dentist Oral and Maxillofacial Surgery; PCP Internal Medicine; Visit Provider Internal Medicine
DX: R94.5 Abnormal results of liver function studies (principal)
CPT/HCPCS: 36415; 80076

== ENCOUNTER 2025-08-27 16:29 | Outpatient (REF) | payer OTHER, SELFPAY ==
[2025-08-27 17:43] LABS: INTERNATIONAL NORM RATIO 1.1 (0.9-1.1); Prothrombin Time 12.7 SEC (10.9-12.4)
[2025-08-27 17:56] LABS: Alanine Aminotransferase 263 U/L (0-31); Albumin Level 3.4 g/dL (3.5-5.0); Alkaline Phosphatase 145 U/L (39-117); Aspartate Amino Transferase 272 U/L (5-31); Total Protein 7.1 g/dL (6.5-8.0)
== END 2025-08-27 16:30 | disposition home or self-care (01) ==
LOC: HO.LAB 16:29
PROVIDERS: PCP Internal Medicine; Visit Provider Internal Medicine
DX: R79.89 Other specified abnormal findings of blood chemistry (principal); R17 Unspecified jaundice
CPT/HCPCS: 36415; 80076; 85610

== ENCOUNTER 2025-09-02 14:25 | Outpatient (AMB) | payer OTHER, SELFPAY ==
--- NOTE | 2025-09-02 14:29 | A.OFFVIS_ITS ---
Vital Signs 09/02/25 14:35 Height 5 ft 11 in Weight 259 lb 2 oz BMI 36.1 BP 120/66 Blood Pressure Location Rt brachial Position Sitting Pulse 79 Intake Visit Reasons: abnormal lfts, acute kash on imaing Intake Note: Patient presents for an assessment for abnormal Lft's, acute cholecystitis. Pt c/o; reports no postprandial nausea or vomiting, reports no RUQ pain. DI: 08/03/2025: Abd US, HIDA Scan Plant Assigner Required: No Accompanied by: Self / Same As Patient Allergies ibuprofen (IBUPROFEN) Allergy (Unknown, Verified 09/02/25 14:36) RASH morphine (MORPHINE) Allergy (Unknown, Verified 09/02/25 14:36) UNKNOWN moxifloxacin (MOXIFLOXACIN) Allergy (Unknown, Verified 09/02/25 14:36) UNKNOWN naproxen (Aleve) Allergy (Unknown, Verified 09/02/25 14:36) Rash penicillin V Allergy (Unknown, Verified 09/02/25 14:36) Rash Penicillins (PENICILLINS) Allergy (Unknown, Verified 09/02/25 14:36) RASH Sulfa (Sulfonamide Antibiotics) (SULFA(SULFONAMIDE ANTIBIOTICS)) Allergy (Unknown, Verified 09/02/25 14:36) RASH From ALEVE Allergy (Unknown, Uncoded 09/02/25 14:36) UNKNOWN From BENADRYL Allergy (Unknown, Uncoded 09/02/25 14:36) RASH Medication List - Last Reconciled 09/02/25 by Maikel Vaughn MD ascorbic acid (vitamin C) 500 mg PO BID flecainide 100 mg PO BID@0600,1800 gabapentin 300 mg PO BID levothyroxine (Synthroid) 175 mcg PO DAILY@0600 methenamine hippurate 1 g PO BID omeprazole 20 mg PO DAILY@0630 propranolol ER 80 mg PO DAILY HPI HPI abnormal lfts, acute kash on imaing: Details: She is here for follow-up after she was admitted to the hospital last month because of jaundice. This turned out to be secondary to cholestasis with Macrobid. She did not have cholecystitis on HIDA scan. She does have known gallstones She says that her LFTs have improved significantly. Her bilirubin is now down to 2.8 from a high of 8.1 She denies any abdominal pain. He has good oral intake. [facility] Medical History Gallstones Paroxysmal atrial fibrillation Persistent atrial fibrillation Atrial fibrillation with RVR Anxiety GERD (gastroesophageal reflux disease) Graves disease Surgical History H/O eye surgery History of ankle surgery S/P appy S/P thyroidectomy Social History Household Members: Spouse and Family Housing: House Do you presently have visiting nurse or other home services: No Alcohol intake: current Alcohol intake frequency: holidays/special occasions only Patient Tobacco Use Status: Never used Tobacco Substance Use Type: Marijuana Advance Directives Date on File: 12/02/23 service: No Review of Systems Const Denies chills and Denies fever(s) Card Denies chest pain, Denies dyspnea and Denies dyspnea on exertion Resp Denies cough, Denies dyspnea and Denies dyspnea on exertion GI Denies hematochezia and Denies change in bowel habits Denies hematuria Musc Denies back pain and Denies limited range of motion Neuro Denies focal weakness and Denies convulsions Psych Denies depression and Denies mood swings Physical Exam Vital Signs: Last Vital Signs Pulse 79 09/02/25 14:35 BP 120/66 09/02/25 14:35 BMI result Body Mass Index 36.1 Const General: comfortable and no acute distress Nutritional Appearance: obese Orientation/consciousness: patient oriented x3 Neck Neck: Yes no lymphadenopathy Resp Auscultation: clear to auscultation bilaterally Cardio Rhythm: regular rhythm GI Palpation (GI): Soft to palpation, nontender and no guarding Neuro General: patient oriented x3 Assessment & Plan Assessment & Plan (1) Jaundice: Code(s): R17 - Unspecified jaundice Category: Medical Plan: This was secondary to cholestasis from the intake of Macrobid. She is following Dr. Mosqueda for this. She is scheduled to see Dr. Mosqueda in November 2024 Her abdomen is soft and benign and she denies any abdominal pain She does says she is interested in having cholecystectomy at some point down the line because of her gallstones. We will see her early next year and we will schedule her for cholecystectomy. I advised her on the benefits of weight loss prior to that. Coding Level of Care Code Est Pt Level 3 (79785) Diagnoses Jaundice R17
[2025-09-02 14:35] VITALS: BP 120/66; PULSE 79; BMI 36.1
--- OUTSIDE RECORDS SUMMARY | 2025-09-02 18:12 | XMS_ITS | Patient Health Record ---
Author Organization [facility] Address [address] [place] [address] Care Team Providers Care Prison Officer Name Role Phone Mckay Huang MD Primary Care Provider Vinod Lance [phone] Results Component Value Reference Range Notes Erythrocyte Sedimentation Ra te Reviewed date:08/04/2025 05:20:12 PM Interpretation: Performing Lab:[address] [phone] Notes/Report: Erythrocyte Sedimentation Rate 22 0-20 MM/HR Patients with polycythemia and many hemoglobin abnormalities may have depressed sed rates whereas patients with anemia may have elevated sed rates. Prothrombin Time INR Reviewed date:08/04/2025 04:05:12 PM Interpretation: Performing Lab:[address] [phone] Notes/Report: Prothrombin Time 13.8 10.9-12.4 SEC INTERNATIONAL [...] Panel Reviewed date:08/04/2025 05:21:05 PM Interpretation: Performing Lab:[facility], [address] [place] [phone] Notes/Report: Bilirubin Total 10.1 0.0-1.0 mg/dL Mild Icteru s. Bilirubin Direct 6.9 0.0-0.5 mg/dL Mild Icter us. Aspartate Amino Transferase 724 5-31 U/L Alanine Aminotransferase 512 0-31 U/L Total Protein 7.1 6.5-8.0 g/dL Albumin Level 3.2 3.5-5.0 g/dL Alkaline Phosphatase 162 39-117 U/L IRON PROFILE Reviewed date:08/04/2025 05:20:56 PM Interpretation: Performing Lab:[facility], [address] [place] [phone] Notes/Report: Iron 251 30-160 mcg/dL Total Iron Binding Capacity 282 228-428 mcg/dL Percent Iron Saturation 89 15-50 % Unsaturated Iron Binding 31 Ferritin Reviewed date:08/04/2025 05:20:46 PM Interpretation: Performing Lab:[facility], [address] [place] [phone] Notes/Report: Ferritin 632 10-250 ng/mL Lactate Dehydrogenase Reviewed date:08/04/2025 05:20:39 PM Interpretation: Performing Lab:[facility], [address] [place] [phone] Notes/Report: Lactate Dehydrogenase 264 122-220 U/L C Reactive Protein Reviewed date:08/04/2025 05:20:25 PM Interpretation: Performing Lab:[facility], [address] [place] [phone] Notes/Report: C Reactive Protein 2.66 < or = 0.50 mg/dL Ceruloplasmin Reviewed date:08/05/2025 06:51:43 PM Interpretation: Performing Lab:[facility], [address] [place] [phone] Notes/Report: Ceruloplasmin 23 14-48 mg/dL THIS TEST WAS PERFORMED AT: [facility] [address] [place] [phone] EDI KENDALL MD Alpha 1 Anti-trypsin Reviewed date:08/05/2025 06:51:29 PM Interpretation: Performing Lab:[facility], [address] [place] [phone] Notes/Report: Alpha 1 Anti-trypsin 206 83-199 mg/dL THIS TEST WAS PERFORMED AT: [facility] [address] [place] [phone] EDI KENDALL MD JEOVANNY Reflex Titer and Pattern Reviewed date:08/08/2025 05:53:31 PM Interpretation: Performing Lab:[address] [address] Notes/Report: Anti Nuclear Antibody Screen NEGATIVE NEGATIVE [...] Negative International Consensus on JEOVANNY Patterns (https://doi.org/10.1515/ccl m-8749-4026) For additional information, please refer to http://education.[employer] Fred Rogers/faq/KKG273 (This link is being provided for informational/ educational purposes only.) THIS TEST WAS PERFORMED AT: [facility] [address] [place] [phone] EDI KENDALL MD Anti Nuclear Antibody Titer TNP Anti Nuclear Antibody Pattern TNP JEOVANNY Titer 2 TNP JEOVANNY Pattern 2 TNP JEOVANNY Titer 3 TNP JEOVANNY Pattern 3 TNP Mitochondrial Antibody Reviewed date:08/27/2025 01:18:11 AM Interpretation: Performing Lab:[address] [phone] Notes/Report: Mitochondrial Antibodies NEGATIVE NEGATIVE The immunofluorescence assay (IFA) procedure reveals the possible presence of another autoantibody. Consider requesting order code 263, Smooth Muscle Antibody with Reflex to Titer, if clinically indicated. Staining was observed suggesting the presence of Antinuclear Antibodies. Consider requesting order code 249, JEOVANNY Screen, IFA with Reflex to Titer and Pattern, or order code [id number], JEOVANNY Screen, IFA w/reflex Titer/Pattern, and Reflex to Multiplex 11 Ab [place], if clinically indicated. THIS TEST WAS PERFORMED AT: [facility] [address] [place] [phone] EDI KENDALL MD Mitochondrial Ab Titer TNP Smooth Muscle Antibody Reviewed date:08/27/2025 01:18:00 AM Interpretation: Performing Lab:[address] [place] [address] Notes/Report: Smooth Muscle Antibody 46 <20 U [...] type 1. THIS TEST WAS PERFORMED AT: [facility] ADEBAYO ERWIN MD,PHD Hepatitis A,B,C Profile Reviewed date:08/08/2025 05:53:51 PM Interpretation: Performing Lab:[address] [phone] Notes/Report: Hepatitis A Antibody IgM Nonreactive Nonreactive [...] ff Reviewed date:08/08/2025 05:52:59 PM Interpretation: Performing Lab:[facility], [address] [place] [phone] Notes/Report: White Blood Count 4.3 4.8-10.8 X10*3/uL [...] INR Reviewed date:08/08/2025 05:52:41 PM Interpretation: Performing Lab:[address] [address] Notes/Report: Prothrombin Time 14.1 10.9-12.4 SEC INTERNATIONAL [...] Panel Reviewed date:08/08/2025 05:52:19 PM Interpretation: Performing Lab:[address] [phone] Notes/Report: Bilirubin Total 8.1 0.0-1.0 mg/dL Mild Icteru s. Bilirubin Direct 5.9 0.0-0.5 mg/dL Mild Icter us. Aspartate Amino Transferase 618 5-31 U/L Alanine Aminotransferase 440 0-31 U/L Total Protein 6.2 6.5-8.0 g/dL Albumin Level 2.8 3.5-5.0 g/dL Alkaline Phosphatase 142 39-117 U/L Basic Metabolic Panel Fastin g Reviewed date:08/08/2025 05:52:05 PM Interpretation: Performing Lab:[facility], [address] [place] [phone] Notes/Report: Sodium 137 135-145 mmol/L Potassium 3.8 [...] Ammonia Reviewed date:08/08/2025 05:52:27 PM Interpretation: Performing Lab:[facility], [address] [place] [phone] Notes/Report: Ammonia 71 13-55 umol/L Liver Panel (Not yet reviewe d by provider) Interpretation: Performing Lab:[address] [address] Notes/Report: Bilirubin Total 6.8 0.0-1.0 mg/dL Mild Icteru s. Bilirubin Direct 5.0 0.0-0.5 mg/dL Mild Icter us. Aspartate Amino Transferase 628 5-31 U/L Alanine Aminotransferase 468 0-31 U/L Total Protein 7.5 6.5-8.0 g/dL Albumin Level 3.4 3.5-5.0 g/dL Alkaline Phosphatase 187 39-117 U/L Prothrombin Time INR Reviewed date:08/14/2025 09:11:51 PM Interpretation: Performing Lab:[facility], [address] [place] [phone] Notes/Report: Prothrombin Time 13.3 10.9-12.4 SEC INTERNATIONAL NORM RATIO 1.2 0.9-1.1 [...] valves: 2.5 - 3.5 Liver Panel Reviewed date:08/23/2025 11:24:36 PM Interpretation: Performing Lab:[facility], [address] [place] [phone] Notes/Report: Bilirubin Total 6.3 0.0-1.0 mg/dL Mild Icteru s. Bilirubin Direct 4.5 0.0-0.5 mg/dL Mild Icter us. Aspartate Amino Transferase 598 5-31 U/L Alanine Aminotransferase 427 0-31 U/L Total Protein 7.3 6.5-8.0 g/dL Albumin Level 3.5 3.5-5.0 g/dL Alkaline Phosphatase 172 39-117 U/L Prothrombin Time INR Reviewed date:08/27/2025 06:40:50 PM Interpretation: Performing Lab:[facility], [address] [place] [phone] Notes/Report: Prothrombin Time 12.7 10.9-12.4 SEC INTERNATIONAL NORM RATIO 1.1 0.9-1.1 INTERNATIONAL NORMALIZED RATIO (INR) REFERENCE RANGES [...] valves: 2.5 - 3.5 Liver Panel Reviewed date:08/30/2025 12:24:10 PM Interpretation: Performing Lab:[facility], [address] [place] [phone] Notes/Report: Bilirubin Total 2.8 0.0-1.0 mg/dL Slight Icte jazmine. Bilirubin Direct 1.8 0.0-0.5 mg/dL Slight Ict erus. Aspartate Amino Transferase 272 5-31 U/L Alanine Aminotransferase 263 0-31 U/L Total Protein 7.1 6.5-8.0 g/dL Albumin Level 3.4 3.5-5.0 g/dL Alkaline Phosphatase 145 39-117 U/L Reason For Referral No Information Problems Problem Type SNOMED Code ICD Code Onset Dates Problem Status W/U Status Risk Notes Problem Elevated liver enzymes level (247705466) Elevated liver function tests (R79.89) Active confirmed Problem Gallstones (223978581) Gallstones (K80.20) Active confirmed Problem Jaundice (61547503) Jaundice (R17) Active confirmed Problem Elevated liver enzymes level (298709527) Elevated liver function tests (R94.5) Active confirmed Encounters Encounter Location Date Provider Diagnosis [facility] [address] [place] [address] 08/05/2025 Vinod Mosqueda Elevated liver function tests R79.89 and Jaundice R17 [facility] [address] [place] [address] 08/17/2025 Vinod Mosqueda Elevated liver function tests R94.5 Assessments Encounter Date Diagnosis (ICD Code) Assessment Notes Treatment Notes Treatment Clinical Notes Section Notes 08/05/2025 Elevated liver function tests (ICD-10 - R79.89) 08/05/2025 Jaundice (ICD-10 - R17) 08/17/2025 Elevated liver function tests (ICD-10 - R94.5) Plan Of Treatment Pending Test Test Name Order Date LIVER PROFILE 08/05/2025 LIVER PROFILE 08/17/2025 Prothrombin Time INR 08/05/2025 Liver Panel 08/09/2025 Next Appt Details Provider Name:Vinod Mosqueda , 12/17/2025 02:00:00 PM, [address], [address], [place], [address], Insurance Providers Payer Name Payer Address Payer Phone Subscriber Number Group Number Insured Name Patient Relationship to Insured Coverage Start Date Coverage End Date [facility] [address] [address] [place], [place] [id number] DEMETRIS LYNCH Self - patient is the insured
--- OUTSIDE RECORDS SUMMARY | 2025-09-02 18:12 | XMS_ITS | Clinical Summary ---
Author Organization [facility] Address [address] [place] [id number] Phone Care Team Providers Care Spool Carrier Name Role Phone Mckay Huang MD Primary Care Provider + Social History Tobacco Use Types Packs/Day Years [...] 2022 INFLUENZA VACCINE (#1) 2025 COVID-19 VACCINE (2024-2 6 season) 2025 HEPATITIS A VACCINES Aged Out [...] topic Medical Devices Not on file Insurance [facility] Member Subscriber Plan / Payer (Ef fective 2023-Present) Name:Ann Anderson Relation to Subscriber:Self Name:Ann Anderson Payer ID:[id number] Group ID:[id number] Type:Medicaid Address: [address] [facility] Care Teams Spool Carrier Relationship Specialty Start Date End Date Mckay Huang MD [address] [place] [id number] PCP - General 07/19/23 Additional Source Comments The information contained in this document represents components of the legal health record. It is not the complete legal health record.[facility]
--- OUTSIDE RECORDS SUMMARY | 2025-09-02 18:13 | XMS_ITS | Data Portability ---
Author Organization [facility], [address] Address [address] [place] [address] Care Team Providers Care Molding Process Technician Name Role Phone [facility] Primary Care Provide r Assessment No assessment recorded. Plan of Treatment Reminders Order Date Submit Date Provider Last Modified By Organization Details Last Modified Time Details Appointments None recorded. Lab urinalysis, dipstick 2022 023 jose alejandro _[facility], [address] [place] [address], [phone], 3 08:35:47 test, urine [address] [place] [address], [address] [place] [address], [phone], 3 08:35:47 culture, urine 2022 023 [facility], [address] [place] [address], [place], [address], 3 10:06:11 Referral None recorded. Procedures None recorded. Surgeries None recorded. Imaging None recorded. Medication Orders cephalexin 500 mg capsule 2022 023 [email or web address] [id number], [id number] [facility], [place], [address], 09:10:47 Patient TargetsNo targets recorded. Patient Instructions Encounter Date Encounter Id Patient Instructions Last Modified By Organization Details Last Modified Time 01/12/2023 [id number] We recommend you get a repeat urinalysis in 2 weeks to ensure that any abnormalities have resolved. If urine abnormalities persist, you will likely need further testing or treatment. We will contact you within 3 to 5 days with the results of your lab test. If you have not heard back from us within that time frame, please feel free to contact our office regarding your results. Go to the Emergency Department immediately if your symptoms worsen or if you develop new symptoms that concern you. Drink plenty of fluids You should follow-up with your PCP in 4-5 days, or at any time if your condition does not improve or worsens. Any acute change should prompt a visit to the nearest Emergency Department. [email or web address] Not available 01/12/2023 08:35:41 Reason for Referral None Reported. Results Created Date Observation Date Name Description Value Unit Range Abnormal Flag Note LastModifiedBy Organization Detail LastModifiedTime 01/12/2001/14/2023 URINE CULTU RE, ROUTI NE urine culture, routine FINAL REPORT Not Available [facility] ([facility]) [address] [place], [address], 01/14/2023 10:06:11 01/12/20 23 01/14/2023 URINE CULTU RE, ROUTI NE result 1 COMMEN T Cultu re shows less than 10,00 0 colon y formi ng units of bacte adalgisa per lon liter of urine . This colon y count is not gener ally consi dered to be clini tyson signi fican t. Not Available [facility] ([facility]) [address] [place], [address], 01/14/2023 10:06:11 01/12/20 23 01/12/2023 pregn sylvester test, urine Unknown Analyte Normal = Negati ve Not Available _vance barreto [address], [address], 01/12/2023 08:10:58 01/12/20 23 01/12/2023 pregn sylvester test, urine Unknown Analyte negati ve Not Available vance [address] [place], [address], 01/12/2023 08:10:58 01/12/20 23 01/12/2023 urina lysis , dipst ick Unknown Analyte Normal = light yellow Not Available 20[address] bar[address], [place], [address], 01/12/2023 08:10:58 01/12/2001/12/2023 urina lysis , dipst ick Unknown Analyte Normal = clear Not Available [facility] [address], [place], [address], 01/12/2023 08:10:58 01/12/20 23 01/12/2023 urina lysis , dipst ick Unknown Analyte Normal = negati ve Not Available [facility] [address], [place], [address], 01/12/2023 08:10:58 01/12/20 23 01/12/2023 urina lysis , dipst ick Unknown Analyte Normal = Negati ve Not Available [address]vance [address], [place], [address], 01/12/2023 08:10:58 01/12/20 23 01/12/2023 urina lysis , dipst ick Unknown Analyte Normal = Negati ve Not Available vance barreto [address], [place], [address], 01/12/2023 08:10:58 01/12/20 23 01/12/2023 urina lysis , dipst ick Unknown Analyte Normal = 1.010, 1.015, 1.020 Not Available [address]99vance barre[address], [place], [address], 01/12/2023 08:10:58 01/12/20 23 01/12/2023 urina lysis , dipst ick Unknown Analyte Normal = Negati ve Not Available vance [address], [place], [place], [address], 01/12/2023 08:10:58 01/12/20 23 01/12/2023 urina lysis , dipst ick Unknown Analyte Normal = 6.5, 7.0, 7.5, 8.0 Not Available [facility] [address], [place], [address], 01/12/2023 08:10:58 01/12/2001/12/2023 urina lysis , dipst ick Unknown Analyte Normal = Negati ve Not Available [facility] [address], [place], [address], 01/12/2023 08:10:58 01/12/20 23 01/12/2023 urina lysis , dipst ick Unknown Analyte Normal = Negati ve Not Available [facility] [address], [place], [address], 01/12/2023 08:10:58 01/12/20 23 01/12/2023 urina lysis , dipst ick Unknown Analyte Normal = 0.2, 1.0 Not Available [facility] [address], [place], [address], 01/12/2023 08:10:58 01/12/20 23 01/12/2023 urina lysis , dipst ick Unknown Analyte Normal = Negati ve Not Available [facility] [address], [place], [address], 01/12/2023 08:10:58 01/12/20 23 01/12/2023 urina lysis , dipst ick Unknown Analyte Yellow Not Available [address] [place] [address], [place], [address], 01/12/2023 08:10:58 01/12/20 23 01/12/2023 urina lysis , dipst ick Unknown Analyte Slight ly Cloudy Not Available vance barreto [address], [place], [address], 01/12/2023 08:10:58 01/12/20 23 01/12/2023 urina lysis , dipst ick Unknown Analyte Negati ve Not Available vance barreto [address], [place], [address], 01/12/2023 08:10:58 01/12/20 23 01/12/2023 urina lysis , dipst ick Unknown Analyte Negati ve Not Available vance barreto [address], [place], [address], 01/12/2023 08:10:58 01/12/20 23 01/12/2023 urina lysis , dipst ick Unknown Analyte Negati ve Not Available vance barreto [address], [place], [address], 01/12/2023 08:10:58 01/12/20 23 01/12/2023 urina lysis , dipst ick Unknown Analyte 1.020 Not Available jimmy [address], [place], [address], 01/12/2023 08:10:58 01/12/20 23 01/12/2023 urina lysis , dipst ick Unknown Analyte Trace- intact Not Available vance barreto [address], [place], [address], 01/12/2023 08:10:58 01/12/20 23 01/12/2023 urina lysis , dipst ick Unknown Analyte 6.5 Not Available [facility] [address], [place], [address], 01/12/2023 08:10:58 01/12/2001/12/2023 urina lysis , dipst ick Unknown Analyte Negati ve Not [facility] [address] [place], [address], 01/12/2023 08:10:58 01/12/2001/12/2023 urina lysis , dipst ick Unknown Analyte 0.2 E.U./d L Not Available [facility] [address] [place], [address], 01/12/2023 08:10:58 01/12/2001/12/2023 urina lysis , dipst ick Unknown Analyte Negati ve Not [facility] [address] [place], [address], 01/12/2023 08:10:58 01/12/2001/12/2023 urina lysis , dipst ick Unknown Analyte Trace Not Available [facility] jimmy [address] [place], [address], 01/12/2023 08:10:58 Result Notes None recorded. Problems Name Problem SNOMED Code Status Onset Date Resolution Date Notes Provider Name and Address Organization Details Recorded Time Graves' disease 102083547 Active 2022 RAINER ISAAC null, PA - [facility] 3 08:14:40 Anxiety 62184560 Active 2022 RAINER ISAAC null, PA - [facility] 3 08:14:48 Gastroesophage al reflux disease 221017973 Active 2022 RAINER ISAAC null, PA - [facility] 3 08:14:55 Problem Notes None recorded. Medical Equipment None Reported. Allergies Allergen ID Allergen Name Allergen Category Reaction Reaction Severity Criticality Documentation Date Start Date Code Code System Note Provider Name and Address Organization Details Recorded Time amoxicill in medicatio n Not available Not available Not available 01/12/2023 723 RxNorm RAINER ISAAC null, PA - [facility] 3 08:12:32 [id number] Substance with sulfonami de structure and antibacte rial mechanism of action (substanc e) medicatio n hives Not available Not available 01/12/2023 54451 8003 SNOMED RAINER ISAAC null, PA - [facility] 3 08:12:43 690708 morphine medicatio n Not available Not available Not available 01/12/2023 7052 RxNorm ARINER ISAAC null, PA - [facility] 3 08:12:53 614508 Product containin g penicilli n (product) medicatio n Not available Not available Not available 01/12/2023 28610 8001 SNOMED RAINER ISAAC null, PA - [facility] 3 08:13:56 983187 Cipro medicatio n Not available Not available Not available 01/12/2023 67750 3 RxNorm RAINER ISAAC null, PA - [facility] 3 08:14:05 829573 naproxen medicatio n Not available Not available Not available 01/12/2023 7258 RxNorm RAINER ISAAC null, PA - [facility] 3 08:14:10 069720 Macrobid medicatio n Not available Not available Not available 01/12/2023 19328 1 RxNorm RAINER ISAAC null, PA - [facility] 3 08:14:16 893070 doxycycli ne Not available Not available Not available Not available 01/12/2023 3640 RxNorm RAINER ISAAC null, PA - [facility] 3 08:14:25 Medications Name Sig Start Date Stop Date Status Note LastModified by Organization Details LastModified Time levothyroxi ne 175 mcg tablet TAKE 1 TABLET BY MOUTH EVERY DAY active Not Available Not Available No t Available venlafaxine ER 37.5 mg capsule,ext ended release 24 hr TAKE 1 CAPSULE BY MOUTH EVERY DAY 01/12 completed Not Available Not Available Not Available fluconazole 150 mg tablet TAKE 1 TABLET BY MOUTH ONCE DIRECTED 01/12 completed Not Available Not Available Not Available ondansetron 8 mg disintegrat ing tablet TAKE 1 TABLET BY MOUTH EVERY 8 HOURS NEEDED FOR NAUSEA FOR UP TO 7 DAYS. 01/12 completed Not Available Not Available Not Available lorazepam 0.5 mg tablet active Not Available Not Available Not Available cephalexin 500 mg capsule Take 1 capsule every 8 hours by oral route with meals for 7 days. 2022 active Not Available Not Available Not Avai lable polymyxin B sulfate 10,000 unit-trimet hoprim 1 mg/mL eye drops PLACE 1 DROP INTO BOTH EYES EVERY 4 HOURS FOR 7 DAYS. 01/12 completed Not Available Not Available Not Available omeprazole 20 mg capsule,del ayed release TAKE 1 CAPSULE BY MOUTH TWICE A DAY active Not Available Not Available No t Available levothyroxi ne 200 mcg tablet TAKE 1 TABLET BY MOUTH DAILY. TAKE 1.5 TABLETS ON SATURDAY active Not Available Not Available No t Available propranolol 20 mg tablet TAKE 1 TABLET BY MOUTH TWICE A DAY active Not Available Not Available No t Available fluticasone propionate 50 mcg/actuati on nasal spray,suspe nsion active Not Available Not Available Not Available Vitals Date Recorded Body height Body mass index (BMI) Body weight Oxygen saturation Oxygen saturation in Arterial blood by Pulse oximetry Heart rate Respiratory rate Body temperature Systolic And Diastolic Provider Name and Address Organization Details Last Updated DateTime 3 180.34 cm 34.2 kg/m2 087520. 13 g 99 % 99 % 96 /min 16 /min 97.6 [degF] 135/101 mm[Hg] RAINER GRAY PA - [facility] 3 08:19:11 Social History None recorded. Functional Status None recorded. Mental Status None recorded. Family History Relationship Description Onset Age of this Age Resolved Age Notes LastModified by Organization Details LastModified Time Father Malignant neoplasm of lung [email or web address] Not available 2022 08:15:42 Medical History No medical history recorded. Gynecological History Statement/Question Response Date of LMP 01/03/2023 Obstetrics History GPAL:G 0 P 0 0 0 0 Immunizations Vaccine Type Date Status Note Provider Nam e and Address Organization Details Recorded Time Influenza, MDCK, quadrivalent, PF 2 completed RAINER ISAAC null, PA - [facility] 01/12/2023 08:12:07 COVID-19, mRNA, LNP-S, PF, 100 mcg/0.5mL dose or 50 mcg/0.25mL dose 1 completed RAINER ISAAC null, PA - [facility] 01/12/2023 08:12:07 COVID-19 vaccine, vector-nr, rS-Ad26, PF, 0.5 mL 1 completed RAINER ISAAC null, PA - [facility] 01/12/2023 08:12:07 COVID-19, mRNA, LNP-S, bivalent, PF, 50 mcg/0.5 mL or 25mcg/0.25 mL dose 2 completed RAINER ISAAC null, PA - [facility] 01/12/2023 08:12:07 Tdap 9 completed RAINER ISAAC null, PA - [facility] 01/12/2023 08:12:07 HPV, quadrivalent 7 completed RAINER ISAAC null, PA - [facility] 01/12/2023 08:12:07 HPV, quadrivalent 7 completed RAINER ISAAC null, PA - [facility] 01/12/2023 08:12:07 Influenza, split virus, quadrivalent, PF 2 completed RAINER ISAAC null, PA - [facility] 01/12/2023 08:12:07 Past Encounters Encounter ID Performer Location Encounter Start Date Encounter Closed Date Diagnosis/Indication Diagnosis SNOMED-CT Code Diagnosis ICD10 Code Diagnosis IMO Codes Diagnosis Note [id number] [facility] [address] 02/23/2022 17:04:40 02/23/2022 19:07:48 [id number] [facility] [address] [address] 03/21/2021 09:16:37 03/21/2021 11:21:10 [id number] John Cook [place] [address] [facility] [place] [address] 01/12/2023 08:06:02 01/12/2023 08:46:40 Acute urinary tract infection 430727556 N39.0 Allergic to all antibiotic s except keflex per patient. Health Concerns Section Related Observation LastModified by Organization Detai ls LastModified Time None Recorded Concern Status LastModified by Organization Details LastModified Time None Recorded Advance Directives Directive None Recorded Payers Insurance Date Sequence Insurance Name Policy Number Policy Hogan Covered Member ID Hogan Member ID Guarantor Name 01/12/2023 1 [facility] - [facility] (MEDICAID REPLACEMENT - HMO) TERRELL Samchinedu Anderson [id number] Ann Anderson Notes Date Note Type Note Provider Name and Address Organization Details Recorded Time 01/12/2023 text/html Urinary Complain t FemaleReported by PatientUrinary problemsFor source of patient information, patient reportsinformation obtained from patientandpatient arrived at urgent care ambulatory. For uti symptoms, patient reportsno blood in the urine,no pain during urination,no vaginal discharge,no urgency,no pain in the flank,no fever/chills,no incontinence,no recurrent uti, andno known exposure to std.frequency and urgency x 1 day. denies any fever or fever with chills, denies any History of renal stone or bladder issues. frequency and urgency x 1 day. denies any fever or fever with chills, denies any History of renal stone or bladder issues. John Cook NP [address] [place], [address], PA - [facility] 01/12/2023 09:11:09 OBGyn Episode No OBEpisode recorded.
== END 2025-09-02 14:47 | disposition home or self-care (01) ==
LOC: HO.HGS 14:25
PROVIDERS: PCP Internal Medicine; Visit Provider Surgery
DX: R17 Unspecified jaundice (principal)
CPT/HCPCS: 99213

== ENCOUNTER → 2025-09-02 14:25 | Outpatient (BNVA) | payer OTHER, SELFPAY | PROVIDERS: PCP Internal Medicine; Visit Provider Surgery | DX: I48.0 Paroxysmal atrial fibrillation (principal); R17 Unspecified jaundice | CPT/HCPCS: 93005; 99212 ==

== ENCOUNTER 2025-09-02 14:44 | Outpatient (AMB) | payer OTHER, SELFPAY ==
--- NOTE | 2025-09-02 14:54 | MHC.OFFVIS ---
Vital Signs 09/02/25 14:55 Height 5 ft 11 in Weight 257 lb 15.053 oz BMI 36.0 BP 120/66 Blood Pressure Location Rt brachial Position Sitting Pulse 71 Intake Visit Reasons: 1 yr follow up Intake Note: 1 year follow-up with ekg Air Hoist Operator Required: No Allergies ibuprofen (IBUPROFEN) Allergy (Unknown, Verified 09/02/25 14:36) RASH morphine (MORPHINE) Allergy (Unknown, Verified 09/02/25 14:36) UNKNOWN moxifloxacin (MOXIFLOXACIN) Allergy (Unknown, Verified 09/02/25 14:36) UNKNOWN naproxen (Aleve) Allergy (Unknown, Verified 09/02/25 14:36) Rash penicillin V Allergy (Unknown, Verified 09/02/25 14:36) Rash Penicillins (PENICILLINS) Allergy (Unknown, Verified 09/02/25 14:36) RASH Sulfa (Sulfonamide Antibiotics) (SULFA(SULFONAMIDE ANTIBIOTICS)) Allergy (Unknown, Verified 09/02/25 14:36) RASH From ALEVE Allergy (Unknown, Uncoded 09/02/25 14:36) UNKNOWN From BENADRYL Allergy (Unknown, Uncoded 09/02/25 14:36) RASH Medication List - Last Reconciled 09/02/25 by Daniel Bland MD flecainide 100 mg PO BID@0600,1800 gabapentin 300 mg PO BID levothyroxine (Synthroid) 175 mcg PO DAILY@0600 omeprazole 20 mg PO DAILY@0630 propranolol ER 80 mg PO DAILY HPI Comments Details: Ann comes for follow-up. She has not had any cardiac issues. Denies heartbeat or prolonged palpitation similar to atrial fibrillation. Taking all her medications. She recently developed noncardiac issues with UTI subsequently developed jaundice x2 suspected to be related to antibiotics. She had also noted to have gallstones and plan to undergo gallbladder surgery in the future. She has not had any issues with cardiac meds. Denies any worsening shortness of breath, orthopnea, PND. [facility] Medical History Gallstones Paroxysmal atrial fibrillation Persistent atrial fibrillation Atrial fibrillation with RVR Anxiety GERD (gastroesophageal reflux disease) Graves disease Surgical History H/O eye surgery History of ankle surgery S/P appy S/P thyroidectomy Social History Household Members: Spouse and Family Housing: House Do you presently have visiting nurse or other home services: No Alcohol intake: current Alcohol intake frequency: holidays/special occasions only Patient Tobacco Use Status: Never used Tobacco Substance Use Type: Marijuana Advance Directives Date on File: 12/02/23 service: No Review of Systems Const Denies chills, Denies fatigue, Denies fever(s), Denies frequent falls, Denies weakness, Denies weight gain and Denies weight loss ENT Denies dizziness Card Denies chest pain, Denies leg edema, Denies lightheadedness, Denies palpitations, Denies dyspnea, Denies dyspnea on exertion, Denies orthopnea and Denies other (loss of consciousness) Resp Denies cough, Denies dyspnea and Denies dyspnea on exertion GI Denies hematochezia and Denies change in stool character Musc Denies abnormal gait, Denies muscle weakness, Denies numbness, Denies radiating pain into limb and Denies tingling Neuro Denies abnormal gait, Denies dizziness, Denies frequent falls, Denies numbness, Denies tingling and Denies weakness Endo Denies fatigue and Denies palpitations Physical Exam Vital Signs: Last Vital Signs Pulse 71 09/02/25 14:55 BP 120/66 09/02/25 14:55 BMI result Body Mass Index 36.0 Const General: cooperative, comfortable, no acute distress, alert, awake and Physically active Nutritional Appearance: obese Orientation/consciousness: patient oriented x3 Neck Neck: Yes trachea midline, Yes supple and Yes no JVD Resp Effort & Inspection: normal respiratory effort Auscultation: clear to auscultation bilaterally Cardio Jugular venous distension: no JVD Palpation: normal PMI Rate: regular rate Rhythm: regular rhythm Heart sounds: S1 normal heart sound present, S2 normal heart sound present, no click, no gallops, no murmurs and no rubs GI Auscultation: normal bowel sounds Skin General skin exam: no rashes or lesions noted Neuro General: patient oriented x3 and no focal motor deficits Extrem General: Yes no clubbing, cyanosis or edema Office Procedures EKG Details: EKGs shows normal sinus rhythm with low-voltage QRS with isolated Q-wave in lead 3 most likely pseudo infarct pattern from body habitus [id number], Complete Assessment & Plan Assessment & Plan (1) Paroxysmal atrial fibrillation: Code(s): I48.0 - Paroxysmal atrial fibrillation Category: Medical Plan: Highly symptomatic paroxysmal atrial fibrillation this young woman has done well with rhythm control approach. Continue current therapy with flecainide and propranolol which she has tolerated well. Importance of continued medical therapy was discussed. No indication for antiarrhythmic drug therapy. Avoidance of stimulants was discussed. Stress mitigation strategies were discussed. Continue participate in aggressive weight loss program and regular physical activity. Follow up in the clinic in 1 year's time after an echocardiogram. Will need EKGs every 6 months. Orders: Orders CA echo transthoracic complete 1 Year I48.0 - Paroxysmal atrial fibrillation Coding Level of Care Code Est Pt Level 4 (73066) Complex EM visit Add On G2211 Diagnoses Paroxysmal atrial fibrillation I48.0 CPT Codes EKG - CPT: 71904-[id number], Complete ([id number])
[2025-09-02 14:55] VITALS: BP 120/66; PULSE 71; BMI 36.0
== END 2025-09-02 15:39 | disposition home or self-care (01) ==
LOC: HO.HCS 14:44
PROVIDERS: PCP Internal Medicine; Visit Provider Internal Medicine Cardiovascular Disease
DX: I48.0 Paroxysmal atrial fibrillation (principal)
CPT/HCPCS: 93010; 99214

== ENCOUNTER 2025-09-11 07:49 | Outpatient (REF) | payer OTHER, SELFPAY ==
--- OUTSIDE RECORDS SUMMARY | 2025-09-11 07:53 | XMS_ITS | Clinical Summary ---
Author Organization [address] Address [address] [place] [address] Phone Care Team Providers Care Mystery Shopper Name Role Phone Mckay Huang MD Primary Care Provider [phone] Allergies Active Allergy Reactions Criticality Noted Date Comments Anti-Itch 02/15/2009 Other Reaction(s): OTHER Chest pain Ciprofloxacin Itching Medium 05/28/2016 See office note 05/28/2016 Doxycycline 10/26/2015 Ibuprofen 03/08/2007 Other Reaction(s): Rash/Dermatitis Cephalexin Rash 03/24/2025 Morphine 12/25/2005 Morphine Sulfate-Nacl Other Reaction(s): Rash/Dermatitis Naproxen Sodium 03/08/2007 Other Reaction(s): Rash/Dermatitis Nitrofurantoin Monohyd/M-Cryst High 04/16/2018 Drug induced hepatitis Other 04/12/2016 Seasonal Allergies Penicillins 12/25/2005 Other Reaction(s): Rash/Dermatitis HAS TAKEN KEFLEX IN THE PAST AND TOLERATED IT HOWEVER WILL USE LAST RESORT Sertraline Itching 2015 Sulfa (Sulfonamide Antibiotics) 12/25/2005 Other Reaction(s): Rash/Dermatitis Medications propranolol LA (INDERAL LA) 80 mg 24 hr capsule 4 Active cholecalciferol (VITAMIN D-3) 50 mcg (2,000 unit) [...] if still symptomatic. 2 tablet 5 Active Synthroid 175 mcg tablet Take 1 tablet (175 mcg total) by mouth 1 (one) time each day. Please do not dispense generic pt has allergy 90 tablet 1 5 04/22/20 26 Active gabapentin (NEURONTIN) 300 mg capsule TAKE 1 CAPSULE (300 MG TOTAL) BY MOUTH 2 TIMES A DAY. 180 capsule 1 5 Active omeprazole (PriLOSEC) [address] capsule TAKE 1 CAPSULE (20 MG TOTAL) BY MOUTH 1 (ONE) TIME EACH DAY BEFORE BREAKFAST. 90 capsule 1 5 Active nitrofurantoin, macrocrystal-mo nohydrate, (MACROBID) 100 mg capsule Take by mouth 2 (two) times a day. Active cefuroxime (CEFTIN) 500 mg tablet Take 1 tablet (500 mg total) by mouth 2 (two) times a day for 7 days. 14 each 5 09/16/20 25 Active Active Problems Problem Noted Date Diagnosed Date Recurrent UTI 10/02/2024 Severe obesity (BMI 35.0-35. 9 with comorbidity) (CMS/[facility] V24, [facility] V28) 10/02/2024 GERD (gastroesophageal reflux disease) Neuralgia, post-herpetic 09/12/2024 Overview (10/02/2024): 12/22/23: Left forehead/eye, now on gabapentin Paroxysmal atrial fibrillation ([facility] V24, [facility] /[facility] V28) 09/12/2024 Overview (10/02/2024): Dr. Bland at [facility] Post-operative hypothyroidism 2024 Graves' disease 01/12/2023 COVID-19 virus infection 12/23/2020 Overview (10/02/2024): 12/21/20 Mixed hyperlipidemia 01/08/2020 Anxiety 08/29/2016 Cardiac murmur 10/24/2010 Overview (10/02/2024): Cardiac echo and stress test fall 2009 Holter monitor Graves' disease with exophthalmos 01/20/2008 Overview (10/02/2024): S/p 2006 - Dr. 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 Thyroid antibodies done 12/2010 Elevated thyroid antibodies 01/2011 Maternal consult Resolved Problems Problem Noted Date Diagnosed Date Resolved Date Vaginal odor 11/19/2024 01/19/2025 Bacterial vaginosis 11/19/2024 01/20/20 25 Encounters Date Type Department Care Team Description 09/09/2025 Results Follow-Up Adult Medicine [address] [phone] Mckay Huang MD 09/03/2025 Results Follow-Up Adult Medicine [address] [phone] Mckay Huang MD 09/02/2025 10:30 AM EDT Office Visit Adult Medicine [address] [phone] Mckay Huang MD Pyelonephritis (Primary Dx); Need for prophylactic vaccination and inoculation against influenza; Recurrent UTI; Drug-induced hepatitis; Calculus of gallbladder with cholecystitis without biliary obstruction, unspecified cholecystitis acuity 09/02/2025 Results Follow-Up [address] [phone] Mckay Huang MD 08/02/2025 Nurse Triage [address] [phone] Mckay Huang MD 07/23/2025 2:30 PM EDT Office Visit [address] [phone] Jyoti Espinosa PA Orgasmic headache (Primary Dx); Nausea 07/16/2025 Lab Requisition [facility] - Main Lab [address] [place] [phone] Sivan Kasper MD Dysuria from Last 3 Months Immunizations Immunization Administration Dates Next Due HPV, Quadrivalent 05/05/2007,01/06/2007 [...] .5mL, preservative free (Flucelvax) 6mo and older 09/02/2025,08/01/2024 Moderna (age 6mo & older) Bi valent, COVID-19, 0.5 mL or 0.25 mL dosage 11/17/2022 Tdap Tetanus diptheria acell ular pertussis (Boostrix; Adacel) 7yo and older 09/04/2023,02/15/2009 Surgical History Surgery Date Site/Laterality Comments OTHER SURGICAL HISTORY 12/2008 PROCEDURE: HISTORICAL SUBTOTAL THYROIDECTOMY ANKLE SURGERY PROCEDURE: HISTORICAL ANKLE SURGERY; COMMENT: ankle fracture 2012 APPENDECTOMY age 5 PROCEDURE: HISTORICAL APPENDECTOMY VAGINOSCOPY 2004 PROCEDURE: UT COLPOSCOPY CERVIX BX CERVIX & ENDOCRV CURRETAGE [...] do you feel lonely or isolated from ose around you? Never 11/12/2024 Food Risk [...] for your loved ones. For example, child welfare manager or elderly care for an older adult? [...] Date Recorded What is your living situation? Unrecognized valu e 11/12/2024 Comments No Sex and Gender Information Value [...] Livin g Robert Graf in-Spr att Delivery Location:[facility] Comments:A&W 8 Term 38w 0d 3260 g (115 oz) F Vag-S pont Livin g Delivery Location:[facility] 2010 Term 40w 6d 3997 g (141 oz) M Vag-S pont Epidur al Livin g 7 9 [place] [facility] Delivery Location:[facility] Comments:A&W Last Filed Vital Signs Vital Sign Reading Time Taken Comments Blood Pressure 114/78 09/02/2025 10:25 AM EDT Pulse 78 09/02/2025 10:25 AM EDT Temperature 36.6 C (97.8 F) 09/02/2025 10:25 AM EDT Respiratory Rate 14 09/02/2025 10:25 AM EDT Oxygen Saturation 98% 09/02/2025 10:25 AM EDT Inhaled Oxygen Concentration - - Weight 117 kg (257 lb) 09/02/2025 10:25 AM EDT Height 180.3 cm (5' 11 ) 09/02/2025 10:25 AM EDT Body Mass Index 35.84 09/02/2025 10:25 AM EDT Plan of Treatment Upcoming Encounters Date Type Department Care Team (Late st Contact Info) Description 10/13/2025 11:20 AM EST Appointment Radiology Department - [address] [phone] 10/13/2025 4:00 PM EST Office Visit Adult Medicine [address] [phone] Megan Borrero PA [address] [place] [address] Health Maintenance Due Date Last Done Comments Hepatitis B Vaccines (1 of 3 - 19+ 3-dose series) 2001 HPV Vaccines (3 - 3-dose series) 07/28/2007 05/05/2007, 01/06/2007 Hepatitis C Screening 10/27/2022 COVID-19 Vaccine ( season) 2025 11/17/2022, 09/18/2021, 02/23/2021 Social Influencers of Health Screening 11/12/2025 11/12/2024 Breast Cancer Screening 09/11/2026 09/11/20 24, 09/11/2024, 03/09/2024, Additional history exists Cholesterol Screening (Lipid Panel) 08/14/2027 08/14/2022 Cervical Cancer Screening: HPV 09/03/2028 09/03/2023 DTaP,Tdap,and Td Vaccines (3 - Td or Tdap) 09/04/2033 09/04/2023, 02/15/2009 RSV Immunization Adult Patients (1 - 1-dose 75+ series) 2057 HIV Screening Completed 10/23/2010 Depression Screening Completed 03/23/2025 Influenza Vaccine Completed 09/02/2025, , 08/01/2024, Additional history exists HIB Vaccines Aged Out [...] Procedure Name Priority Date/Time Associated Diagnosis Comments WALKER URINE CULTURE TUBE Routine 09/07/2025 3:04 PM EDT Recurrent UTI Cloudy urine URINALYSIS WITH REFLEX MICROSCOPIC AND CULTURE Routine 09/07/2025 3:04 PM EDT Recurrent UTI Cloudy urine URINALYSIS WITH REFLEX MICROSCOPIC AND CULTURE Routine 09/07/2025 3:04 PM EDT Recurrent UTI Cloudy urine CULTURE URINE Routine 09/07/2025 3:04 PM EDT Recurrent UTI Cloudy urine URINALYSIS WITH REFLEX MICROSCOPIC Routine 09/02/2025 11:26 AM EDT Recurrent UTI URINALYSIS WITH REFLEX MICROSCOPIC Routine 09/02/2025 11:26 AM EDT Recurrent UTI CULTURE URINE Routine 09/02/2025 11:26 AM EDT Recurrent UTI EXTERNAL CLINICAL LAB 08/27/2025 URINALYSIS WITH REFLEX MICROSCOPIC Routine 07/16/2025 11:40 AM EDT Dysuria URINALYSIS WITH REFLEX MICROSCOPIC Routine 07/16/2025 11:40 AM EDT Dysuria CULTURE URINE Routine 07/16/2025 11:40 AM EDT Dysuria DIAGNOSTIC MAMMOGRAPHY WITH CAD UNILATERAL Routine 09/11/2024 3:33 PM EDT Other abnormal and inconclusive findings on diagnostic imaging of breast HM HPV Routine 09/03/2023 LIPID PANEL Routine 08/14/2022 HIV SCREENING Routine 10/23/2010 from Last 3 Months or Most Recently Relevant to Health Maintenance Results * (ABNORMAL) Urinalysis with reflex microscopic and culture (09/07/2025 3:04 PM EDT) Specific [place] Urine 1.021 1.003 - 1.030 LAB URINALYSIS - AUTOMATED METHOD 09/07/2025 5:51 PM EDT [facility] pH, Urine 7.0 5.0 - 8.0 pH LAB URINALYSIS - AUTOMATED METHOD 09/07/2025 5:51 PM EDT [facility] Leukocytes, Urine Moderate(A) Negative LAB URINALYSIS - AUTOMATED METHOD 09/07/2025 5:51 PM T [facility] Nitrite, Urine Negative Negative LAB URINALYSIS - AUTOMATED METHOD 09/07/2025 5:51 PM EDT [facility] Protein, Urine 30(A) <=Trace mg/dL LAB URINALYSIS - AUTOMATED METHOD 09/07/2025 5:51 PM [facility] Glucose, Urine Negative Negative mg/dL LAB URINALYSIS - AUTOMATED METHOD 09/07/2025 5:51 PM [facility] Ketones, Urine Negative Negative mg/dL LAB URINALYSIS - AUTOMATED METHOD 09/07/2025 5:51 PM [facility] Urobilinogen , Urine 1.0 0.2 - 1.0 mg/dL LAB URINALYSIS - AUTOMATED METHOD 09/07/2025 5:51 PM [facility] Bilirubin, Urine Small(A) Negative LAB URINALYSIS - AUTOMATED METHOD 09/07/2025 5:51 PM [facility] Blood, Urine Large(A) Negative LAB URINALYSIS - AUTOMATED METHOD 09/07/2025 5:51 PM [facility] RBC, Urine 40.0(H) 0 - 4 /HPF LAB URINALYSIS - AUTOMATED METHOD 09/07/2025 5:51 PM [facility] WBC, Urine 10.0(H) 0 - 4 /HPF LAB URINALYSIS - AUTOMATED METHOD 09/07/2025 5:51 PM [facility] Squamous Epithelial, Urine 80(H) 0 - 60 /LPF LAB URINALYSIS - AUTOMATED METHOD 09/07/2025 5:51 PM [facility] Crystals, Urine Moderate Amorphous Phosphate crystals. /LPF LAB URINALYSIS - AUTOMATED METHOD 09/07/2025 5:51 PM [facility] Bacteria, Urine Many(A) Negative /HPF LAB URINALYSIS - AUTOMATED METHOD 09/07/2025 5:51 PM [facility] Hyaline Casts, Urine 1.6 0 - 3 /LPF LAB URINALYSIS - AUTOMATED METHOD 09/07/2025 5:51 PM [facility] Urine Urine specimen obtained by clean catch procedure / Unknown Non-blood Collection / Unknown 09/07/2025 3:04 PM EDT 09/07/2025 3:04 PM EDT us Mckay Huang MD LAB URINE ORDERABLES Final Resu lt Performing Organization Address [facility]/ZIP Co de Phone Number [facility] [address] [place] [address], [place] [phone] * Walker urine culture tube (09/07/2025 3:04 PM EDT) Extra Tube Hold for add-ons. 09/07/2025 5:01 PM EDT [facility] Comment:Auto resulted. Urine Urine specimen obtained by clean catch procedure / Unknown Non-blood Collection / Unknown 09/07/2025 3:04 PM EDT 09/07/2025 3:04 PM EDT us Mckay Huang MD LAB URINE ORDERABLES Final Resu lt Performing Organization Address [facility] de Phone Number [facility] [address] [place] [address], [place] [phone] * (ABNORMAL) Culture urine (09/07/2025 3:04 PM EDT) Only the most recent of3 resultswithin the time period is included. Culture, Urine >=100,000 CFU/mL Streptococcus beta-hemolytic Group B(A) 09/08/2025 2:11 PM EDT [facility] Comment: Beta Streptococcus Group B Susceptibility testing is not routinely performed since this organism is predictably sensitive to Penicillin. Susceptibility testing should be performed for Penicillin-allergic women at HIGH RISK for anaphylaxis. Cirilo dalal this patient require testing, please contact the Microbiology Department at [phone] within 7 days of receiving this report to request susceptibility. Urine Urine specimen obtained by clean catch procedure / Unknown Non-blood Collection / Unknown 09/07/2025 3:04 PM EDT 09/07/2025 5:51 PM EDT Narrative [facility] - 09/08/2025 2:11 PM EDT Additional colony types present in insignificant amounts. us Mckay Huang MD LAB MICROBIOLOGY - GENERAL MICHELE RILEY Final Result [facility] [address] [place] [address], * (ABNORMAL) Urinalysis with reflex microscopic (09/02/2025 11:26 AM EDT) Only the most recent of2 resultswithin the time period is included. Specific [place] Urine 1.017 1.003 - 1.030 LAB URINALYSIS - AUTOMATED METHOD 09/02/2025 2:10 PM EDT [facility] pH, Urine 6.0 5.0 - 8.0 pH LAB URINALYSIS - AUTOMATED METHOD 09/02/2025 2:10 PM EDT [facility] Leukocytes, Urine Moderate(A) Negative LAB URINALYSIS - AUTOMATED METHOD 09/02/2025 2:10 PM EDT [facility] Nitrite, Urine Negative Negative LAB URINALYSIS - AUTOMATED METHOD 09/02/2025 2:10 PM [facility] Protein, Urine Negative <=Trace mg/dL LAB URINALYSIS - AUTOMATED METHOD 09/02/2025 2:10 PM EDT [facility] Glucose, Urine Negative Negative mg/dL LAB URINALYSIS - AUTOMATED METHOD 09/02/2025 2:10 PM EDT [facility] Ketones, Urine Negative Negative mg/dL LAB URINALYSIS - AUTOMATED METHOD 09/02/2025 2:10 PM [facility] Urobilinogen , Urine 1.0 0.2 - 1.0 mg/dL LAB URINALYSIS - AUTOMATED METHOD 09/02/2025 2:10 PM EDT [facility] Bilirubin, Urine Small(A) Negative LAB URINALYSIS - AUTOMATED METHOD 09/02/2025 2:10 PM EDT [facility] Blood, Urine Large(A) Negative LAB URINALYSIS - AUTOMATED METHOD 09/02/2025 2:10 PM EDT [facility] RBC, Urine 4.0 0 - 4 /HPF LAB URINALYSIS - AUTOMATED METHOD 09/02/2025 2:10 PM EDT [facility] WBC, Urine 7.4(H) 0 - 4 /HPF LAB URINALYSIS - AUTOMATED METHOD 09/02/2025 2:10 PM EDT [facility] Squamous Epithelial, Urine >100(H) 0 - 60 /LPF LAB URINALYSIS - AUTOMATED METHOD 09/02/2025 2:10 PM EDT [facility] Bacteria, Urine Many(A) Negative /HPF LAB URINALYSIS - AUTOMATED METHOD 09/02/2025 2:10 PM EDT [facility] Hyaline Casts, Urine 3.0 0 - 3 /LPF LAB URINALYSIS - AUTOMATED METHOD 09/02/2025 2:10 PM EDT [facility] Urine Urine specimen obtained by clean catch procedure / Unknown Non-blood Collection / Unknown 09/02/2025 11:26 AM EDT 09/02/2025 11:26 AM EDT Mckay Huang MD LAB URINE ORDERABLES Final Resu lt [facility] [address] [place] [address], * External clinical lab (08/27/2025) Provider [facility] LAB BLOOD ORDERABLES Fin al Result * DIAGNOSTIC MAMMOGRAPHY WITH CAD UNILATERAL [...] follow-up in 6 months. BI-RADS 3-[place] [address] Procedure Note Isa Espino MD - 09/19/2024 [...] follow-up in 6 months. BI-RADS 3-probably benign [address] [id number] us Megan BADILLO IMG BI PROCEDURES Final Result * Cervical Cancer Screening: HPV (09/03/2023) Pathologist [facility] Cervical Cancer Screening: HPV negative, abstracted Historical Provider HEALTH MAINTENANCE Final Result * (ABNORMAL) Lipid panel (08/14/2022) [facility] LDL/HDL Ratio 5(A) 0 - 4 Triglycerides 219(A) 0 - 150 mg/dL Cholesterol 218(A) 0 - 200 mg/dL HDL 46 >=40 mg/dL LDL Cholesterol 129(A) 0 - 100 mg/dL Blood Venous blood specimen / Unknown Historical Provider LAB BLOOD ORDERABLES Cecelia l Result * HIV Screening (10/23/2010) [facility] HIV Screening abstracted Historical Provider HEALTH MAINTENANCE Final Result from Last 3 Months or Most Recently Relevant to Health Maintenance Insurance [facility] Care Teams Mystery Shopper Relationship Specialty Start Date End Date Mckay Huang MD [address] [place] [address] [phone] PCP - General 08/28/05
--- OUTSIDE RECORDS SUMMARY | 2025-09-11 07:53 | XMS_ITS | Data Portability ---
Author Organization [facility], [address] Address [address] [place] [address] Care Team Providers Care Utility System Operator Name Role Phone [facility] Primary Care Provide r Assessment No assessment recorded. Plan of Treatment Reminders Order Date Submit Date Provider Last Modified By Organization Details Last Modified Time Details Appointments None recorded. Lab urinalysis, dipstick 2022 023 jose alejandro _[facility], [address] [place] [address], [phone], 3 08:35:47 test, urine [address] [place] [address], [address] [place] [address], [phone], 3 08:35:47 culture, urine 2022 023 [facility], [address] [place] [address], [place], [address], 3 10:06:11 Referral None recorded. Procedures None recorded. Surgeries None recorded. Imaging None recorded. Medication Orders cephalexin 500 mg capsule 2022 023 [email or web address] [id number], [id number] [facility], [place], [address], 09:10:47 Patient TargetsNo targets recorded. Patient Instructions Encounter Date Encounter Id Patient Instructions Last Modified By Organization Details Last Modified Time 01/12/2023 [id number] We recommend you get a repeat urinalysis [...] culture, routine FINAL REPORT Not Available [facility] ([facility]) [address] [place], [address], 01/14/2023 10:06:11 01/12/20 23 01/14/2023 URINE CULTU RE, ROUTI NE result 1 COMMEN T Cultu re shows less than 10,00 0 colon y formi ng units of bacte adalgisa per lon liter of urine . This colon y count is not gener ally consi dered to be clini tyson signi fican t. Not Available [facility] ([facility]) [address] [place], [address], 01/14/2023 10:06:11 01/12/20 23 01/12/2023 pregn sylvester test, urine Unknown Analyte Normal = Negati ve Not Available _vance barreto [address], [address], 01/12/2023 08:10:58 01/12/20 23 01/12/2023 pregn sylvester test, urine Unknown Analyte negati ve Not Available vance [address] [place], [address], 01/12/2023 08:10:58 01/12/20 23 01/12/2023 urina lysis , dipst ick Unknown Analyte Normal = light yellow Not Available 2099vance barreto [address], [place], [address], 01/12/2023 08:10:58 01/12/2001/12/2023 urina lysis , dipst ick Unknown Analyte Normal = clear Not Available [facility] [address], [place], [address], 01/12/2023 08:10:58 01/12/20 23 01/12/2023 urina lysis , dipst ick Unknown Analyte Normal = negati ve Not Available [facility] [address], [place], [address], 01/12/2023 08:10:58 01/12/20 23 01/12/2023 urina lysis , dipst ick Unknown Analyte Normal = Negati ve Not Available 2099vance barreto [address], [place], [address], 01/12/2023 08:10:58 01/12/20 23 01/12/2023 urina lysis , dipst ick Unknown Analyte Normal = Negati ve Not Available vance barreto [address], [place], [address], 01/12/2023 08:10:58 01/12/20 23 01/12/2023 urina lysis , dipst ick Unknown Analyte Normal = 1.010, 1.015, 1.020 Not Available 2099vance barreto [address], [place], [address], 01/12/2023 08:10:58 01/12/20 23 01/12/2023 urina lysis , dipst ick Unknown Analyte Normal = Negati ve Not Available vance [address], [place], [place], [address], 01/12/2023 08:10:58 01/12/20 23 01/12/2023 urina lysis , dipst ick Unknown Analyte Normal = 6.5, 7.0, 7.5, 8.0 Not Available [facility] [address], [place], [address], 01/12/2023 08:10:58 01/12/2001/12/2023 urina lysis , dipst ick Unknown Analyte Normal = Negati ve Not Available [facility] [address], [place], [address], 01/12/2023 08:10:58 01/12/20 23 01/12/2023 urina lysis , dipst ick Unknown Analyte Normal = Negati ve Not Available [facility] [address], [place], [address], 01/12/2023 08:10:58 01/12/20 23 01/12/2023 urina lysis , dipst ick Unknown Analyte Normal = 0.2, 1.0 Not Available [facility] [address], [place], [address], 01/12/2023 08:10:58 01/12/20 23 01/12/2023 urina lysis , dipst ick Unknown Analyte Normal = Negati ve Not Available [facility] [address], [place], [address], 01/12/2023 08:10:58 01/12/20 23 01/12/2023 urina lysis , dipst ick Unknown Analyte Yellow Not Available [address] [place] [address], [place], [address], 01/12/2023 08:10:58 01/12/20 23 01/12/2023 urina lysis , dipst ick Unknown Analyte Slight ly Cloudy Not Available vance barreto [address], [place], [address], 01/12/2023 08:10:58 01/12/20 23 01/12/2023 urina lysis , dipst ick Unknown Analyte Negati ve Not Available vance barreto [address], [place], [address], 01/12/2023 08:10:58 01/12/20 23 01/12/2023 urina lysis , dipst ick Unknown Analyte Negati ve Not Available vance barreto [address], [place], [address], 01/12/2023 08:10:58 01/12/20 23 01/12/2023 urina lysis , dipst ick Unknown Analyte Negati ve Not Available vance barreto [address], [place], [address], 01/12/2023 08:10:58 01/12/20 23 01/12/2023 urina lysis , dipst ick Unknown Analyte 1.020 Not Available jimmy [address], [place], [address], 01/12/2023 08:10:58 01/12/20 23 01/12/2023 urina lysis , dipst ick Unknown Analyte Trace- intact Not Available vance barreto [address], [place], [address], 01/12/2023 08:10:58 01/12/20 23 01/12/2023 urina lysis , dipst ick Unknown Analyte 6.5 Not Available [facility] [address], [place], [address], 01/12/2023 08:10:58 01/12/2001/12/2023 urina lysis , dipst ick Unknown Analyte Negati ve Not Available [facility] [address] [place], [address], 01/12/2023 08:10:58 01/12/2001/12/2023 urina lysis , dipst ick Unknown Analyte 0.2 E.U./d L Not Available [facility] [address] [place], [address], 01/12/2023 08:10:58 01/12/2001/12/2023 urina lysis , dipst ick Unknown Analyte Negati ve Not Available [facility] [address] [place], [address], 01/12/2023 08:10:58 01/12/2001/12/2023 urina lysis , dipst ick Unknown Analyte Trace Not Available [facility] jimmy [address] [place], [address], 01/12/2023 08:10:58 Result Notes None recorded. Problems Name Problem SNOMED Code Status Onset Date Resolution Date Notes Provider Name and Address Organization Details Recorded Time Graves' disease 371316142 Active 2022 RAINER ISAAC null, PA - [facility] 3 08:14:40 Anxiety 91523342 Active 2022 RAINER ISAAC null, PA - [facility] 3 08:14:48 Gastroesophage al reflux disease 639836621 Active 2022 RAINER ISAAC null, PA - [...] null, PA - [facility] 3 08:12:32 654742 Substance with sulfonami de structure and antibacte rial mechanism of action (substanc e) medicatio n hives Not available Not available 01/12/2023 30629 8003 SNOMED RAINER ISAAC null, PA - [facility] 3 08:12:43 651813 morphine medicatio n Not available Not available Not available 01/12/2023 7052 RxNorm RAINER ISAAC null, PA - [facility] 3 08:12:53 775535 Product containin g penicilli n (product) medicatio n Not available Not available Not available 01/12/2023 45681 8001 SNOMED RAINER ISAAC null, PA - [facility] 3 08:13:56 259634 Cipro medicatio n Not available Not available Not available 01/12/2023 03640 3 RxNorm RAINER ISAAC null, PA - [facility] 3 08:14:05 537597 naproxen medicatio n Not available Not available Not available 01/12/2023 7258 RxNorm RAINER ISAAC null, PA - [facility] 3 08:14:10 466455 Macrobid medicatio n Not available Not available Not available 01/12/2023 85394 1 RxNorm RAINER ISAAC null, PA - [facility] 3 08:14:16 550096 doxycycli ne Not available Not available Not [...] Updated DateTime 3 180.34 cm 34.2 kg/m2 304023. 13 g 99 % 99 % 96 [...] ICD10 Code Diagnosis IMO Codes Diagnosis Note [id number] [facility] [address] 02/23/2022 17:04:40 02/23/2022 19:07:48 [id number] [facility] _[facility] [address] [address] 03/21/2021 09:16:37 03/21/2021 11:21:10 [id number] John Cook NP [address] [place] [address] [facility] [place] [address] 01/12/2023 08:06:02 01/12/2023 08:46:40 Acute urinary tract infection 981248201 N39.0 Allergic to all antibiotic s except keflex per patient. Health Concerns Section Related Observation LastModified by Organization Detai ls LastModified Time None Recorded Concern Status LastModified by Organization Details LastModified Time None Recorded Advance Directives Directive None Recorded Payers Insurance Date Sequence Insurance Name Policy Number Policy Hogan Covered Member ID Hogan Member ID Guarantor Name 01/12/2023 1 [employer] - [facility] (MEDICAID REPLACEMENT - HMO) TERRELL Samchinedu Anderson [id number] Ann Anderson Notes Date Note Type Note [...] Cook NP [address] [place], [address], [place] - [facility] 01/12/2023 09:11:09 OBGyn Episode No OBEpisode recorded.
--- OUTSIDE RECORDS SUMMARY | 2025-09-11 07:53 | XMS_ITS | Encounter Summary ---
Author Organization [facility] [place] Address [address] [place] [address] Care Team Providers Care Rapid Transit Operator Name Role Phone Mckay Huang MD Primary Care Provider [phone] Encounter Details Date Type Department Care Team (Late st Contact Info) Description 09/03/2025 Results Follow-Up Adult Medicine [address] [phone] Mckay Huang MD [address] [place] [address] Social History Tobacco Use Types Packs/Day Years [...] for your loved ones. For example, child development teacher or elderly care for an older [...] as of this encounter Progress Notes * Mallory Urban RN - 09/06/2025 2:28 PM EDT Message already sent to pcp about this. documented in this encounter Plan of Treatment Upcoming Encounters Date Type Department Care Team (Late st Contact Info) Description 10/13/2025 11:20 AM EST Appointment Radiology Department [address] [phone] 10/13/2025 4:00 PM EST Office Visit Adult Medicine [address] [phone] Megan Borrero PA [address] [place] [address] documented as of this encounter Visit Diagnoses Not on filedocumented in this encounter Additional Health Concerns Assessment Noted Time PHQ-9 Depression Total Score: 0 03/23/20 25 5:47 PM EDT documented as of this encounter Care Teams Rapid Transit Operator Relationship Specialty Start Date End Date Mckay Huang MD [address] [place] [address] PCP - General 08/28/05 documented as of this encounter
--- OUTSIDE RECORDS SUMMARY | 2025-09-11 07:53 | XMS_ITS | Encounter Summary ---
Author Organization [facility] Address [address] [place] [address] Care Team Providers Care Quality Assurance Lead Name Role Phone Mckay Huang MD Primary Care Provider [phone] Encounter Details Date Type Department Care Team (Late st Contact Info) Description 09/09/2025 Results Follow-Up Adult Medicine [address] [phone] Mckay Huang MD [address] [place] [address] Social History Tobacco Use Types Packs/Day Years [...] care for your loved ones. For example, manager child or elderly care for an older [...] ([facility] Contact Info) Description 10/13/2025 11:20 AM EST Appointment Radiology Department [address] [address] 10/13/2025 4:00 PM EST Office Visit Adult Medicine [facility] [address] [place], [place] [phone] Megan Borrero PA [address] [place], [place] documented as of this encounter Visit Diagnoses Not on filedocumented in this encounter Additional Health Concerns Assessment Noted Time PHQ-9 Depression Total Score: 0 03/23/20 25 5:47 PM EDT documented as of this encounter Care Teams Quality Assurance Lead Relationship Specialty Start Date End Date Mckay Huang MD [address] [place] [address] PCP - General 08/28/05 documented as of this encounter
--- OUTSIDE RECORDS SUMMARY | 2025-09-11 07:53 | XMS_ITS | Clinical Summary ---
Author Organization [facility] Address [address] [place] [address] Phone Care Team Providers Care Cementer Helper Name Role Phone Mckay Huang MD Primary [...] topic Medical Devices Not on file Insurance [facility] [employer] Member Subscriber Plan / Payer (Ef fective 2023-Present) Name:Ann Anderson Relation to Subscriber:Self Name:Ann Anderson Payer ID:[id number] Group ID:[id number] Type:Medicaid Address: [address] [facility] Care Teams Cementer Helper Relationship Specialty Start Date End Date Mckay Huang MD [address] [place] [address] PCP - General 07/19/23 Additional Source Comments The information contained in this document represents components of the legal health record. It is not the complete legal health record.[facility]
--- OUTSIDE RECORDS SUMMARY | 2025-09-11 07:53 | XMS_ITS | Encounter Summary ---
Author Organization [facility] Address [address] [place] [address] Care Team Providers Care Risk Management Specialist Name Role Phone Mckay Huang MD Primary Care Provider Encounter Details Date Type Department Care Team (Late st Contact Info) Description 09/02/2025 Results Follow-Up Adult Medicine [address] [phone] Mckay Huang MD [address] [place] [address] Social History Tobacco Use Types Packs/Day Years [...] care for your loved ones. For example, special needs child caregiver or elderly care for an older adult? [...] Upcoming Encounters Date Type Department Care Team ([facility] Contact Info) Description 10/13/2025 11:20 AM EST Appointment Radiology Department [address] [address] 10/13/2025 4:00 PM EST Office Visit Adult Medicine [facility] [address] [place], [place] [phone] Megan Borrero PA [address] [place], [place] documented as of this encounter Visit Diagnoses Not on filedocumented in this encounter Additional Health Concerns Assessment Noted Time PHQ-9 Depression Total Score: 0 03/23/20 25 5:47 PM EDT documented as of this encounter Care Teams Risk Management Specialist Relationship Specialty Start Date End Date Mckay Huang MD [address] [place] [address] PCP - General 08/28/05 documented as of this encounter
--- OUTSIDE RECORDS SUMMARY | 2025-09-11 07:53 | XMS_ITS | Encounter Summary ---
Author Organization [facility] Address [address] [place] [address] Care Team Providers Care Orthotic Technician Name Role Phone Mckay Huang MD Primary Care Provider [phone] Encounter Details Date Type Department Care Team (Late st Contact Info) Description 04/20/2025 Nurse Triage Adult Medicine [address] [phone] Mckay Huang MD [address] [place] [address] Social History Tobacco Use Types Packs/Day Years [...] your loved ones. For example, child care nurse or elderly care for an older [...] Upcoming Encounters Date Type Department Care Team ([facility] Contact Info) Description 10/13/2025 11:20 AM EST Appointment Radiology Department [address] [address] 10/13/2025 4:00 PM EST Office Visit Adult Medicine [facility] [address] [place] [address] Megan Borrero PA [address] [place], [place] documented as of this encounter Visit Diagnoses Not on filedocumented in this encounter Additional Health Concerns Assessment Noted Time PHQ-9 Depression Total Score: 0 03/23/20 25 5:47 PM EDT documented as of this encounter Care Teams Orthotic Technician Relationship Specialty Start Date End Date Mckay Huang MD [address] [place] [address] PCP - General 08/28/05 documented as of this encounter
--- OUTSIDE RECORDS SUMMARY | 2025-09-11 07:53 | XMS_ITS | Encounter Summary ---
Author Organization [facility] Address [address] [place] [address] Care Team Providers Care Road Machine Operator Name Role Phone Mckay Huang MD Primary Care Provider [phone] Encounter Details Date Type Department Care Team (Late st Contact Info) Description 07/16/2025 Lab Requisition [facility] [address] [facility] [place] [address] Sivan Kasper MD [address] [place], [place] [id number] Dysuria Social History Tobacco Use Types Packs/Day [...] for your loved ones. For example, children's tutor or elderly care for an older adult? [...] Upcoming Encounters Date Type Department Care Team ([facility] Contact Info) Description 10/13/2025 11:20 AM EST Appointment Radiology Department [address] [address] 10/13/2025 4:00 PM EST Office Visit Adult [facility] [address] [place] [address] Megan Borrero PA [address] [place] [address] documented as of this encounter Procedures Procedure Name Priority Date/Time Associated Diagnosis Comments URINALYSIS WITH REFLEX MICROSCOPIC Routine 07/16/2025 11:40 AM EDT Dysuria URINALYSIS WITH REFLEX MICROSCOPIC Routine 07/16/2025 11:40 AM EDT Dysuria CULTURE URINE Routine 07/16/2025 11:40 AM EDT Dysuria documented in this encounter Results * (ABNORMAL) Urinalysis with reflex microscopic (07/16/2025 11:40 AM EDT) Specific [place] Urine 1.021 1.003 - 1.030 LAB URINALYSIS - AUTOMATED METHOD 07/16/2025 6:43 PM [facility] pH, Urine 6.5 5.0 - 8.0 pH LAB URINALYSIS - AUTOMATED METHOD 07/16/2025 6:43 PM [facility] Leukocytes, Urine Trace(A) Negative LAB URINALYSIS - AUTOMATED METHOD 07/16/2025 6:43 PM [facility] Nitrite, Urine Negative Negative LAB URINALYSIS - AUTOMATED METHOD 07/16/2025 6:43 PM [facility] Protein, Urine Negative <=Trace mg/dL LAB URINALYSIS - AUTOMATED METHOD 07/16/2025 6:43 PM [facility] Glucose, Urine Negative Negative mg/dL LAB URINALYSIS - AUTOMATED METHOD 07/16/2025 6:43 PM [facility] Ketones, Urine Negative Negative mg/dL LAB URINALYSIS - AUTOMATED METHOD 07/16/2025 6:43 PM EDT [facility] Urobilinogen, Urine 1.0 0.2 - 1.0 mg/dL LAB URINALYSIS - AUTOMATED METHOD 07/16/2025 6:43 PM EDT [facility] Bilirubin, Urine Small(A) Negative LAB URINALYSIS - AUTOMATED METHOD [facility] Blood, Urine Large(A) Negative LAB URINALYSIS - AUTOMATED METHOD 07/16/2025 6:43 PM EDT [facility] RBC, Urine 168.0(H) 0 - 4 /HPF LAB URINALYSIS - AUTOMATED METHOD [facility]16[facility]25 6[facility] WBC, Urine 1.7 0 - 4 /HPF LAB URINALYSIS - AUTOMATED METHOD 07/16[facility]2025 6:[facility] Squamous Epithelial, Urine 56 0 - 60 /LPF LAB URINALYSIS - AUTOMATED METHOD 07/16/2025 6:[facility] Bacteria, Urine Negative Negative /HPF LAB URINALYSIS - AUTOMATED METHOD 07/16/2025 6:43 PM [facility] Hyaline Casts, Urine 6.8(H) 0 - 3 /LPF LAB URINALYSIS - AUTOMATED METHOD 07/16/2025 6:43 PM [facility] Urine Urine specimen from urethra / Unknown 07/16/2025 11:40 AM EDT 07/16/2025 5:56 PM EDT us Sivan Kasper MD LAB URINE ORDERABLES Fin al Result [facility] [address] [place] [address], * (ABNORMAL) Culture urine (07/16/2025 11:40 AM EDT) Culture, Urine 10,000-49,000 CFU/mL Escherichia coli(A) BERNA 07/18/2025 11:31 AM EDT [facility] Urine Urine specimen from urethra [...] MICROBIOLOGY - GENER AL ORDERABLES Final Result [facility] [address] [place] [address], documented in this encounter Visit Diagnoses Diagnosis Dysuria documented in this encounter Additional Health Concerns Assessment Noted Time PHQ-9 Depression Total Score: 0 03/23/20 25 5:47 PM EDT documented as of this encounter Care Teams Road Machine Operator Relationship Specialty Start Date End Date Mckay Huang MD [address] [place] [address] PCP - General 08/28/05 documented as of this encounter
--- OUTSIDE RECORDS SUMMARY | 2025-09-11 07:53 | XMS_ITS | Patient Health Record ---
Author Organization [facility] Address [address] [place] [address] Care Team Providers Care Cardiology Associate Name Role Phone Mckay Huang MD Primary Care Provider Vinod Lance [phone] Results Component Value Reference Range Notes Erythrocyte Sedimentation Ra te Reviewed date:08/04/2025 05:20:12 PM Interpretation: Performing Lab:[address] [address] Notes/Report: Erythrocyte Sedimentation Rate 22 0-20 MM/HR Patients with polycythemia and many hemoglobin abnormalities may have depressed sed rates whereas patients with anemia may have elevated sed rates. Prothrombin Time INR Reviewed date:08/04/2025 04:05:12 PM Interpretation: Performing Lab:[address] [address] Notes/Report: Prothrombin Time 13.8 10.9-12.4 SEC INTERNATIONAL [...] Panel Reviewed date:08/04/2025 05:21:05 PM Interpretation: Performing Lab:[facility], [address] [place] [phone] Notes/Report: Bilirubin Total 10.1 0.0-1.0 mg/dL Mild Icteru s. Bilirubin Direct 6.9 0.0-0.5 mg/dL Mild Icter us. Aspartate Amino Transferase 724 5-31 U/L Alanine Aminotransferase 512 0-31 U/L Total Protein 7.1 6.5-8.0 g/dL Albumin Level 3.2 3.5-5.0 g/dL Alkaline Phosphatase 162 39-117 U/L IRON PROFILE Reviewed date:08/04/2025 05:20:56 PM Interpretation: Performing Lab:[facility], [address] [place] [phone] Notes/Report: Iron 251 30-160 mcg/dL Total Iron Binding Capacity 282 228-428 mcg/dL Percent Iron Saturation 89 15-50 % Unsaturated Iron Binding 31 Ferritin Reviewed date:08/04/2025 05:20:46 PM Interpretation: Performing Lab:[facility], [address] [place] [phone] Notes/Report: Ferritin 632 10-250 ng/mL Lactate Dehydrogenase Reviewed date:08/04/2025 05:20:39 PM Interpretation: Performing Lab:[facility], [address] [place] [phone] Notes/Report: Lactate Dehydrogenase 264 122-220 U/L C Reactive Protein Reviewed date:08/04/2025 05:20:25 PM Interpretation: Performing Lab:[facility], [address] [place] [phone] Notes/Report: C Reactive Protein 2.66 < or = 0.50 mg/dL Ceruloplasmin Reviewed date:08/05/2025 06:51:43 PM Interpretation: Performing Lab:[facility], [address] [place] [address] Notes/Report: Ceruloplasmin 23 14-48 mg/dL THIS TEST WAS PERFORMED AT: [facility] [address] [place] [phone] EDI KENDALL MD Alpha 1 Anti-trypsin Reviewed date:08/05/2025 06:51:29 PM Interpretation: Performing Lab:[facility], [address] [place] [phone] Notes/Report: Alpha 1 Anti-trypsin 206 83-199 mg/dL THIS TEST WAS PERFORMED AT: [facility] [address] [place] [phone] EDI KENDALL MD JEOVANNY Reflex Titer and Pattern Reviewed date:08/08/2025 05:53:31 PM Interpretation: Performing Lab:[address] [address] Notes/Report: Anti Nuclear Antibody Screen NEGATIVE NEGATIVE [...] Negative International Consensus on JEOVANNY Patterns (https://doi.org/10.1515/ccl m-2712-2133) For additional information, please refer to http://education.[employer]/faq/EHW069 (This link is being provided for informational/ educational purposes only.) THIS TEST WAS PERFORMED AT: [facility] [address] [place] [phone] EDI KENDALL MD Anti Nuclear Antibody Titer TNP Anti Nuclear Antibody Pattern TNP JEOVANNY Titer 2 TNP JEOVANNY Pattern 2 TNP JEOVANNY Titer 3 TNP JEOVANNY Pattern 3 TNP Mitochondrial Antibody Reviewed date:08/27/2025 01:18:11 AM Interpretation: Performing Lab:[address] [address] Notes/Report: Mitochondrial Antibodies NEGATIVE NEGATIVE The immunofluorescence assay (IFA) procedure reveals the possible presence of another autoantibody. Consider requesting order code 263, Smooth Muscle Antibody with Reflex to Titer, if clinically indicated. Staining was observed suggesting the presence of Antinuclear Antibodies. Consider requesting order code 249, JEOVANNY Screen, IFA with Reflex to Titer and Pattern, or order code [id number], JEOVANNY Screen, IFA w/reflex Titer/Pattern, and Reflex to Multiplex 11 Ab [place], if clinically indicated. THIS TEST WAS PERFORMED AT: [facility] [address] [place] [phone] EDI KENDALL MD Mitochondrial Ab Titer TNP Smooth Muscle Antibody Reviewed date:08/27/2025 01:18:00 AM Interpretation: Performing Lab:[address] [place] [address] Notes/Report: Smooth Muscle Antibody 46 <20 U [...] type 1. THIS TEST WAS PERFORMED AT: [facility]/[address] ADEBAYO ERWIN MD,PHD Hepatitis A,B,C Profile Reviewed date:08/08/2025 05:53:51 PM Interpretation: Performing Lab:[address] [phone] Notes/Report: Hepatitis A Antibody IgM Nonreactive Nonreactive [...] ff Reviewed date:08/08/2025 05:52:59 PM Interpretation: Performing Lab:[facility], [address] [place] [address] Notes/Report: White Blood Count 4.3 4.8-10.8 X10*3/uL [...] INR Reviewed date:08/08/2025 05:52:41 PM Interpretation: Performing Lab:[address] [address] Notes/Report: Prothrombin Time 14.1 10.9-12.4 SEC INTERNATIONAL [...] Panel Reviewed date:08/08/2025 05:52:19 PM Interpretation: Performing Lab:[address] [address] Notes/Report: Bilirubin Total 8.1 0.0-1.0 mg/dL Mild Icteru s. Bilirubin Direct 5.9 0.0-0.5 mg/dL Mild Icter us. Aspartate Amino Transferase 618 5-31 U/L Alanine Aminotransferase 440 0-31 U/L Total Protein 6.2 6.5-8.0 g/dL Albumin Level 2.8 3.5-5.0 g/dL Alkaline Phosphatase 142 39-117 U/L Basic Metabolic Panel Fastin g Reviewed date:08/08/2025 05:52:05 PM Interpretation: Performing Lab:[facility], [address] [place] [phone] Notes/Report: Sodium 137 135-145 mmol/L Potassium 3.8 [...] Ammonia Reviewed date:08/08/2025 05:52:27 PM Interpretation: Performing Lab:[facility], [address] [place] [address] Notes/Report: Ammonia 71 13-55 umol/L Liver Panel (Not yet reviewe d by provider) Interpretation: Performing Lab:[address] [address] Notes/Report: Bilirubin Total 6.8 0.0-1.0 mg/dL Mild Icteru s. Bilirubin Direct 5.0 0.0-0.5 mg/dL Mild Icter us. Aspartate Amino Transferase 628 5-31 U/L Alanine Aminotransferase 468 0-31 U/L Total Protein 7.5 6.5-8.0 g/dL Albumin Level 3.4 3.5-5.0 g/dL Alkaline Phosphatase 187 39-117 U/L Prothrombin Time INR Reviewed date:08/14/2025 09:11:51 PM Interpretation: Performing Lab:[facility], [address] [place] [phone] Notes/Report: Prothrombin Time 13.3 10.9-12.4 SEC INTERNATIONAL [...] Panel Reviewed date:08/23/2025 11:24:36 PM Interpretation: Performing Lab:[facility], [address] [place] [address] Notes/Report: Bilirubin Total 6.3 0.0-1.0 mg/dL Mild Icteru s. Bilirubin Direct 4.5 0.0-0.5 mg/dL Mild Icter us. Aspartate Amino Transferase 598 5-31 U/L Alanine Aminotransferase 427 0-31 U/L Total Protein 7.3 6.5-8.0 g/dL Albumin Level 3.5 3.5-5.0 g/dL Alkaline Phosphatase 172 39-117 U/L Prothrombin Time INR Reviewed date:08/27/2025 06:40:50 PM Interpretation: Performing Lab:[facility], [address] [place] [address] Notes/Report: Prothrombin Time 12.7 10.9-12.4 SEC INTERNATIONAL [...] Panel Reviewed date:08/30/2025 12:24:10 PM Interpretation: Performing Lab:[facility], [address] [place] [address] Notes/Report: Bilirubin Total 2.8 0.0-1.0 mg/dL Slight [...] Risk Notes Problem Elevated liver enzymes level (747525635) Elevated liver function tests (R79.89) Active confirmed Problem Gallstones (994163416) Gallstones (K80.20) Active confirmed Problem Jaundice (37361514) Jaundice (R17) Active confirmed Problem Elevated liver enzymes level (398309028) Elevated liver function tests (R94.5) Active confirmed Encounters Encounter Location Date Provider Diagnosis [facility] [address] [place] [address] 08/05/2025 Vinod Mosqueda Elevated liver function tests R79.89 and Jaundice R17 [facility] [address] [place] [address] 08/17/2025 Vinod Mosqueda Elevated liver function tests [...] Name:Vinod Mosqueda , 12/17/2025 02:00:00 PM, [address], [address], [place], [address], Insurance Providers Payer Name Payer Address Payer Phone Subscriber Number Group Number Insured Name Patient Relationship to Insured Coverage Start Date Coverage End Date [facility] [address] [address] [place], [place] [id number] DEMETRIS LYNCH Self - patient is the insured
[2025-09-11 08:53] LABS: Alanine Aminotransferase 216 U/L (0-31); Albumin Level 3.5 g/dL (3.5-5.0); Alkaline Phosphatase 120 U/L (39-117); Aspartate Amino Transferase 235 U/L (5-31); Total Protein 7.3 g/dL (6.5-8.0)
== END 2025-09-11 07:50 | disposition home or self-care (01) ==
LOC: HO.LAB 07:49
PROVIDERS: PCP Internal Medicine; Visit Provider Internal Medicine
DX: R94.5 Abnormal results of liver function studies (principal)
CPT/HCPCS: 36415; 80076

== ENCOUNTER 2025-09-25 09:13 | Outpatient (REF) | payer OTHER, SELFPAY ==
--- OUTSIDE RECORDS SUMMARY | 2025-09-25 09:16 | XMS_ITS | Clinical Summary ---
Author Organization [address] Address [address] [place] [address] Phone Care Team Providers Care Candy Cutter Hand Name Role Phone Mckay Huang MD Primary Care Provider [phone] Allergies Active Allergy Reactions Criticality Noted Date [...] BEFORE BREAKFAST. 90 capsule 1 5 Active nitrofurantoin , macrocrystal-m onohydrate, (MACROBID) 100 mg capsule Take by mouth 2 (two) times a day. Active cefuroxime (CEFTIN) 500 mg tablet Take 1 tablet (500 mg total) by mouth 2 (two) times a day for 7 days. 14 each 5 09/29/20 25 Active cefuroxime (CEFTIN) 500 mg tablet Take 1 tablet (500 mg total) by mouth 2 (two) times a day for 7 days. 14 each 5 09/22/20 25 Discontin ued(Reord er) Active Problems Problem Noted Date Diagnosed Date Recurrent UTI 10/02/2024 Severe obesity (BMI 35.0-35. 9 with comorbidity) ([facility] V24, [facility] V28) 10/02/2024 GERD (gastroesophageal reflux disease) Neuralgia, post-herpetic 09/12/2024 Overview (10/02/2024): 12/22/23: Left forehead/eye, now on gabapentin Paroxysmal atrial fibrillation ([facility] V24, [facility] V28) 09/12/2024 Overview (10/02/2024): [place] [facility] [place]-operative hypothyroidism 2024 Graves' disease 01/12/2023 COVID-19 virus infection 12/23/2020 Overview (10/02/2024): 12/21/20 Mixed hyperlipidemia 01/08/2020 Anxiety 08/29/2016 Cardiac murmur 10/24/2010 Overview (10/02/2024): Cardiac echo and stress test fall 2009 Holter monitor Graves' disease with exophthalmos 01/20/2008 Overview (10/02/2024): S/p 2006 - Dr. 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 [employer] Thyroid antibodies done 12/2010 Elevated thyroid antibodies 01/2011 Maternal consult Resolved Problems Problem Noted Date Diagnosed Date Resolved Date Vaginal odor 11/19/2024 01/19/2025 Bacterial vaginosis 11/19/2024 01/20/20 25 Encounters Date Type Department Care Team Description 09/09/2025 Results Follow-Up Adult Medicine [address] [phone] Mckay Huang MD 09/03/2025 Results Follow-Up Adult Medicine [address] [phone] Mckay Huang MD 09/02/2025 10:30 AM EDT Office Visit [address] [phone] Mckay Huang MD Pyelonephritis (Primary Dx); Need for prophylactic vaccination and inoculation against influenza; Recurrent UTI; Drug-induced hepatitis; Calculus of gallbladder with cholecystitis without biliary obstruction, unspecified cholecystitis acuity 09/02/2025 Results Follow-Up [address] [phone] Mckay Huang MD 08/02/2025 Nurse Triage [address] [phone] Mckay Huang MD 07/23/2025 2:30 PM EDT Office Visit [address] [phone] Jyoti Espinosa PA Orgasmic headache (Primary Dx); Nausea 07/16/2025 Lab Requisition [facility] [address] [place] [address] Sivan Kasper MD Dysuria from Last [...] 3 PROCEDURE: HISTORICAL APPENDECTOMY VAGINOSCOPY 2004 PROCEDURE: [place] COLPOSCOPY CERVIX BX CERVIX & ENDOCRV CURRETAGE [...] for your loved ones. For example, child neurologist or elderly care for an older adult? [...] Vag-S pont Epidur al Livin g Savann ah Peloqu in-Spr att Delivery Location:[facility] Comments:A&W 8 Term 38w 0d 3260 g (115 oz) F Vag-S pont Livin g Delivery Location:[facility] 2010 Term 40w 6d 3997 g (141 oz) M Vag-S pont Epidur al Livin g 7 9 [place] HEMIN Delivery Location:[facility] Comments:A&W Last Filed Vital Signs Vital [...] Team (Late st Contact Info) Description 10/13/2025 4:00 PM EST Office Visit Adult Medicine [address] [phone] Megan Borrero PA [address] [place] [address] Health Maintenance Due Date Last Done Comments [...] and culture (09/07/2025 3:04 PM EDT) Specific [place] Urine 1.021 1.003 - 1.030 LAB URINALYSIS - AUTOMATED METHOD 09/07/2025 5:51 PM EDT [facility] pH, Urine 7.0 5.0 - 8.0 pH LAB URINALYSIS - AUTOMATED METHOD 09/07/2025 5:51 PM EDT [facility] Leukocytes, Urine Moderate(A) Negative LAB URINALYSIS - AUTOMATED METHOD 09/07/2025 5:51 PM EDT [facility] Nitrite, Urine Negative Negative LAB URINALYSIS - AUTOMATED METHOD 09/07/2025 5:51 PM EDT [facility] Protein, Urine 30(A) <=Trace mg/dL LAB URINALYSIS - AUTOMATED METHOD 09/07/2025 5:51 PM [facility] Glucose, Urine Negative Negative mg/dL LAB URINALYSIS - AUTOMATED METHOD 09/07/2025 5:51 PM [facility] Ketones, Urine Negative Negative mg/dL LAB URINALYSIS - AUTOMATED METHOD 09/07/2025 5:51 PM [facility] Urobilinogen , Urine 1.0 0.2 - 1.0 mg/dL LAB URINALYSIS - AUTOMATED METHOD 09/07/2025 5:51 PM [facility] Bilirubin, Urine Small(A) Negative LAB URINALYSIS - AUTOMATED METHOD 09/07/2025 5:51 PM [facility] Blood, Urine Large(A) Negative LAB URINALYSIS - AUTOMATED METHOD 09/07/2025 5:51 PM [facility] RBC, Urine 40.0(H) 0 - 4 /HPF LAB URINALYSIS - AUTOMATED METHOD 09/07/2025 5:51 PM [facility] WBC, Urine 10.0(H) 0 - 4 /HPF LAB URINALYSIS - AUTOMATED METHOD 09/07/2025 5:51 PM [facility] Squamous Epithelial, Urine 80(H) 0 - 60 /LPF LAB URINALYSIS - AUTOMATED METHOD 09/07/2025 5:51 PM [facility] Crystals, Urine Moderate Amorphous Phosphate crystals. /LPF LAB URINALYSIS - AUTOMATED METHOD 09/07/2025 5:51 PM [facility] Bacteria, Urine Many(A) Negative /HPF LAB URINALYSIS - AUTOMATED METHOD 09/07/2025 5:51 PM [facility] Hyaline Casts, Urine 1.6 0 - 3 /LPF LAB URINALYSIS - AUTOMATED METHOD 09/07/2025 5:51 PM EDT [facility] Urine Urine specimen obtained by clean catch procedure / Unknown Non-blood Collection / Unknown 09/07/2025 3:04 PM EDT 09/07/2025 3:04 PM EDT us Mckay Huang MD LAB URINE ORDERABLES Final Resu lt Performing Organization Address City/[facility]/ZIP Co de Phone Number [facility] [address] [place] [address], [place] [phone] * Walker urine culture tube (09/07/2025 3:04 PM EDT) Extra Tube Hold for add-ons. 09/07/2025 5:01 PM EDT [facility] Comment:Auto resulted. Urine Urine specimen obtained by clean catch procedure / Unknown Non-blood Collection / Unknown 09/07/2025 3:04 PM EDT 09/07/2025 3:04 PM EDT us Mckay Huang MD LAB URINE ORDERABLES Final Resu lt Performing Organization Address [facility] Co de Phone Number [facility] [address] [place] [address], [place] [phone] * (ABNORMAL) Culture urine (09/07/2025 3:04 PM EDT) Only the most recent of3 resultswithin the time period is included. Culture, Urine >=100,000 CFU/mL Streptococcus beta-hemolytic Group B(A) 09/08/2025 2:11 PM EDT [facility] Comment: Beta Streptococcus Group B Susceptibility testing is not routinely performed since this organism is predictably sensitive to Penicillin. Susceptibility testing should be performed for Penicillin-allergic women at HIGH RISK for anaphylaxis. S hould this patient require testing, please contact the Microbiology Department at [phone] within 7 days of receiving this report to request susceptibility. Urine Urine specimen obtained by clean catch procedure / Unknown Non-blood Collection / Unknown 09/07/2025 3:04 PM EDT 09/07/2025 5:51 PM EDT Narrative [facility] - 09/08/2025 2:11 PM EDT Additional colony types present in insignificant amounts. us Mckay Huang MD LAB MICROBIOLOGY - GENERAL MICHELE RILEY Final Result [facility] [address] [place] [address], [place] [phone] * (ABNORMAL) Urinalysis with reflex microscopic (09/02/2025 11:26 AM EDT) Only the most recent of2 resultswithin the time period is included. Specific [place] Urine 1.017 1.003 - 1.030 LAB URINALYSIS - AUTOMATED METHOD 09/02/2025 2:10 PM EDT [facility] pH, Urine 6.0 5.0 - 8.0 pH LAB URINALYSIS - AUTOMATED METHOD 09/02/2025 2:10 PM EDT [facility] Leukocytes, Urine Moderate(A) Negative LAB URINALYSIS - AUTOMATED METHOD 09/02/2025 2:10 PM EDT [facility] Nitrite, Urine Negative Negative LAB URINALYSIS - AUTOMATED METHOD 09/02/2025 2:10 PM EDT [facility] Protein, Urine Negative <=Trace mg/dL LAB URINALYSIS - AUTOMATED METHOD 09/02/2025 2:10 PM EDT [facility] Glucose, Urine Negative Negative mg/dL LAB URINALYSIS - AUTOMATED METHOD 09/02/2025 2:10 PM EDT [facility] Ketones, Urine Negative Negative mg/dL LAB URINALYSIS - AUTOMATED METHOD 09/02/2025 2:10 PM EDT [facility] Urobilinogen , Urine 1.0 0.2 - 1.0 mg/dL LAB URINALYSIS - AUTOMATED METHOD 09/02/2025 2:10 PM EDT [facility] Bilirubin, Urine Small(A) Negative LAB URINALYSIS - AUTOMATED METHOD 09/02/2025 2:10 PM EDT [facility] Blood, Urine Large(A) Negative LAB URINALYSIS - AUTOMATED METHOD 09/02/2025 2:10 PM EDT [facility] RBC, Urine 4.0 0 - 4 /HPF LAB URINALYSIS - AUTOMATED METHOD 09/02/2025 2:10 PM EDT [facility] WBC, Urine 7.4(H) 0 - 4 /HPF LAB URINALYSIS - AUTOMATED METHOD 09/02/2025 2:10 PM EDT [facility] Squamous Epithelial, Urine >100(H) 0 - 60 /LPF LAB URINALYSIS - AUTOMATED METHOD 09/02/2025 2:10 PM [facility] Bacteria, Urine Many(A) Negative /HPF LAB URINALYSIS - AUTOMATED METHOD 09/02/2025 2:10 PM EDT [facility] Hyaline Casts, Urine 3.0 0 - 3 /LPF LAB URINALYSIS - AUTOMATED METHOD 09/02/2025 2:10 PM EDT [facility] Urine Urine specimen obtained by clean catch procedure / Unknown Non-blood Collection / Unknown 09/02/2025 11:26 AM EDT 09/02/2025 11:26 AM EDT Mckay Huang MD LAB URINE ORDERABLES Final Resu lt [facility] [address] [place] [address], * External clinical lab (08/27/2025) Provider [place] [...] follow-up in 6 months. BI-RADS 3-probably benign [address] [address] Procedure Note Isa Espino MD - 09/19/2024 [...] follow-up in 6 months. BI-RADS 3-probably benign [address] [id number] Megan BADILLO IMG BI PROCEDURES Final Result * Cervical Cancer Screening: HPV (09/03/2023) Pathologist [facility] Cervical Cancer Screening: HPV negative, abstracted Historical Provider HEALTH MAINTENANCE Final Result * (ABNORMAL) Lipid panel (08/14/2022) Pathologist [facility] LDL/HDL Ratio 5(A) 0 - 4 Triglycerides 219(A) 0 - 150 mg/dL Cholesterol 218(A) 0 - 200 mg/dL HDL 46 >=40 mg/dL LDL Cholesterol 129(A) 0 - 100 mg/dL Blood Venous blood specimen / Unknown Historical Provider LAB BLOOD ORDERABLES Cecelia l Result * HIV Screening (10/23/2010) Pathologist [facility] HIV Screening abstracted Historical Provider HEALTH MAINTENANCE Final Result from Last 3 Months or Most Recently Relevant to Health Maintenance Insurance [facility] Care Teams Candy Cutter Hand Relationship Specialty Start Date End Date Mckay Huang MD [address] [place] [phone] PCP - General 08/28/05
--- OUTSIDE RECORDS SUMMARY | 2025-09-25 09:16 | XMS_ITS | Encounter Summary ---
Author Organization [facility] Address [address] [place] [address] Care Team Providers Care Auto Refinisher Name Role Phone Mckay Huang MD Primary Care Provider [phone] Encounter Details Date Type Department Care Team (Late st Contact Info) Description 04/20/2025 Nurse Triage Adult Medicine [address] [phone] Mckay Huang MD [address] [place] [address] Social History Tobacco Use Types Packs/Day Years [...] for your loved ones. For example, director child abuse therapy or elderly care for an older adult? [...] Upcoming Encounters Date Type Department Care Team ([facility] st Contact Info) Description 10/13/2025 4:00 PM EST Office Visit Adult Medicine [address] [phone] Megan Borrero PA [address] [place] [address] documented as of this encounter Visit Diagnoses Not on filedocumented in this encounter Additional Health Concerns Assessment Noted Time PHQ-9 Depression Total Score: 0 03/23/20 25 5:47 PM EDT documented as of this encounter Care Teams Auto Refinisher Relationship Specialty Start Date End Date Mckay Huang MD [address] [place] [address] PCP - General 08/28/05 documented as of this encounter
--- OUTSIDE RECORDS SUMMARY | 2025-09-25 09:16 | XMS_ITS | Patient Health Record ---
Author Organization [facility] Address [address] [place] [address] Care Team Providers Care Cloth Bin Packer Name Role Phone Mckay Huang MD Primary Care Provider Vinod Lance [phone] Results Component Value Reference Range Notes Erythrocyte Sedimentation Ra te Reviewed date:08/04/2025 05:20:12 PM Interpretation: Performing Lab:[address] [address] Notes/Report: Erythrocyte Sedimentation Rate 22 0-20 MM/HR Patients with polycythemia and many hemoglobin abnormalities may have depressed sed rates whereas patients with anemia may have elevated sed rates. Prothrombin Time INR Reviewed date:08/04/2025 04:05:12 PM Interpretation: Performing Lab:[address] [address] Notes/Report: Prothrombin Time 13.8 10.9-12.4 SEC INTERNATIONAL [...] Panel Reviewed date:08/04/2025 05:21:05 PM Interpretation: Performing Lab:[facility], [address] [place] [address] Notes/Report: Bilirubin Total 10.1 0.0-1.0 mg/dL Mild Icteru s. Bilirubin Direct 6.9 0.0-0.5 mg/dL Mild Icter us. Aspartate Amino Transferase 724 5-31 U/L Alanine Aminotransferase 512 0-31 U/L Total Protein 7.1 6.5-8.0 g/dL Albumin Level 3.2 3.5-5.0 g/dL Alkaline Phosphatase 162 39-117 U/L IRON PROFILE Reviewed date:08/04/2025 05:20:56 PM Interpretation: Performing Lab:[facility], [address] [place] [address] Notes/Report: Iron 251 30-160 mcg/dL Total Iron Binding Capacity 282 228-428 mcg/dL Percent Iron Saturation 89 15-50 % Unsaturated Iron Binding 31 Ferritin Reviewed date:08/04/2025 05:20:46 PM Interpretation: Performing Lab:[facility], [address] [place] [address] Notes/Report: Ferritin 632 10-250 ng/mL Lactate Dehydrogenase Reviewed date:08/04/2025 05:20:39 PM Interpretation: Performing Lab:[facility], [address] [place] [address] Notes/Report: Lactate Dehydrogenase 264 122-220 U/L C Reactive Protein Reviewed date:08/04/2025 05:20:25 PM Interpretation: Performing Lab:[facility], [address] [place] [address] Notes/Report: C Reactive Protein 2.66 < or = 0.50 mg/dL Ceruloplasmin Reviewed date:08/05/2025 06:51:43 PM Interpretation: Performing Lab:[facility], [address] [place] [address] Notes/Report: Ceruloplasmin 23 14-48 mg/dL THIS TEST WAS PERFORMED AT: [facility]. [address] [place] [address] EDI KENDALL MD Alpha 1 Anti-trypsin Reviewed date:08/05/2025 06:51:29 PM Interpretation: Performing Lab:[facility], [address] [place] [address] Notes/Report: Alpha 1 Anti-trypsin 206 83-199 mg/dL THIS TEST WAS PERFORMED AT: [facility]. [address] [place] [address] EDI KENDALL MD JEOVANNY Reflex Titer and Pattern Reviewed date:08/08/2025 05:53:31 PM Interpretation: Performing Lab:[address] [address] Notes/Report: Anti Nuclear Antibody Screen NEGATIVE NEGATIVE [...] Negative International Consensus on JEOVANNY Patterns (https://doi.org/10.1515/ccl m-6629-3424) For additional information, please refer to http://education.SparkBase.Viewster/faq/JZZ673 (This link is being provided for informational/ educational purposes only.) THIS TEST WAS PERFORMED AT: [facility]. [address] [place] [address] EDI KENDALL MD Anti Nuclear Antibody Titer TNP Anti Nuclear Antibody Pattern TNP JEOVANNY Titer 2 TNP JEOVANNY Pattern 2 TNP JEOVANNY Titer 3 TNP JEOVANNY Pattern 3 TNP Mitochondrial Antibody Reviewed date:08/27/2025 01:18:11 AM Interpretation: Performing Lab:[address] [address] Notes/Report: Mitochondrial Antibodies NEGATIVE NEGATIVE The immunofluorescence assay (IFA) procedure reveals the possible presence of another autoantibody. Consider requesting order code 263, Smooth Muscle Antibody with Reflex to Titer, if clinically indicated. Staining was observed suggesting the presence of Antinuclear Antibodies. Consider requesting order code 249, JEOVANNY Screen, IFA with Reflex to Titer and Pattern, or order code [id number], JEOVANNY Screen, IFA w/reflex Titer/Pattern, and Reflex to Multiplex 11 Ab Proctor, if clinically indicated. THIS TEST WAS PERFORMED AT: [facility]. [address] [place] [address] EDI KENDALL MD Mitochondrial Ab Titer TNP Smooth Muscle Antibody Reviewed date:08/27/2025 01:18:00 AM Interpretation: Performing Lab:[address] [place] [address] Notes/Report: Smooth Muscle Antibody 46 <20 U [...] type 1. THIS TEST WAS PERFORMED AT: [facility]/[address] ADEBAYO ERWIN MD,PHD Hepatitis A,B,C Profile Reviewed date:08/08/2025 05:53:51 PM Interpretation: Performing Lab:[address] [address] Notes/Report: Hepatitis A Antibody IgM Nonreactive Nonreactive [...] ff Reviewed date:08/08/2025 05:52:59 PM Interpretation: Performing Lab:[facility], [address] [place] [address] Notes/Report: White Blood Count 4.3 4.8-10.8 X10*3/uL [...] INR Reviewed date:08/08/2025 05:52:41 PM Interpretation: Performing Lab:[address] [address] Notes/Report: Prothrombin Time 14.1 10.9-12.4 SEC INTERNATIONAL [...] Panel Reviewed date:08/08/2025 05:52:19 PM Interpretation: Performing Lab:[address] [address] Notes/Report: Bilirubin Total 8.1 0.0-1.0 mg/dL Mild Icteru s. Bilirubin Direct 5.9 0.0-0.5 mg/dL Mild Icter us. Aspartate Amino Transferase 618 5-31 U/L Alanine Aminotransferase 440 0-31 U/L Total Protein 6.2 6.5-8.0 g/dL Albumin Level 2.8 3.5-5.0 g/dL Alkaline Phosphatase 142 39-117 U/L Basic Metabolic Panel Fastin g Reviewed date:08/08/2025 05:52:05 PM Interpretation: Performing Lab:[facility], [address] [place] [address] Notes/Report: Sodium 137 135-145 mmol/L Potassium 3.8 [...] Ammonia Reviewed date:08/08/2025 05:52:27 PM Interpretation: Performing Lab:[facility], [address] [place] [address] Notes/Report: Ammonia 71 13-55 umol/L Liver Panel (Not yet reviewe d by provider) Interpretation: Performing Lab:[address] [address] Notes/Report: Bilirubin Total 6.8 0.0-1.0 mg/dL Mild Icteru s. Bilirubin Direct 5.0 0.0-0.5 mg/dL Mild Icter us. Aspartate Amino Transferase 628 5-31 U/L Alanine Aminotransferase 468 0-31 U/L Total Protein 7.5 6.5-8.0 g/dL Albumin Level 3.4 3.5-5.0 g/dL Alkaline Phosphatase 187 39-117 U/L Prothrombin Time INR Reviewed date:08/14/2025 09:11:51 PM Interpretation: Performing Lab:[facility], [address] [place] [address] Notes/Report: Prothrombin Time 13.3 10.9-12.4 SEC INTERNATIONAL [...] Panel Reviewed date:08/23/2025 11:24:36 PM Interpretation: Performing Lab:[facility], [address] [place] [address] Notes/Report: Bilirubin Total 6.3 0.0-1.0 mg/dL Mild Icteru s. Bilirubin Direct 4.5 0.0-0.5 mg/dL Mild Icter us. Aspartate Amino Transferase 598 5-31 U/L Alanine Aminotransferase 427 0-31 U/L Total Protein 7.3 6.5-8.0 g/dL Albumin Level 3.5 3.5-5.0 g/dL Alkaline Phosphatase 172 39-117 U/L Prothrombin Time INR Reviewed date:08/27/2025 06:40:50 PM Interpretation: Performing Lab:[facility], [address] [place] [address] Notes/Report: Prothrombin Time 12.7 10.9-12.4 SEC INTERNATIONAL [...] Panel Reviewed date:08/30/2025 12:24:10 PM Interpretation: Performing Lab:[facility], [address] [place] [address] Notes/Report: Bilirubin Total 2.8 0.0-1.0 mg/dL Slight Icte jazmine. Bilirubin Direct 1.8 0.0-0.5 mg/dL Slight Ict erus. Aspartate Amino Transferase 272 5-31 U/L Alanine Aminotransferase 263 0-31 U/L Total Protein 7.1 6.5-8.0 g/dL Albumin Level 3.4 3.5-5.0 g/dL Alkaline Phosphatase 145 39-117 U/L Liver Panel (Not yet review ed by provider) Interpretation: Performing Lab:[facility], [address] [place] [address] Notes/Report: Bilirubin Total 2.0 0.0-1.0 mg/dL Slight Icte jazmine. Bilirubin Direct 1.1 0.0-0.5 mg/dL Slight Ict erus. Aspartate Amino Transferase 235 5-31 U/L Alanine Aminotransferase 216 0-31 U/L Total Protein 7.3 6.5-8.0 g/dL Albumin Level 3.5 3.5-5.0 g/dL Alkaline Phosphatase 120 39-117 U/L Reason For Referral No Information Problems Problem Type SNOMED Code ICD Code Onset Dates Problem Status W/U Status Risk Notes Problem Elevated liver enzymes level (421940381) Elevated liver function tests (R79.89) Active confirmed Problem Gallstones (635859289) Gallstones (K80.20) Active confirmed Problem Jaundice (05351406) Jaundice (R17) Active confirmed Problem Elevated liver enzymes level (067031742) Elevated liver function tests (R94.5) Active confirmed Encounters Encounter Location Date Provider Diagnosis [facility] [address] [place] [address] 08/05/2025 Vinod Mosqueda Elevated liver function tests R79.89 and Jaundice R17 [facility] [address] [place] [address] 08/17/2025 Vinod Mosqueda Elevated liver function tests [...] 08/17/2025 Prothrombin Time INR 08/05/2025 Liver Panel 09/11/2025 Liver Panel 08/09/2025 Next Appt Details Provider Name:Vinod Mosqueda , 12/17/2025 02:00:00 PM, [address] [place] [address], [address], [place], [address], Insurance Providers Payer Name Payer Address Payer Phone Subscriber Number Group Number Insured Name Patient Relationship to Insured Coverage Start Date Coverage End Date [facility] [address] [address] [place], [place] [id number] DEMETRIS LYNCH Self - patient is the insured
--- OUTSIDE RECORDS SUMMARY | 2025-09-25 09:16 | XMS_ITS | Data Portability ---
Author Organization [facility], [address] Address [address] [place] [address] Care Team Providers Care Non Destructive Evaluation Specialist Name Role Phone [facility] Primary Care Provide r Assessment No assessment recorded. Plan of Treatment Reminders Order Date Submit Date Provider Last Modified By Organization Details Last Modified Time Details Appointments None recorded. Lab urinalysis, dipstick 2022 023 jose alejandro _[facility], [address] [place] [address], [address], 3 08:35:47 test, urine [address] [place] [address], [address] [place] [address], [phone], 3 08:35:47 culture, urine 2022 023 [place] [facility] [address] [place] [address], [place], [address], 3 10:06:11 Referral None recorded. Procedures None recorded. Surgeries None recorded. Imaging None recorded. Medication Orders cephalexin 500 mg capsule 2022 023 [email or web address] [id number], [address] [facility], [place], [address], 09:10:47 Patient TargetsNo targets recorded. Patient Instructions Encounter Date Encounter Id Patient Instructions Last Modified By Organization Details Last Modified Time 01/12/2023 [id number] We recommend you get a repeat urinalysis [...] culture, routine FINAL REPORT Not Available [facility] ([facility]) [address] [place], [address], 01/14/2023 10:06:11 01/12/20 23 01/14/2023 URINE CULTU RE, ROUTI NE result 1 COMMEN T Cultu re shows less than 10,00 0 colon y formi ng units of bacte adalgisa per lon liter of urine . This colon y count is not gener ally consi dered to be clini tyson signi fican t. Not Available [facility] ([facility]) [address] [place], [address], 01/14/2023 10:06:11 01/12/20 23 01/12/2023 pregn sylvester test, urine Unknown Analyte Normal = Negati ve Not Available _vance barreto [address], [address], 01/12/2023 08:10:58 01/12/20 23 01/12/2023 pregn sylvester test, urine Unknown Analyte negati ve Not Available vance [address] [place], [address], 01/12/2023 08:10:58 01/12/20 23 01/12/2023 urina lysis , dipst ick Unknown Analyte Normal = light yellow Not Available [address]99vance barreto [address], [place], [address], 01/12/2023 08:10:58 01/12/2001/12/2023 urina lysis , dipst ick Unknown Analyte Normal = clear Not Available [facility] [address], [place], [address], 01/12/2023 08:10:58 01/12/20 23 01/12/2023 urina lysis , dipst ick Unknown Analyte Normal = negati ve Not Available [facility] [address], [place], [address], 01/12/2023 08:10:58 01/12/20 23 01/12/2023 urina lysis , dipst ick Unknown Analyte Normal = Negati ve Not Available [address]99vance barreto [address], [place], [address], 01/12/2023 08:10:58 01/12/20 23 01/12/2023 urina lysis , dipst ick Unknown Analyte Normal = Negati ve Not Available vance barreto [address], [place], [address], 01/12/2023 08:10:58 01/12/20 23 01/12/2023 urina lysis , dipst ick Unknown Analyte Normal = 1.010, 1.015, 1.020 Not Available 2099vance barreto [address], [place], [address], 01/12/2023 08:10:58 01/12/20 23 01/12/2023 urina lysis , dipst ick Unknown Analyte Normal = Negati ve Not Available vance [address], [place], [place], [address], 01/12/2023 08:10:58 01/12/20 23 01/12/2023 urina lysis , dipst ick Unknown Analyte Normal = 6.5, 7.0, 7.5, 8.0 Not Available [facility] [address], [place], [address], 01/12/2023 08:10:58 01/12/2001/12/2023 urina lysis , dipst ick Unknown Analyte Normal = Negati ve Not Available [facility] [address], [place], [address], 01/12/2023 08:10:58 01/12/20 23 01/12/2023 urina lysis , dipst ick Unknown Analyte Normal = Negati ve Not Available [facility] [address], [place], [address], 01/12/2023 08:10:58 01/12/20 23 01/12/2023 urina lysis , dipst ick Unknown Analyte Normal = 0.2, 1.0 Not Available [facility] [address], [place], [address], 01/12/2023 08:10:58 01/12/20 23 01/12/2023 urina lysis , dipst ick Unknown Analyte Normal = Negati ve Not Available [facility] [address], [place], [address], 01/12/2023 08:10:58 01/12/20 23 01/12/2023 urina lysis , dipst ick Unknown Analyte Yellow Not Available [address] [place] [address], [place], [address], 01/12/2023 08:10:58 01/12/20 23 01/12/2023 urina lysis , dipst ick Unknown Analyte Slight ly Cloudy Not Available vance barreto [address], [place], [address], 01/12/2023 08:10:58 01/12/20 23 01/12/2023 urina lysis , dipst ick Unknown Analyte Negati ve Not Available vance barreto [address], [place], [address], 01/12/2023 08:10:58 01/12/20 23 01/12/2023 urina lysis , dipst ick Unknown Analyte Negati ve Not Available vance barreto [address], [place], [address], 01/12/2023 08:10:58 01/12/20 23 01/12/2023 urina lysis , dipst ick Unknown Analyte Negati ve Not Available vance barreto [address], [place], [address], 01/12/2023 08:10:58 01/12/20 23 01/12/2023 urina lysis , dipst ick Unknown Analyte 1.020 Not Available jimmy [address], [place], [address], 01/12/2023 08:10:58 01/12/20 23 01/12/2023 urina lysis , dipst ick Unknown Analyte Trace- intact Not Available vance barreto [address], [place], [address], 01/12/2023 08:10:58 01/12/20 23 01/12/2023 urina lysis , dipst ick Unknown Analyte 6.5 Not Available [facility] [address], [place], [address], 01/12/2023 08:10:58 01/12/2001/12/2023 urina lysis , dipst ick Unknown Analyte Negati ve Not Available [facility] [address] [place], [address], 01/12/2023 08:10:58 01/12/2001/12/2023 urina lysis , dipst ick Unknown Analyte 0.2 E.U./d L Not Available [facility] [address] [place], [address], 01/12/2023 08:10:58 01/12/2001/12/2023 urina lysis , dipst ick Unknown Analyte Negati ve Not Available [facility] [address] [place], [address], 01/12/2023 08:10:58 01/12/2001/12/2023 urina lysis , dipst ick Unknown Analyte Trace Not Available [facility] jimmy [address] [place], [address], 01/12/2023 08:10:58 Result Notes None recorded. Problems Name Problem SNOMED Code Status Onset Date Resolution Date Notes Provider Name and Address Organization Details Recorded Time Graves' disease 825321817 Active 2022 RAINER ISAAC null, PA - [facility] 3 08:14:40 Anxiety 60762674 Active 2022 RAINER ISAAC null, PA - [facility] 3 08:14:48 Gastroesophage al reflux disease 448235285 Active 2022 RAINER ISAAC null, PA - [facility] 3 08:14:55 Problem Notes None recorded. Medical Equipment None Reported. Allergies Allergen ID Allergen Name Allergen Category Reaction Reaction Severity Criticality Documentation Date Start Date Code Code System Note Provider Name and Address Organization Details Recorded Time amoxicill in medicatio n Not available Not available Not available 01/12/2023 723 RxNorm ARINER ISAAC null, PA - [facility] 3 08:12:32 567743 Substance with sulfonami de structure and antibacte rial mechanism of action (substanc e) medicatio n hives Not available Not available 01/12/2023 16028 8003 SNOMED RAINER ISAAC null, PA - [facility] 3 08:12:43 223609 morphine medicatio n Not available Not available Not available 01/12/2023 7052 RxNorm RAINER ISAAC null, PA - [facility] 3 08:12:53 610982 Product containin g penicilli n (product) medicatio n Not available Not available Not available 01/12/2023 52827 8001 SNOMED RAINER ISAAC null, PA - [facility] 3 08:13:56 463063 Cipro medicatio n Not available Not available Not available 01/12/2023 29542 3 RxNorm RAINER ISAAC null, PA - [facility] 3 08:14:05 960934 naproxen medicatio n Not available Not available Not available 01/12/2023 7258 RxNorm RAINER ISAAC null, PA - [facility] 3 08:14:10 965810 Macrobid medicatio n Not available Not available Not available 01/12/2023 74585 1 RxNorm RAINER ISAAC null, PA - [facility] 3 08:14:16 721911 doxycycli ne Not available Not available Not [...] Updated DateTime 3 180.34 cm 34.2 kg/m2 959061. 13 g 99 % 99 % 96 [...] ICD10 Code Diagnosis IMO Codes Diagnosis Note [id number] [facility] [address] 02/23/2022 17:04:40 02/23/2022 19:07:48 [id number] [facility] [address] [address] 03/21/2021 09:16:37 03/21/2021 11:21:10 [id number] John Cook NP [address] [place] [address] [facility] [place] [address] 01/12/2023 08:06:02 01/12/2023 08:46:40 Acute urinary tract infection 952316309 N39.0 Allergic to all antibiotic s except keflex per patient. Health Concerns Section Related Observation LastModified by Organization Detai ls LastModified Time None Recorded Concern Status LastModified by Organization Details LastModified Time None Recorded Advance Directives Directive None Recorded Payers Insurance Date Sequence Insurance Name Policy Number Policy Hogan Covered Member ID Hogan Member ID Guarantor Name 01/12/2023 1 [facility] - [facility] (MEDICAID REPLACEMENT - HMO) TERRELL Samchinedu Anderson [id number] Ann Anderson Notes Date Note Type Note [...] Cook NP [address] [place], [address], PA - [facility] 01/12/2023 09:11:09 OBGyn Episode No OBEpisode recorded.
--- OUTSIDE RECORDS SUMMARY | 2025-09-25 09:16 | XMS_ITS | Encounter Summary ---
Author Organization [facility] Address [address] [place] [address] Care Team Providers Care Target Aircraft Controller Name Role Phone Mckay Huang MD Primary Care Provider [phone] Encounter Details Date Type Department Care Team (Late st Contact Info) Description 09/09/2025 Results Follow-Up Adult Medicine [address] [phone] Mckay Huang MD [address] [place] [address] Social History Tobacco Use Types Packs/Day Years [...] for your loved ones. For example, child therapist or elderly care for an older adult? [...] Upcoming Encounters Date Type Department Care Team ([facility] Contact Info) Description 10/13/2025 4:00 PM EST Office Visit Adult Medicine [address] [phone] Megan Borrero PA [address] [place] [address] documented as of this encounter Visit Diagnoses Not on filedocumented in this encounter Additional Health Concerns Assessment Noted Time PHQ-9 Depression Total Score: 0 03/23/20 25 5:47 PM EDT documented as of this encounter Care Teams Target Aircraft Controller Relationship Specialty Start Date End Date Mckay Huang MD [address] [place], [place] PCP - General 08/28/05 documented as of this encounter
--- OUTSIDE RECORDS SUMMARY | 2025-09-25 09:16 | XMS_ITS | Encounter Summary ---
Author Organization [facility] Address [address] [place] [address] Care Team Providers Care Cylinder Handler Name Role Phone Mckay Huang MD Primary Care Provider [phone] Encounter Details Date Type Department Care Team (Late st Contact Info) Description 07/16/2025 Lab Requisition [facility] - Main Lab [address] [facility] [place] [address] Sivan Kasper MD [address] [place], [place] [phone] Dysuria Social History Tobacco Use Types Packs/Day [...] for your loved ones. For example, child support specialist or elderly care for an older adult? [...] Upcoming Encounters Date Type Department Care Team ([facility] Contact Info) Description 10/13/2025 4:00 PM EST Office Visit Adult Medicine [address] [phone] Megan Borrero PA [address] [place] [address] documented as of this encounter Procedures Procedure Name Priority Date/Time Associated Diagnosis Comments URINALYSIS WITH REFLEX MICROSCOPIC Routine 07/16/2025 11:40 AM EDT Dysuria URINALYSIS WITH REFLEX MICROSCOPIC Routine 07/16/2025 11:40 AM EDT Dysuria CULTURE URINE Routine 07/16/2025 11:40 AM EDT Dysuria documented in this encounter Results * (ABNORMAL) Urinalysis with reflex microscopic (07/16/2025 11:40 AM EDT) Specific [place] Urine 1.021 1.003 - 1.030 LAB URINALYSIS - AUTOMATED METHOD 07/16/2025 6:43 PM [facility] pH, Urine 6.5 5.0 - 8.0 pH LAB URINALYSIS - AUTOMATED METHOD 07/16/2025 6:43 PM [facility] Leukocytes, Urine Trace(A) Negative LAB URINALYSIS - AUTOMATED METHOD 07/16/2025 6:43 PM [facility] Nitrite, Urine Negative Negative LAB URINALYSIS - AUTOMATED METHOD 07/16/2025 6:43 PM [facility] Protein, Urine Negative <=Trace mg/dL LAB URINALYSIS - AUTOMATED METHOD 07/16/2025 6:43 PM [facility] Glucose, Urine Negative Negative mg/dL LAB URINALYSIS - AUTOMATED METHOD 07/16/2025 6:43 PM [facility] Ketones, Urine Negative Negative mg/dL LAB URINALYSIS - AUTOMATED METHOD 07/16/2025 6:43 PM [facility] Urobilinogen, Urine 1.0 0.2 - 1.0 mg/dL LAB URINALYSIS - AUTOMATED METHOD 07/16/2025 6:43 PM EDT [facility] Bilirubin, Urine Small(A) Negative LAB URINALYSIS - AUTOMATED METHOD 07/16/2025 6:43 PM EDT [facility] Blood, Urine Large(A) Negative LAB URINALYSIS - AUTOMATED METHOD 07/16/2025 6:43 PM EDT [facility] RBC, Urine 168.0(H) 0 - 4 /HPF LAB URINALYSIS - AUTOMATED METHOD 07/16/2025 6:43 PM EDT [facility] WBC, Urine 1.7 0 - 4 /HPF LAB URINALYSIS - AUTOMATED METHOD 07/16/2025 6:43 PM EDT [facility] Squamous Epithelial, Urine 56 0 - 60 /LPF LAB URINALYSIS - AUTOMATED METHOD 07/16/2025 6:43 PM EDT [facility] Bacteria, Urine Negative Negative /HPF LAB URINALYSIS - AUTOMATED METHOD 07/16/2025 6:43 PM T [facility] Hyaline Casts, Urine 6.8(H) 0 - 3 /LPF LAB URINALYSIS - AUTOMATED METHOD 07/16/2025 6:43 PM [facility] Urine Urine specimen from urethra / Unknown 07/16/2025 11:40 AM EDT 07/16/2025 5:56 PM EDT us Sivan Kasper MD LAB URINE ORDERABLES Fin al Result [facility] [address] [place] [address], * (ABNORMAL) Culture urine (07/16/2025 11:40 AM EDT) Culture, Urine 10,000-49,000 CFU/mL Escherichia coli(A) BERNA 07/18/2025 11:31 AM EDT [facility] Urine Urine specimen from urethra [...] Susceptible Sivan Kasper MD LAB MICROBIOLOGY - [facility] AL ORDERABLES Final Result Performing Organization Address City/State/[facility] Co de Phone Number [facility] ([facility]) [facility] [address] [place] [address], documented in this encounter Visit Diagnoses Diagnosis Dysuria documented in this encounter Additional Health Concerns Assessment Noted Time PHQ-9 Depression Total Score: 0 03/23/20 25 5:47 PM EDT documented as of this encounter Care Teams Cylinder Handler Relationship Specialty Start Date End Date Mckay Huang MD [address] [place] [phone] PCP - General 08/28/05 documented as of this encounter
--- OUTSIDE RECORDS SUMMARY | 2025-09-25 09:16 | XMS_ITS | Clinical Summary ---
Author Organization [facility] Address [address] [place] [phone] Phone Care Team Providers Care Mobile Device Engineer Name Role Phone Mckay Huang MD Primary [...] topic Medical Devices Not on file Insurance [facility] A[facility] Member Subscriber Plan / Payer (Ef fective 2023-Present) Name:Ann Anderson Relation to Subscriber:Self Name:Ann Anderson Payer ID:[id number] Group ID:[id number] Type:Medicaid Address: [address] NSP PCP [facility] Care Teams Mobile Device Engineer Relationship Specialty Start Date End Date Mckay Huang MD [address] [place] [address] PCP - General 07/19/23 Additional Source Comments The information contained in this document represents components of the legal health record. It is not the complete legal health record.[facility]
--- OUTSIDE RECORDS SUMMARY | 2025-09-25 09:16 | XMS_ITS | Encounter Summary ---
Author Organization [facility] Address [address] [place] [address] Care Team Providers Care Felled Seam Operator Chainstitch Name Role Phone Mckay Huang MD Primary Care Provider [phone] Encounter Details Date Type Department Care Team (Late st Contact Info) Description 09/02/2025 Results Follow-Up Adult Medicine [address] [phone] Mckay Huang MD [address] [place] [address] Social History Tobacco Use Types Packs/Day Years [...] for your loved ones. For example, child caregiver private home or elderly care for an older adult? [...] Upcoming Encounters Date Type Department Care Team ([facility] Contact Info) Description 10/13/2025 4:00 PM EST Office Visit Adult Medicine [address] [phone] Megan Borrero PA [address] [place] [address] documented as of this encounter Visit Diagnoses Not on filedocumented in this encounter Additional Health Concerns Assessment Noted Time PHQ-9 Depression Total Score: 0 03/23/20 25 5:47 PM EDT documented as of this encounter Care Teams Felled Seam Operator Chainstitch Relationship Specialty Start Date End Date Mckay Huang MD [address] [place], [place] PCP - General 08/28/05 documented as of this encounter
[2025-09-25 12:11] LABS: Alanine Aminotransferase 408 U/L (0-31); Albumin Level 3.2 g/dL (3.5-5.0); Alkaline Phosphatase 118 U/L (39-117); Aspartate Amino Transferase 450 U/L (5-31); Total Protein 7.1 g/dL (6.5-8.0)
== END 2025-09-25 09:14 | disposition home or self-care (01) ==
LOC: HO.LAB 09:13
PROVIDERS: Surgery; PCP Internal Medicine; Visit Provider Internal Medicine
DX: R94.5 Abnormal results of liver function studies (principal); R74.8 Abnormal levels of other serum enzymes
CPT/HCPCS: 36415; 80076

== ENCOUNTER 2025-10-02 07:59 | Emergency (ER) | payer OTHER, SELFPAY ==
[2025-10-02 08:01] VITALS: BP 164/113; PULSE 83; RESP 18; TEMP 36.8; O2SAT 98; BMI 36.1
--- NOTE | 2025-10-02 08:11 | ED.ALLEREA ---
HPI - Allergic Reaction General Chief complaint: Allergic Reaction Stated complaint: allergic reaction? throat tightness, rash Time Seen by Provider: 10/02/25 08:02 Source: patient Mode of arrival: ambulatory Limitations: no limitations History of Present Illness HPI narrative: This is a 45 years old the patient with a history of Graves disease history of elevated LFT presented to the emergency department complaining of allergic reaction to cefuroxime, she was placed on cefuroxime by the PCP for urinary tract infection, she discontinued Saturday because of side effects she is now complaining of the generalized itching she has no shortness of breath no wheezing MD complaint: allergic reaction Onset (ago): day(s) (4) Symptoms: itching Severity: moderate Treatment prior to arrival: none Related Data Home Medications ?Medication ?Instructions ?Recorded ?Confirmed omeprazole 20 mg capsule,delayed 20 mg PO DAILY@0630 11/29/23 09/02/25 release gabapentin 300 mg capsule 300 mg PO BID 08/21/24 09/02/25 flecainide 100 mg tablet 100 mg PO BID@0600,1800 05/19/25 09/02/25 levothyroxine 175 mcg tablet 175 mcg PO DAILY@0600 05/19/25 09/02/25 (Synthroid) Previous Rx's ?Medication ?Instructions ?Recorded propranolol 80 mg capsule,24 80 mg PO DAILY #90 caps 06/15/25 hr,extended release loratadine 10 mg tablet (Claritin) 10 mg PO DAILY #7 tabs 10/02/25 prednisone 20 mg tablet 40 mg (2 x 20 mg) PO DAILY #10 tabs 10/02/25 Allergies Allergy/AdvReac Type Severity Reaction Status Date / Time ibuprofen (IBUPROFEN) Allergy Unknown RASH Verified 09/02/25 14:36 morphine (MORPHINE) Allergy Unknown UNKNOWN Verified 09/02/25 14:36 moxifloxacin (MOXIFLOXACIN) Allergy Unknown UNKNOWN Verified 09/02/25 14:36 naproxen (Aleve) Allergy Unknown Rash Verified 09/02/25 14:36 penicillin V Allergy Unknown Rash Verified 09/02/25 14:36 Penicillins (PENICILLINS) Allergy Unknown RASH Verified 09/02/25 14:36 Sulfa (Sulfonamide Allergy Unknown RASH Verified 09/02/25 14:36 Antibiotics) (SULFA(SULFONAMIDE ANTIBIOTICS)) Cephalosporins Allergy Rash Verified 10/02/25 08:02 From ALEVE Allergy Unknown UNKNOWN Uncoded 09/02/25 14:36 From BENADRYL Allergy Unknown RASH Uncoded 09/02/25 14:36 Review of Systems Constitutional: Constitutional: Reports no additional constitutional complaints ENT: Reports system reviewed and no additional complaints, except as documented Cardiovascular: Cardiovascular: Reports no additional cardiovascular complaints PMFSH Past Medical History Attestation statement: The following information was validated with the patient. Medical History (Updated 10/04/25 @ 15:16 by NISHA Vegas) Neuralgia, post-herpetic Severe obesity Recurrent UTI Gallstones Paroxysmal atrial fibrillation Persistent atrial fibrillation Atrial fibrillation with RVR Anxiety GERD (gastroesophageal reflux disease) Graves disease Surgical History H/O eye surgery History of ankle surgery S/P appy S/P thyroidectomy Social History Social History Household Members: Spouse and Family Housing: House Do you presently have visiting nurse or other home services: No Alcohol intake: current Alcohol intake frequency: does not drink Patient Tobacco Use Status: Never used Tobacco Substance Use Type: Marijuana Advance Directives Date on File: 12/02/23 service: No Physical Exam ED Exam Exam: Mild distress Vital Signs: Vital Signs - 24 hr 10/02/25 08:01 Temperature 98.2 F Pulse Rate 83 Respiratory Rate 18 Blood Pressure 164/113 H Pulse Oximetry 98 Oxygen Delivery Method Room Air BMI result Body Mass Index 36.1 Const General: cooperative Nutritional Appearance: well nourished Orientation/consciousness: patient oriented x3 HENMT Head: Yes normal to inspection Ears: hearing grossly normal bilaterally General nose exam: Normal external nose present Face and sinus: Yes normal facial exam Mouth: Normal oral and palatal mucosa present Neck Neck: Yes normal visual inspection Chest Chest palpation & inspection: normal inspection of the chest Resp Effort & Inspection: normal respiratory effort Cardio Jugular venous distension: no JVD Palpation: normal PMI Rate: regular rate Rhythm: regular rhythm GI Inspection: Yes normal to inspection Palpation (GI): Soft to palpation Auscultation: normal bowel sounds Skin General skin exam: no rashes or lesions noted and elasticity normal Neuro General: patient oriented x3 Course Reevaluation(s) Reevaluation #1: Doing much better, LFT noted I discussed the LFT with Dr. Jaylin GRIFFIN okay to discharge her home he will follow-up LFT as outpatient Time: 10:30 Medications Administered Discontinued Medications Generic Name Dose Route Start Last Admin Trade Name Ivette PRN Reason Stop Dose Admin Dexamethasone Sodium Phosphate 10 mg 10/02/25 08:10 10/02/25 08:22 Dexamethasone Sod Phosphate 10 Mg/Ml Vial IVPUSH 10/02/25 08:11 10 mg ONCE ONE Administration Diphenhydramine HCl 25 mg 10/02/25 08:10 10/02/25 08:22 Diphenhydramine Hcl 50 Mg/Ml Vial IVPUSH 10/02/25 08:11 25 mg ONCE ONE Administration Famotidine 20 mg 10/02/25 08:10 10/02/25 08:22 Famotidine/Pf 20 Mg/2 Ml Vial IVPUSH 10/02/25 08:11 20 mg ONCE ONE Administration Medical Decision Making Medical Decision Making [facility] Narrative: Patient is here complaining of allergic reaction we will administer IV Benadryl Pepcid steroids reassess Differential Diagnosis Differential Diagnoses: The differential diagnosis associated with the presentation includes Allergic reaction/side effect on medicine/viral syndrome Admission/Observation Consideration of admission/observation: Escalation of care including admission/observation considered Consult Healthcare Provider Management of the patient was discussed with: Reticle Printer Dr. Mosqueda Lab Data [facility] Lab Attestation statement: I reviewed the patient's lab results. 10/02/25 08:20 10/02/25 08:20 Labs: Lab Results 10/02/25 Range/Units 08:20 WBC 6.0 (4.8-10.8) X10*3/uL RBC 4.62 (4.20-5.50) X10*6/uL Hgb 14.6 (12.0-16.0) g/dl Hct 43.3 (37.0-47.0) % MCV 93.7 (80.0-98.0) fL MCH 31.6 (27.0-33.0) pg MCHC 33.7 (31.0-35.0) g/dl RDW 13.1 (11.0-16.0) % Plt Count 141 L (160-400) X10*3/uL MPV 9.7 (9.4-12.3) fL Immature Gran % (Auto) 0.2 (0.0-0.4) % Neut % (Auto) 61.4 (45-73) % Lymph % (Auto) 27.0 (20-40) % [place] % (Auto) 9.5 (2-11) % Eos % (Auto) 1.2 (0-4) % Baso % (Auto) 0.7 (0-2) % Lymph # (Auto) 1.6 (1.2-4.9) X10*3/uL [place] # (Auto) 0.6 (0.1-1.2) X10*3/uL Eos # (Auto) 0.1 (0.0-0.4) X10*3/uL Baso # (Auto) 0.0 (0.0-0.2) X10*3/uL Abs Immat Gran (auto) 0.01 (0.00-0.03) X10*3/uL Absolute Neuts (auto) 3.7 (2.0-8.3) x10*3/uL Absolute Nucleated RBC 0.000 (0.0-0.012) X10*3/uL Nucleated RBC % (auto) 0.0 (0.0-0.2) /100WBC Sodium 138 (135-145) mmol/L Potassium 4.2 (3.3-5.1) mmol/L Chloride 111 H (96-108) mmol/L Carbon Dioxide 22 (22-29) mmol/L Anion Gap 9 L (12-20) BUN 13 (9-16) mg/dL Creatinine 0.59 (0.5-1.4) mg/dL Estim Creat Clear Calc 173.6 Estimated GFR > 60 Random Glucose 90 (60-115) mg/dL Calcium 8.5 (8.4-10.2) mg/dL Total Bilirubin 1.7 H (0.0-1.0) mg/dL AST 579 H (5-31) U/L ALT 495 H (0-31) U/L Alkaline Phosphatase 140 H (39-117) U/L Total Protein 7.2 (6.5-8.0) g/dL Albumin 3.3 L (3.5-5.0) g/dL Critical Care Time Critical Care Time Critical Care Time: Yes Total Critical Care Time: 60 Attestation: allergic reaction requiring IV meds Discharge Plan Discharge Clinical Impression: Allergic reaction, Elevated LFTs Patient Disposition: Home, Self-Care Instructions: General Allergic Reaction (ED) Additional Instructions: Follow-up with your primary care physician return to the emergency room,follow up with Dr Mosqueda Prescriptions: New loratadine [Claritin] 10 mg tablet 10 mg PO DAILY Qty: 7 0RF prednisone 20 mg tablet 40 mg PO DAILY Qty: 10 0RF No Action propranolol 80 mg capsule,extended release 24 hr 80 mg PO DAILY Qty: 90 2RF levothyroxine [Synthroid] 175 mcg Tablet 175 mcg PO DAILY@0600 Rx Instructions: brand name synthroid only flecainide 100 mg tablet 100 mg PO BID@0600,1800 omeprazole 20 mg capsule,delayed release(/EC) 20 mg PO DAILY@0630 gabapentin 300 mg capsule 300 mg PO BID Referrals: Mckay Huang III, MD [Primary Care Provider, Medical] - 10/02/25 10:35 am Interventions: ED Discharge Assessment Last Done: 10/02/25 10:49 Discharge Date/Time: 10/02/25 10:53 Print Language: Estonian
--- OUTSIDE RECORDS SUMMARY | 2025-10-02 08:18 | XMS_ITS | Encounter Summary ---
Author Organization [facility] Address [address] [place] [address] Care Team Providers Care Manager Mountain Name Role Phone Mckay Huang MD Primary Care Provider [phone] Encounter Details Date Type Department Care Team (Late st Contact Info) Description 04/20/2025 Nurse Triage Adult Medicine [address] [phone] Mckay Huang MD [address] [place] [address] Social History Tobacco Use Types Packs/Day Years Used Date Smoking Tobacco: Former Cigarettes 0 Q uit: 07/04/2005 Smokeless Tobacco: Never Alcohol [...] your loved ones. For example, early childhood teacher assistant or elderly care for an older adult? [...] ([facility] Contact Info) Description 10/13/2025 4:00 PM EST Office Visit Adult Medicine [address] [phone] Megan Borrero PA [address] [place], [place] documented as of this encounter Visit Diagnoses Not on filedocumented in this encounter Additional Health Concerns Assessment Noted Time PHQ-9 Depression Total Score: 0 03/23/20 25 5:47 PM EDT documented as of this encounter Care Teams Manager Mountain Relationship Specialty Start Date End Date Mckay Huang MD [address] [place] [address] PCP - General 08/28/05 documented as of this encounter
--- OUTSIDE RECORDS SUMMARY | 2025-10-02 08:19 | XMS_ITS | Clinical Summary ---
Author Organization [facility] Address [address] [place] [phone] Phone Care Team Providers Care Panel Coverer Name Role Phone Mckay Huang MD Primary [...] patient's age to complete this topic IPV VACCINES Aged Out No longer eligi ble [...] topic Medical Devices Not on file Insurance [facility] ALLANCE ACO NSP [facility] [place] [facility] Care Teams Panel Coverer Relationship Specialty Start Date End Date Mckay Huang MD [address] [place] [phone] PCP - General 07/19/23 Additional Source Comments The information contained in this document represents components of the legal health record. It is not the complete legal health record.[facility]
--- OUTSIDE RECORDS SUMMARY | 2025-10-02 08:19 | XMS_ITS | Encounter Summary ---
Author Organization [facility] Address [address] [place] [address] Care Team Providers Care Section Forest Fire Warden Name Role Phone Mckay Huang MD Primary Care Provider [phone] Encounter Details Date Type Department Care Team (Late st Contact Info) Description 07/16/2025 Lab Requisition [facility] - Main Lab [address] [facility] [place] [address] Sivan Kasper MD [address] [place], [place] [phone] Dysuria Social History Tobacco Use Types Packs/Day [...] for your loved ones. For example, child life specialist or elderly care for an older [...] Upcoming Encounters Date Type Department Care Team ([facility] Contact Info) Description 10/13/2025 4:00 PM EST Office Visit Adult Medicine [address] [phone] Megan Borrero PA [address] [place] [address] documented as of this encounter Procedures Procedure Name Priority Date/Time Associated Diagnosis Comments URINALYSIS WITH REFLEX MICROSCOPIC Routine 07/16/2025 11:40 AM EDT Dysuria URINALYSIS WITH REFLEX MICROSCOPIC Routine 07/16/2025 11:40 AM EDT Dysuria CULTURE URINE Routine 07/16/2025 11:40 AM EDT Dysuria documented in this encounter Results * (ABNORMAL) Urinalysis with reflex microscopic (07/16/2025 11:40 AM EDT) Specific [place] Urine 1.021 1.003 - 1.030 LAB URINALYSIS - AUTOMATED METHOD 07/16/2025 6:43 PM [facility] pH, Urine 6.5 5.0 - 8.0 pH LAB URINALYSIS - AUTOMATED METHOD 07/16/2025 6:43 PM [facility] Leukocytes, Urine Trace(A) Negative LAB URINALYSIS - AUTOMATED METHOD 07/16/2025 6:43 PM [facility] Nitrite, Urine Negative Negative LAB URINALYSIS - AUTOMATED METHOD 07/16/2025 6:43 PM [facility] Protein, Urine Negative <=Trace mg/dL LAB URINALYSIS - AUTOMATED METHOD 07/16/2025 6:43 PM [facility] Glucose, Urine Negative Negative mg/dL LAB URINALYSIS - AUTOMATED METHOD 07/16/2025 6:43 PM [facility] Ketones, Urine Negative Negative mg/dL LAB URINALYSIS - AUTOMATED METHOD 07/16/2025 6:43 PM [facility] Urobilinogen, Urine 1.0 0.2 - 1.0 mg/dL LAB URINALYSIS - AUTOMATED METHOD 07/16/2025 6:43 PM EDT [facility] Bilirubin, Urine Small(A) Negative LAB URINALYSIS - AUTOMATED METHOD 07/16/2025 6:43 PM EDT [facility] Blood, Urine Large(A) Negative LAB URINALYSIS - AUTOMATED METHOD 07/16/2025 6:43 PM EDT [facility] RBC, Urine 168.0(H) 0 - 4 /HPF LAB URINALYSIS - AUTOMATED METHOD 07/16/2025 6:43 PM EDT [facility] WBC, Urine 1.7 0 - 4 /HPF LAB URINALYSIS - AUTOMATED METHOD [facility] Squamous Epithelial, Urine 56 0 - 60 /LPF LAB URINALYSIS - AUTOMATED METHOD [facility]25 6[facility] Bacteria, Urine Negative Negative /HPF LAB URINALYSIS - AUTOMATED METHOD 07/16/2025 6:43 PM [facility] Hyaline Casts, Urine 6.8(H) 0 - 3 /LPF LAB URINALYSIS - AUTOMATED METHOD 07/16/2025 6:43 PM [facility] Urine Urine specimen from urethra / Unknown 07/16/2025 11:40 AM EDT 07/16/2025 5:56 PM EDT us Sivan Kasper MD LAB URINE ORDERABLES Fin al Result [facility] [address] [place] [address], * (ABNORMAL) Culture urine (07/16/2025 11:40 AM [...] MICROBIOLOGY - GENER AL ORDERABLES Final Result [facility] [address] [place] [address], documented in this encounter Visit Diagnoses Diagnosis Dysuria documented in this encounter Additional Health Concerns Assessment Noted Time PHQ-9 Depression Total Score: 0 03/23/20 25 5:47 PM EDT documented as of this encounter Care Teams Section Forest Fire Warden Relationship Specialty Start Date End Date Mckay Huang MD [address] [place] [phone] PCP - General 08/28/05 documented as of this encounter
--- OUTSIDE RECORDS SUMMARY | 2025-10-02 08:20 | XMS_ITS | Encounter Summary ---
Author Organization [facility] Address [address] [place] [address] Care Team Providers Care Trimming Inspector Name Role Phone Mckay Huang MD Primary Care Provider [phone] Encounter Details Date Type Department Care Team (Late st Contact Info) Description 09/09/2025 Results Follow-Up Adult Medicine [address] [phone] Mckay Huang MD [address] [place] [address] Social History Tobacco Use Types Packs/Day Years [...] for your loved ones. For example, attendant child activity or elderly care for an older adult? [...] Upcoming Encounters Date Type Department Care Team ([facility] Contact Info) Description 10/13/2025 4:00 PM EST Office Visit Adult Medicine [address] [phone] Megan Borrero PA [address] [place] [address] documented as of this encounter Visit Diagnoses Not on filedocumented in this encounter Additional Health Concerns Assessment Noted Time PHQ-9 Depression Total Score: 0 03/23/20 25 5:47 PM EDT documented as of this encounter Care Teams Trimming Inspector Relationship Specialty Start Date End Date Mckay Huang MD [address] [place] [address] PCP - General 08/28/05 documented as of this encounter
--- OUTSIDE RECORDS SUMMARY | 2025-10-02 08:21 | XMS_ITS | Data Portability ---
Author Organization [facility], [address] Address [address] [place] [address] Care Team Providers Care Shift Superintendent Name Role Phone [facility] Primary Care Provide r Assessment No assessment recorded. Plan of Treatment Reminders Order Date Submit Date Provider Last Modified By Organization Details Last Modified Time Details Appointments None recorded. Lab urinalysis, dipstick 2022 023 jose alejandro _[facility], [address] [place] [address], [phone], 3 08:35:47 test, urine [address] [place] [address], [address] [place] [address], [phone], 3 08:35:47 culture, urine 2022 023 [facility], [address] [place] [address], [place], [address], 3 10:06:11 Referral None recorded. Procedures None recorded. Surgeries None recorded. Imaging None recorded. Medication Orders cephalexin 500 mg capsule 2022 023 [email or web address] [id number], [address] [facility], [place], [address], 09:10:47 Patient TargetsNo targets recorded. Patient Instructions Encounter Date Encounter Id Patient Instructions Last Modified By Organization Details Last Modified Time 01/12/2023 [id number] We recommend you get a repeat urinalysis [...] culture, routine FINAL REPORT Not Available [facility] ([facility]) [address] [place], [address], 01/14/2023 10:06:11 01/12/20 23 01/14/2023 URINE CULTU RE, ROUTI NE result 1 COMMEN T Cultu re shows less than 10,00 0 colon y formi ng units of bacte adalgisa per lon liter of urine . This colon y count is not gener ally consi dered to be clini tyson signi fican t. Not Available [facility] ([facility]) [address] [place], [address], 01/14/2023 10:06:11 01/12/20 23 01/12/2023 pregn sylvester test, urine Unknown Analyte Normal = Negati ve Not Available _vance barreto [address], [address], 01/12/2023 08:10:58 01/12/20 23 01/12/2023 pregn sylvester test, urine Unknown Analyte negati ve Not Available vance [address] [place], [address], 01/12/2023 08:10:58 01/12/20 23 01/12/2023 urina lysis , dipst ick Unknown Analyte Normal = light yellow Not Available 2099vance barreto [address], [place], [address], 01/12/2023 08:10:58 01/12/2001/12/2023 urina lysis , dipst ick Unknown Analyte Normal = clear Not Available [facility] [address], [place], [address], 01/12/2023 08:10:58 01/12/20 23 01/12/2023 urina lysis , dipst ick Unknown Analyte Normal = negati ve Not Available [facility] bar[facility] [address], [place], [address], 01/12/2023 08:10:58 01/12/20 23 01/12/2023 urina lysis , dipst ick Unknown Analyte Normal = Negati ve Not Available [address]99vance barreto [address], [place], [address], 01/12/2023 08:10:58 01/12/20 23 01/12/2023 urina lysis , dipst ick Unknown Analyte Normal = Negati ve Not Available vance barreto [address], [place], [address], 01/12/2023 08:10:58 01/12/20 23 01/12/2023 urina lysis , dipst ick Unknown Analyte Normal = 1.010, 1.015, 1.020 Not Available 2099vance barreto [address], [place], [address], 01/12/2023 08:10:58 01/12/20 23 01/12/2023 urina lysis , dipst ick Unknown Analyte Normal = Negati ve Not Available vance [address], [place], [place], [address], 01/12/2023 08:10:58 01/12/20 23 01/12/2023 urina lysis , dipst ick Unknown Analyte Normal = 6.5, 7.0, 7.5, 8.0 Not Available [facility] [address], [place], [address], 01/12/2023 08:10:58 01/12/2001/12/2023 urina lysis , dipst ick Unknown Analyte Normal = Negati ve Not Available [facility] [address], [place], [address], 01/12/2023 08:10:58 01/12/20 23 01/12/2023 urina lysis , dipst ick Unknown Analyte Normal = Negati ve Not Available [facility] [address], [place], [address], 01/12/2023 08:10:58 01/12/20 23 01/12/2023 urina lysis , dipst ick Unknown Analyte Normal = 0.2, 1.0 Not Available [facility] [address], [place], [address], 01/12/2023 08:10:58 01/12/20 23 01/12/2023 urina lysis , dipst ick Unknown Analyte Normal = Negati ve Not Available [facility] [address], [place], [address], 01/12/2023 08:10:58 01/12/20 23 01/12/2023 urina lysis , dipst ick Unknown Analyte Yellow Not Available [address] [place] [address], [place], [address], 01/12/2023 08:10:58 01/12/20 23 01/12/2023 urina lysis , dipst ick Unknown Analyte Slight ly Cloudy Not Available vance barreto [address], [place], [address], 01/12/2023 08:10:58 01/12/20 23 01/12/2023 urina lysis , dipst ick Unknown Analyte Negati ve Not Available vance barreto [address], [place], [address], 01/12/2023 08:10:58 01/12/20 23 01/12/2023 urina lysis , dipst ick Unknown Analyte Negati ve Not Available vance barreto [address], [place], [address], 01/12/2023 08:10:58 01/12/20 23 01/12/2023 urina lysis , dipst ick Unknown Analyte Negati ve Not Available vance barreto [address], [place], [address], 01/12/2023 08:10:58 01/12/20 23 01/12/2023 urina lysis , dipst ick Unknown Analyte 1.020 Not Available jimmy [address], [place], [address], 01/12/2023 08:10:58 01/12/20 23 01/12/2023 urina lysis , dipst ick Unknown Analyte Trace- intact Not Available vance barreto [address], [place], [address], 01/12/2023 08:10:58 01/12/20 23 01/12/2023 urina lysis , dipst ick Unknown Analyte 6.5 Not Available [facility] [address], [place], [address], 01/12/2023 08:10:58 01/12/2001/12/2023 urina lysis , dipst ick Unknown Analyte Negati ve Not Available [facility] [address] [place], [address], 01/12/2023 08:10:58 01/12/2001/12/2023 urina lysis , dipst ick Unknown Analyte 0.2 E.U./d L Not Available [facility] [address] [place], [address], 01/12/2023 08:10:58 01/12/2001/12/2023 urina lysis , dipst ick Unknown Analyte Negati ve Not Available [facility] [address] [place], [address], 01/12/2023 08:10:58 01/12/2001/12/2023 urina lysis , dipst ick Unknown Analyte Trace Not Available [facility] jimmy [address] [place], [address], 01/12/2023 08:10:58 Result Notes None recorded. Problems Name Problem SNOMED Code Status Onset Date Resolution Date Notes Provider Name and Address Organization Details Recorded Time Graves' disease 968139206 Active 2022 RAINER ISAAC null, PA - [facility] 3 08:14:40 Anxiety 80962869 Active 2022 RAINER ISAAC null, PA - [facility] 3 08:14:48 Gastroesophage al reflux disease 241284528 Active 2022 RAINER ISAAC null, PA - [...] null, PA - [facility] 3 08:12:32 161600 Substance with sulfonami de structure and antibacte rial mechanism of action (substanc e) medicatio n hives Not available Not available 01/12/2023 60830 8003 SNOMED RAINER ISAAC null, PA - [facility] 3 08:12:43 192407 morphine medicatio n Not available Not available Not available 01/12/2023 7052 RxNorm RAINER ISAAC null, PA - [facility] 3 08:12:53 336570 Product containin g penicilli n (product) medicatio n Not available Not available Not available 01/12/2023 37225 8001 SNOMED RAINER ISAAC null, PA - [facility] 3 08:13:56 410349 Cipro medicatio n Not available Not available Not available 01/12/2023 99164 3 RxNorm RAINER ISAAC null, PA - [facility] 3 08:14:05 480976 naproxen medicatio n Not available Not available Not available 01/12/2023 7258 RxNorm RAINER ISAAC null, PA - [facility] 3 08:14:10 677486 Macrobid medicatio n Not available Not available Not available 01/12/2023 46529 1 RxNorm RAINER ISAAC null, PA - [facility] 3 08:14:16 017933 doxycycli ne Not available Not available Not [...] Updated DateTime 3 180.34 cm 34.2 kg/m2 633685. 13 g 99 % 99 % 96 [...] ICD10 Code Diagnosis IMO Codes Diagnosis Note [id number] [facility] [address] 02/23/2022 17:04:40 02/23/2022 19:07:48 [id number] [facility] [address] [address] 03/21/2021 09:16:37 03/21/2021 11:21:10 [id number] John Cook [place] [address] [place] [address] [facility] [place] [address] 01/12/2023 08:06:02 01/12/2023 08:46:40 Acute urinary tract infection [id number] N39.0 Allergic to all antibiotic s except keflex per patient. Health Concerns Section Related Observation LastModified by Organization Detai ls LastModified Time None Recorded Concern Status LastModified by Organization Details LastModified Time None Recorded Advance Directives Directive None Recorded Payers Insurance Date Sequence Insurance Name Policy Number Policy Hogan Covered Member ID Hogan Member ID Guarantor Name 01/12/2023 1 [facility] (MEDICAID REPLACEMENT - HMO) TERRELL Samchinedu Anderson [id number] Ann Anderson Notes Date Note Type Note [...] Cook NP [address] [place], [address], PA - [facility] 01/12/2023 09:11:09 OBGyn Episode No OBEpisode recorded.
--- OUTSIDE RECORDS SUMMARY | 2025-10-02 08:21 | XMS_ITS | Clinical Summary ---
Author Organization [address] Address [address] [place] [address] Phone Care Team Providers Care Seed District Sales Manager Name Role Phone Mckay Huang MD Primary Care Provider Allergies Active Allergy Reactions Criticality Noted Date [...] allergy 90 tablet 1 5 026 Active gabapentin (NEURONTIN) 300 mg capsule [...] day for 7 days. 14 each 5 025 Discontinu ed(Reorder ) cefuroxime (CEFTIN) 500 mg tablet Take 1 tablet (500 mg total) by mouth 2 (two) times a day for 7 days. 14 each 5 025 Active Problems Problem Noted Date Diagnosed Date Recurrent UTI 10/02/2024 Severe obesity (BMI 35.0-35. 9 with comorbidity) ([facility] V24, [facility] V28) 10/02/2024 GERD (gastroesophageal reflux disease) Neuralgia, post-herpetic 09/12/2024 Overview (10/02/2024): 12/22/23: Left forehead/eye, now on gabapentin Paroxysmal atrial fibrillation ([facility] V24, [facility] V28) 09/12/2024 Overview (10/02/2024): [place] [facility] [place] hypothyroidism 2024 Graves' disease 01/12/2023 COVID-19 virus infection 12/23/2020 Overview (10/02/2024): 12/21/20 Mixed hyperlipidemia 01/08/2020 Anxiety 08/29/2016 Cardiac murmur 10/24/2010 Overview (10/02/2024): Cardiac echo and stress test fall 2009 Holter monitor Graves' disease with exophthalmos 01/20/2008 Overview (10/02/2024): S/p 2006 - Dr. 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, couture alterations dressmaker Thyroid antibodies done 12/2010 Elevated thyroid antibodies 01/2011 Maternal consult Resolved Problems Problem Noted Date Diagnosed Date Resolved Date Vaginal odor 11/19/2024 01/19/2025 Bacterial vaginosis 11/19/2024 01/20/20 25 Encounters Date Type Department Care Team Description 09/09/2025 Results Follow-Up Adult Medicine [address] [phone] Mckay Huang MD 09/03/2025 Results Follow-Up Adult Medicine [address] [phone] Mckay Huang MD 09/02/2025 10:30 AM EDT Office Visit [address] [phone] Mckay Huang MD Pyelonephritis (Primary Dx); Need for prophylactic vaccination and inoculation against influenza; Recurrent UTI; Drug-induced hepatitis; Calculus of gallbladder with cholecystitis without biliary obstruction, unspecified cholecystitis acuity 09/02/2025 Results Follow-Up [address] [phone] Mckay Huang MD 08/02/2025 Nurse Triage [address] [phone] Mckay Huang MD 07/23/2025 2:30 PM EDT Office Visit [address] [phone] Jyoti Espinosa PA Orgasmic headache (Primary Dx); Nausea 07/16/2025 Lab Requisition [facility] [address] [place] [address] Sivan Kasper MD Dysuria from [...] 3 PROCEDURE: HISTORICAL APPENDECTOMY VAGINOSCOPY 2004 PROCEDURE: SC COLPOSCOPY CERVIX BX CERVIX & ENDOCRV CURRETAGE [...] for your loved ones. For example, child and adolescent therapist or elderly care for an older [...] g Savann ah Peloqu in-Spr att Delivery Location:[facility] Comments:A&W 8 Term 38w 0d 3260 g (115 oz) F Vag-S pont Livin g Delivery Location:[facility] 2010 Term 40w 6d 3997 g (141 oz) M Vag-S pont Epidur al Livin g 7 9 [place] [facility] Delivery Location:[facility] Comments:A&W Last Filed Vital Signs Vital [...] 4:00 PM EST Office Visit Adult Medicine [address] [phone] Megan Borrero PA [address] [place] [address] Health Maintenance Due Date Last Done Comments [...] and culture (09/07/2025 3:04 PM EDT) Specific [place] Urine 1.021 1.003 - 1.030 LAB URINALYSIS - AUTOMATED METHOD 09/07/2025 5:51 PM EDT [facility] pH, Urine 7.0 5.0 - 8.0 pH LAB URINALYSIS - AUTOMATED METHOD 09/07/2025 5:51 PM EDT [facility] Leukocytes, Urine Moderate(A) Negative LAB URINALYSIS - AUTOMATED METHOD 09/07/2025 5:51 PM EDT [facility] Nitrite, Urine Negative Negative LAB URINALYSIS - AUTOMATED METHOD 09/07/2025 5:51 PM EDT [facility] Protein, Urine 30(A) <=Trace mg/dL LAB URINALYSIS - AUTOMATED METHOD 09/07/2025 5:51 PM [facility] Glucose, Urine Negative Negative mg/dL LAB URINALYSIS - AUTOMATED METHOD 09/07/2025 5:51 PM [facility] Ketones, Urine Negative Negative mg/dL LAB URINALYSIS - AUTOMATED METHOD 09/07/2025 5:51 PM [facility] Urobilinogen , Urine 1.0 0.2 - 1.0 mg/dL LAB URINALYSIS - AUTOMATED METHOD 09/07/2025 5:51 PM [facility] Bilirubin, Urine Small(A) Negative LAB URINALYSIS - AUTOMATED METHOD 09/07/2025 5:51 PM [facility] Blood, Urine Large(A) Negative LAB URINALYSIS - AUTOMATED METHOD 09/07/2025 5:51 PM [facility] RBC, Urine 40.0(H) 0 - 4 /HPF LAB URINALYSIS - AUTOMATED METHOD 09/07/2025 5:51 PM [facility] WBC, Urine 10.0(H) 0 - 4 /HPF LAB URINALYSIS - AUTOMATED METHOD 09/07/2025 5:51 PM [facility] Squamous Epithelial, Urine 80(H) 0 - 60 /LPF LAB URINALYSIS - AUTOMATED METHOD 09/07/2025 5:51 PM [facility] Crystals, Urine Moderate Amorphous Phosphate crystals. /LPF LAB URINALYSIS - AUTOMATED METHOD 09/07/2025 5:51 PM [facility] Bacteria, Urine Many(A) Negative /HPF LAB URINALYSIS - AUTOMATED METHOD 09/07/2025 5:51 PM [facility] Hyaline Casts, Urine 1.6 0 - 3 /LPF LAB URINALYSIS - AUTOMATED METHOD 09/07/2025 5:51 PM EDT [facility] Urine Urine specimen obtained by clean catch procedure / Unknown Non-blood Collection / Unknown 09/07/2025 3:04 PM EDT 09/07/2025 3:04 PM EDT us Mckay Huang MD LAB URINE ORDERABLES Final Resu lt Performing Organization Address [facility]/ZIP Co de Phone Number [facility] [address] [place] [address], [place] [phone] * Walker urine culture tube (09/07/2025 3:04 PM EDT) Extra Tube Hold for add-ons. 09/07/2025 5:01 PM EDT [facility] Comment:Auto resulted. Urine Urine specimen obtained by clean catch procedure / Unknown Non-blood Collection / Unknown 09/07/2025 3:04 PM EDT 09/07/2025 3:04 PM EDT us Mckay Huang MD LAB URINE ORDERABLES Final Resu lt Performing Organization Address [facility] de Phone Number [facility] [address] [place] [address], [place] [phone] * (ABNORMAL) Culture urine (09/07/2025 3:04 PM EDT) Only the most recent of3 resultswithin the time period is included. Culture, Urine >=100,000 CFU/mL Streptococcus beta-hemolytic Group B(A) 09/08/2025 2:11 PM EDT [facility] Comment: Beta Streptococcus Group B Susceptibility testing is not routinely performed since this organism is predictably sensitive to Penicillin. Susceptibility testing should be performed for Penicillin-allergic women at HIGH RISK for anaphylaxis. S hould this patient require testing, please contact the Microbiology Department at [phone] within 7 days of receiving this report to request susceptibility. Urine Urine specimen obtained by clean catch procedure / Unknown Non-blood Collection / Unknown 09/07/2025 3:04 PM EDT 09/07/2025 5:51 PM EDT Narrative [facility] - 09/08/2025 2:11 PM EDT Additional colony types present in insignificant amounts. us Mckay Huang MD LAB MICROBIOLOGY - GENERAL MICHELE RILEY Final Result [facility] [address] [place] [address], [place] [phone] * (ABNORMAL) Urinalysis with reflex microscopic (09/02/2025 11:26 AM EDT) Only the most recent of2 resultswithin the time period is included. Specific [place] Urine 1.017 1.003 - 1.030 LAB URINALYSIS - AUTOMATED METHOD 09/02/2025 2:10 PM EDT [facility] pH, Urine 6.0 5.0 - 8.0 pH LAB URINALYSIS - AUTOMATED METHOD 09/02/2025 2:10 PM EDT [facility] Leukocytes, Urine Moderate(A) Negative LAB URINALYSIS - AUTOMATED METHOD 09/02/2025 2:10 PM EDT [facility] Nitrite, Urine Negative Negative LAB URINALYSIS - AUTOMATED METHOD 09/02/2025 2:10 PM EDT [facility] Protein, Urine Negative <=Trace mg/dL LAB URINALYSIS - AUTOMATED METHOD 09/02/2025 2:10 PM EDT [facility] Glucose, Urine Negative Negative mg/dL LAB URINALYSIS - AUTOMATED METHOD 09/02/2025 2:10 PM EDT [facility] Ketones, Urine Negative Negative mg/dL LAB URINALYSIS - AUTOMATED METHOD 09/02/2025 2:10 PM EDT [facility] Urobilinogen , Urine 1.0 0.2 - 1.0 mg/dL LAB URINALYSIS - AUTOMATED METHOD 09/02/2025 2:10 PM EDT [facility] Bilirubin, Urine Small(A) Negative LAB URINALYSIS - AUTOMATED METHOD 09/02/2025 2:10 PM EDT [facility] Blood, Urine Large(A) Negative LAB URINALYSIS - AUTOMATED METHOD 09/02/2025 2:10 PM [facility] RBC, Urine 4.0 0 - 4 /HPF LAB URINALYSIS - AUTOMATED METHOD [facility] WBC, Urine 7.4(H) 0 - 4 /HPF LAB URINALYSIS - AUTOMATED METHOD 09/02/2025 2:10 PM [facility] Squamous Epithelial, Urine >100(H) 0 - 60 /LPF LAB URINALYSIS - AUTOMATED METHOD 09/02/2025 2:10 PM [facility] Bacteria, Urine Many(A) Negative /HPF LAB URINALYSIS - AUTOMATED METHOD 09/02/2025 2:10 PM [facility] Hyaline Casts, Urine 3.0 0 - 3 /LPF LAB URINALYSIS - AUTOMATED METHOD 09/02/2025 2:10 PM [facility] Urine Urine specimen obtained by clean catch procedure / Unknown Non-blood Collection / Unknown 09/02/2025 11:26 AM EDT 09/02/2025 11:26 AM EDT Mckay Huang MD LAB URINE ORDERABLES Final Resu lt [facility] [address] [place] [address], * External clinical lab (08/27/2025) Provider [place] [...] follow-up in 6 months. BI-RADS 3-probably benign [address] [address] Procedure Note Isa Espino MD - 09/19/2024 [...] follow-up in 6 months. BI-RADS 3-probably benign [address] [id number] Eleanora Nemchinskaya PA IMG BI PROCEDURES Final Result * Cervical Cancer Screening: HPV (09/03/2023) Pathologist [facility] Cervical Cancer Screening: HPV negative, abstracted Historical Provider HEALTH MAINTENANCE Final Result * (ABNORMAL) Lipid panel (08/14/2022) Pathologist [facility] LDL/HDL Ratio 5(A) 0 - 4 Triglycerides 219(A) 0 - 150 mg/dL Cholesterol 218(A) 0 - 200 mg/dL HDL 46 >=40 mg/dL LDL Cholesterol 129(A) 0 - 100 mg/dL Blood Venous blood specimen / Unknown Historical Provider LAB BLOOD ORDERABLES Cecelia l Result * HIV Screening (10/23/2010) Pathologist [facility] HIV Screening abstracted Historical Provider HEALTH MAINTENANCE Final Result from Last 3 Months or Most Recently Relevant to Health Maintenance Insurance [facility] Care Teams Seed District Sales Manager Relationship Specialty Start Date End Date Mckay Huang MD [address] [place] [phone] PCP - General 08/28/05
--- OUTSIDE RECORDS SUMMARY | 2025-10-02 08:21 | XMS_ITS | Encounter Summary ---
Author Organization [employer] Address [address] [place] [address] Care Team Providers Care National Park Ranger Name Role Phone Mckay Huang MD Primary Care Provider [phone] Encounter Details Date Type Department Care Team (Late st Contact Info) Description 09/02/2025 Results Follow-Up Adult Medicine [address] [phone] Mckay Huang MD [address] [place] [address] Social History Tobacco Use Types Packs/Day Years [...] for your loved ones. For example, children's literature professor or elderly care for an older adult? [...] Upcoming Encounters Date Type Department Care Team ([facility] Contact Info) Description 10/13/2025 4:00 PM EST Office Visit Adult Medicine [address] [phone] Megan Borrero PA [address] [place] [address] documented as of this encounter Visit Diagnoses Not on filedocumented in this encounter Additional Health Concerns Assessment Noted Time PHQ-9 Depression Total Score: 0 03/23/20 25 5:47 PM EDT documented as of this encounter Care Teams National Park Ranger Relationship Specialty Start Date End Date Mckay Huang MD [address] [place] [address] PCP - General 08/28/05 documented as of this encounter
[2025-10-02 08:23] LABS: MANUAL DIFF FLAG NO
[2025-10-02 08:25] LABS: Hemoglobin 14.6 g/dl (12.0-16.0); Imm Gran Abs Auto 0.01 X10*3/uL (0.00-0.03); Imm Gran Pct Auto 0.2 % (0.0-0.4); Mean Corpuscular Volume 93.7 fL (80.0-98.0); NRBC Abs Auto 0.000 X10*3/uL (0.0-0.012); NRBC Pct Auto 0.0 /100WBC (0.0-0.2); PLT CLUMP 1; SCAN SMEAR FLAG 1
[2025-10-02 08:27] LABS: Hematocrit 43.3 % (37.0-47.0); Lymphocytes Absolute Auto 1.6 X10*3/uL (1.2-4.9); Mean Corpuscular HGB Conc 33.7 g/dl (31.0-35.0); Mean Corpuscular Hemoglobin 31.6 pg (27.0-33.0); Red Blood Count 4.62 X10*6/uL (4.20-5.50)
[2025-10-02 08:31] LABS: Platelet Count 141 X10*3/uL (160-400); White Blood Count 6.0 X10*3/uL (4.8-10.8)
[2025-10-02 08:43] LABS: Alanine Aminotransferase 495 U/L (0-31); Albumin Level 3.3 g/dL (3.5-5.0); Alkaline Phosphatase 140 U/L (39-117); Anion Gap 9 (12-20); Aspartate Amino Transferase 579 U/L (5-31); Blood Urea Nitrogen 13 mg/dL (9-16); Calcium 8.5 mg/dL (8.4-10.2); Carbon Dioxide 22 mmol/L (22-29); Chloride 111 mmol/L (96-108); Creatinine Clr Calc Pharmacy 173.6; Estimated Glomerular Filt Rate > 60; Potassium 4.2 mmol/L (3.3-5.1); Sodium 138 mmol/L (135-145); Total Protein 7.2 g/dL (6.5-8.0)
[2025-10-02 10:49] VITALS: BP 164/113; PULSE 83; RESP 18; TEMP 36.8; O2SAT 98
== END 2025-10-02 10:53 | disposition home or self-care (01) ==
PROVIDERS: Emergency Provider Emergency Medicine; PCP Internal Medicine
DX: T78.40XA Allergy, unspecified, initial encounter (principal); X58.XXXA Exposure to other specified factors, initial encounter; R79.89 Other specified abnormal findings of blood chemistry; Z88.0 Allergy status to penicillin; Z88.2 Allergy status to sulfonamides; Z88.5 Allergy status to narcotic agent; Z88.8 Allergy status to other drugs, medicaments and biological substances
CPT/HCPCS: 36415; 80053; 85025; 96374; 96375; 99284; J1100; J1200; J1308

== ENCOUNTER 2025-10-08 14:44 | Outpatient (REF) | payer OTHER, SELFPAY ==
--- OUTSIDE RECORDS SUMMARY | 2025-09-26 19:12 | XMS_ITS ---
Author Organization [facility] Address [address] [place] [phone] Care Team Providers Care Director Of Institutional Sales Name Role Phone Mckay Huang MD Primary Care Provider Vinod Lance [phone] REASON FOR VISIT LFT's Encounters Encounter Location Date Provider Diagnosis [facility] [address] [place] [phone] 09/27/2025 Vinod Mosqueda Elevated liver function tests R79.89 Assessments Encounter Date Diagnosis (ICD Code) Assessment Notes Treatment Notes Treatment Clinical Notes Section Notes 09/27/2025 Elevated liver function tests (ICD-10 - R79.89) Plan Of Treatment Pending Test Test Name Order Date LIVER PROFILE 09/27/2025 Next Appt Details Provider Name:Vinod Mosqueda , 12/17/2025 02:00:00 PM, [address] [facility], [address], [place], [address], Progress Notes * DUSTIN LYNCHOB: 2 (45 yo F)Acc No.[id number]:09/27/2025 Patient: DEMETRIS MARIN :1980 A ge:45 Y S ex:Female Address:[address] [place] [address], [address] Subjective: * Chief Complaints: * L FT's Assessment: * Assessment: 1. E levated liver function tests - R79.89 (Primary) Plan: * Treatment: * * Date:
--- OUTSIDE RECORDS SUMMARY | 2025-10-08 14:59 | XMS_ITS | Data Portability ---
Author Organization [facility], [address] Address [address] [place] [address] Care Team Providers Care Supervisor Mold Shop Name Role Phone [facility] Primary Care Provide r Assessment No assessment recorded. Plan of Treatment Reminders Order Date Submit Date Provider Last Modified By Organization Details Last Modified Time Details Appointments None recorded. Lab urinalysis, dipstick 2022 023 jose alejandro _[facility], [address] [place] [address], [phone], 3 08:35:47 test, urine [id number] [place] [address], [address] [place] [address], [phone], 3 08:35:47 culture, urine 2022 023 [facility], [address] [place] [address], [place], [address], 3 10:06:11 Referral None recorded. Procedures None recorded. Surgeries None recorded. Imaging None recorded. Medication Orders cephalexin 500 mg capsule 2022 023 [email or web address] [id number], [address] [facility], [place], [address], 09:10:47 Patient TargetsNo targets recorded. Patient Instructions Encounter Date Encounter Id Patient Instructions Last Modified By Organization Details Last Modified Time 01/12/2023 [id number] We recommend you get a repeat urinalysis [...] culture, routine FINAL REPORT Not Available [facility] ([facility]) [address] [place], [address], 01/14/2023 10:06:11 01/12/20 23 01/14/2023 URINE CULTU RE, ROUTI NE result 1 COMMEN T Cultu re shows less than 10,00 0 colon y formi ng units of bacte adalgisa per lon liter of urine . This colon y count is not gener ally consi dered to be clini tyson signi fican t. Not Available [facility] ([facility]) [address] [place], [address], 01/14/2023 10:06:11 01/12/20 23 01/12/2023 pregn sylvester test, urine Unknown Analyte Normal = Negati ve Not Available _vance barreto [address], [address], 01/12/2023 08:10:58 01/12/20 23 01/12/2023 pregn sylvester test, urine Unknown Analyte negati ve Not Available vance [address] [place], [address], 01/12/2023 08:10:58 01/12/20 23 01/12/2023 urina lysis , dipst ick Unknown Analyte Normal = light yellow Not Available 2099vance barreto [address], [place], [address], 01/12/2023 08:10:58 01/12/2001/12/2023 urina lysis , dipst ick Unknown Analyte Normal = clear Not Available [facility] [address], [place], [address], 01/12/2023 08:10:58 01/12/20 23 01/12/2023 urina lysis , dipst ick Unknown Analyte Normal = negati ve Not Available [facility] [address], [place], [address], 01/12/2023 08:10:58 01/12/20 23 01/12/2023 urina lysis , dipst ick Unknown Analyte Normal = Negati ve Not Available [address]99vance barreto [address], [place], [address], 01/12/2023 08:10:58 01/12/20 23 01/12/2023 urina lysis , dipst ick Unknown Analyte Normal = Negati ve Not Available vance barreto [address], [place], [address], 01/12/2023 08:10:58 01/12/20 23 01/12/2023 urina lysis , dipst ick Unknown Analyte Normal = 1.010, 1.015, 1.020 Not Available 2099vance barreto [address], [place], [address], 01/12/2023 08:10:58 01/12/20 23 01/12/2023 urina lysis , dipst ick Unknown Analyte Normal = Negati ve Not Available vance [address], [place], [place], [address], 01/12/2023 08:10:58 01/12/20 23 01/12/2023 urina lysis , dipst ick Unknown Analyte Normal = 6.5, 7.0, 7.5, 8.0 Not Available [facility] [address], [place], [address], 01/12/2023 08:10:58 01/12/2001/12/2023 urina lysis , dipst ick Unknown Analyte Normal = Negati ve Not Available [facility] [address], [place], [address], 01/12/2023 08:10:58 01/12/20 23 01/12/2023 urina lysis , dipst ick Unknown Analyte Normal = Negati ve Not Available [facility] [address], [place], [address], 01/12/2023 08:10:58 01/12/20 23 01/12/2023 urina lysis , dipst ick Unknown Analyte Normal = 0.2, 1.0 Not Available [facility] [address], [place], [address], 01/12/2023 08:10:58 01/12/20 23 01/12/2023 urina lysis , dipst ick Unknown Analyte Normal = Negati ve Not Available [facility] [address], [place], [address], 01/12/2023 08:10:58 01/12/20 23 01/12/2023 urina lysis , dipst ick Unknown Analyte Yellow Not Available [address] [place] [address], [place], [address], 01/12/2023 08:10:58 01/12/20 23 01/12/2023 urina lysis , dipst ick Unknown Analyte Slight ly Cloudy Not Available vance barreto [address], [place], [address], 01/12/2023 08:10:58 01/12/20 23 01/12/2023 urina lysis , dipst ick Unknown Analyte Negati ve Not Available vance barreto [address], [place], [address], 01/12/2023 08:10:58 01/12/20 23 01/12/2023 urina lysis , dipst ick Unknown Analyte Negati ve Not Available vance barreto [address], [place], [address], 01/12/2023 08:10:58 01/12/20 23 01/12/2023 urina lysis , dipst ick Unknown Analyte Negati ve Not Available vance barreto [address], [place], [address], 01/12/2023 08:10:58 01/12/20 23 01/12/2023 urina lysis , dipst ick Unknown Analyte 1.020 Not Available jimmy [address], [place], [address], 01/12/2023 08:10:58 01/12/20 23 01/12/2023 urina lysis , dipst ick Unknown Analyte Trace- intact Not Available vance barreto [address], [place], [address], 01/12/2023 08:10:58 01/12/20 23 01/12/2023 urina lysis , dipst ick Unknown Analyte 6.5 Not Available [facility] [address], [place], [address], 01/12/2023 08:10:58 01/12/2001/12/2023 urina lysis , dipst ick Unknown Analyte Negati ve Not Available [facility] [address] [place], [address], 01/12/2023 08:10:58 01/12/2001/12/2023 urina lysis , dipst ick Unknown Analyte 0.2 E.U./d L Not Available [facility] [address] [place], [address], 01/12/2023 08:10:58 01/12/2001/12/2023 urina lysis , dipst ick Unknown Analyte Negati ve Not Available [facility] [address] [place], [address], 01/12/2023 08:10:58 01/12/2001/12/2023 urina lysis , dipst ick Unknown Analyte Trace Not Available [facility] jimmy [address] [place], [address], 01/12/2023 08:10:58 Result Notes None recorded. Problems Name Problem SNOMED Code Status Onset Date Resolution Date Notes Provider Name and Address Organization Details Recorded Time Graves' disease 991915879 Active 2022 RAINER ISAAC null, PA - [facility] 3 08:14:40 Anxiety 67565439 Active 2022 RAINER ISAAC null, PA - [facility] 3 08:14:48 Gastroesophage al reflux disease 352644794 Active 2022 RAINER ISAAC null, PA - [...] null, PA - [facility] 3 08:12:32 391183 Substance with sulfonami de structure and antibacte rial mechanism of action (substanc e) medicatio n hives Not available Not available 01/12/2023 58704 8003 SNOMED RAINER ISAAC null, PA - [facility] 3 08:12:43 708610 morphine medicatio n Not available Not available Not available 01/12/2023 7052 RxNorm RAINER ISAAC null, PA - [facility] 3 08:12:53 501892 Product containin g penicilli n (product) medicatio n Not available Not available Not available 01/12/2023 32598 8001 SNOMED RAINER ISAAC null, PA - [facility] 3 08:13:56 002427 Cipro medicatio n Not available Not available Not available 01/12/2023 62834 3 RxNorm RAINER ISAAC null, PA - [facility] 3 08:14:05 786138 naproxen medicatio n Not available Not available Not available 01/12/2023 7258 RxNorm RAINER ISAAC null, PA - [facility] 3 08:14:10 348343 Macrobid medicatio n Not available Not available Not available 01/12/2023 69065 1 RxNorm RAINER ISAAC null, PA - [facility] 3 08:14:16 533765 doxycycli ne Not available Not available Not [...] mass index (BMI) Body weight Oxygen saturation Heart rate Respiratory rate Body temperature Systolic And Diastolic Provider Name and Address Organization Details Last Updated DateTime 3 180.34 cm 34.2 kg/m2 102841. 13 g 99 % 96 /min 16 /min 97.6 [...] ICD10 Code Diagnosis IMO Codes Diagnosis Note [id number] [facility] [address] [address] 02/23/2022 17:04:40 02/23/2022 19:07:48 [id number] [facility] [address] [address] 03/21/2021 09:16:37 03/21/2021 11:21:10 [id number] John Cook [place] 2[address]_[facility] [place] [address] [address] 01/12/2023 08:06:02 01/12/2023 08:46:40 Acute urinary tract infection 835525280 N39.0 Allergic to all antibiotic s except keflex per patient. Health Concerns Section Related Observation LastModified by Organization Detai ls LastModified Time None Recorded Concern Status LastModified by Organization Details LastModified Time None Recorded Advance Directives Directive None Recorded Payers Insurance Date Sequence Insurance Name Policy Number Policy Hogan Covered Member ID Hogan Member ID Guarantor Name 01/12/2023 1 [facility] - [employer] [place] [employer] (MEDICAID REPLACEMENT - HMO) TERRELL Juarez Bri Anderson [id number] Ann Anderson Notes Date Note Type Note [...] or bladder issues. John Cook NP [address] [facility] [place], [address], [place] - [facility] 01/12/2023 09:11:09 OBGyn Episode No OBEpisode recorded.
--- OUTSIDE RECORDS SUMMARY | 2025-10-08 14:59 | XMS_ITS | Encounter Summary ---
Author Organization [facility] Address [address] [place] [address] Care Team Providers Care Fretted String Instrument Repairer Name Role Phone Mckay Huang MD Primary Care Provider [phone] Encounter Details Date Type Department Care Team (Late st Contact Info) Description 07/16/2025 Lab Requisition [facility] - Main Lab [address] [facility] [place] [address] Sivan Kasper MD [address] [place], [place] [phone] Dysuria Social History Tobacco Use Types Packs/Day [...] for your loved ones. For example, child psychologist or elderly care for an older adult? [...] Upcoming Encounters Date Type Department Care Team ([facility] Contact Info) Description 10/13/2025 4:00 PM EST Office Visit Adult Medicine [address] [phone] Megan Borrero PA [address] [place] [address] documented as of this encounter Procedures Procedure Name Priority Date/Time Associated Diagnosis Comments URINALYSIS WITH REFLEX MICROSCOPIC Routine 07/16/2025 11:40 AM EDT Dysuria URINALYSIS WITH REFLEX MICROSCOPIC Routine 07/16/2025 11:40 AM EDT Dysuria CULTURE URINE Routine 07/16/2025 11:40 AM EDT Dysuria documented in this encounter Results * (ABNORMAL) Urinalysis with reflex microscopic (07/16/2025 11:40 AM EDT) Specific [place] Urine 1.021 1.003 - 1.030 LAB URINALYSIS - AUTOMATED METHOD 07/16/2025 6:43 PM [facility] pH, Urine 6.5 5.0 - 8.0 pH LAB URINALYSIS - AUTOMATED METHOD 07/16/2025 6:43 PM [facility] Leukocytes, Urine Trace(A) Negative LAB URINALYSIS - AUTOMATED METHOD 07/16/2025 6:43 PM [facility] Nitrite, Urine Negative Negative LAB URINALYSIS - AUTOMATED METHOD 07/16/2025 6:43 PM [facility] Protein, Urine Negative <=Trace mg/dL LAB URINALYSIS - AUTOMATED METHOD 07/16/2025 6:43 PM [facility] Glucose, Urine Negative Negative mg/dL LAB URINALYSIS - AUTOMATED METHOD 07/16/2025 6:43 PM [facility] Ketones, Urine Negative Negative mg/dL LAB URINALYSIS - AUTOMATED METHOD 07/16/2025 6:43 PM [facility] Urobilinogen, Urine 1.0 0.2 - 1.0 mg/dL LAB URINALYSIS - AUTOMATED METHOD 07/16/2025 6:43 PM EDT [facility] Bilirubin, Urine Small(A) Negative LAB URINALYSIS - AUTOMATED METHOD 07/16/2025 6:43 PM EDT [facility] Blood, Urine Large(A) Negative LAB URINALYSIS - AUTOMATED METHOD 07/16/2025 6:43 PM EDT [facility] RBC, Urine 168.0(H) 0 - 4 /HPF LAB URINALYSIS - AUTOMATED METHOD 07/16/2025 6:43 PM EDT [facility] WBC, Urine 1.7 0 - 4 /HPF LAB URINALYSIS - AUTOMATED METHOD [facility]16[facility]25 6:[facility] Squamous Epithelial, Urine 56 0 - 60 /LPF LAB URINALYSIS - AUTOMATED METHOD 07/16/2025 6:[facility] Bacteria, Urine Negative Negative /HPF LAB URINALYSIS - AUTOMATED METHOD 07/16/2025 6:43 PM [facility] Hyaline Casts, Urine 6.8(H) 0 - 3 /LPF LAB URINALYSIS - AUTOMATED METHOD 07/16/2025 6:43 PM [facility] Urine Urine specimen from urethra / Unknown 07/16/2025 11:40 AM EDT 07/16/2025 5:56 PM EDT us Sivan Kasper MD LAB URINE ORDERABLES Fin al Result [facility] [address] [place] [address], * (ABNORMAL) Culture urine (07/16/2025 11:40 AM [...] MICROBIOLOGY - GENER AL ORDERABLES Final Result [facility] [address] [place] [address], documented in this encounter Visit Diagnoses Diagnosis Dysuria documented in this encounter Additional Health Concerns Assessment Noted Time PHQ-9 Depression Total Score: 0 03/23/20 25 5:47 PM EDT documented as of this encounter Care Teams Fretted String Instrument Repairer Relationship Specialty Start Date End Date Mckay Huang MD [address] [place] [phone] PCP - General 08/28/05 documented as of this encounter
--- OUTSIDE RECORDS SUMMARY | 2025-10-08 14:59 | XMS_ITS | Encounter Summary ---
Author Organization [facility] Address [address] [place] [address] Care Team Providers Care Curtain Cutter Name Role Phone Mckay Huang MD Primary Care Provider [phone] Encounter Details Date Type Department Care Team (Late st Contact Info) Description 09/02/2025 Results Follow-Up Adult Medicine [address] [phone] Mckay Huang MD [address] [place] [address] Social History Tobacco Use Types Packs/Day Years [...] your loved ones. For example, child and family therapist or elderly care for an older [...] Upcoming Encounters Date Type Department Care Team ([facility] Contact Info) Description 10/13/2025 4:00 PM EST Office Visit Adult Medicine [address] [phone] Megan Borrero PA [address] [place] [address] documented as of this encounter Visit Diagnoses Not on filedocumented in this encounter Additional Health Concerns Assessment Noted Time PHQ-9 Depression Total Score: 0 03/23/20 25 5:47 PM EDT documented as of this encounter Care Teams Curtain Cutter Relationship Specialty Start Date End Date Mckay Huang MD [address] [place] [address] PCP - General 08/28/05 documented as of this encounter
--- OUTSIDE RECORDS SUMMARY | 2025-10-08 14:59 | XMS_ITS | Clinical Summary ---
Author Organization [address] Address [address] [place] [address] Phone Care Team Providers Care Circuit Board Inspector Name Role Phone Mckay Huang MD Primary Care Provider [phone] Allergies Active Allergy Reactions Criticality Noted Date [...] Severe obesity (BMI 35.0-35. 9 with comorbidity) ([facility] [place] [facility] V24, [facility] V28) 10/02/2024 GERD (gastroesophageal reflux disease) Neuralgia, post-herpetic 09/12/2024 Overview (10/02/2024): 12/22/23: Left forehead/eye, now on gabapentin Paroxysmal atrial fibrillation ([facility] [place] [facility] V24, [facility] V28) 09/12/2024 Overview (10/02/2024): Dr. Bland at [facility] [place] Post-operative hypothyroidism 2024 Graves' disease 01/12/2023 COVID-19 virus infection 12/23/2020 Overview (10/02/2024): 12/21/20 Mixed hyperlipidemia 01/08/2020 Anxiety 08/29/2016 Cardiac murmur 10/24/2010 Overview (10/02/2024): Cardiac echo and stress test fall 2009 Holter monitor Graves' disease with exophthalmos 01/20/2008 Overview (10/02/2024): S/p 2006 - Dr. 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, prefabricated houses trimmer Thyroid antibodies done 12/2010 Elevated thyroid antibodies 01/2011 Maternal consult Resolved Problems Problem Noted Date Diagnosed Date Resolved Date Vaginal odor 11/19/2024 01/19/2025 Bacterial vaginosis 11/19/2024 01/20/20 25 Encounters Date Type Department Care Team Description 09/09/2025 Results Follow-Up Adult Medicine [address] [phone] Mckay Huang MD 09/03/2025 Results Follow-Up Adult Medicine [address] [phone] Mckay Huang MD 09/02/2025 10:30 AM EDT Office Visit [address] [phone] Mckay Huang MD Pyelonephritis (Primary Dx); Need for prophylactic vaccination and inoculation against influenza; Recurrent UTI; Drug-induced hepatitis; Calculus of gallbladder with cholecystitis without biliary obstruction, unspecified cholecystitis acuity 09/02/2025 Results Follow-Up [address] [phone] Mckay Huang MD 08/02/2025 Nurse Triage [address] [phone] Mckay Huang MD 07/23/2025 2:30 PM EDT Office Visit [address] [phone] Jyoti Espinosa PA Orgasmic headache (Primary Dx); Nausea 07/16/2025 Lab Requisition [facility] - Main Lab [address] [place] [address] Sivan Kasper MD Dysuria from [...] 3 PROCEDURE: HISTORICAL APPENDECTOMY VAGINOSCOPY 2004 PROCEDURE: [place] COLPOSCOPY CERVIX BX CERVIX & ENDOCRV CURRETAGE [...] g Savann ah Peloqu in-Spr att Delivery Location:[facility] Comments:A&W 8 Term 38w 0d 3260 g (115 oz) F Vag-S pont Livin g Delivery Location:[facility] 2010 Term 40w 6d 3997 g (141 oz) M Vag-S pont Epidur al Livin g 7 9 [place] Delivery Location:[facility] Comments:A&W Last Filed Vital Signs Vital [...] 4:00 PM EST Office Visit Adult Medicine [address] [phone] Megan Borrero PA [address] [place] [address] Health Maintenance Due Date Last Done Comments [...] and culture (09/07/2025 3:04 PM EDT) Specific [place] Urine 1.021 1.003 - 1.030 LAB URINALYSIS - AUTOMATED METHOD 09/07/2025 5:51 PM EDT [facility] pH, Urine 7.0 5.0 - 8.0 pH LAB URINALYSIS - AUTOMATED METHOD 09/07/2025 5:51 PM EDT [facility] Leukocytes, Urine Moderate(A) Negative LAB URINALYSIS - AUTOMATED METHOD 09/07/2025 5:51 PM EDT [facility] Nitrite, Urine Negative Negative LAB URINALYSIS - AUTOMATED METHOD 09/07/2025 5:51 PM EDT [facility] Protein, Urine 30(A) <=Trace mg/dL LAB URINALYSIS - AUTOMATED METHOD 09/07/2025 5:51 PM [facility] Glucose, Urine Negative Negative mg/dL LAB URINALYSIS - AUTOMATED METHOD 09/07/2025 5:51 PM [facility] Ketones, Urine Negative Negative mg/dL LAB URINALYSIS - AUTOMATED METHOD 09/07/2025 5:51 PM [facility] Urobilinogen , Urine 1.0 0.2 - 1.0 mg/dL LAB URINALYSIS - AUTOMATED METHOD 09/07/2025 5:51 PM [facility] Bilirubin, Urine Small(A) Negative LAB URINALYSIS - AUTOMATED METHOD 09/07/2025 5:51 PM [facility] Blood, Urine Large(A) Negative LAB URINALYSIS - AUTOMATED METHOD 09/07/2025 5:51 PM [facility] RBC, Urine 40.0(H) 0 - 4 /HPF LAB URINALYSIS - AUTOMATED METHOD 09/07/2025 5:51 PM [facility] WBC, Urine 10.0(H) 0 - 4 /HPF LAB URINALYSIS - AUTOMATED METHOD 09/07/2025 5:51 PM [facility] Squamous Epithelial, Urine 80(H) 0 - 60 /LPF LAB URINALYSIS - AUTOMATED METHOD 09/07/2025 5:51 PM [facility] Crystals, Urine Moderate Amorphous Phosphate crystals. /LPF LAB URINALYSIS - AUTOMATED METHOD 09/07/2025 5:51 PM [facility] Bacteria, Urine Many(A) Negative /HPF LAB URINALYSIS - AUTOMATED METHOD 09/07/2025 5:51 PM [facility] Hyaline Casts, Urine 1.6 0 - 3 /LPF LAB URINALYSIS - AUTOMATED METHOD 09/07/2025 5:51 PM EDT [facility] Urine Urine specimen obtained by clean catch procedure / Unknown Non-blood Collection / Unknown 09/07/2025 3:04 PM EDT 09/07/2025 3:04 PM EDT us Mckay Huang MD LAB URINE ORDERABLES Final Resu lt Performing Organization Address [facility]/ZIP Co de Phone Number [facility] [address] [place] [address], [place] [phone] * Walker urine culture tube (09/07/2025 3:04 PM EDT) Extra Tube Hold for add-ons. 09/07/2025 5:01 PM EDT [facility] Comment:Auto resulted. Urine Urine specimen obtained by clean catch procedure / Unknown Non-blood Collection / Unknown 09/07/2025 3:04 PM EDT 09/07/2025 3:04 PM EDT us Mckay Huang MD LAB URINE ORDERABLES Final Resu lt Performing Organization Address [facility] de Phone Number [facility] [address] [place] [address], [place] [phone] * (ABNORMAL) Culture urine (09/07/2025 3:04 PM EDT) Only the most recent of3 resultswithin the time period is included. Culture, Urine >=100,000 CFU/mL Streptococcus beta-hemolytic Group B(A) 09/08/2025 2:11 PM EDT [facility] Comment: Beta Streptococcus Group B Susceptibility testing is not routinely performed since this organism is predictably sensitive to Penicillin. Susceptibility testing should be performed for Penicillin-allergic women at HIGH RISK for anaphylaxis. S hould this patient require testing, please contact the Microbiology Department at [phone] within 7 days of receiving this report to request susceptibility. Urine Urine specimen obtained by clean catch procedure / Unknown Non-blood Collection / Unknown 09/07/2025 3:04 PM EDT 09/07/2025 5:51 PM EDT Narrative [facility] - 09/08/2025 2:11 PM EDT Additional colony types present in insignificant amounts. us Mckay Huang MD LAB MICROBIOLOGY - GENERAL MICHELE RILEY Final Result [facility] [address] [place] [address], [place] [phone] * (ABNORMAL) Urinalysis with reflex microscopic (09/02/2025 11:26 AM EDT) Only the most recent of2 resultswithin the time period is included. Specific [place] Urine 1.017 1.003 - 1.030 LAB URINALYSIS - AUTOMATED METHOD 09/02/2025 2:10 PM EDT [facility] pH, Urine 6.0 5.0 - 8.0 pH LAB URINALYSIS - AUTOMATED METHOD 09/02/2025 2:10 PM EDT [facility] Leukocytes, Urine Moderate(A) Negative LAB URINALYSIS - AUTOMATED METHOD 09/02/2025 2:10 PM EDT [facility] Nitrite, Urine Negative Negative LAB URINALYSIS - AUTOMATED METHOD 09/02/2025 2:10 PM EDT [facility] Protein, Urine Negative <=Trace mg/dL LAB URINALYSIS - AUTOMATED METHOD 09/02/2025 2:10 PM EDT [facility] Glucose, Urine Negative Negative mg/dL LAB URINALYSIS - AUTOMATED METHOD 09/02/2025 2:10 PM EDT [facility] Ketones, Urine Negative Negative mg/dL LAB URINALYSIS - AUTOMATED METHOD 09/02/2025 2:10 PM EDT [facility] Urobilinogen , Urine 1.0 0.2 - 1.0 mg/dL LAB URINALYSIS - AUTOMATED METHOD 09/02/2025 2:10 PM EDT [facility] Bilirubin, Urine Small(A) Negative LAB URINALYSIS - AUTOMATED METHOD 09/02/2025 2:10 PM EDT [facility] Blood, Urine Large(A) Negative LAB URINALYSIS - AUTOMATED METHOD 09/02/2025 2:10 PM [facility] RBC, Urine 4.0 0 - 4 /HPF LAB URINALYSIS - AUTOMATED METHOD 09/[facility] WBC, Urine 7.4(H) 0 - 4 /HPF LAB URINALYSIS - AUTOMATED METHOD 09/02/2025 2:10 PM [facility] Squamous Epithelial, Urine >100(H) 0 - 60 /LPF LAB URINALYSIS - AUTOMATED METHOD 09/02/2025 2:10 PM [facility] Bacteria, Urine Many(A) Negative /HPF LAB URINALYSIS - AUTOMATED METHOD 09/02/2025 2:10 PM [facility] Hyaline Casts, Urine 3.0 0 - 3 /LPF LAB URINALYSIS - AUTOMATED METHOD 09/02/2025 2:10 PM [facility] Urine Urine specimen obtained by clean catch procedure / Unknown Non-blood Collection / Unknown 09/02/2025 11:26 AM EDT 09/02/2025 11:26 AM EDT Mckay Huang MD LAB URINE ORDERABLES Final Resu lt [facility] [address] [place] [address], * External clinical lab (08/27/2025) Provider [place] [...] follow-up in 6 months. BI-RADS 3-probably benign [address] [id number] Procedure Note Isa Espino MD - 09/19/2024 [...] follow-up in 6 months. BI-RADS 3-probably benign [address] [id number] Eleanora Nemchinskaya PA IMG BI PROCEDURES Final Result * Cervical Cancer Screening: HPV (09/03/2023) Pathologist [facility] Cervical Cancer Screening: HPV negative, abstracted Historical Provider HEALTH MAINTENANCE Final Result * (ABNORMAL) Lipid panel (08/14/2022) Pathologist [facility] LDL/HDL Ratio 5(A) 0 - 4 Triglycerides 219(A) 0 - 150 mg/dL Cholesterol 218(A) 0 - 200 mg/dL HDL 46 >=40 mg/dL LDL Cholesterol 129(A) 0 - 100 mg/dL Blood Venous blood specimen / Unknown Historical Provider LAB BLOOD ORDERABLES Cecelia l Result * HIV Screening (10/23/2010) Pathologist [facility] HIV Screening abstracted Historical Provider HEALTH MAINTENANCE Final Result from Last 3 Months or Most Recently Relevant to Health Maintenance Insurance [facility] Care Teams Circuit Board Inspector Relationship Specialty Start Date End Date Mckay Huang MD [address] [place] [phone] PCP - General 08/28/05
--- OUTSIDE RECORDS SUMMARY | 2025-10-08 14:59 | XMS_ITS | Encounter Summary ---
Author Organization [facility] Address [address] [place] [address] Care Team Providers Care Digital Analyst Name Role Phone Mckay Huang MD Primary Care Provider [phone] Encounter Details Date Type Department Care Team (Late st Contact Info) Description 04/20/2025 Nurse Triage Adult Medicine [address] [phone] Mckay Huang MD [address] [place] [address] Social History Tobacco Use Types Packs/Day Years [...] for your loved ones. For example, children's lunchroom supervisor or elderly care for an older [...] Upcoming Encounters Date Type Department Care Team ([facility] Contact Info) Description 10/13/2025 4:00 PM EST Office Visit Adult Medicine [address] [phone] Megan Borrero PA [address] [place], [place] documented as of this encounter Visit Diagnoses Not on filedocumented in this encounter Additional Health Concerns Assessment Noted Time PHQ-9 Depression Total Score: 0 03/23/20 25 5:47 PM EDT documented as of this encounter Care Teams Digital Analyst Relationship Specialty Start Date End Date Mckay Huang MD [address] [place] [address] PCP - General 08/28/05 documented as of this encounter
--- OUTSIDE RECORDS SUMMARY | 2025-10-08 14:59 | XMS_ITS | Encounter Summary ---
Author Organization [facility] Address [address] [place] [address] Care Team Providers Care Hacksaw Inspector Name Role Phone Mckay Huang MD Primary Care Provider [phone] Encounter Details Date Type Department Care Team (Late st Contact Info) Description 09/09/2025 Results Follow-Up Adult Medicine [address] [phone] Mckay Huang MD [address] [place] [address] Social History Tobacco Use Types Packs/Day Years [...] your loved ones. For example, child life therapist or elderly care for an older [...] Date Type Department Care Team ([facility] Contact Info) Description 10/13/2025 4:00 PM EST Office Visit Adult Medicine [address] [phone] Megan Borrero PA [address] [place] [address] documented as of this encounter Visit Diagnoses Not on filedocumented in this encounter Additional Health Concerns Assessment Noted Time PHQ-9 Depression Total Score: 0 03/23/20 25 5:47 PM EDT documented as of this encounter Care Teams Hacksaw Inspector Relationship Specialty Start Date End Date Mckay Huang MD [address] [place] [address] PCP - General 08/28/05 documented as of this encounter
--- OUTSIDE RECORDS SUMMARY | 2025-10-08 14:59 | XMS_ITS | Patient Health Record ---
Author Organization [facility] Address [address] [place] [address] Care Team Providers Care Hollow Core Door Frame Assembler Name Role Phone Mckay Huang MD Primary Care Provider Vinod Lance [phone] Results Component Value Reference Range Flag Notes Erythrocyte Sedimentation Ra te Reviewed date:08/04/2025 05:20:12 PM Interpretation: Performing Lab:[facility], [address] [place] [phone] Notes/Report: Erythrocyte Sedimentation Rate 22 0-20 MM/HR H Patients with polycythemia and many hemoglobin abnormalities may have depressed sed rates whereas patients with anemia may have elevated sed rates. Prothrombin Time INR Reviewed date:08/04/2025 04:05:12 PM Interpretation: Performing Lab:[facility], [address] [place] [phone] Notes/Report: Prothrombin Time 13.8 10.9-12.4 SEC H INTERNATIONAL NORM RATIO 1.2 0.9-1.1 H INTERNATIONAL NORMALIZED RATIO (INR) REFERENCE RANGES Reference [...] Panel Reviewed date:08/04/2025 05:21:05 PM Interpretation: Performing Lab:[facility], [address] [place] [phone] Notes/Report: Bilirubin Total 10.1 0.0-1.0 mg/dL H Mild I cterus. Bilirubin Direct 6.9 0.0-0.5 mg/dL H Mild Icterus. Aspartate Amino Transferase 724 5-31 U/L H Alanine Aminotransferase 512 0-31 U/L H Total Protein 7.1 6.5-8.0 g/dL N Albumin Level 3.2 3.5-5.0 g/dL L Alkaline Phosphatase 162 39-117 U/L H IRON PROFILE Reviewed date:08/04/2025 05:20:56 PM Interpretation: Performing Lab:[facility], [address] [place] [phone] Notes/Report: Iron 251 30-160 mcg/dL H Total Iron Binding Capacity 282 228-428 mcg/dL N Percent Iron Saturation 89 15-50 % H Unsaturated Iron Binding 31 Ferritin Reviewed date:08/04/2025 05:20:46 PM Interpretation: Performing Lab:[facility], [address] [place] [phone] Notes/Report: Ferritin 632 10-250 ng/mL H Lactate Dehydrogenase Reviewed date:08/04/2025 05:20:39 PM Interpretation: Performing Lab:[facility], [address] [place] [phone] Notes/Report: Lactate Dehydrogenase 264 122-220 U/L H C Reactive Protein Reviewed date:08/04/2025 05:20:25 PM Interpretation: Performing Lab:[facility], [address] [place] [phone] Notes/Report: C Reactive Protein 2.66 < or = 0.50 mg/dL H Ceruloplasmin Reviewed date:08/05/2025 06:51:43 PM Interpretation: Performing Lab:[facility], [address] [place] [phone] Notes/Report: Ceruloplasmin 23 14-48 mg/dL N THIS TEST WAS PERFORMED AT: [facility] [address] [place] [phone] EDI KENDALL MD Alpha 1 Anti-trypsin Reviewed date:08/05/2025 06:51:29 PM Interpretation: Performing Lab:[facility], [address] [place] [phone] Notes/Report: Alpha 1 Anti-trypsin 206 83-199 mg/dL A THIS TEST WAS PERFORMED AT: [facility] [address] [place] [phone] EDI KENDALL MD JEOVANNY Reflex Titer and Pattern Reviewed date:08/08/2025 05:53:31 PM Interpretation: Performing Lab:[facility], [address] [place] [phone] Notes/Report: Anti Nuclear Antibody Screen NEGATIVE NEGATIVE N JEOVANNY IFA is a first line screen [...] AC-0: Negative International Consensus on JEOVANNY Patterns (https://doi.org/10.1515/ gyuc-8911-3743) For additional information, please refer to http://education.[employer]/faq/XYA139 (This link is being provided for informational/ educational purposes only.) THIS TEST WAS PERFORMED AT: [facility] [address] [place] [phone] EDI KENDALL MD Anti Nuclear Antibody Titer TNP Anti Nuclear Antibody Pattern TNP JEOVANNY Titer 2 TNP JEOVANNY Pattern 2 TNP JEOVANNY Titer 3 TNP JEOVANNY Pattern 3 TNP Mitochondrial Antibody Reviewed date:08/27/2025 01:18:11 AM Interpretation: Performing Lab:[facility], [address] [place] [phone] Notes/Report: Mitochondrial Antibodies NEGATIVE NEGATIVE N The immunofluorescence assay (IFA) procedure reveals the possible presence of another autoantibody. Consider requesting order code 263, Smooth Muscle Antibody with Reflex to Titer, if clinically indicated. Staining was observed suggesting the presence of Antinuclear Antibodies. Consider requesting order code 249, JEOVANNY Screen, IFA with Reflex to Titer and Pattern, or order code 16870, JEOVANNY Screen, IFA w/reflex Titer/Pattern, and Reflex to Multiplex 11 Ab [place], if clinically indicated. THIS TEST WAS PERFORMED AT: [facility] [address] [place] [phone] EDI KENDALL MD Mitochondrial Ab Titer TNP Smooth Muscle Antibody Reviewed date:08/27/2025 01:18:00 AM Interpretation: Performing Lab:[facility], [address] [place] [phone] Notes/Report: Smooth Muscle Antibody 46 <20 U A Reference Range: <20 U: Negative >or=20 U: [...] type 1. THIS TEST WAS PERFORMED AT: [facility] [address] [phone] ADEBAYO ERWIN MD,PHD Hepatitis A,B,C Profile Reviewed date:08/08/2025 05:53:51 PM Interpretation: Performing Lab:[facility], [address] [place] [phone] Notes/Report: Hepatitis A Antibody IgM Nonreactive Nonreactive IgM antibodies to HAV not detected; does not exclude early acute or recovered HAV infection. Hepatitis B Surface Antibody NONREACTIVE Nonreactive Nonreactive: < 8 .00 mIU/mL Hepatitis B Core Antibody Nonreactive Nonreactive Hepatitis C Antibody Nonreactive Nonreactive Antibodies to HCV not detected; does not exclude early acute HCV infection. Hepatitis B Surface Antigen Negative Negative Complete Blood Count Auto Di ff Reviewed date:08/08/2025 05:52:59 PM Interpretation: Performing Lab:[facility], [address] [place] [phone] Notes/Report: White Blood Count 4.3 4.8-10.8 X10*3/uL L Red Blood Count 4.15 4.20-5.50 X10*6/uL L Hemoglobin 12.9 12.0-16.0 g/dl N Hematocrit 38.2 37.0-47.0 % N Mean Corpuscular Volume 92.0 80.0-98.0 fL N Mean Corpuscular Hemoglobin 31.1 27.0-33.0 pg N Mean Corpuscular HGB Conc 33.8 31.0-35.0 g/dl N Red Cell Distribution Width 14.4 11.0-16.0 % N Platelet Count 123 160-400 X10*3/uL L Mean Platelet Volume 10.2 9.4-12.3 fL N Neutrophils Percent Auto 61.2 45-73 % N Imm Gran Pct Auto 0.5 0.0-0.4 % H Lymphocytes Percent Auto 25.2 20-40 % N Monocytes Percent Auto 10.3 2-11 % N Eosinophils Percent Auto 2.1 0-4 % N Basophils Percent Auto 0.7 0-2 % N NRBC Pct Auto 0.0 0.0-0.2 /100WBC N Neutrophils Absolute Auto 2.6 2.0-8.3 x10*3/uL N Imm Gran Abs Auto 0.02 0.00-0.03 X10*3/uL N Lymphocytes Absolute Auto 1.1 1.2-4.9 X10*3/uL L Monocytes Absolute Auto 0.4 0.1-1.2 X10*3/uL N Eosinophils Absolute Auto 0.1 0.0-0.4 X10*3/uL N Basophils Absolute Auto 0.0 0.0-0.2 X10*3/uL N NRBC Abs Auto 0.000 0.0-0.012 X10*3/uL N Prothrombin Time INR Reviewed date:08/08/2025 05:52:41 PM Interpretation: Performing Lab:[address] [phone] Notes/Report: Prothrombin Time 14.1 10.9-12.4 SEC H INTERNATIONAL NORM RATIO 1.2 0.9-1.1 H INTERNATIONAL NORMALIZED RATIO (INR) REFERENCE RANGES Reference [...] Panel Reviewed date:08/08/2025 05:52:19 PM Interpretation: Performing Lab:[address] [phone] Notes/Report: Bilirubin Total 8.1 0.0-1.0 mg/dL H Mild I cterus. Bilirubin Direct 5.9 0.0-0.5 mg/dL H Mild Icterus. Aspartate Amino Transferase 618 5-31 U/L H Alanine Aminotransferase 440 0-31 U/L H Total Protein 6.2 6.5-8.0 g/dL L Albumin Level 2.8 3.5-5.0 g/dL L Alkaline Phosphatase 142 39-117 U/L H Basic Metabolic Panel Fastin g Reviewed date:08/08/2025 05:52:05 PM Interpretation: Performing Lab:[facility], [address] [place] [phone] Notes/Report: Sodium 137 135-145 mmol/L N Potassium 3.8 3.3-5.1 mmol/L N Chloride 107 96-108 mmol/L N Carbon Dioxide 24 22-29 mmol/L N Anion Gap 10 12-20 L Blood Urea Nitrogen 8 9-16 mg/dL L Creatinine 0.50 0.5-1.4 mg/dL N Mild Icteru s.Interpret result with caution. Creatinine Clr Calc Pharmacy [...] 15 mL/min/1.73m2 Glucose Fasting 105 60-99 mg/dL H A fasting glucose from 100-125 mg/dl is considered impaired (pre-diabetes). Calcium 8.3 8.4-10.2 mg/dL L Ammonia Reviewed date:08/08/2025 05:52:27 PM Interpretation: Performing Lab:[facility], [address] [place] [phone] Notes/Report: Ammonia 71 13-55 umol/L H Liver Panel (Not yet reviewe d by provider) Interpretation: Performing Lab:[facility], [address] [place] [phone] Notes/Report: Bilirubin Total 6.8 0.0-1.0 mg/dL H Mild I cterus. Bilirubin Direct 5.0 0.0-0.5 mg/dL H Mild Icterus. Aspartate Amino Transferase 628 5-31 U/L H Alanine Aminotransferase 468 0-31 U/L H Total Protein 7.5 6.5-8.0 g/dL N Albumin Level 3.4 3.5-5.0 g/dL L Alkaline Phosphatase 187 39-117 U/L H Prothrombin Time INR Reviewed date:08/14/2025 09:11:51 PM Interpretation: Performing Lab:[address] [phone] Notes/Report: Prothrombin Time 13.3 10.9-12.4 SEC H INTERNATIONAL NORM RATIO 1.2 0.9-1.1 H INTERNATIONAL NORMALIZED RATIO (INR) REFERENCE RANGES Reference [...] Panel Reviewed date:08/23/2025 11:24:36 PM Interpretation: Performing Lab:[address] [phone] Notes/Report: Bilirubin Total 6.3 0.0-1.0 mg/dL H Mild I cterus. Bilirubin Direct 4.5 0.0-0.5 mg/dL H Mild Icterus. Aspartate Amino Transferase 598 5-31 U/L H Alanine Aminotransferase 427 0-31 U/L H Total Protein 7.3 6.5-8.0 g/dL N Albumin Level 3.5 3.5-5.0 g/dL N Alkaline Phosphatase 172 39-117 U/L H Prothrombin Time INR Reviewed date:08/27/2025 06:40:50 PM Interpretation: Performing Lab:[address] [phone] Notes/Report: Prothrombin Time 12.7 10.9-12.4 SEC H INTERNATIONAL NORM RATIO 1.1 0.9-1.1 N INTERNATIONAL NORMALIZED RATIO (INR) REFERENCE RANGES Reference [...] Panel Reviewed date:08/30/2025 12:24:10 PM Interpretation: Performing Lab:[facility], [address] [place] [phone] Notes/Report: Bilirubin Total 2.8 0.0-1.0 mg/dL H Slight Icterus. Bilirubin Direct 1.8 0.0-0.5 mg/dL H Sligh t Icterus. Aspartate Amino Transferase 272 5-31 U/L H Alanine Aminotransferase 263 0-31 U/L H Total Protein 7.1 6.5-8.0 g/dL N Albumin Level 3.4 3.5-5.0 g/dL L Alkaline Phosphatase 145 39-117 U/L H Liver Panel Reviewed date:09/27/2025 12:40:11 AM Interpretation: Performing Lab:[facility], [address] [place] [phone] Notes/Report: Bilirubin Total 2.0 0.0-1.0 mg/dL H Slight Icterus. Bilirubin Direct 1.1 0.0-0.5 mg/dL H Sligh t Icterus. Aspartate Amino Transferase 235 5-31 U/L H Alanine Aminotransferase 216 0-31 U/L H Total Protein 7.3 6.5-8.0 g/dL N Albumin Level 3.5 3.5-5.0 g/dL N Alkaline Phosphatase 120 39-117 U/L H Liver Panel (Not yet reviewe d by provider) Interpretation: Performing Lab:[address] [phone] Notes/Report: Bilirubin Total 1.6 0.0-1.0 mg/dL H Bilirubin Direct 0.7 0.0-0.5 mg/dL H Aspartate Amino Transferase 450 5-31 U/L H Mild Hemolysis.I nterpret result with caution Alanine Aminotransferase 408 0-31 U/L H Total Protein 7.1 6.5-8.0 g/dL N Mild Hemo lysis.Interpret result with caution Albumin Level 3.2 3.5-5.0 g/dL L Alkaline Phosphatase 118 39-117 U/L H Reason For Referral No Information Problems Problem Type SNOMED Code ICD Code Onset Dates Problem Status W/U Status Risk Notes Problem Elevated liver enzymes level (987341975) Elevated liver function tests (R79.89) Active confirmed Problem Gallstones (331766162) Gallstones (K80.20) Active confirmed Problem Jaundice (92679227) Jaundice (R17) Active confirmed Problem Elevated liver enzymes level (082624197) Elevated liver function tests (R94.5) Active confirmed Encounters Encounter Location Date Provider Diagnosis [facility] [address] [place] [phone] 09/27/2025 Vinod Mosqueda Elevated liver function tests R79.89 [facility] [address] [place] [phone] 08/05/2025 Vinod Mosqueda Elevated liver function tests R79.89 and Jaundice R17 [facility] [address] [place] [phone] 08/17/2025 Vinod Mosqueda Elevated liver function tests R94.5 [facility] [address] [place] [phone] 09/28/2025 Vinod Mosqueda Elevated liver function tests R79.89 Assessments Encounter Date Diagnosis (ICD Code) Assessment Notes Treatment Notes Treatment Clinical Notes Section Notes 09/27/2025 Elevated liver function tests (ICD-10 - R79.89) 08/05/2025 Elevated liver function tests (ICD-10 - R79.89) 08/05/2025 Jaundice (ICD-10 - R17) 08/17/2025 Elevated liver function tests (ICD-10 - R94.5) 09/28/2025 Elevated liver function tests (ICD-10 - R79.89) Plan Of Treatment Pending Test Test Name Order Date LIVER PROFILE 08/05/2025 LIVER PROFILE 08/17/2025 LIVER PROFILE 09/28/2025 LIVER PROFILE 09/27/2025 Prothrombin Time INR 08/05/2025 Liver Panel 08/09/2025 Liver Panel 09/25/2025 Next Appt Details Provider Name:Vinod Mosqueda , 12/17/2025 02:00:00 PM, [address], [address], [place], [address], Insurance Providers Payer Name Payer Address Payer Phone Subscriber Number Group Number Insured Name Patient Relationship to Insured Coverage Start Date Coverage End Date [facility] [address] [address] [place], [place] [id number] DEMETRIS LYNCH Self - patient is the insured
--- OUTSIDE RECORDS SUMMARY | 2025-10-08 14:59 | XMS_ITS | Clinical Summary ---
Author Organization [facility] Address [address] [place] [phone] Phone Care Team Providers Care Methane Gas Collection System Operator Name Role Phone Mckay Huang MD [...] topic Medical Devices Not on file Insurance [facility] Member Subscriber Plan / Payer (Ef fective 2023-Present) Name:Ann Anderson Relation to Subscriber:Self Name:Ann Anderson Payer ID:[id number] Group ID:[id number] Type:Medicaid Address: [address] NSP PCP [facility] Care Teams Methane Gas Collection System Operator Relationship Specialty Start Date End Date Mckay Huang MD [address] [place] [id number] PCP - General 07/19/23 Additional Source Comments The information contained in this document represents components of the legal health record. It is not the complete legal health record.[facility]
[2025-10-08 15:50] LABS: Alanine Aminotransferase 244 U/L (0-31); Albumin Level 3.2 g/dL (3.5-5.0); Alkaline Phosphatase 130 U/L (39-117); Aspartate Amino Transferase 180 U/L (5-31); Total Protein 6.5 g/dL (6.5-8.0)
== END 2025-10-08 14:45 | disposition home or self-care (01) ==
LOC: HO.LAB 14:44
PROVIDERS: PCP Internal Medicine; Visit Provider Internal Medicine
DX: R79.89 Other specified abnormal findings of blood chemistry (principal)
CPT/HCPCS: 36415; 80076

== ENCOUNTER 2025-10-29 15:09 | Outpatient (REF) | payer OTHER, SELFPAY ==
[2025-10-29 17:41] LABS: Alanine Aminotransferase 157 U/L (0-31); Albumin Level 3.6 g/dL (3.5-5.0); Alkaline Phosphatase 156 U/L (39-117); Aspartate Amino Transferase 152 U/L (5-31); Total Protein 7.2 g/dL (6.5-8.0)
== END 2025-10-29 15:10 | disposition home or self-care (01) ==
LOC: HO.LAB 15:09
PROVIDERS: Absent Provider Internal Medicine; PCP Internal Medicine; Visit Provider Urology
DX: N39.0 Urinary tract infection, site not specified (principal); R33.9 Retention of urine, unspecified
CPT/HCPCS: 36415; 80076; 81003; 99202

== ENCOUNTER 2025-10-29 15:09 | Outpatient (AMB) | payer OTHER, SELFPAY ==
--- NOTE | 2025-10-29 15:13 | A.OFFVIS_ITS ---
Intake Visit Reasons: recurrent UTI/UA(SET) Intake Note: Reason for Visit: New Patient Recurrent UTI Urology Meds: None Blood Thinners: None Antibiotic Allergy: Penicillin, Sulfa, Moxifloxacin, Labs: Recurrent Nitrate Positive Urine tests Urine Culture: 08/03/2025 Imaging: Abdomen Ultrasound 08/03/2025 Last PVR: 0ml Truss Driver Helper Required: No Accompanied by: Self / Same As Patient Allergies ibuprofen (IBUPROFEN) Allergy (Unknown, Verified 10/29/25 15:17) RASH morphine (MORPHINE) Allergy (Unknown, Verified 10/29/25 15:17) UNKNOWN moxifloxacin (MOXIFLOXACIN) Allergy (Unknown, Verified 10/29/25 15:17) UNKNOWN naproxen (Aleve) Allergy (Unknown, Verified 10/29/25 15:17) Rash penicillin V Allergy (Unknown, Verified 10/29/25 15:17) Rash Penicillins (PENICILLINS) Allergy (Unknown, Verified 10/29/25 15:17) RASH Sulfa (Sulfonamide Antibiotics) (SULFA(SULFONAMIDE ANTIBIOTICS)) Allergy (Unknown, Verified 10/29/25 15:17) RASH Cephalosporins Allergy (Verified 10/29/25 15:17) Rash From ALEVE Allergy (Unknown, Uncoded 10/29/25 15:17) UNKNOWN From BENADRYL Allergy (Unknown, Uncoded 10/29/25 15:17) RASH [facility] Medical History (Updated 10/29/25 @ 16:03 by Addison Mary MD) Neuralgia, post-herpetic Severe obesity Recurrent UTI Gallstones Paroxysmal atrial fibrillation Persistent atrial fibrillation Atrial fibrillation with RVR Anxiety GERD (gastroesophageal reflux disease) Graves disease Surgical History H/O eye surgery History of ankle surgery S/P appy S/P thyroidectomy Social History Household Members: Spouse and Family Housing: House Do you presently have visiting nurse or other home services: No Alcohol intake: current Alcohol intake frequency: does not drink Patient Tobacco Use Status: Never used Tobacco Substance Use Type: Marijuana Advance Directives Date on File: 12/02/23 service: No Results AMB Urinalysis, Automated UA Leukoctes 15 Cary/uL Last Edit by NISHA Vegas on 10/29/25 15:31 UA Nitrite Negative Last Edit by Marnie Damico, RMA on 10/29/25 15:31 UA Urobilinogen 0.2 mg/dL Last Edit by Marnie Damico, RMA on 10/29/25 15:3 1 UA Protein 15 mg/dL Last Edit by Marnie Damico, RMA on 10/29/25 15:31 UA pH 6.0 Last Edit by Marnie Damico, RMA on 10/29/25 15:31 UA Blood 0 Osmin/uL Last Edit by Marnie Damico, RMA on 10/29/25 15:31 UA Specific Montrose 1.025 Last Edit by Marnie Damico, RMA on 10/29/25 15: 31 UA Ketone Negative Last Edit by Marnie Damico, RMA on 10/29/25 15:31 UA Bilirubin 0 mg/dL Last Edit by Marnie Damico, RMA on 10/29/25 15:31 UA Glucose 0 mg/dL Last Edit by Marnie Damico, RMA on 10/29/25 15:31 Results Reviewed Results Reviewed: Laboratory Last Values Urine pH (Auto) 6.0 10/29/25 15:15 Specific [place] (Auto) 1.025 10/29/25 15:15 Urine Protein (Auto) 15 mg/dL 10/29/25 15:15 Glucose (UA)(Auto) 0 mg/dL 10/29/25 15:15 Urine Ketones (Auto) Negative 10/29/25 15:15 Urine Blood (Auto) 0 Osmin/uL 10/29/25 15:15 Urine Nitrite (Auto) Negative 10/29/25 15:15 Urine Bilirubin (Auto) 0 mg/dL 10/29/25 15:15 Urine Urobilinogen (Auto) 0.2 mg/dL 10/29/25 15:15 Leukocyte Esterase (Auto) 15 Cary/uL 10/29/25 15:15 Assessment & Plan Assessment & Plan (1) Recurrent UTI: Code(s): N39.0 - Urinary tract infection, site not specified Category: Medical Orders: Orders AMB Urinalysis Automated Today Z13.9 - Encounter for screening, unspecified Medications: New fosfomycin tromethamine repeat dose every 3 days 3 grams PO Q3D 3 packets 0RF N39.0 - Urinary tract infection, site not specified trimethoprim Start daily medication once fosfomycin course completed 100 mg PO DAILY 90 tabs 1RF 90 days N39.0 - Urinary tract infection, site not specified, R33.9 - Retention of urine, unspecified Coding Diagnoses Recurrent UTI N39.0
--- OUTSIDE RECORDS SUMMARY | 2025-10-29 20:11 | XMS_ITS | Encounter Summary ---
Author Organization [facility] Address [address] [place] [address] Care Team Providers Care Crane Oiler Name Role Phone Mckay Huang MD Primary Care Provider [phone] Encounter Details Date Type Department Care Team (Late st Contact Info) Description 09/02/2025 Results Follow-Up Adult Medicine [address] [phone] Mckay Huang MD [address] [place] [address] Social History Tobacco Use Types Packs/Day Years [...] your loved ones. For example, early childhood services coordinator or elderly care for an older adult? [...] Upcoming Encounters Date Type Department Care Team ([facility] st Contact Info) Description 04/26/2026 3:45 PM EDT Office Visit Adult Medicine [address] [phone] Mckay Huang MD [address] [place] [address] documented as of this encounter Visit Diagnoses Not on filedocumented in this encounter Additional Health Concerns Assessment Noted Time PHQ-9 Depression Total Score: 0 03/23/20 25 5:47 PM EDT documented as of this encounter Care Teams Crane Oiler Relationship Specialty Start Date End Date Mckay Huang MD [address] [place] [address] PCP - General 08/28/05 documented as of this encounter
--- OUTSIDE RECORDS SUMMARY | 2025-10-29 20:11 | XMS_ITS | Encounter Summary ---
Author Organization [facility] Address [address] [place] [address] Care Team Providers Care Automobile Rental Clerk Name Role Phone Mckay Huang MD Primary Care Provider [phone] Encounter Details Date Type Department Care Team (Late st Contact Info) Description 07/16/[address] [facility] - Main Lab [address] [facility] [place] [address] Sivan Kasper MD [address] [place], [place] [phone] Dysuria Social History Tobacco Use Types Packs/Day [...] your loved ones. For example, child care attendant school or elderly care for an older adult? [...] Upcoming Encounters Date Type Department Care Team ([facility] st Contact Info) Description 04/26/2026 3:45 PM EDT Office Visit Adult Medicine [address] [phone] Mckay Huang MD [address] [place] [phone] documented as of this encounter Procedures Procedure Name Priority Date/Time Associated Diagnosis Comments URINALYSIS WITH REFLEX MICROSCOPIC Routine 07/16/2025 11:40 AM EDT Dysuria URINALYSIS WITH REFLEX MICROSCOPIC Routine 07/16/2025 11:40 AM EDT Dysuria CULTURE URINE Routine 07/16/2025 11:40 AM EDT Dysuria documented in this encounter Results * (ABNORMAL) Urinalysis with reflex microscopic (07/16/2025 11:40 AM EDT) Specific [place] Urine 1.021 1.003 - 1.030 LAB URINALYSIS - AUTOMATED METHOD 07/16/2025 6:43 PM [facility] pH, Urine 6.5 5.0 - 8.0 pH LAB URINALYSIS - AUTOMATED METHOD 07/16/2025 6:43 PM [facility] Leukocytes, Urine Trace(A) Negative LAB URINALYSIS - AUTOMATED METHOD 07/16/2025 6:43 PM [facility] Nitrite, Urine Negative Negative LAB URINALYSIS - AUTOMATED METHOD 07/16/2025 6:43 PM [facility] Protein, Urine Negative <=Trace mg/dL LAB URINALYSIS - AUTOMATED METHOD 07/16/2025 6:43 PM [facility] Glucose, Urine Negative Negative mg/dL LAB URINALYSIS - AUTOMATED METHOD 07/16/2025 6:43 PM [facility] Ketones, Urine Negative Negative mg/dL LAB URINALYSIS - AUTOMATED METHOD 07/16/2025 6:43 PM [facility] Urobilinogen, Urine 1.0 0.2 - 1.0 mg/dL LAB URINALYSIS - AUTOMATED METHOD 07/16/2025 6:43 PM EDT [facility] Bilirubin, Urine Small(A) Negative LAB URINALYSIS - AUTOMATED METHOD 07/16/2025 6:43 PM EDT [facility] Blood, Urine Large(A) Negative LAB URINALYSIS - AUTOMATED METHOD 07/16/2025 6:43 PM EDT [facility] RBC, Urine 168.0(H) 0 - 4 /HPF LAB URINALYSIS - AUTOMATED METHOD 07/16/2025 6:43 PM EDT [facility] WBC, Urine 1.7 0 - 4 /HPF LAB URINALYSIS - AUTOMATED METHOD 07/16/2025 6:43 PM EDT [facility] Squamous Epithelial, Urine 56 0 - 60 /LPF LAB URINALYSIS - AUTOMATED METHOD 07/16/2025 6:43 PM EDT [facility] Bacteria, Urine Negative Negative /HPF LAB URINALYSIS - AUTOMATED METHOD 07/16/2025 6:43 PM EDT [facility] Hyaline Casts, Urine 6.8(H) 0 - 3 /LPF LAB URINALYSIS - AUTOMATED METHOD 07/16/2025 6:43 PM EDT [facility] Urine Urine specimen from urethra / Unknown 07/16/2025 11:40 AM EDT 07/16/2025 5:56 PM EDT us Sivan Kasper MD LAB URINE ORDERABLES Fin al Result [facility] [address] [place] [address], * (ABNORMAL) Culture urine (07/16/2025 11:40 AM EDT) Culture, Urine 10,000-49,000 CFU/mL Escherichia coli(A) [place] 07/18/2025 11:31 AM EDT [facility] Urine Urine specimen [...] Susceptible Sivan Kasper MD LAB MICROBIOLOGY - [facility] AL ORDERABLES Final Result Performing Organization Address City/State/[facility] Co de Phone Number [facility] [address] [place] [address], documented in this encounter Visit Diagnoses Diagnosis Dysuria documented in this encounter Additional Health Concerns Assessment Noted Time PHQ-9 Depression Total Score: 0 03/23/20 25 5:47 PM EDT documented as of this encounter Care Teams Automobile Rental Clerk Relationship Specialty Start Date End Date Mckay Huang MD [address] [place] [phone] PCP - General 08/28/05 documented as of this encounter
--- OUTSIDE RECORDS SUMMARY | 2025-10-29 20:11 | XMS_ITS | Patient Health Record ---
Author Organization [facility] Address [address] [place] [address] Care Team Providers Care Skull Splitter Name Role Phone Mckay Huang MD Primary Care Provider Vinod aLnce [phone] Results Component Value Reference Range Flag Notes Ceruloplasmin Reviewed date:08/05/2025 06:51:43 PM Interpretation: Performing Lab:[facility], [address] [place] [phone] Notes/Report: Ceruloplasmin 23 14-48 mg/dL N THIS TEST WAS PERFORMED AT: [facility] [address] [place] [phone] EDI KENDALL MD Alpha 1 Anti-trypsin Reviewed date:08/05/2025 06:51:29 PM Interpretation: Performing Lab:[facility], [address] [place] [phone] Notes/Report: Alpha 1 Anti-trypsin 206 83-199 mg/dL A THIS TEST WAS PERFORMED AT: [facility] [address] [place] [phone] EDI KENDALL MD JEOVANNY Reflex Titer and Pattern Reviewed date:08/08/2025 05:53:31 PM Interpretation: Performing Lab:[facility], [address] [place] [phone] Notes/Report: Anti Nuclear Antibody Screen NEGATIVE NEGATIVE [...] Negative International Consensus on JEOVANNY Patterns (https://doi.org/10.1515/ mski-0748-9524) For additional information, please refer to http://Connect HQ.DrFirst/faq/DWS389 (This link is being provided for informational/ educational purposes only.) THIS TEST WAS PERFORMED AT: [facility] [address] [place] [phone] EDI KENDALL MD Anti Nuclear Antibody Titer TNP Anti Nuclear Antibody Pattern TNP JEOVANNY Titer 2 TNP JEOVANNY Pattern 2 TNP JEOVANNY Titer 3 TNP JEOVANNY Pattern 3 TNP Mitochondrial Antibody Reviewed date:08/27/2025 01:18:11 AM Interpretation: Performing Lab:[address] [phone] Notes/Report: Mitochondrial Antibodies NEGATIVE NEGATIVE N The immunofluorescence assay (IFA) procedure reveals the possible presence of another autoantibody. Consider requesting order code 263, Smooth Muscle Antibody with Reflex to Titer, if clinically indicated. Staining was observed suggesting the presence of Antinuclear Antibodies. Consider requesting order code 249, JEOVANNY Screen, IFA with Reflex to Titer and Pattern, or order code [id number], JEOVANNY Screen, IFA w/reflex Titer/Pattern, and Reflex to Multiplex 11 Ab [place], if clinically indicated. THIS TEST WAS PERFORMED AT: [facility] [address] [place] [phone] EDI KENDALL MD Mitochondrial Ab Titer TNP Smooth Muscle Antibody Reviewed date:08/27/2025 01:18:00 AM Interpretation: Performing Lab:[facility], [address] [place] [phone] Notes/Report: Smooth Muscle Antibody 46 <20 U [...] type 1. THIS TEST WAS PERFORMED AT: [facility] [phone] ADEBAYO ERWIN MD,PHD Liver Panel Reviewed date:10/12/2025 01:00:58 AM Interpretation: Performing Lab:[facility], [address] [place] [phone] Notes/Report: Bilirubin Total 6.8 0.0-1.0 mg/dL H Mild I cterus. Bilirubin Direct 5.0 0.0-0.5 mg/dL H Mild Icterus. Aspartate Amino Transferase 628 5-31 U/L H Alanine Aminotransferase 468 0-31 U/L H Total Protein 7.5 6.5-8.0 g/dL N Albumin Level 3.4 3.5-5.0 g/dL L Alkaline Phosphatase 187 39-117 U/L H Liver Panel Reviewed date:10/12/2025 01:00:58 AM Interpretation: Performing Lab:[facility], [address] [place] [phone] Notes/Report: Bilirubin Total 1.3 0.0-1.0 mg/dL H Bilirubin Direct 0.6 0.0-0.5 mg/dL H Aspartate Amino Transferase 180 5-31 U/L H Alanine Aminotransferase 244 0-31 U/L H Total Protein 6.5 6.5-8.0 g/dL N Albumin Level 3.2 3.5-5.0 g/dL L Alkaline Phosphatase 130 39-117 U/L H Liver Panel (Not yet reviewe d by provider) Interpretation: Performing Lab:[facility], [address] [place] [phone] Notes/Report: Bilirubin Total 1.3 0.0-1.0 mg/dL H Bilirubin Direct 0.5 0.0-0.5 mg/dL N Aspartate Amino Transferase 152 5-31 U/L H Alanine Aminotransferase 157 0-31 U/L H Total Protein 7.2 6.5-8.0 g/dL N Albumin Level 3.6 3.5-5.0 g/dL N Alkaline Phosphatase 156 39-117 U/L H Liver Panel Reviewed date:09/27/2025 12:40:11 AM Interpretation: Performing Lab:[facility], [address] [place] [phone] Notes/Report: Bilirubin Total 2.0 0.0-1.0 mg/dL H Slight Icterus. Bilirubin Direct 1.1 0.0-0.5 mg/dL H Sligh t Icterus. Aspartate Amino Transferase 235 5-31 U/L H Alanine Aminotransferase 216 0-31 U/L H Total Protein 7.3 6.5-8.0 g/dL N Albumin Level 3.5 3.5-5.0 g/dL N Alkaline Phosphatase 120 39-117 U/L H Hepatitis A,B,C Profile Reviewed date:08/08/2025 05:53:51 PM Interpretation: Performing Lab:[facility], [address] [place] [phone] Notes/Report: Hepatitis A Antibody IgM Nonreactive Nonreactive IgM antibodies to HAV not detected; does not exclude early acute or recovered HAV infection. Hepatitis B Surface Antibody NONREACTIVE Nonreactive Nonreactive: < 8 .00 mIU/mL Hepatitis B Core Antibody Nonreactive Nonreactive Hepatitis C Antibody Nonreactive Nonreactive Antibodies to HCV not detected; does not exclude early acute HCV infection. Hepatitis B Surface Antigen Negative Negative C Reactive Protein Reviewed date:08/04/2025 05:20:25 PM Interpretation: Performing Lab:[facility], [address] [place] [phone] Notes/Report: C Reactive Protein 2.66 < or = 0.50 mg/dL H Lactate Dehydrogenase Reviewed date:08/04/2025 05:20:39 PM Interpretation: Performing Lab:[facility], [address] [place] [phone] Notes/Report: Lactate Dehydrogenase 264 122-220 U/L H Ferritin Reviewed date:08/04/2025 05:20:46 PM Interpretation: Performing Lab:[facility], [address] [place] [phone] Notes/Report: Ferritin 632 10-250 ng/mL H IRON PROFILE Reviewed date:08/04/2025 05:20:56 PM Interpretation: Performing Lab:[facility], [address] [place] [phone] Notes/Report: Iron 251 30-160 mcg/dL H Total Iron Binding Capacity 282 228-428 mcg/dL N Percent Iron Saturation 89 15-50 % H Unsaturated Iron Binding 31 Liver Panel Reviewed date:08/04/2025 05:21:05 PM Interpretation: Performing Lab:[facility], [address] [place] [phone] Notes/Report: Bilirubin Total 10.1 0.0-1.0 mg/dL H Mild I cterus. Bilirubin Direct 6.9 0.0-0.5 mg/dL H Mild Icterus. Aspartate Amino Transferase 724 5-31 U/L H Alanine Aminotransferase 512 0-31 U/L H Total Protein 7.1 6.5-8.0 g/dL N Albumin Level 3.2 3.5-5.0 g/dL L Alkaline Phosphatase 162 39-117 U/L H Prothrombin Time INR Reviewed date:08/04/2025 04:05:12 PM Interpretation: Performing Lab:[facility], [address] [place] [phone] Notes/Report: Prothrombin Time 13.8 10.9-12.4 SEC H [...] mechanical prosthetic heart valves: 2.5 - 3.5 Erythrocyte Sedimentation Ra te Reviewed date:08/04/2025 05:20:12 PM Interpretation: Performing Lab:[address] [phone] Notes/Report: Erythrocyte Sedimentation Rate 22 0-20 MM/HR H Patients with polycythemia and many hemoglobin abnormalities may have depressed sed rates whereas patients with anemia may have elevated sed rates. Liver Panel Reviewed date:08/30/2025 12:24:10 PM Interpretation: Performing Lab:[address] [phone] Notes/Report: Bilirubin Total 2.8 0.0-1.0 mg/dL H Slight Icterus. Bilirubin Direct 1.8 0.0-0.5 mg/dL H Sligh t Icterus. Aspartate Amino Transferase 272 5-31 U/L H Alanine Aminotransferase 263 0-31 U/L H Total Protein 7.1 6.5-8.0 g/dL N Albumin Level 3.4 3.5-5.0 g/dL L Alkaline Phosphatase 145 39-117 U/L H Prothrombin Time INR Reviewed date:08/27/2025 06:40:50 PM Interpretation: Performing Lab:[facility], [address] [place] [phone] Notes/Report: Prothrombin Time 12.7 10.9-12.4 SEC H [...] Panel Reviewed date:08/23/2025 11:24:36 PM Interpretation: Performing Lab:[facility], [address] [place] [phone] Notes/Report: Bilirubin Total 6.3 0.0-1.0 mg/dL H Mild I cterus. Bilirubin Direct 4.5 0.0-0.5 mg/dL H Mild Icterus. Aspartate Amino Transferase 598 5-31 U/L H Alanine Aminotransferase 427 0-31 U/L H Total Protein 7.3 6.5-8.0 g/dL N Albumin Level 3.5 3.5-5.0 g/dL N Alkaline Phosphatase 172 39-117 U/L H Prothrombin Time INR Reviewed date:08/14/2025 09:11:51 PM Interpretation: Performing Lab:[address] [phone] Notes/Report: Prothrombin Time 13.3 10.9-12.4 SEC H [...] mechanical prosthetic heart valves: 2.5 - 3.5 Ammonia Reviewed date:08/08/2025 05:52:27 PM Interpretation: Performing Lab:[facility], [address] [place] [phone] Notes/Report: Ammonia 71 13-55 umol/L H Basic Metabolic Panel Fastin g Reviewed date:08/08/2025 05:52:05 PM Interpretation: Performing Lab:[facility], [address] [place] [phone] Notes/Report: Sodium 137 135-145 mmol/L N Potassium [...] impaired (pre-diabetes). Calcium 8.3 8.4-10.2 mg/dL L Liver Panel Reviewed date:08/08/2025 05:52:19 PM Interpretation: Performing Lab:[facility], [address] [place] [phone] Notes/Report: Bilirubin Total 8.1 0.0-1.0 mg/dL H Mild I cterus. Bilirubin Direct 5.9 0.0-0.5 mg/dL H Mild Icterus. Aspartate Amino Transferase 618 5-31 U/L H Alanine Aminotransferase 440 0-31 U/L H Total Protein 6.2 6.5-8.0 g/dL L Albumin Level 2.8 3.5-5.0 g/dL L Alkaline Phosphatase 142 39-117 U/L H Prothrombin Time INR Reviewed date:08/08/2025 05:52:41 PM Interpretation: Performing Lab:[facility], [address] [place] [phone] Notes/Report: Prothrombin Time 14.1 10.9-12.4 SEC H [...] mechanical prosthetic heart valves: 2.5 - 3.5 Complete Blood Count Auto Di ff Reviewed date:08/08/2025 05:52:59 PM Interpretation: Performing Lab:[facility], [address] [place] [phone] Notes/Report: White Blood Count 4.3 4.8-10.8 X10*3/uL [...] NRBC Abs Auto 0.000 0.0-0.012 X10*3/uL N Liver Panel Reviewed date:10/12/2025 01:00:58 AM Interpretation: Performing Lab:[facility], [address] [place] [phone] Notes/Report: Bilirubin Total 1.6 0.0-1.0 mg/dL H [...] Risk Notes Problem Elevated liver enzymes level (810416685) Elevated liver function tests (R79.89) Active confirmed Problem Gallstones (956433222) Gallstones (K80.20) Active confirmed Problem Jaundice (38332394) Jaundice (R17) Active confirmed Problem Elevated liver enzymes level (705466572) Elevated liver function tests (R94.5) Active confirmed Encounters Encounter Location Date Provider Diagnosis [address] [place] [address] 08/05/2025 Vinod Mosqueda Elevated liver function tests R79.89 and Jaundice R17 [facility] [address] [place] [phone] 08/17/2025 Vinod Mosqueda Elevated liver function tests R94.5 [facility] [address] [place] [phone] 09/27/2025 Vinod Mosqueda Elevated liver function tests R79.89 [facility] [address] [place] [phone] 09/28/2025 Vinod Mosqueda Elevated liver function tests R79.89 [facility] [address] [place] [phone] 10/10/2025 Vinod Mosqueda Elevated liver function tests R94.5 [facility] [address] [place] [phone] 10/27/2025 Vinod Mosqueda [facility] [address] [place] [phone] 10/29/2025 Vinod Mosqueda Assessments Encounter Date Diagnosis (ICD Code) Assessment Notes Treatment Notes Treatment Clinical Notes Section Notes 08/05/2025 Elevated liver function tests (ICD-10 - R79.89) 08/05/2025 Jaundice (ICD-10 - R17) 08/17/2025 Elevated liver function tests (ICD-10 - R94.5) 09/27/2025 Elevated liver function tests (ICD-10 - R79.89) 09/28/2025 Elevated liver function tests (ICD-10 - R79.89) 10/10/2025 Elevated liver function tests (ICD-10 - R94.5) Plan Of Treatment Pending Test Test Name Order Date LIVER PROFILE 08/05/2025 LIVER PROFILE 08/17/2025 LIVER PROFILE 09/27/2025 LIVER PROFILE 09/28/2025 LIVER PROFILE 10/10/2025 Prothrombin Time INR 08/05/2025 Liver Panel 10/29/2025 Next Appt Details Provider Name:Vinod Nicholson Mosqueda , 12/17/2025 02:00:00 PM, [address] [facility], [address], [place], [address], Insurance Providers Payer Name Payer Address Payer Phone Subscriber Number Group Number Insured Name Patient Relationship to Insured Coverage Start Date Coverage End Date [facility] [email or web address] [facility] [address] [address] [place], [place] [id number] DEMETRIS LYNCH Self - patient is the insured
--- OUTSIDE RECORDS SUMMARY | 2025-10-29 20:11 | XMS_ITS | Encounter Summary ---
Author Organization [facility] Address [address] [place] [address] Care Team Providers Care Weight Analyst Name Role Phone Mckay Huang MD Primary Care Provider [phone] Encounter Details Date Type Department Care Team (Late st Contact Info) Description 04/20/2025 Nurse Triage Adult Medicine [address] [phone] Mckay Huang MD [address] [place] [address] Social History Tobacco Use Types Packs/Day Years [...] care for your loved ones. For example, exceptional children's teacher or elderly care for an older [...] Care Team (Late st Contact Info) Description 04/26/2026 3:45 PM EDT Office Visit Adult Medicine [address] [phone] Mckay Huang MD [address] [place] [address] documented as of this encounter Visit Diagnoses Not on filedocumented in this encounter Additional Health Concerns Assessment Noted Time PHQ-9 Depression Total Score: 0 03/23/20 25 5:47 PM EDT documented as of this encounter Care Teams Weight Analyst Relationship Specialty Start Date End Date Mckay Huang MD [address] [place] [address] PCP - General 08/28/05 documented as of this encounter
--- OUTSIDE RECORDS SUMMARY | 2025-10-29 20:11 | XMS_ITS | Clinical Summary ---
Author Organization [facility] Address [address] [place] [address] Phone Care Team Providers Care Customer Support Technician Name Role Phone Mckay Huang MD [...] topic Medical Devices Not on file Insurance [facility] [employer] Member Subscriber Plan / Payer (Ef fective 2023-Present) Name:Ann Anderson Relation to Subscriber:Self Name:Ann Anderson Payer ID:[id number] Group ID:[id number] Type:Medicaid Address: [address] [facility] Care Teams Customer Support Technician Relationship Specialty Start Date End Date Mckay Huang MD [address] [place] [phone] PCP - General 07/19/23 Additional Source Comments The information contained in this document represents components of the legal health record. It is not the complete legal health record.[facility]
--- OUTSIDE RECORDS SUMMARY | 2025-10-29 20:11 | XMS_ITS | Clinical Summary ---
Author Organization [address] Address [address] [place] [address] Phone Care Team Providers Care Entry Level Name Role Phone Mckay Huang MD Primary Care Provider [phone] Allergies Active Allergy Reactions Criticality Noted Date Comments Anti-Itch 02/15/2009 Other Reaction(s): OTHER Chest pain Cefuroxime Anaphylaxis High 10/20/2025 Ciprofloxacin Itching Medium 05/28/2016 See office note [...] UP TO 8 DAYS. 09/16/20 24 Active flecainide (TAMBOCOR) 50 mg tablet Take 1 tablet (50 mg total) by mouth every 12 (twelve) hours. 02/02/20 25 Active fluconazole (DIFLUCAN) 150 mg tablet Take 1 tab by mouth now. May repeat in 72 hours if still symptomatic. 2 tablet 04/16/20 25 Active gabapentin (NEURONTIN) 300 mg capsule TAKE 1 CAPSULE (300 MG TOTAL) BY MOUTH 2 TIMES A DAY. 180 capsule 1 07/23/20 25 Active omeprazole (PriLOSEC) [address] capsule TAKE 1 CAPSULE (20 MG TOTAL) BY MOUTH 1 (ONE) TIME EACH DAY BEFORE BREAKFAST. 90 capsule 1 07/29/20 25 Active Synthroid 175 mcg tablet Take 1 tablet (175 mcg total) by mouth 1 (one) time each day. Please do not dispense generic pt has allergy 90 tablet 1 10/13/20 25 026 Active cefuroxime (CEFTIN) 500 mg tablet Take 1 tablet (500 mg total) by mouth 2 (two) times a day for 10 days. 20 each 10/19/20 25 025 Active levothyroxine (SYNTHROID, LEVOTHROID) 175 mcg tablet Take 1 tablet (175 mcg total) by mouth 1 (one) time each day. 90 each 1 12/25/19 25 025 Discontinued Synthroid 175 mcg tablet Take 1 tablet (175 mcg total) by mouth 1 (one) time each day. Please do not dispense generic pt has allergy 90 tablet 1 04/22/20 25 025 Discontinued(Re order) nitrofurantoin , macrocrystal-m onohydrate, (MACROBID) 100 mg capsule Take by mouth 2 (two) times a day. 025 Discontinued cefuroxime (CEFTIN) 500 mg tablet Take 1 tablet (500 mg total) by mouth 2 (two) times a day for 7 days. 14 each 09/22/20 25 025 fosfomycin (MONUROL) 3 gram packet Take 3 g by mouth 1 (one) time for 1 dose. 1 packet 10/20/20 25 025 Active Problems Problem Noted Date Diagnosed Date Recurrent UTI 10/02/2024 Severe obesity (BMI 35.0-35.9 with comorbidity) 10/02/2024 GERD (gastroesophageal reflux disease) Neuralgia, post-herpetic 09/12/2024 Overview (10/02/2024): 12/22/23: Left forehead/eye, now on gabapentin Paroxysmal atrial fibrillation 09/12/2024 Overview (10/02/2024): [place] [facility] [place] hypothyroidism 2024 Graves' disease 01/12/2023 COVID-19 virus infection 12/23/2020 Overview (10/02/2024): 12/21/20 Mixed hyperlipidemia 01/08/2020 Anxiety 08/29/2016 Cardiac murmur 10/24/2010 Overview (10/02/2024): Cardiac echo and stress test fall 2009 Holter monitor Graves' disease with exophthalmos 01/20/2008 Overview (10/02/2024): S/p 2006 - Dr. 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, civil service clerk Thyroid antibodies done 12/2010 Elevated thyroid antibodies 01/2011 Maternal consult Resolved Problems Problem Noted Date Diagnosed Date Resolved Date Vaginal odor 11/19/2024 01/19/2025 Bacterial vaginosis 11/19/2024 01/20/20 25 Encounters Date Type Department Care Team Description 10/15/2025 9:50 AM EST Lab Draw [address] Routine history and physical examination of adult; Urinary urgency; Mixed hyperlipidemia; Post-operative hypothyroidism 10/13/2025 4:00 PM EST Office Visit [address] [phone] Megan Borrero PA Routine history and physical examination of adult (Primary Dx); Mixed hyperlipidemia; Post-operative hypothyroidism; Urinary urgency; Referral of patient 09/09/2025 Results Follow-Up [address] [phone] Mckay Huang MD 09/03/2025 Results Follow-Up [address] [phone] Mckay Huang MD 09/02/2025 10:30 AM EDT Office Visit [address] [phone] Mckay Huang MD Pyelonephritis (Primary Dx); Need for prophylactic vaccination and inoculation against influenza; Recurrent UTI; Drug-induced hepatitis; Calculus of gallbladder with cholecystitis without biliary obstruction, unspecified cholecystitis acuity 09/02/2025 Results Follow-Up [address] [phone] Mckay Huang MD 08/02/2025 Nurse Triage [address] [phone] Mckay Huang MD from Last 3 Months Immunizations Immunization Administration [...] 3 PROCEDURE: HISTORICAL APPENDECTOMY VAGINOSCOPY 2004 PROCEDURE: [place] COLPOSCOPY CERVIX BX CERVIX & ENDOCRV CURRETAGE Medical History Medical History Date Comments Graves' disease with exophthalmos 01/20/2008 DX:Graves' disease with exophthalmos Migraine DX:Migraine Recurrent UTI DX:Recurrent UTI ; COMMENT: dr carmona COVID-19 virus infection 12/23/2020 DX:COVI D-19 virus infection; COMMENT: 12/21/20 Abnormal Pap smear of cervix Disease of thyroid gland Hypothyroidism Hyperthyroidism Family History Medical History Relation Name Comments Hypertension Father Ivan Lung cancer Father Ivan Other cancer Father's side thyroid ca unc le Allergies Mother Migraines Mother Pancreatic cancer Mother's Sister Other cancer Mother's side testicular ac- uncle Diabetes Paternal Grandfather Naveed Breast cancer Paternal Grandmother Chana Colon cancer Neg Hx Ovarian cancer Neg Hx Prostate cancer Neg Hx Uterine cancer Neg Hx Relation Name Status Comments Father Ivan Father's side Mother Alive Mother's Sister Mother's side Paternal Grandfather Naveed Paternal Grandmother Chana Social History Tobacco Use Types Packs/Day Years Used Date Smoking Tobacco: Former Cigarettes 0 Q uit: 07/04/2005 Smokeless Tobacco: Never Tobacco Cessation:Counseling Given: Not Answered Alcohol Use Standard Drinks/Week Comments Yes 0 (1 standard drink = 0.6 oz pur e alcohol) Not often Housing Instability Answer Date Recorde d Are you worried that in the next 2 months you may not have stable housing? No 10/19/2025 Food Access & Nutrition Answer Date Rec orded Do you have access to a vari ety of food including fruits and vegetables? No 10/19/2025 Access to Healthcare Answer Date Record ed Within the last 3 months, ho w many times did you visit the emergency department for your medical care? 3 10/19/2025 Health Literacy Answer Date Recorded How often do you need to hav e someone help you when you read instructions, pamphlets, or other written material from your doctor or pharmacy? Never 10/19/2025 Caregiver: How often do you need to have someone help you when you read instructions, pamphlets, or other written material from your doctor or pharmacy? Not on file 10/19/2025 Financial Risk Answer Date Recorded How hard is it for you to pa y for the very basics like food, housing, medical care, and air conditioning / heating? Not very hard 10/19/2025 Transportation Answer Date Recorded Has the lack of transportati on kept you from meetings, work, or from getting things needed for daily living? No Has the lack of transportati on kept you from medical appointments or from getting medications? No 10/19/2025 Social Isolation Answer Date Recorded How often do you feel lonely or isolated from th ose around you? Never 10/19/2025 Food Risk Answer Date Recorded Within the past 12 months we worried whether our food would run out before we got money to buy more. Never true 10/19/2025 Within the past 12 months th e food we bought just didn't last and we didn't have money to get more. Never true 10/19/2025 Dependent Care Answer Date Recorded Do you need help finding or paying for care for your loved ones. For example, child development associate teacher or elderly care for an older adult? No 10/19/2025 Education Answer Date Recorded Do you think completing more education or training, like finishing a GED, going to college, or learning a trade, would be helpful for you? No 10/19/2025 Employment and Income Answer Date Recor ded During the last four weeks, have you been actively looking for work? No 10/19/2025 Living Situation Answer Date Recorded What is your living situation? 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 Not on file Not on file Not on file Obstetrics History Para Term AB IAB SAB Ectopic Multiple Livin g Live Births 3 3 3 0 0 0 3 3 Date Outcome GA Total Labor Labor/2nd/3rd Weight Sex Type Anes PTL Savanna A1 A5 Name Clin 2005 Term 40w 0d 8h 00m/ 3487 g (123 oz) F Vag-S pont Epidur al Livin g Savann ah Peloqu in-Spr att Delivery Location:[facility] Comments:A&W 8 Term 38w 0d 3260 g (115 oz) F Vag-S pont Livin g Delivery Location:[facility] 2010 Term 40w 6d 3997 g (141 oz) M Vag-S pont Epidur al Livin g 7 9 [place] HEMIN Delivery Location:[facility] Comments:A&W Last Filed Vital Signs Vital Sign Reading Time Taken Comments Blood Pressure 110/60 10/13/2025 3:52 PM EST Pulse 86 10/13/2025 3:52 PM EST Temperature 36.9 C (98.5 F) 10/13/2025 3:52 PM EST Respiratory Rate 14 09/02/2025 10:25 AM EDT Oxygen Saturation 97% 10/13/2025 3:52 PM EST Inhaled Oxygen Concentration - - Weight 119 kg (261 lb 8 oz) 10/13/2025 3:[address] Height 180.3 cm (5' 10.98 ) 10/13/2025 3:[address] Body Mass Index 36.49 10/13/2025 3:52 PM EST Plan of Treatment Upcoming Encounters Date Type Department Care Team (Late st Contact Info) Description 04/26/2026 3:45 PM EDT Office Visit Adult Medicine [address] [phone] Mckay Huang MD [address] [place] [address] Health Maintenance Due Date Last Done Comments Drug Screen 1982 Non-Opioid Controlled Substance Agreement 1982 Hepatitis B Vaccines (1 of 3 - 19+ 3-dose series) 2001 HPV Vaccines (3 - 3-dose series) 07/28/2007 05/05/2007, 01/06/2007 COVID-19 Vaccine ( - 2024- season) 2025 11/17/2022, 09/18/2021, 02/23/2021 Breast Cancer Screening 09/11/2026 09/11/20 24, 09/11/2024, 03/09/2024, Additional history exists Social Influencers of Health Screening 10/19/2026 10/19/2025 Cervical Cancer Screening: HPV 09/03/2028 09/03/2023 Cholesterol Screening (Lipid Panel) 10/15/2030 10/15/2025, 08/14/2022 DTaP,Tdap,and Td Vaccines (3 - Td or [...] patient's age to complete this topic Hepatitis C Screening Discontinued IPV Vaccines Aged Out No longer eligi [...] Diagnosis Comments WALKER URINE CULTURE TUBE Routine 10/15/2025 9:56 AM EST Urinary urgency URINALYSIS WITH REFLEX MICROSCOPIC AND CULTURE Routine 10/15/2025 9:56 AM EST Urinary urgency COMPLETE BLOOD COUNT Routine 10/15/2025 9:56 AM EST Routine history and physical examination of adult THYROID STIMULATING HORMONE WITH REFLEX TO FREE T4 AND FREE T3 Routine 10/15/2025 9:56 AM EST Post-operative hypothyroidism LIPID PANEL WITH REFLEX TO DIRECT LDL Routine 10/15/2025 9:56 AM EST Routine history and physical examination of adult Mixed hyperlipidemia URINALYSIS WITH REFLEX MICROSCOPIC AND CULTURE Routine 10/15/2025 9:56 AM EST Urinary urgency COMPREHENSIVE METABOLIC PANEL Routine 10/15/2025 9:56 AM EST Routine history and physical examination of adult CULTURE URINE Routine 10/15/2025 9:56 AM EST Urinary urgency WALKER URINE CULTURE TUBE Routine 09/07/2025 3:04 [...] EDT Recurrent UTI EXTERNAL CLINICAL LAB 08/27/2025 DIAGNOSTIC MAMMOGRAPHY WITH CAD UNILATERAL Routine 09/11/2024 3:33 PM EDT Other abnormal and inconclusive findings on diagnostic imaging of breast HPV Routine 09/03/2023 HIV SCREENING Routine 10/23/2010 from Last 3 Months or Most Recently Relevant to Health Maintenance Results * (ABNORMAL) Urinalysis with reflex microscopic and culture (10/15/2025 9:56 AM EST) Only the most recent of2 resultswithin the time period is included. Specific Doyle Urine 1.015 1.003 - 1.030 LAB URINALYSIS - AUTOMATED METHOD 10/15/2025 12:48 PM [facility] pH, Urine 7.0 5.0 - 8.0 pH LAB URINALYSIS - AUTOMATED METHOD 10/15/2025 12:48 PM [facility] Leukocytes, Urine Moderate(A) Negative LAB URINALYSIS - AUTOMATED METHOD 10/15/2025 12:48 PM [facility] Nitrite, Urine Negative Negative LAB URINALYSIS - AUTOMATED METHOD 10/15/2025 12:48 PM [facility] Protein, Urine Negative <=Trace mg/dL LAB URINALYSIS - AUTOMATED METHOD 10/15/2025 12:48 PM [facility] Glucose, Urine Negative Negative mg/dL LAB URINALYSIS - AUTOMATED METHOD 10/15/2025 12:48 PM [facility] Ketones, Urine Negative Negative mg/dL LAB URINALYSIS - AUTOMATED METHOD 10/15/2025 12:48 PM [facility] Urobilinogen , Urine 0.2 0.2 - 1.0 mg/dL LAB URINALYSIS - AUTOMATED METHOD 10/15/2025 12:48 PM [facility] Bilirubin, Urine Negative Negative LAB URINALYSIS - AUTOMATED METHOD 10/15/2025 12:48 PM [facility] Blood, Urine Negative Negative LAB URINALYSIS - AUTOMATED METHOD 10/15/2025 12:48 PM [facility] RBC, Urine 4 0 - 4 /HPF 10/15/2025 12:48 PM [facility] WBC, Urine 6(H) 0 - 4 /HPF 10/15/2025 12:48 PM [facility] Squamous Epithelial, Urine 10 0 - 60 /LPF 10/15/2025 12:48 PM [facility] Bacteria, Urine Few(A) Negative /HPF 10/15/2025 12:48 PM [facility] Urine Urine specimen obtained by clean catch procedure / Unknown Non-blood Collection / Unknown 10/15/2025 9:56 AM EST 10/15/2025 9:56 AM EST [employer] [facility] LAB URINE ORDERABLES Fi nal Result [facility] [address] [place] [address], [place] [phone] * Walker urine culture tube (10/15/2025 9:56 AM EST) Only the most recent of2 resultswithin the time period is included. Extra Tube Hold for add-ons. 10/15/2025 3:01 PM [facility] Comment:Auto resulted. Urine Urine specimen obtained by clean catch procedure / Unknown Non-blood Collection / Unknown 10/15/2025 9:56 AM EST 10/15/2025 9:56 AM EST [employer] LAB URINE ORDERABLES Fi nal Result [facility] [address] [place] [address], [place] [phone] * Thyroid stimulating hormone with reflex to free t4 and free t3 (10/15/2025 9:56 AM EST) TSH 0.68 0.40 - 4.00 mcIU/mL 10/15/2025 12:46 PM [facility] Blood Venous blood specimen / Unknown Venipuncture / Unknown 10/15/2025 9:56 AM EST 10/15/2025 9:56 AM EST Megan BADILLO LAB BLOOD ORDERABLES Fi nal Result [facility] [address] [place] [address], * (ABNORMAL) Lipid panel with reflex to direct LDL (10/15/2025 9:56 AM EST) Cholesterol 191 0 - 200 mg/dL 10/15/2025 12:54 PM [facility] Triglycerides 140 0 - 150 mg/dL 10/15/2025 12:54 PM [facility] HDL 61 >=40 mg/dL 10/15/2025 12:54 PM [facility] LDL Calculated 102(H) 0 - 100 mg/dL 10/15/2025 12:54 PM [facility] Comment:Estimated LDL Calcul ated using equation: Total cholesterol - HDL cholesterol - (Triglycerides/5) VLDL Cholesterol Christian 28 mg/dL 10/15/2025 12:54 PM [facility] Non HDL Chol. (LDL+VLDL) 130 <145 mg/dL 10/15/2025 12:54 PM [facility] Chol/HDL Ratio 3.1 0.0 - 4.4 10/15/2025 12:54 PM [facility] Blood Venous blood specimen / Unknown Venipuncture / Unknown 10/15/2025 9:56 AM EST 10/15/2025 9:56 AM EST Megan BADILLO LAB BLOOD ORDERABLES Fi nal Result [facility] [address] [place] [address], * (ABNORMAL) Complete blood count (10/15/2025 9:56 AM EST) WBC 10.9(H) 4.8 - 10.8 K/mcL LAB HEMETOLOGY METHOD 10/15/2025 12:20 PM EST [facility] RBC 4.80 3.80 - 4.80 M/mcL LAB HEMETOLOGY METHOD 10/15/2025 12:20 PM [facility] Hemoglobin 15.1 11.5 - 16.0 g/dL LAB HEMETOLOGY METHOD 10/15/2025 12:20 PM [facility] Hematocrit 46.0 35.0 - 47.0 % LAB HEMETOLOGY METHOD 10/15/2025 12:20 PM [facility] MCV 95.4 79.0 - 98.0 FL LAB HEMETOLOGY METHOD 10/15/2025 12:20 PM [facility] MCH 31.3 27.0 - 32.0 pcg LAB HEMETOLOGY METHOD 10/15/2025 12:20 PM [facility] MCHC 32.8 32.0 - 37.0 g/dL LAB HEMETOLOGY METHOD 10/15/2025 12:20 PM [facility] RDW 12.5 11.0 - 15.0 % LAB HEMETOLOGY METHOD 10/15/2025 12:20 PM [facility] Platelets 212 130 - 400 K/mcL LAB HEMETOLOGY METHOD 10/15/2025 12:20 PM [facility] MPV 9.9 7.0 - 11.0 FL LAB HEMETOLOGY METHOD 10/15/2025 12:20 PM EST [facility] NRBC 0.0 <1.0 % LAB HEMETOLOGY METHOD 10/15/2025 12:20 PM EST [facility] NRBC Absolute 0.00 <0.10 K/mcL LAB HEMETOLOGY METHOD 10/15/2025 12:20 PM EST [facility] Blood Venous blood specimen / Unknown Venipuncture / Unknown 10/15/2025 9:56 AM EST 10/15/2025 9:56 AM EST Megan BADILLO LAB BLOOD ORDERABLES Fi nal Result [facility] [address] [place] [address], * (ABNORMAL) Culture urine (10/15/2025 9:56 AM EST) Only the most recent of3 resultswithin the time period is included. Culture, Urine 10,000-49,000 CFU/mL Escherichia coli(A) BERNA 10/17/2025 8:46 AM EST [facility] Comment: This is an edited result. Previous organism was Gram negative bacilli on 10/16/2025 at 1059 EST. Culture, Urine 10,000-49,000 CFU/mL Streptococcus beta-hemolytic Group B(A) BERNA 10/17/2025 8:46 AM EST [facility] Comment: Beta Streptococcus Group B Susceptibility testing is not routinely performed since this organism is predictably sensitive to Penicillin. Susceptibility testing should be performed for Penicillin-allergic women at HIGH RISK for anaphylaxis. S hould this patient require testing, please contact the Microbiology Department at [phone] within 7 days of receiving this report to request susceptibility. The organism value for this result has been updated. These results have been appended to the previously preliminary verified report. Urine Urine specimen obtained by clean catch procedure / Unknown Non-blood Collection / Unknown 10/15/2025 9:56 AM EST 10/15/2025 12:48 PM EST [facility] - 10/17/2025 8:46 AM EST Additional colony types present in insignificant amounts. Organism Antibiotic Method Susceptibility Escherichia coli Amoxicillin/Clavulanate BERNA <=2 ug/ml: Susceptible Escherichia coli Ampicillin/Sulbactam BERNA <=2 ug/ml: Susceptible Escherichia coli Piperacillin/Tazobactam BERNA <=4 ug/ml: Susceptible Escherichia coli Cefazolin (Urine) BERNA 4 ug/ml: Susceptible Escherichia coli Cefoxitin BERNA <=4 ug/ml: Susceptible Escherichia coli Ceftazidime BERNA <=0.5 ug/ml: Susceptible Escherichia coli Ceftriaxone EBRNA <=0.25 ug/ml: Susceptible Escherichia coli Cefepime BERNA <=0.12 ug/ml: Susceptible Escherichia coli Meropenem BERNA <=0.25 ug/ml: Susceptible Escherichia coli Amikacin BERNA 4 ug/ml: Susceptible Escherichia coli Gentamicin BERNA <=1 ug/ml: Susceptible Escherichia coli Ciprofloxacin BERNA 1 ug/ml: Resistant Escherichia coli Levofloxacin BERNA 1 ug/ml: Intermediate Escherichia coli Trimethoprim/Sulfamethoxazole BERNA <=20 ug/ml: Susceptible Megan BADILLO LAB MICROBIOLOGY - [facility] ORDERABLES Final Result [facility] [address] [place] [address], * (ABNORMAL) Comprehensive metabolic panel (10/15/2025 9:56 AM EST) Sodium 138 133 - 145 mmol/L 10/15/2025 1:01 PM EST [facility] Potassium 3.9 3.5 - 5.5 mmol/L 10/15/2025 1:01 PM EST [facility] Chloride 101 96 - 110 mmol/L 10/15/2025 1:01 PM EST [facility] CO2 30 21 - 32 mmol/L 10/15/2025 1:01 PM EST [facility] Anion Gap 7 3 - 11 10/15/2025 1:01 PM [facility] Glucose 73 70 - 100 mg/dL 10/15/2025 1:01 PM [facility] BUN 15 5 - 25 mg/dL 10/15/2025 1:01 PM [facility] Creatinine 0.68 0.50 - 1.10 mg/dL 10/15/2025 1:01 PM [facility] eGFR 111 >=60 mL/min/1. 73m2 10/15/2025 1:01 PM [facility] Comment:Calculation based on the Chronic Kidney Disease Epidemiology Collaboration (CKD-EPI) equation refit without adjustment for race. BUN/Creatinine Ratio 22.1 10/15/2025 1:01 PM [facility] Calcium 7.9(L) 8.5 - 10.5 mg/dL 10/15/2025 1:01 [facility] AST (SGOT) 131(H) 10 - 42 unit/L 10/15/2025 1:01 [facility] ALT (SGPT) 154(H) 10 - 60 unit/L 10/15/2025 1:01 [facility] Alkaline Phosphatase 110 42 - 121 unit/L 10/15/2025 1:01 [facility] Total Protein 5.4(L) 6.0 - 8.0 g/dL 10/15/2025 1:01 [facility] Albumin 3.3 3.2 - 5.0 g/dL 10/15/2025 1:01 [facility] Total Bilirubin 1.2 0.0 - 1.4 mg/dL 10/15/2025 1:01 [facility] Blood Venous blood specimen / Unknown Venipuncture / Unknown 10/15/2025 9:56 AM EST 10/15/2025 9:56 AM EST us Megan BADILLO LAB BLOOD ORDERABLES Fi nal Result [facility] [address] [place] [address], [place] [phone] * (ABNORMAL) Urinalysis with reflex microscopic (09/02/2025 11:26 AM EDT) Pathologist [facility] Specific Doyle Urine 1.017 1.003 - 1.030 LAB URINALYSIS - AUTOMATED METHOD 09/02/2025 2:10 PM EDT [facility] pH, Urine 6.0 5.0 - 8.0 pH LAB URINALYSIS - AUTOMATED METHOD 09/02/2025 2:10 PM EDT [facility] Leukocytes, Urine Moderate(A) Negative LAB URINALYSIS - AUTOMATED METHOD 09/02/2025 2:10 PM EDT [facility] Nitrite, Urine Negative Negative LAB URINALYSIS - AUTOMATED METHOD 09/02/2025 2:10 PM [facility] Protein, Urine Negative <=Trace mg/dL LAB URINALYSIS - AUTOMATED METHOD 09/02/2025 2:10 PM [facility] Glucose, Urine Negative Negative mg/dL LAB URINALYSIS - AUTOMATED METHOD 09/02/2025 2:10 PM T [facility] Ketones, Urine Negative Negative mg/dL LAB URINALYSIS - AUTOMATED METHOD 09/02/2025 2:10 PM T [facility] Urobilinogen , Urine 1.0 0.2 - 1.0 mg/dL LAB URINALYSIS - AUTOMATED METHOD 09/02/2025 2:10 PM [facility] Bilirubin, Urine Small(A) Negative LAB URINALYSIS - AUTOMATED METHOD 09/02/2025 2:10 PM T [facility] Blood, Urine Large(A) Negative LAB URINALYSIS - AUTOMATED METHOD 09/02/2025 2:10 PM EDT [facility] RBC, Urine 4.0 0 - 4 /HPF LAB URINALYSIS - AUTOMATED METHOD 09/02/2025 2:10 PM EDT [facility] WBC, Urine 7.4(H) 0 - 4 /HPF LAB URINALYSIS - AUTOMATED METHOD 09/02/2025 2:10 PM EDT [facility] Squamous Epithelial, Urine >100(H) 0 - 60 /LPF LAB URINALYSIS - AUTOMATED METHOD 09/02/2025 2:10 PM EDT [facility] Bacteria, Urine Many(A) Negative /HPF LAB URINALYSIS - AUTOMATED METHOD 09/02/2025 2:10 PM EDT [facility] Hyaline Casts, Urine 3.0 0 - 3 /LPF LAB URINALYSIS - AUTOMATED METHOD 09/02/2025 2:10 PM EDT [facility] Urine Urine specimen obtained by clean catch procedure / Unknown Non-blood Collection / Unknown 09/02/2025 11:26 AM EDT 09/02/2025 11:26 AM EDT Mckay Huang MD LAB URINE ORDERABLES Final Resu lt [facility] [address] [place] [address], * External clinical lab (08/27/2025) Provider [place] [...] follow-up in 6 months. BI-RADS 3-probably benign [address] [address] Procedure Note Isa Espino MD - [...] follow-up in 6 months. BI-RADS 3-probably benign [address] [id number] Megan BADILLO IMG BI PROCEDURES Final Result * Cervical Cancer Screening: HPV (09/03/2023) Cervical Cancer Screening: HPV negative, abstracted Historical Provider HEALTH MAINTENANCE Final Result * HIV Screening (10/23/2010) HIV Screening abstracted Historical Provider HEALTH MAINTENANCE Final Result from Last 3 Months or Most Recently Relevant to Health Maintenance Insurance [employer] Care Teams Entry Level Relationship Specialty Start Date End Date Mckay Huang MD [address] [place] [phone] PCP - General 08/28/05
--- OUTSIDE RECORDS SUMMARY | 2025-10-29 20:11 | XMS_ITS | Encounter Summary ---
Author Organization [facility] Address [address] [place] [address] Care Team Providers Care Manager Net Name Role Phone Mckay Huang MD Primary Care Provider [phone] Encounter Details Date Type Department Care Team (Late st Contact Info) Description 09/09/2025 Results Follow-Up Adult Medicine [address] [phone] Mckay Huang MD [address] [place] [address] Social History Tobacco Use Types Packs/Day Years [...] your loved ones. For example, early childhood or elderly care for an older adult? [...] Upcoming Encounters Date Type Department Care Team ([facility] st Contact Info) Description 04/26/2026 3:45 PM EDT Office Visit Adult Medicine [address] [phone] Mckay Huang MD [address] [place] [address] documented as of this encounter Visit Diagnoses Not on filedocumented in this encounter Additional Health Concerns Assessment Noted Time PHQ-9 Depression Total Score: 0 03/23/20 25 5:47 PM EDT documented as of this encounter Care Teams Manager Net Relationship Specialty Start Date End Date Mckay Huang MD [address] [place] [address] PCP - General 08/28/05 documented as of this encounter
--- OUTSIDE RECORDS SUMMARY | 2025-10-29 20:11 | XMS_ITS | Data Portability ---
Author Organization [facility] Address [address] [place] [address] Care Team Providers Care Employment Manager Name Role Phone [facility] Primary Care Provide r Assessment No assessment recorded. Plan of Treatment Reminders Order Date Submit Date Provider Last Modified By Organization Details Last Modified Time Details Appointments None recorded. Lab urinalysis, dipstick 2022 023 jose alejandro _[facility], [address] [place] [address], [phone], 3 08:35:47 test, urine [address] [place] [address], [address] [place] [address], [phone], 3 08:35:47 culture, urine 2022 023 [facility], [address] [place] [address], [place], [address], 3 10:06:11 Referral None recorded. Procedures None recorded. Surgeries None recorded. Imaging None recorded. Medication Orders cephalexin 500 mg capsule 2022 023 [email or web address] [id number], [address] [facility], [place], [address], 09:10:47 Patient TargetsNo targets recorded. Patient Instructions Encounter Date Encounter Id Patient Instructions Last Modified By Organization Details Last Modified Time 01/12/2023 [id number] We recommend you get a repeat urinalysis [...] culture, routine FINAL REPORT Not Available [facility] ([facility]) [address] [place], [address], 01/14/2023 10:06:11 01/12/20 23 01/14/2023 URINE CULTU RE, ROUTI NE result 1 COMMEN T Cultu re shows less than 10,00 0 colon y formi ng units of bacte adalgisa per lon liter of urine . This colon y count is not gener ally consi dered to be clini tyson signi fican t. Not Available [facility] ([facility]) [address] [place], [address], 01/14/2023 10:06:11 01/12/20 23 01/12/2023 pregn sylvester test, urine Unknown Analyte Normal = Negati ve Not Available _vance barreto [address], [address], 01/12/2023 08:10:58 01/12/20 23 01/12/2023 pregn sylvester test, urine Unknown Analyte negati ve Not Available vance [address] [place], [address], 01/12/2023 08:10:58 01/12/20 23 01/12/2023 urina lysis , dipst ick Unknown Analyte Normal = light yellow Not Available 2099vance barreto [address], [place], [address], 01/12/2023 08:10:58 01/12/2001/12/2023 urina lysis , dipst ick Unknown Analyte Normal = clear Not Available [facility] [address], [place], [address], 01/12/2023 08:10:58 01/12/20 23 01/12/2023 urina lysis , dipst ick Unknown Analyte Normal = negati ve Not Available [facility] [address], [place], [address], 01/12/2023 08:10:58 01/12/20 23 01/12/2023 urina lysis , dipst ick Unknown Analyte Normal = Negati ve Not Available [address]99vance barreto [address], [place], [address], 01/12/2023 08:10:58 01/12/20 23 01/12/2023 urina lysis , dipst ick Unknown Analyte Normal = Negati ve Not Available vance barreto [address], [place], [address], 01/12/2023 08:10:58 01/12/20 23 01/12/2023 urina lysis , dipst ick Unknown Analyte Normal = 1.010, 1.015, 1.020 Not Available [address]99vance barreto [address], [place], [address], 01/12/2023 08:10:58 01/12/20 23 01/12/2023 urina lysis , dipst ick Unknown Analyte Normal = Negati ve Not Available vance [address], [place], [place], [address], 01/12/2023 08:10:58 01/12/20 23 01/12/2023 urina lysis , dipst ick Unknown Analyte Normal = 6.5, 7.0, 7.5, 8.0 Not Available [facility] [address], [place], [address], 01/12/2023 08:10:58 01/12/2001/12/2023 urina lysis , dipst ick Unknown Analyte Normal = Negati ve Not Available [facility] [address], [place], [address], 01/12/2023 08:10:58 01/12/20 23 01/12/2023 urina lysis , dipst ick Unknown Analyte Normal = Negati ve Not Available [facility] [address], [place], [address], 01/12/2023 08:10:58 01/12/20 23 01/12/2023 urina lysis , dipst ick Unknown Analyte Normal = 0.2, 1.0 Not Available [facility] [address], [place], [address], 01/12/2023 08:10:58 01/12/20 23 01/12/2023 urina lysis , dipst ick Unknown Analyte Normal = Negati ve Not Available [facility] [address], [place], [address], 01/12/2023 08:10:58 01/12/20 23 01/12/2023 urina lysis , dipst ick Unknown Analyte Yellow Not Available [address] [place] [address], [place], [address], 01/12/2023 08:10:58 01/12/20 23 01/12/2023 urina lysis , dipst ick Unknown Analyte Slight ly Cloudy Not Available vance barreto [address], [place], [address], 01/12/2023 08:10:58 01/12/20 23 01/12/2023 urina lysis , dipst ick Unknown Analyte Negati ve Not Available vance barreto [address], [place], [address], 01/12/2023 08:10:58 01/12/20 23 01/12/2023 urina lysis , dipst ick Unknown Analyte Negati ve Not Available vance barreto [address], [place], [address], 01/12/2023 08:10:58 01/12/20 23 01/12/2023 urina lysis , dipst ick Unknown Analyte Negati ve Not Available vance barreto [address], [place], [address], 01/12/2023 08:10:58 01/12/20 23 01/12/2023 urina lysis , dipst ick Unknown Analyte 1.020 Not Available jimmy [address], [place], [address], 01/12/2023 08:10:58 01/12/20 23 01/12/2023 urina lysis , dipst ick Unknown Analyte Trace- intact Not Available vance barreto [address], [place], [address], 01/12/2023 08:10:58 01/12/20 23 01/12/2023 urina lysis , dipst ick Unknown Analyte 6.5 Not Available [facility] [address], [place], [address], 01/12/2023 08:10:58 01/12/2001/12/2023 urina lysis , dipst ick Unknown Analyte Negati ve Not Available [facility] [address] [place], [address], 01/12/2023 08:10:58 01/12/2001/12/2023 urina lysis , dipst ick Unknown Analyte 0.2 E.U./d L Not Available [facility] [address] [place], [address], 01/12/2023 08:10:58 01/12/2001/12/2023 urina lysis , dipst ick Unknown Analyte Negati ve Not Available [facility] [address] [place], [address], 01/12/2023 08:10:58 01/12/2001/12/2023 urina lysis , dipst ick Unknown Analyte Trace Not Available [facility] jimmy [address] [place], [address], 01/12/2023 08:10:58 Result Notes None recorded. Problems Name Problem SNOMED Code Status Onset Date Resolution Date Notes Provider Name and Address Organization Details Recorded Time Graves' disease 762385727 Active 2022 RAINER ISAAC null, [place] - [facility] 3 08:14:40 Anxiety 24137388 Active 2022 RAINER ISAAC null, PA - [facility] 3 08:14:48 Gastroesophage al reflux disease 726013232 Active 2022 RAINER ISAAC null, PA - [...] null, PA - [facility] 3 08:12:32 505046 Substance with sulfonami de structure and antibacte rial mechanism of action (substanc e) medicatio n hives Not available Not available 01/12/2023 61007 8003 SNOMED RAINER ISAAC null, PA - [facility] 3 08:12:43 137382 morphine medicatio n Not available Not available Not available 01/12/2023 7052 RxNorm RAINER ISAAC null, PA - [facility] 3 08:12:53 970053 Product containin g penicilli n (product) medicatio n Not available Not available Not available 01/12/2023 23023 8001 SNOMED RAINER ISAAC null, PA - [facility] 3 08:13:56 333654 Cipro medicatio n Not available Not available Not available 01/12/2023 75280 3 RxNorm RAINER ISAAC null, PA - [facility] 3 08:14:05 066630 naproxen medicatio n Not available Not available Not available 01/12/2023 7258 RxNorm RAINER ISAAC null, PA - [facility] 3 08:14:10 847914 Macrobid medicatio n Not available Not available Not available 01/12/2023 35407 1 RxNorm RAINER ISAAC null, PA - [facility] 3 08:14:16 958217 doxycycli ne Not available Not available Not [...] Updated DateTime 3 180.34 cm 34.2 kg/m2 710747. 13 g 99 % 96 /min 16 [...] ICD10 Code Diagnosis IMO Codes Diagnosis Note [id number] [facility] [address] [address] 02/23/2022 17:04:40 02/23/2022 19:07:48 [id number] [facility] [address] [address] 03/21/2021 09:16:37 03/21/2021 11:21:10 [id number] John [place] [address] [place] [address] [address] 01/12/2023 08:06:02 01/12/2023 08:46:40 Acute urinary tract infection 701214864 N39.0 Allergic to all antibiotic s except keflex per patient. Health Concerns Section Related Observation LastModified by Organization Detai ls LastModified Time None Recorded Concern Status LastModified by Organization Details LastModified Time None Recorded Advance Directives Directive None Recorded Payers Insurance Date Sequence Insurance Name Policy Number Policy Hogan Covered Member ID Hogan Member ID Guarantor Name 01/12/2023 1 [facility] - [employer] (MEDICAID REPLACEMENT - HMO) TERRELL Juarez rBi Anderson [id number] Ann Anderson Notes Date Note Type Note [...] [facility] [place], [address], [place] - [facility] 01/12/2023 09:11:09 OBGyn Episode No OBEpisode recorded.
== END 2025-10-29 16:06 | disposition home or self-care (01) ==
LOC: HO.HUSH 15:10
PROVIDERS: PCP Internal Medicine; Visit Provider Urology
DX: Z13.9 Encounter for screening, unspecified (principal)

== ENCOUNTER 2025-11-12 10:39 | Outpatient (REF) | payer OTHER, SELFPAY ==
--- OUTSIDE RECORDS SUMMARY | 2025-11-08 06:34 | XMS_ITS ---
Author Organization [facility] Address [address] [place] [address] Care Team Providers Care Electrical Manufacturing Technician Name Role Phone Mckay Huang MD Primary Care Provider Vinod Lance [phone] Encounters Encounter Location Date Provider Diagnosis [facility] [address] [place] [address] 11/08/2025 Vinod Mosqueda Elevated liver function tests R94.5 Assessments Encounter Date Diagnosis (ICD Code) Assessment Notes Treatment Notes Treatment Clinical Notes Section Notes 11/08/2025 Elevated liver function tests (ICD-10 - R94.5) Plan Of Treatment Pending Test Test Name Order Date LIVER PROFILE 11/08/2025 Next Appt Details Provider Name:Vinod Mosqueda , 12/17/2025 02:00:00 PM, [address], [address], [place], [address], Progress Notes * DUSTIN LYNCHOB: 2 (45 yo F)Acc No.[id number]:11/08/2025 Patient: DEMETRIS MARIN :1980 A ge:45 Y S ex:Female Address:[address] [place] [address], [address] Assessment: * Assessment: 1. E levated liver function tests - R94.5 (Primary) Plan: * Treatment: * true * Date: Generated for Viraj madrigal/Tyron/eTcastillosmitting on: 1 01/13/2025 10:42 AM EST
--- OUTSIDE RECORDS SUMMARY | 2025-11-12 10:42 | XMS_ITS | Encounter Summary ---
Author Organization [facility] Address [address] [place] [address] Care Team Providers Care Scouring Train Operator Chief Name Role Phone Mckay Huang MD Primary Care Provider [phone] Encounter Details Date Type Department Care Team (Late st Contact Info) Description 10/31/2025 Results Follow-Up Adult Medicine [address] [phone] Megan Borrero PA [address] [place] [address] Social History Tobacco Use Types Packs/Day Years [...] your loved ones. 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 Not on file Not on file documented as of this encounter Plan of Treatment Upcoming Encounters Date Type Department Care Team (Late st Contact Info) Description 04/26/2026 3:45 PM EDT Office Visit Adult Medicine [place] [address] [place], [place] [phone] Mckay Huang MD [address] [place] [address] documented as of this encounter Visit Diagnoses Not on filedocumented in this encounter Additional Health Concerns Assessment Noted Time PHQ-9 Depression Total Score: 0 03/23/20 25 5:47 PM EDT documented as of this encounter Care Teams Scouring Train Operator Chief Relationship Specialty Start Date End Date Mckay Huang MD [address] [place] [address] PCP - General 08/28/05 documented as of this encounter
--- OUTSIDE RECORDS SUMMARY | 2025-11-12 10:42 | XMS_ITS | Encounter Summary ---
Author Organization [facility] Address [address] [place] [address] Care Team Providers Care Scout Professional Sports Name Role Phone Mckay Huang MD Primary Care Provider [phone] Encounter Details Date Type Department Care Team (Late st Contact Info) Description 04/20/2025 Nurse Triage Adult Medicine [address] [phone] Mckay Huang MD [address] [place] [address] Social History Tobacco Use Types Packs/Day Years [...] for your loved ones. For example, child custody evaluator or elderly care for an older adult? [...] 3:45 PM EDT Office Visit Adult Medicine [address] [phone] Mckay Huang MD [address] [place] [address] documented as of this encounter Visit Diagnoses Not on filedocumented in this encounter Additional Health Concerns Assessment Noted Time PHQ-9 Depression Total Score: 0 03/23/20 25 5:47 PM EDT documented as of this encounter Care Teams Scout Professional Sports Relationship Specialty Start Date End Date Mckay Huang MD [address] [place] [address] PCP - General 08/28/05 documented as of this encounter
--- OUTSIDE RECORDS SUMMARY | 2025-11-12 10:42 | XMS_ITS | Patient Health Record ---
Author Organization [facility] Address [address] [place] [address] Care Team Providers Care Shop Coordinator Name Role Phone Mckay Huang MD Primary Care Provider Vinod Lance [phone] Results Component Value Reference Range Flag Notes Erythrocyte Sedimentation Ra te Reviewed date:08/04/2025 05:20:12 PM Interpretation: Performing Lab:[facility], [address] [place] [phone] Notes/Report: Erythrocyte Sedimentation Rate 22 0-20 MM/HR H Patients with polycythemia and many hemoglobin abnormalities may have depressed sed rates whereas patients with anemia may have elevated sed rates. Prothrombin Time INR Reviewed date:08/04/2025 04:05:12 PM Interpretation: Performing Lab:[facility], [address] [place] [phone] Notes/Report: Prothrombin Time 13.8 10.9-12.4 SEC H [...] Panel Reviewed date:08/04/2025 05:21:05 PM Interpretation: Performing Lab:[facility], [address] [place] [phone] Notes/Report: Bilirubin Total 10.1 0.0-1.0 mg/dL H Mild I cterus. Bilirubin Direct 6.9 0.0-0.5 mg/dL H Mild Icterus. Aspartate Amino Transferase 724 5-31 U/L H Alanine Aminotransferase 512 0-31 U/L H Total Protein 7.1 6.5-8.0 g/dL N Albumin Level 3.2 3.5-5.0 g/dL L Alkaline Phosphatase 162 39-117 U/L H IRON PROFILE Reviewed date:08/04/2025 05:20:56 PM Interpretation: Performing Lab:[facility], [address] [place] [phone] Notes/Report: Iron 251 30-160 mcg/dL H Total Iron Binding Capacity 282 228-428 mcg/dL N Percent Iron Saturation 89 15-50 % H Unsaturated Iron Binding 31 Ferritin Reviewed date:08/04/2025 05:20:46 PM Interpretation: Performing Lab:[facility], [address] [place] [phone] Notes/Report: Ferritin 632 10-250 ng/mL H Lactate Dehydrogenase Reviewed date:08/04/2025 05:20:39 PM Interpretation: Performing Lab:[facility], [address] [place] [phone] Notes/Report: Lactate Dehydrogenase 264 122-220 U/L H C Reactive Protein Reviewed date:08/04/2025 05:20:25 PM Interpretation: Performing Lab:[facility], [address] [place] [phone] Notes/Report: C Reactive Protein 2.66 < or = 0.50 mg/dL H Ceruloplasmin Reviewed date:08/05/2025 06:51:43 PM Interpretation: Performing Lab:[facility], [address] [place] [phone] Notes/Report: Ceruloplasmin 23 14-48 mg/dL N THIS TEST WAS PERFORMED AT: [facility] [address] [place] [phone] EDI KENDALL MD Alpha 1 Anti-trypsin Reviewed date:08/05/2025 06:51:29 PM Interpretation: Performing Lab:[facility], [address] [place] [phone] Notes/Report: Alpha 1 Anti-trypsin 206 83-199 mg/dL A THIS TEST WAS PERFORMED AT: [facility] [address] [place] [phone] EDI KENDALL MD JEOVANNY Reflex Titer and Pattern Reviewed date:08/08/2025 05:53:31 PM Interpretation: Performing Lab:[facility], [address] [place] [phone] Notes/Report: Anti Nuclear Antibody Screen NEGATIVE NEGATIVE [...] Negative International Consensus on JEOVANNY Patterns (https://doi.org/10.1515/ ktni-0442-3448) For additional information, please refer to http://education.Snaptalent/faq/XDA797 (This link is being provided for informational/ educational purposes only.) THIS TEST WAS PERFORMED AT: [facility] [address] [place] [phone] EDI KENDALL MD Anti Nuclear Antibody Titer TNP Anti Nuclear Antibody Pattern TNP JEOVANNY Titer 2 TNP JEOVANNY Pattern 2 TNP JEOVANNY Titer 3 TNP JEOVANNY Pattern 3 TNP Mitochondrial Antibody Reviewed date:08/27/2025 01:18:11 AM Interpretation: Performing Lab:[facility], [address] [place] [phone] Notes/Report: Mitochondrial Antibodies NEGATIVE NEGATIVE N The immunofluorescence assay (IFA) procedure reveals the possible presence of another autoantibody. Consider requesting order code 263, Smooth Muscle Antibody with Reflex to Titer, if clinically indicated. Staining was observed suggesting the presence of Antinuclear Antibodies. Consider requesting order code 249, JEOVANNY Screen, IFA with Reflex to Titer and Pattern, or order code 44563, JEOVANNY Screen, IFA w/reflex Titer/Pattern, and Reflex to Multiplex 11 Ab Floyd, if clinically indicated. THIS TEST WAS PERFORMED AT: [facility] [address] [place] [phone] EDI KENDALL MD Mitochondrial Ab Titer TNP Smooth Muscle Antibody Reviewed date:08/27/2025 01:18:00 AM Interpretation: Performing Lab:[facility], [address] [place] [phone] Notes/Report: Smooth Muscle Antibody 46 <20 U [...] type 1. THIS TEST WAS PERFORMED AT: [facility] [address] [phone] ADEBAYO ERWIN MD,PHD Hepatitis A,B,C Profile Reviewed date:08/08/2025 05:53:51 PM Interpretation: Performing Lab:[facility], [address] [place] [phone] Notes/Report: Hepatitis A Antibody IgM Nonreactive Nonreactive [...] ff Reviewed date:08/08/2025 05:52:59 PM Interpretation: Performing Lab:[facility], [address] [place] [phone] Notes/Report: White Blood Count 4.3 4.8-10.8 X10*3/uL [...] INR Reviewed date:08/08/2025 05:52:41 PM Interpretation: Performing Lab:[address] [phone] Notes/Report: Prothrombin Time 14.1 10.9-12.4 SEC H [...] Panel Reviewed date:08/08/2025 05:52:19 PM Interpretation: Performing Lab:[address] [phone] Notes/Report: Bilirubin Total 8.1 0.0-1.0 mg/dL H Mild I cterus. Bilirubin Direct 5.9 0.0-0.5 mg/dL H Mild Icterus. Aspartate Amino Transferase 618 5-31 U/L H Alanine Aminotransferase 440 0-31 U/L H Total Protein 6.2 6.5-8.0 g/dL L Albumin Level 2.8 3.5-5.0 g/dL L Alkaline Phosphatase 142 39-117 U/L H Basic Metabolic Panel Fastin g Reviewed date:08/08/2025 05:52:05 PM Interpretation: Performing Lab:[facility], [address] [place] [phone] Notes/Report: Sodium 137 135-145 mmol/L N Potassium [...] Ammonia Reviewed date:08/08/2025 05:52:27 PM Interpretation: Performing Lab:[facility], [address] [place] [phone] Notes/Report: Ammonia 71 13-55 umol/L H Liver Panel Reviewed date:10/12/2025 01:00:58 AM Interpretation: Performing Lab:[facility], [address] [place] [phone] Notes/Report: Bilirubin Total 6.8 0.0-1.0 mg/dL H Mild I cterus. Bilirubin Direct 5.0 0.0-0.5 mg/dL H Mild Icterus. Aspartate Amino Transferase 628 5-31 U/L H Alanine Aminotransferase 468 0-31 U/L H Total Protein 7.5 6.5-8.0 g/dL N Albumin Level 3.4 3.5-5.0 g/dL L Alkaline Phosphatase 187 39-117 U/L H Prothrombin Time INR Reviewed date:08/14/2025 09:11:51 PM Interpretation: Performing Lab:[address] [phone] Notes/Report: Prothrombin Time 13.3 10.9-12.4 SEC H [...] Panel Reviewed date:08/23/2025 11:24:36 PM Interpretation: Performing Lab:[address] [phone] Notes/Report: Bilirubin Total 6.3 0.0-1.0 mg/dL H Mild I cterus. Bilirubin Direct 4.5 0.0-0.5 mg/dL H Mild Icterus. Aspartate Amino Transferase 598 5-31 U/L H Alanine Aminotransferase 427 0-31 U/L H Total Protein 7.3 6.5-8.0 g/dL N Albumin Level 3.5 3.5-5.0 g/dL N Alkaline Phosphatase 172 39-117 U/L H Prothrombin Time INR Reviewed date:08/27/2025 06:40:50 PM Interpretation: Performing Lab:[address] [phone] Notes/Report: Prothrombin Time 12.7 10.9-12.4 SEC H [...] Panel Reviewed date:08/30/2025 12:24:10 PM Interpretation: Performing Lab:[facility], [address] [place] [phone] Notes/Report: Bilirubin Total 2.8 0.0-1.0 mg/dL H Slight Icterus. Bilirubin Direct 1.8 0.0-0.5 mg/dL H Sligh t Icterus. Aspartate Amino Transferase 272 5-31 U/L H Alanine Aminotransferase 263 0-31 U/L H Total Protein 7.1 6.5-8.0 g/dL N Albumin Level 3.4 3.5-5.0 g/dL L Alkaline Phosphatase 145 39-117 U/L H Liver Panel Reviewed date:10/12/2025 01:00:58 AM Interpretation: Performing Lab:[address] [phone] Notes/Report: Bilirubin Total 1.6 0.0-1.0 mg/dL H Bilirubin Direct 0.7 0.0-0.5 mg/dL H Aspartate Amino Transferase 450 5-31 U/L H Mild Hemolysis.I nterpret result with caution Alanine Aminotransferase 408 0-31 U/L H Total Protein 7.1 6.5-8.0 g/dL N Mild Hemo lysis.Interpret result with caution Albumin Level 3.2 3.5-5.0 g/dL L Alkaline Phosphatase 118 39-117 U/L H Liver Panel Reviewed date:10/12/2025 01:00:58 AM Interpretation: Performing Lab:[address] [phone] Notes/Report: Bilirubin Total 1.3 0.0-1.0 mg/dL H Bilirubin Direct 0.6 0.0-0.5 mg/dL H Aspartate Amino Transferase 180 5-31 U/L H Alanine Aminotransferase 244 0-31 U/L H Total Protein 6.5 6.5-8.0 g/dL N Albumin Level 3.2 3.5-5.0 g/dL L Alkaline Phosphatase 130 39-117 U/L H Liver Panel (Not yet review ed by provider) Interpretation: Performing Lab:[facility], [address] [place] [phone] Notes/Report: Bilirubin Total 1.3 0.0-1.0 mg/dL H Bilirubin Direct 0.5 0.0-0.5 mg/dL N Aspartate Amino Transferase 152 5-31 U/L H Alanine Aminotransferase 157 0-31 U/L H Total Protein 7.2 6.5-8.0 g/dL N Albumin Level 3.6 3.5-5.0 g/dL N Alkaline Phosphatase 156 39-117 U/L H Liver Panel Reviewed date:09/27/2025 12:40:11 AM Interpretation: Performing Lab:[facility], [address] [place] [phone] Notes/Report: Bilirubin Total 2.0 0.0-1.0 mg/dL H Slight Icterus. Bilirubin Direct 1.1 0.0-0.5 mg/dL H Sligh t Icterus. Aspartate Amino Transferase 235 5-31 U/L H Alanine Aminotransferase 216 0-31 U/L H Total Protein 7.3 6.5-8.0 g/dL N Albumin Level 3.5 3.5-5.0 g/dL N Alkaline Phosphatase 120 39-117 U/L H Reason For Referral No Information Problems Problem Type SNOMED Code ICD Code Onset Dates Problem Status W/U Status Risk Notes Problem Elevated liver enzymes level (422137677) Elevated liver function tests (R79.89) Active confirmed Problem Gallstones (377071981) Gallstones (K80.20) Active confirmed Problem Jaundice (44118607) Jaundice (R17) Active confirmed Problem Elevated liver enzymes level (540293473) Elevated liver function tests (R94.5) Active confirmed Encounters Encounter Location Date Provider Diagnosis [facility] [address] [place] [address] 08/05/2025 Vinod Mosqueda Elevated liver function tests R79.89 and Jaundice R17 [facility] [address] [place] [address] 08/17/2025 Vinod Mosqueda Elevated liver function tests R94.5 [facility] [address] [place] [address] 09/27/2025 Vinod Mosqueda Elevated liver function tests R79.89 [facility] [address] [place] [address] 09/28/2025 Vinod Mosqueda Elevated liver function tests R79.89 [facility] [address] [place] [address] 10/10/2025 Vinod Mosqueda Elevated liver function tests R94.5 [facility] [address] [place] [phone] 10/27/2025 Vinod Mosqueda [facility] [address] [place] [address] 10/29/2025 Vinod Mosqueda [facility] [address] [place] [phone] 11/08/2025 Vinod Mosqueda Elevated liver function tests [...] Elevated liver function tests (ICD-10 - R94.5) 11/08/2025 Elevated liver function tests (ICD-10 - R94.5) Plan Of Treatment Pending Test Test Name Order Date LIVER PROFILE 08/05/2025 LIVER PROFILE 08/17/2025 LIVER PROFILE 09/27/2025 LIVER PROFILE 09/28/2025 LIVER PROFILE 10/10/2025 LIVER PROFILE 11/08/2025 Prothrombin Time INR 08/05/2025 Liver Panel 10/29/2025 Next Appt Details Provider Name:Vinod Mosqueda , 12/17/2025 02:00:00 PM, [address], [address], [place], [address], Insurance Providers Payer Name Payer Address Payer Phone Subscriber Number Group Number Insured Name Patient Relationship to Insured Coverage Start Date Coverage End Date [facility] [address] [address] [place], [place] [id number] DEMETRIS LYNCH Self - patient is the insured
--- OUTSIDE RECORDS SUMMARY | 2025-11-12 10:43 | XMS_ITS | Encounter Summary ---
Author Organization [email or web address] Address [address] [place] [address] Care Team Providers Care Adult Care Provider Name Role Phone Mckay Huang MD Primary Care Provider [phone] Encounter Details Date Type Department Care Team (Late st Contact Info) Description 09/09/2025 Results Follow-Up Adult Medicine [address] [phone] Mckay Huang MD [address] [place] [address] Social History Tobacco Use Types Packs/Day Years [...] Upcoming Encounters Date Type Department Care Team ([facility] st Contact Info) Description 04/26/2026 3:45 PM EDT Office Visit Adult Medicine [address] [phone] Mckay Huang MD [address] [place] [address] documented as of this encounter Visit Diagnoses Not on filedocumented in this encounter Additional Health Concerns Assessment Noted Time PHQ-9 Depression Total Score: 0 03/23/20 25 5:47 PM EDT documented as of this encounter Care Teams Adult Care Provider Relationship Specialty Start Date End Date Mckay Huang MD [address] [place] [address] PCP - General 08/28/05 documented as of this encounter
--- OUTSIDE RECORDS SUMMARY | 2025-11-12 10:43 | XMS_ITS | Clinical Summary ---
Author Organization [facility] Address [address] [place] [phone] Phone Care Team Providers Care Lead Shipper Name Role Phone Mckay Huang MD Primary [...] topic Medical Devices Not on file Insurance [facility] [employer] Member Subscriber Plan / Payer (Ef fective 2023-Present) Name:Ann Anderson Relation to Subscriber:Self Name:Ann Anderson Payer ID:[id number] Group ID:[id number] Type:Medicaid Address: [address] [place] [facility] Care Teams Lead Shipper Relationship Specialty Start Date End Date Mckay Huang MD [address] [place] [phone] PCP - General 07/19/23 Additional Source Comments The information contained in this document represents components of the legal health record. It is not the complete legal health record.[facility]
--- OUTSIDE RECORDS SUMMARY | 2025-11-12 10:43 | XMS_ITS | Clinical Summary ---
Author Organization [address] Address [address] [place] [address] Phone Care Team Providers Care Finishing Frame Runner Name Role Phone Mckay Huang MD Primary Care Provider [phone] Allergies Active Allergy Reactions Criticality Noted Date [...] FOR UP TO 8 DAYS. 4 Active flecainide (TAMBOCOR) 50 mg tablet Take 1 tablet (50 mg total) by mouth every 12 (twelve) hours. 5 Active fluconazole (DIFLUCAN) 150 mg tablet Take 1 tab by mouth now. May repeat in 72 hours if still symptomatic. 2 tablet 5 Active gabapentin (NEURONTIN) 300 mg capsule TAKE 1 CAPSULE (300 MG TOTAL) BY MOUTH 2 TIMES A DAY. 180 capsule 1 5 Active omeprazole (PriLOSEC) [address] capsule TAKE 1 CAPSULE (20 MG TOTAL) BY MOUTH 1 (ONE) TIME EACH DAY BEFORE BREAKFAST. 90 capsule 1 5 Active Synthroid 175 mcg tablet Take 1 tablet (175 mcg total) by mouth 1 (one) time each day. Please do not dispense generic pt has allergy 90 tablet 1 5 10/13/20 26 Active cefuroxime (CEFTIN) 500 mg tablet Take 1 tablet (500 mg total) by mouth 2 (two) times a day for 10 days. 20 each 5 10/29/20 25 fosfomycin (MONUROL) 3 gram packet Take 3 g by mouth 1 (one) time for 1 dose. 1 packet 5 10/20/20 25 Active Problems Problem Noted Date Diagnosed Date Recurrent UTI 10/02/2024 Severe obesity (BMI 35.0-35.9 with comorbidity) 10/02/2024 GERD (gastroesophageal reflux disease) 4 Neuralgia, post-herpetic 09/12/2024 Overview (10/02/2024): 12/22/23: Left forehead/eye, now on gabapentin Paroxysmal atrial fibrillation 09/12/2024 Overview (10/02/2024): [place] [facility] [place] hypothyroidism 2024 Graves' disease 01/12/2023 COVID-19 virus infection 12/23/2020 Overview (10/02/2024): 12/21/20 Mixed hyperlipidemia 01/08/2020 Anxiety 08/29/2016 Cardiac murmur 10/24/2010 Overview (10/02/2024): Cardiac echo and stress test fall 2009 Holter monitor Graves' disease with exophthalmos 01/20/2008 Overview (10/02/2024): S/p 2006 - Dr. 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, director of safety Thyroid antibodies done 12/2010 Elevated thyroid antibodies 01/2011 Maternal consult Resolved Problems Problem Noted Date Diagnosed Date Resolved Date Vaginal odor 11/19/2024 01/19/2025 Bacterial vaginosis 11/19/2024 01/20/20 25 Encounters Date Type Department Care Team Description 10/31/2025 Results Follow-Up [address] [phone] Megan Borrero PA 10/15/2025 9:50 AM EST Lab Draw Station [address] Routine history and physical examination of adult; Urinary urgency; Mixed hyperlipidemia; Post-operative hypothyroidism 10/13/2025 4:00 PM EST Office Visit [address] [phone] Megan Borrero PA Routine history and physical examination of adult (Primary Dx); Mixed hyperlipidemia; Post-operative hypothyroidism; Urinary urgency; Referral of patient 09/09/2025 Results Follow-Up Adult [address] [phone] Mckay Huang MD 09/03/2025 Results Follow-Up [address] [phone] Mckay Huang MD 09/02/2025 10:30 AM EDT Office Visit [address] [phone] Mckay Huang MD Pyelonephritis (Primary Dx); Need for prophylactic vaccination and inoculation against influenza; Recurrent UTI; Drug-induced hepatitis; Calculus of gallbladder with cholecystitis without biliary obstruction, unspecified cholecystitis acuity 09/02/2025 Results Follow-Up [address] [phone] Mckay Huang MD from Last 3 Months [...] 3 PROCEDURE: HISTORICAL APPENDECTOMY VAGINOSCOPY 2004 PROCEDURE: [place] COLPOSCOPY CERVIX BX CERVIX & ENDOCRV CURRETAGE Medical History Medical History Date Comments Graves' disease with exophthalmos 01/20/2008 DX:Graves' disease with exophthalmos Migraine DX:Migraine Recurrent UTI DX:Recurrent UTI ; COMMENT: dr carmona COVID-19 virus infection 12/23/2020 DX:TRUI D-19 virus infection; COMMENT: 12/21/20 Abnormal Pap [...] your loved ones. For example, child welfare caseworker or elderly care for an older adult? [...] Industry Job Start Date Job End Date [employer] Not on file Not on file Not [...] Livin g [employer] in-Spr att Delivery Location:[facility] Comments:A&W 8 Term 38w 0d 3260 g (115 oz) F Vag-S pont Livin g Delivery Location:[facility] 2010 Term 40w 6d 3997 g (141 oz) M Vag-S pont Epidur al Livin g 7 9 [place] Delivery Location:[facility] Comments:A&W Last Filed Vital Signs Vital [...] 3:45 PM EDT Office Visit Adult Medicine [address] [phone] Mckay Huang MD [address] [place] [address] Health Maintenance Due Date Last Done Comments Drug Screen 1982 Non-Opioid Controlled Substance Agreement 1982 Hepatitis B Vaccines (1 of 3 - 19+ 3-dose series) 2001 HPV Vaccines (3 - 3-dose series) 07/28/2007 05/05/2007, 01/06/2007 COVID-19 Vaccine ( season) 2025 11/17/2022, 09/18/2021, 02/23/2021 Breast Cancer [...] resultswithin the time period is included. Specific [facility] Urine 1.015 1.003 - 1.030 LAB URINALYSIS - AUTOMATED METHOD 10/15/2025 12:48 PM [facility] pH, Urine 7.0 5.0 - 8.0 pH LAB URINALYSIS - AUTOMATED METHOD 10/15/2025 12:48 PM [facility] Leukocytes, Urine Moderate(A) Negative LAB URINALYSIS - AUTOMATED METHOD 10/15/2025 12:48 PM [facility] Nitrite, Urine Negative Negative LAB URINALYSIS - AUTOMATED METHOD 10/15/2025 12:48 PM [facility] Protein, Urine Negative <=Trace mg/dL LAB URINALYSIS - AUTOMATED METHOD 10/15/2025 12:48 PM [facility] Glucose, Urine Negative Negative mg/dL LAB URINALYSIS - AUTOMATED METHOD 10/15/2025 12:48 PM [facility] Ketones, Urine Negative Negative mg/dL LAB URINALYSIS - AUTOMATED METHOD 10/15/2025 12:48 PM [facility] Urobilinogen , Urine 0.2 0.2 - 1.0 mg/dL LAB URINALYSIS - AUTOMATED METHOD 10/15/2025 12:48 PM [facility] Bilirubin, Urine Negative Negative LAB URINALYSIS - AUTOMATED METHOD 10/15/2025 12:48 PM [facility] Blood, Urine Negative Negative LAB URINALYSIS - AUTOMATED METHOD 10/15/2025 12:48 PM [facility] RBC, Urine 4 0 - 4 /HPF 10/15/2025 12:48 PM [facility] WBC, Urine 6(H) 0 - 4 /HPF 10/15/2025 12:48 PM [facility] Squamous Epithelial, Urine 10 0 - 60 /LPF 10/15/2025 12:48 PM [facility] Bacteria, Urine Few(A) Negative /HPF 10/15/2025 12:48 PM [facility] Urine Urine specimen obtained by clean catch procedure / Unknown Non-blood Collection / Unknown 10/15/2025 9:56 AM EST 10/15/2025 9:56 AM EST [facility] URINE ORDERABLES Fi nal Result Performing Organization Address City/[facility]/ZIP Co de Phone Number [facility] [address] [place] [address], [place] [phone] * Walker urine culture tube (10/15/2025 9:56 AM EST) Only the most recent of2 resultswithin the time period is included. Extra Tube Hold for add-ons. 10/15/2025 3:01 PM EST [facility] Comment:Auto resulted. Urine Urine specimen obtained by clean catch procedure / Unknown Non-blood Collection / Unknown 10/15/2025 9:56 AM EST 10/15/2025 9:56 AM EST [facility] URINE ORDERABLES Fi nal Result Performing Organization Address [facility] Co de Phone Number [facility] [address] [place] [address], [place] [phone] * Thyroid stimulating hormone with reflex to free t4 and free t3 (10/15/2025 9:56 AM EST) TSH 0.68 0.40 - 4.00 mcIU/mL 10/15/2025 12:46 PM EST [facility] Blood Venous blood specimen / Unknown Venipuncture / Unknown 10/15/2025 9:56 AM EST 10/15/2025 9:56 AM EST [facility] BLOOD ORDERABLES Fi nal Result Performing Organization Address City/[facility]/ZIP Co de Phone Number [facility] [address] [place] [address], [place] [phone] * (ABNORMAL) Lipid panel with reflex to direct LDL (10/15/2025 9:56 AM EST) Cholesterol 191 0 - 200 mg/dL 10/15/2025 12:54 PM EST [facility] Triglycerides 140 0 - 150 mg/dL 10/15/2025 12:54 PM [facility] HDL 61 >=40 mg/dL 10/15/2025 12:54 PM [facility] LDL Calculated 102(H) 0 - 100 mg/dL 10/15/2025 12:54 PM [facility] Comment:Estimated LDL Calcul ated using equation: Total cholesterol - HDL cholesterol - (Triglycerides/5) VLDL Cholesterol Christian 28 mg/dL 10/15/2025 12:54 PM [facility] Non HDL Chol. (LDL+VLDL) 130 <145 mg/dL 10/15/2025 12:54 PM [facility] Chol/HDL Ratio 3.1 0.0 - 4.4 10/15/2025 12:54 PM [facility] Blood Venous blood specimen / Unknown Venipuncture / Unknown 10/15/2025 9:56 AM EST 10/15/2025 9:56 AM EST Megan BADILLO LAB BLOOD ORDERABLES Fi nal Result [facility] [address] [place] [address], [place] [phone] * (ABNORMAL) Complete blood count (10/15/2025 9:56 AM EST) Pathologist [facility] WBC 10.9(H) 4.8 - 10.8 K/[facility] LAB HEMETOLOGY METHOD 10/15/2025 12:20 PM [facility] RBC 4.80 3.80 - 4.80 M/mcL LAB HEMETOLOGY METHOD 10/15/2025 12:20 PM [facility] Hemoglobin 15.1 11.5 - 16.0 g/dL LAB HEMETOLOGY METHOD 10/15/2025 12:20 PM [facility] Hematocrit 46.0 35.0 - 47.0 % LAB HEMETOLOGY METHOD 10/15/2025 12:20 PM [facility] MCV 95.4 79.0 - 98.0 FL LAB HEMETOLOGY METHOD 10/15/2025 12:20 PM [facility] MCH 31.3 27.0 - 32.0 pcg LAB HEMETOLOGY METHOD 10/15/2025 12:20 PM [facility] MCHC 32.8 32.0 - 37.0 g/dL LAB HEMETOLOGY METHOD 10/15/2025 12:20 PM [facility] RDW 12.5 11.0 - 15.0 % LAB HEMETOLOGY METHOD 10/15/2025 12:20 PM [facility] Platelets 212 130 - 400 K/mcL LAB HEMETOLOGY METHOD 10/15/2025 12:20 PM [facility] MPV 9.9 7.0 - 11.0 FL LAB HEMETOLOGY METHOD 10/15/2025 12:20 PM [facility] NRBC 0.0 <1.0 % LAB HEMETOLOGY METHOD 10/15/2025 12:20 PM [facility] NRBC Absolute 0.00 <0.10 K/mcL LAB HEMETOLOGY METHOD 10/15/2025 12:20 PM [facility] Blood Venous blood specimen / Unknown Venipuncture / Unknown 10/15/2025 9:56 AM EST 10/15/2025 9:56 AM EST Megan BADILLO LAB BLOOD ORDERABLES Fi nal Result [facility] [address] [place] [address], * (ABNORMAL) Culture urine (10/15/2025 9:56 AM EST) Only the most recent of3 resultswithin the time period is included. Culture, Urine 10,000-49,000 CFU/mL Escherichia coli(A) BERNA 10/17/2025 8:46 AM EST [facility] Comment: This is an edited result. Previous organism was Gram negative bacilli on 10/16/2025 at 1059 EST. Culture, Urine 10,000-49,000 CFU/mL Streptococcus beta-hemolytic Group B(A) BERNA 10/17/2025 8:46 AM EST [facility] Comment: Beta Streptococcus Group B Susceptibility testing is not routinely performed since this organism is predictably sensitive to Penicillin. Susceptibility testing should be performed for Penicillin-allergic women at HIGH RISK for anaphylaxis. S myrnauld this patient require testing, please contact the Microbiology Department at [phone] within 7 days of receiving this report to request susceptibility. The organism value for this result has been updated. These results have been appended to the previously preliminary verified report. Urine Urine specimen obtained by clean catch procedure / Unknown Non-blood Collection / Unknown 10/15/2025 9:56 AM EST 10/15/2025 12:48 PM EST Narrative [facility] - 10/17/2025 8:46 AM EST Additional [...] Susceptible Megan BADILLO LAB MICROBIOLOGY - GENE RAL ORDERABLES Final Result [facility] [address] [place] [address], [place] [phone] * (ABNORMAL) Comprehensive metabolic panel (10/15/2025 9:56 AM EST) Sodium 138 133 - 145 mmol/L 10/15/2025 1:01 PM [facility] Potassium 3.9 3.5 - 5.5 mmol/L 10/15/2025 1:01 PM [facility] Chloride 101 96 - 110 mmol/L 10/15/2025 1:01 PM [facility] CO2 30 21 - 32 mmol/L 10/15/2025 1:01 PM [facility] Anion Gap 7 3 - 11 10/15/2025 1:01 PM [facility] Glucose 73 70 - 100 mg/dL 10/15/2025 1:01 PM [facility] BUN 15 5 - 25 mg/dL 10/15/2025 1:01 PM [facility] Creatinine 0.68 0.50 - 1.10 mg/dL 10/15/2025 1:01 PM [facility] eGFR 111 >=60 mL/min/1. 73m2 10/15/2025 1:01 PM [facility] Comment:Calculation based on the Chronic Kidney Disease Epidemiology Collaboration (CKD-EPI) equation refit without adjustment for race. BUN/Creatinine Ratio 22.1 10/15/2025 1:01 PM [facility] Calcium 7.9(L) 8.5 - 10.5 mg/dL 10/15/2025 1:01 PM [facility] AST (SGOT) 131(H) 10 - 42 unit/L 10/15/2025 1:01 PM [facility] ALT (SGPT) 154(H) 10 - 60 unit/L 10/15/2025 1:01 PM [facility] Alkaline Phosphatase 110 42 - 121 unit/L 10/15/2025 1:01 PM [facility] Total Protein 5.4(L) 6.0 - 8.0 g/dL 10/15/2025 1:01 PM [facility] Albumin 3.3 3.2 - 5.0 g/dL 10/15/2025 1:01 PM [facility] Total Bilirubin 1.2 0.0 - 1.4 mg/dL 10/15/2025 1:01 PM [facility] Blood Venous blood specimen / Unknown Venipuncture / Unknown 10/15/2025 9:56 AM EST 10/15/2025 9:56 AM EST Megan BADILLO LAB BLOOD ORDERABLES Fi nal Result [facility] [address] [place] [address], * (ABNORMAL) Urinalysis with reflex microscopic (09/02/2025 11:26 AM EDT) Specific [facility] Urine 1.017 1.003 - 1.030 LAB URINALYSIS - AUTOMATED METHOD 09/02/2025 2:10 PM EDT [facility] pH, Urine 6.0 5.0 - 8.0 pH LAB URINALYSIS - AUTOMATED METHOD 09/02/2025 2:10 PM [facility] Leukocytes, Urine Moderate(A) Negative LAB URINALYSIS - AUTOMATED METHOD 09/02/2025 2:10 PM [facility] Nitrite, Urine Negative Negative LAB URINALYSIS - AUTOMATED METHOD 09/02/2025 2:10 PM [facility] Protein, Urine Negative <=Trace mg/dL LAB URINALYSIS - AUTOMATED METHOD 09/02/2025 2:10 PM [facility] Glucose, Urine Negative Negative mg/dL LAB URINALYSIS - AUTOMATED METHOD 09/02/2025 2:10 PM [facility] Ketones, Urine Negative Negative mg/dL LAB URINALYSIS - AUTOMATED METHOD 09/02/2025 2:10 PM [facility] Urobilinogen , Urine 1.0 0.2 - 1.0 mg/dL LAB URINALYSIS - AUTOMATED METHOD 09/02/2025 2:10 PM [facility] Bilirubin, Urine Small(A) Negative LAB URINALYSIS - AUTOMATED METHOD 09/02/2025 2:10 PM [facility] Blood, Urine Large(A) Negative LAB URINALYSIS - AUTOMATED METHOD 09/02/2025 2:10 PM [facility] RBC, Urine 4.0 0 - 4 /HPF LAB URINALYSIS - AUTOMATED METHOD 09/02/2025 2:10 PM [facility] WBC, Urine 7.4(H) 0 - 4 /HPF LAB URINALYSIS - AUTOMATED METHOD 09/02/2025 2:10 PM [facility] Squamous Epithelial, Urine >100(H) 0 - 60 /LPF LAB URINALYSIS - AUTOMATED METHOD 09/02/2025 2:10 PM [facility] Bacteria, Urine Many(A) Negative /HPF LAB URINALYSIS - AUTOMATED METHOD 09/02/2025 2:10 PM EDT [facility] Hyaline Casts, Urine 3.0 0 - 3 /LPF LAB URINALYSIS - AUTOMATED METHOD 09/02/2025 2:10 PM EDT [facility] Urine Urine specimen obtained by clean catch procedure / Unknown Non-blood Collection / Unknown 09/02/2025 11:26 AM EDT 09/02/2025 11:26 AM EDT us Mckay Huang MD LAB URINE ORDERABLES Final Resu lt [facility] [address] [place] [address], * External clinical lab (08/27/2025) us Provider [facility] LAB BLOOD ORDERABLES Fin [...] in 6 months. BI-RADS 3-probably benign [facility] [address] [place] [id number] Procedure Note Isa Espino MD - 09/19/2024 [...] follow-up in 6 months. BI-RADS 3-probably benign [facility] [address], [place] [id number] Megan BADILLO IMG BI PROCEDURES Final Result * Cervical Cancer Screening: HPV (09/03/2023) Cervical Cancer Screening: HPV negative, abstracted Historical Provider HEALTH MAINTENANCE Final Result * HIV Screening (10/23/2010) HIV Screening abstracted Historical Provider HEALTH MAINTENANCE Final Result from Last 3 Months or Most Recently Relevant to Health Maintenance Insurance [facility] Care Teams Finishing Frame Runner Relationship Specialty Start Date End Date Mckay Huang MD [address] [place] [phone] PCP - General 08/28/05
--- OUTSIDE RECORDS SUMMARY | 2025-11-12 10:43 | XMS_ITS | Data Portability ---
Author Organization [facility], [address] Address [address] [place] [address] Care Team Providers Care Gore Maker Name Role Phone [facility] Primary Care Provide r Assessment No assessment recorded. Plan of Treatment Reminders Order Date Submit Date Provider Last Modified By Organization Details Last Modified Time Details Appointments None recorded. Lab urinalysis, dipstick 2022 023 jose alejandro _[facility], [address] [place] [address], [phone], 3 08:35:47 test, urine [address] [place] [address], [address] [place] [address], [phone], 3 08:35:47 culture, urine 2022 023 [facility], [address] [place] [address], [place], [address], 3 10:06:11 Referral None recorded. Procedures None recorded. Surgeries None recorded. Imaging None recorded. Medication Orders cephalexin 500 mg capsule 2022 023 [email or web address] [id number], [address] [facility], [place], [address], 09:10:47 Patient TargetsNo targets recorded. Patient Instructions Encounter Date Encounter Id Patient Instructions Last Modified By Organization Details Last Modified Time 01/12/2023 [id number] We recommend you get a repeat urinalysis [...] routine FINAL REPORT Not Available [facility] ([facility]) [address] [place], [address], 01/14/2023 10:06:11 01/12/20 23 01/14/2023 URINE CULTU RE, ROUTI NE result 1 COMMEN T Cultu re shows less than 10,00 0 colon y formi ng units of bacte adalgisa per lon liter of urine . This colon y count is not gener ally consi dered to be clini tyson signi fican t. Not Available [facility] ([facility]) [address] [place], [address], 01/14/2023 10:06:11 01/12/20 23 01/12/2023 pregn sylvester test, urine Unknown Analyte Normal = Negati ve Not Available _vance barreto [address], [address], 01/12/2023 08:10:58 01/12/20 23 01/12/2023 pregn sylvester test, urine Unknown Analyte negati ve Not Available vance [address] [place], [address], 01/12/2023 08:10:58 01/12/20 23 01/12/2023 urina lysis , dipst ick Unknown Analyte Normal = light yellow Not Available 2099vance barreto [address], [place], [address], 01/12/2023 08:10:58 01/12/2001/12/2023 urina lysis , dipst ick Unknown Analyte Normal = clear Not Available [facility] [address], [place], [address], 01/12/2023 08:10:58 01/12/20 23 01/12/2023 urina lysis , dipst ick Unknown Analyte Normal = negati ve Not Available [facility] [address], [place], [address], 01/12/2023 08:10:58 01/12/20 23 01/12/2023 urina lysis , dipst ick Unknown Analyte Normal = Negati ve Not Available 2099vance barreto [address], [place], [address], 01/12/2023 08:10:58 01/12/20 23 01/12/2023 urina lysis , dipst ick Unknown Analyte Normal = Negati ve Not Available vance barreto [address], [place], [address], 01/12/2023 08:10:58 01/12/20 23 01/12/2023 urina lysis , dipst ick Unknown Analyte Normal = 1.010, 1.015, 1.020 Not Available 2099vance barreto [address], [place], [address], 01/12/2023 08:10:58 01/12/20 23 01/12/2023 urina lysis , dipst ick Unknown Analyte Normal = Negati ve Not Available vance [address], [place], [place], [address], 01/12/2023 08:10:58 01/12/20 23 01/12/2023 urina lysis , dipst ick Unknown Analyte Normal = 6.5, 7.0, 7.5, 8.0 Not Available [facility] [address], [place], [address], 01/12/2023 08:10:58 01/12/2001/12/2023 urina lysis , dipst ick Unknown Analyte Normal = Negati ve Not Available [facility] [address], [place], [address], 01/12/2023 08:10:58 01/12/20 23 01/12/2023 urina lysis , dipst ick Unknown Analyte Normal = Negati ve Not Available [facility] [address], [place], [address], 01/12/2023 08:10:58 01/12/20 23 01/12/2023 urina lysis , dipst ick Unknown Analyte Normal = 0.2, 1.0 Not Available [facility] [address], [place], [address], 01/12/2023 08:10:58 01/12/20 23 01/12/2023 urina lysis , dipst ick Unknown Analyte Normal = Negati ve Not Available [facility] [address], [place], [address], 01/12/2023 08:10:58 01/12/20 23 01/12/2023 urina lysis , dipst ick Unknown Analyte Yellow Not Available [address] [place] [address], [place], [address], 01/12/2023 08:10:58 01/12/20 23 01/12/2023 urina lysis , dipst ick Unknown Analyte Slight ly Cloudy Not Available vance barreto [address], [place], [address], 01/12/2023 08:10:58 01/12/20 23 01/12/2023 urina lysis , dipst ick Unknown Analyte Negati ve Not Available vance barreto [address], [place], [address], 01/12/2023 08:10:58 01/12/20 23 01/12/2023 urina lysis , dipst ick Unknown Analyte Negati ve Not Available vance barreto [address], [place], [address], 01/12/2023 08:10:58 01/12/20 23 01/12/2023 urina lysis , dipst ick Unknown Analyte Negati ve Not Available vance barreto [address], [place], [address], 01/12/2023 08:10:58 01/12/20 23 01/12/2023 urina lysis , dipst ick Unknown Analyte 1.020 Not Available jimmy [address], [place], [address], 01/12/2023 08:10:58 01/12/20 23 01/12/2023 urina lysis , dipst ick Unknown Analyte Trace- intact Not Available vance barreto [address], [place], [address], 01/12/2023 08:10:58 01/12/20 23 01/12/2023 urina lysis , dipst ick Unknown Analyte 6.5 Not Available [facility] [address], [place], [address], 01/12/2023 08:10:58 01/12/2001/12/2023 urina lysis , dipst ick Unknown Analyte Negati ve Not Available [facility] [address] [place], [address], 01/12/2023 08:10:58 01/12/2001/12/2023 urina lysis , dipst ick Unknown Analyte 0.2 E.U./d L Not Available [facility] [address] [place], [address], 01/12/2023 08:10:58 01/12/2001/12/2023 urina lysis , dipst ick Unknown Analyte Negati ve Not Available [facility] [address] [place], [address], 01/12/2023 08:10:58 01/12/2001/12/2023 urina lysis , dipst ick Unknown Analyte Trace Not Available [facility] jimmy [address] [place], [address], 01/12/2023 08:10:58 Result Notes None recorded. Problems Name Problem SNOMED Code Status Onset Date Resolution Date Notes Provider Name and Address Organization Details Recorded Time Graves' disease 799314742 Active 2022 RAINER ISAAC null, PA - [facility] 3 08:14:40 Anxiety 50730394 Active 2022 RAINER ISAAC null, PA - [facility] 3 08:14:48 Gastroesophage al reflux disease 414869054 Active 2022 RAINER ISAAC null, PA - [...] null, PA - [facility] 3 08:12:32 946827 Substance with sulfonami de structure and antibacte rial mechanism of action (substanc e) medicatio n hives Not available Not available 01/12/2023 47938 8003 SNOMED RAINER ISAAC null, PA - [facility] 3 08:12:43 105713 morphine medicatio n Not available Not available Not available 01/12/2023 7052 RxNorm RAINER ISAAC null, PA - [facility] 3 08:12:53 989267 Product containin g penicilli n (product) medicatio n Not available Not available Not available 01/12/2023 66475 8001 SNOMED RAINER ISAAC null, PA - [facility] 3 08:13:56 545189 Cipro medicatio n Not available Not available Not available 01/12/2023 85779 3 RxNorm RAINER ISAAC null, PA - [facility] 3 08:14:05 510858 naproxen medicatio n Not available Not available Not available 01/12/2023 7258 RxNorm RAINER ISAAC null, PA - [facility] 3 08:14:10 901830 Macrobid medicatio n Not available Not available Not available 01/12/2023 85194 1 RxNorm RAINER ISAAC null, PA - [facility] 3 08:14:16 867997 doxycycli ne Not available Not available Not [...] Updated DateTime 3 180.34 cm 34.2 kg/m2 404838. 13 g 99 % 96 /min 16 [...] ICD10 Code Diagnosis IMO Codes Diagnosis Note [id number] [facility] [address] [address] 02/23/2022 17:04:40 02/23/2022 19:07:48 [id number] [facility] [address] [address] 03/21/2021 09:16:37 03/21/2021 11:21:10 [id number] John Cook [place] [address] [place] [address] [address] 01/12/2023 08:06:02 01/12/2023 08:46:40 Acute urinary tract infection 600406819 N39.0 Allergic to all antibiotic s except keflex per patient. Health Concerns Section Related Observation LastModified by Organization Detai ls LastModified Time None Recorded Concern Status LastModified by Organization Details LastModified Time None Recorded Advance Directives Directive None Recorded Payers Insurance Date Sequence Insurance Name Policy Number Policy Hogan Covered Member ID Hogan Member ID Guarantor Name 01/12/2023 1 [facility] - [employer] [place] (MEDICAID REPLACEMENT - HMO) TERRELL Juarez Bri Anderson [id number] Ann Anderson Notes Date Note Type Note [...] or bladder issues. John Cook NP [address] [place], [address], [place] - [facility] 01/12/2023 09:11:09 OBGyn Episode No OBEpisode recorded.
--- OUTSIDE RECORDS SUMMARY | 2025-11-12 10:43 | XMS_ITS | Encounter Summary ---
Author Organization [facility] Address [address] [place] [address] Care Team Providers Care College Professor Name Role Phone Mckay Huang MD Primary Care Provider [phone] Encounter Details Date Type Department Care Team (Late st Contact Info) Description 07/16/2025 Lab Requisition [facility] [address] [facility] [place] [address] Sivan Kasper MD [address] [place], [place] [phone] Dysuria Social History Tobacco Use Types Packs/Day [...] Upcoming Encounters Date Type Department Care Team ([facility] st Contact Info) Description 04/26/2026 3:45 PM EDT Office Visit Adult Medicine [address] [address] Mckay Huang MD [address] [place] [address] documented as of this encounter Procedures Procedure Name Priority Date/Time Associated Diagnosis Comments URINALYSIS WITH REFLEX MICROSCOPIC Routine 07/16/2025 11:40 AM EDT Dysuria URINALYSIS WITH REFLEX MICROSCOPIC Routine 07/16/2025 11:40 AM EDT Dysuria CULTURE URINE Routine 07/16/2025 11:40 AM EDT Dysuria documented in this encounter Results * (ABNORMAL) Urinalysis with reflex microscopic (07/16/2025 11:40 AM EDT) Specific [place] Urine 1.021 1.003 - 1.030 LAB URINALYSIS - AUTOMATED METHOD 07/16/2025 6:43 PM [facility] pH, Urine 6.5 5.0 - 8.0 pH LAB URINALYSIS - AUTOMATED METHOD 07/16/2025 6:43 PM [facility] Leukocytes, Urine Trace(A) Negative LAB URINALYSIS - AUTOMATED METHOD 07/16/2025 6:43 PM [facility] Nitrite, Urine Negative Negative LAB URINALYSIS - AUTOMATED METHOD 07/16/2025 6:43 PM [facility] Protein, Urine Negative <=Trace mg/dL LAB URINALYSIS - AUTOMATED METHOD 07/16/2025 6:43 PM [facility] Glucose, Urine Negative Negative mg/dL LAB URINALYSIS - AUTOMATED METHOD 07/16/2025 6:43 PM [facility] Ketones, Urine Negative Negative mg/dL LAB URINALYSIS - AUTOMATED METHOD 07/16/2025 6:43 PM [facility] Urobilinogen, Urine 1.0 0.2 - 1.0 mg/dL LAB URINALYSIS - AUTOMATED METHOD 07/16/2025 6:43 PM EDT [facility] Bilirubin, Urine Small(A) Negative LAB URINALYSIS - AUTOMATED METHOD 07/16/2025 6:43 PM EDT [facility] Blood, Urine Large(A) Negative LAB URINALYSIS - AUTOMATED METHOD 07/16/2025 6:43 PM EDT [facility] RBC, Urine 168.0(H) 0 - 4 /HPF LAB URINALYSIS - AUTOMATED METHOD 07/16/2025 6:43 PM EDT [facility] WBC, Urine 1.7 0 - 4 /HPF LAB URINALYSIS - AUTOMATED METHOD 07/16/2025 6:43 PM EDT [facility] Squamous Epithelial, Urine 56 0 - 60 /LPF LAB URINALYSIS - AUTOMATED METHOD 07/16/2025 6:43 PM EDT [facility] Bacteria, Urine Negative Negative /HPF LAB URINALYSIS - AUTOMATED METHOD 07/16/2025 6:43 PM EDT [facility] Hyaline Casts, Urine 6.8(H) 0 - 3 /LPF LAB URINALYSIS - AUTOMATED METHOD 07/16/2025 6:43 PM EDT [facility] Urine Urine specimen from urethra / Unknown 07/16/2025 11:40 AM EDT 07/16/2025 5:56 PM EDT us Sivan Kasper MD LAB URINE ORDERABLES Fin al Result [facility] [address] [place] [address], * (ABNORMAL) Culture urine (07/16/2025 11:40 AM EDT) Culture, Urine 10,000-49,000 CFU/mL Escherichia coli(A) BERNA 07/18/2025 11:31 AM EDT [facility] Urine Urine specimen from [...] Susceptible Sivan Kasper MD LAB MICROBIOLOGY - [facility] AL ORDERABLES Final Result Performing Organization Address City/State/[facility] Co de Phone Number [facility] [address] [place] [address], documented in this encounter Visit Diagnoses Diagnosis Dysuria documented in this encounter Additional Health Concerns Assessment Noted Time PHQ-9 Depression Total Score: 0 03/23/20 25 5:47 PM EDT documented as of this encounter Care Teams College Professor Relationship Specialty Start Date End Date Mckay Huang MD [address] [place] [phone] PCP - General 08/28/05 documented as of this encounter
[2025-11-12 11:39] LABS: Alanine Aminotransferase 89 U/L (0-31); Albumin Level 3.6 g/dL (3.5-5.0); Alkaline Phosphatase 104 U/L (39-117); Aspartate Amino Transferase 94 U/L (5-31); Total Protein 6.8 g/dL (6.5-8.0)
== END 2025-11-12 10:40 | disposition home or self-care (01) ==
LOC: HO.LAB 10:39
PROVIDERS: PCP Internal Medicine; Visit Provider Internal Medicine
DX: R94.5 Abnormal results of liver function studies (principal)
CPT/HCPCS: 36415; 80076